=== PATIENT | female | born 1945 | race Caucasian/White ===

== ENCOUNTER → 2020-01-02 10:26 | Outpatient (CLI) | payer MEDICARE, OTHER, SELFPAY ==
--- NOTE | ~2020-01-02 | XR_ITS ---
EXAMINATION:XR cervical spine 4-5V DATE: 01/02/2020 11:22 INDICATION: Neck pain TECHNIQUE: AP, lateral,, bilateral oblique, lateral swimmers and odontoid views of the cervical spine are provided. COMPARISON: 01/18/2013 FINDINGS: There are 2 mm of anterolisthesis of L3 on L4 and L4 on L5. There our 2 mm of retrolisthesi s of L5 on L6. The odontoid is intact. No fracture is identified. The vertebral body heights are main tained. There is moderate to severe loss of intervertebral disc space height at C5-6. There is modera te to severe facet and uncovertebral joint osteoarthritis in the mid and lower cervical spine. Prever tebral soft tissues are normal. IMPRESSION: 1. Moderate to severe cervical spondylosis without acute findings. Reviewed, dictated and finalized at location A.
--- NOTE | ~2020-01-02 | MR_ITS ---
EXAMINATION: MR cervical spine wo con EXAM DATE: 01/02/2020 11:12 INDICATION: Neck pain, bilateral shoulder and arm pain and numbness and tingling and burning. TECHNIQUE: Multi-sequential, multiplanar MR images of the cervical spine were obtained without contra st. Axial T2, axial T2 MERGE sequence. Sagittal T1, T2, T2 fat saturation images also obtained. Com parison is made to prior examination from 01/23/2013. FINDINGS: There is moderate disc disease at C5-6, mild at C3-4, 4-5 and 6-7. There is 2 mm anterolis thesis C3 on C4 and C4 on C5. There is 2 mm retrolisthesis C5 on C6. The spinal cord signal intensity and intrinsic morphology is normal. Cervicomedullary junction is normal in appearance. There are no suspicious marrow signal abnormalities. Paraspinal soft tissue is unremarkable. Level by level evaluation: C2-C3: Disc does not extend beyond the endplate margin. Uncovertebral joint arthropathy: None. Facet joint arthropathy: Fused. Neural foraminal stenosis: No stenosis. Central canal stenosis: No stenosis. C3-C4: Disc does not extend beyond the endplate margin. Uncovertebral joint arthropathy: Mild left. Facet joint arthropathy: Moderate bilateral. Neural foraminal stenosis: Moderate left, mild right. Central canal stenosis: No stenosis. C4-C5: There is a minimal diffuse disc bulge. Uncovertebral joint arthropathy: Mild to moderate bilateral. Facet joint arthropathy: Moderate left, mild to moderate right. Neural foraminal stenosis: Mild to moderate left, mild right. Central canal stenosis: No stenosis. C5-C6: There is a mild to moderate diffuse disc bulge. Uncovertebral joint arthropathy: Moderate to severe left, moderate right. Facet joint arthropathy: Moderate bilateral. Neural foraminal stenosis: Severe left, moderate to severe right. Central canal stenosis: Mild. C6-C7: There is a mild diffuse disc bulge. Uncovertebral joint arthropathy: Mild to moderate bilateral. Facet joint arthropathy: Mild to moderate bilateral. Neural foraminal stenosis: No stenosis. Central canal stenosis: Mild. C7-T1: There is a minimal diffuse disc bulge. Uncovertebral joint arthropathy: Mild to moderate bilateral. Facet joint arthropathy: Mild bilateral. Neural foraminal stenosis: Mild left. Central canal stenosis: No stenosis. Progression in spondylosis compared to 2013. IMPRESSION: Spondylosis most advanced at C5-6 with significant neural foraminal stenosis. Reviewed, dictated and finalized at location B.
== END ==
PROVIDERS: PCP Family Medicine; Visit Provider Nurse Practitioner Adult Health
DX: M54.12 Radiculopathy, cervical region (principal); M47.22 Other spondylosis with radiculopathy, cervical region
CPT/HCPCS: 72050; 72141

== ENCOUNTER 2020-07-31 12:34 | Outpatient (CLI) | payer MEDICARE, OTHER, SELFPAY ==
--- NOTE | ~2020-07-31 | CT_ITS ---
EXAMINATION: CT abdomen pelvis wo/w con DATE: 07/31/2020 13:08 INDICATION: Renal mass TECHNIQUE: Computed tomography (CT) of the abdomen and pelvis was performed without and with 100 mL O mnipaque-350 intravenous contrast utilizing a standard renal mass protocol. Automated exposure contro l and iterative reconstruction technique were employed. The dose-length product was 853.42 mGy-cm. COMPARISON: 07/12/2019 FINDINGS: Mild bronchiectasis in the bilateral lower lungs which are otherwise clear. Heart size is normal. Ath erosclerotic coronary artery calcification is. No pericardial or pleural effusion. Gallbladder is not visualized and likely surgically absent. Liver, spleen, pancreas and bilateral adrenal glands are no rmal. No interval change in a 1.8 x 1.6 cm enhancing mass at the upper pole of the left kidney with identic al corresponding measurements on the prior study. Also unchanged is a 7 mm low-attenuation lesion at the upper pole of the left kidney and a couple smaller low-attenuation lesion at the lower pole of th e right kidney which likely represent renal cysts but remain too small to definitively characterize. Bladder and bilateral adnexa are unremarkable. A couple small enhancing uterine fibroids the larger m easuring 1.4 cm. Bowels are unremarkable with no wall thickening or obstruction. The appendix is not visualized. No pericecal inflammatory change to suggest acute appendicitis. Postoperative changes mariano ng the anterior abdominal wall including a ventral umbilical hernia mesh repair. Small fat-containing left inguinal hernia. No free intraperitoneal gas or fluid. No pathologically enlarged abdominal or pelvic lymphadenopathy. Chronic L1 compression fracture with 20% anterior vertebral body height loss. Severe lower lumbar spondylosis. IMPRESSION: 1. No interval change in a 1.8 x 1.6 cm enhancing left renal mass consistent with renal cell carcinom a. No evident metastatic disease. 2. Mild bronchiectasis. 3. A couple small uterine fibroids. Reviewed, dictated and finalized at location A. ER BLOWER IMPRESSION: 1. No interval change in a 1.8 x 1.6 cm enhancing left renal mass consistent wi th renal cell carcinoma. No evident metastatic disease. 2. Mild bronchiectasis. 3. A couple small uterine fibroids.
[2020-07-31 12:58] LABS: Estimated Glomerular Filt Rate > 60
== END 2020-07-31 12:35 | disposition home or self-care (01) ==
LOC: ANHIMG 12:37
PROVIDERS: PCP Family Medicine; Visit Provider Urology
DX: N28.89 Other specified disorders of kidney and ureter (principal); J47.9 Bronchiectasis, uncomplicated; D25.9 Leiomyoma of uterus, unspecified
CPT/HCPCS: 74178; Q9967

== ENCOUNTER 2022-01-19 08:07 | Outpatient (CLI) | payer MEDICARE, OTHER, SELFPAY ==
--- NOTE | ~2022-01-19 | CT_ITS ---
EXAMINATION: CT abdomen pelvis wo/w con DATE: 01/19/2022 08:27 INDICATION: Renal mass TECHNIQUE: Computed tomography (CT) of the abdomen and pelvis was performed without intravenous contr ast. Automated exposure control and iterative reconstruction technique were employed. Exam dose: 124 3.94 mGy-cm total exam DLP. COMPARISON: None. FINDINGS: Normal heart size. No pericardial or pleural effusion. The lung bases are clear. The gallbladder is absent. No bile duct or pancreatic duct dilatation. No hepatic, pancreatic, spleni c or adrenal space-occupying mass lesion. Medial upper pole contrast enhancing left renal mass lesion currently measures approximately 20.7 x 2 0.5 mm maximal dimension compared to 17.5 x 17.2 mm dimension on 07/31/2020, consistent with enlarging soft tissue mass, likely hypernephroma. Stable 6.7 mm upper pole left renal cyst. Stable lower pole approximately 6 mm right renal cyst. No urinary tract calculus or hydroureteronephrosis. No apparent left renal or IVC mass. There is atherosclerotic calcification but normal caliber of the abdominal aorta. No intraperitoneal or retroperitoneal or pelvic mass lesion or adenopathy or ascites is noted otherwise. The urinary bladder, uterus and adnexal areas are unremarkable other than some probable small uterine fibroids. No bowel obstruction or intraperitoneal free air. The appendix is likely surgically absent. Severe degenerative disc disease at L5-S1 with posterior disc bulging. There is degenerative change at the apophyseal joints with associated grade 1 anterolisthesis at L4-5 . Moderately prominent anterior wedge compression fracture deformity of L1, likely chronic. IMPRESSION: Interval enlargement of left renal mass consistent with 20.7 x 20.5 mm hypernephroma Reviewed, dictated and finalized at Location A. Reviewed, dictated and finalized at location A. IMPRESSION: Interval enlargement of left renal mass consistent with 20.7 x 20. 5 mm hypernephroma
== END 2022-01-19 08:08 | disposition home or self-care (01) ==
LOC: ANHIMG 08:07
PROVIDERS: PCP Family Medicine; Visit Provider Urology
DX: N28.89 Other specified disorders of kidney and ureter (principal); M47.817 Spondylosis without myelopathy or radiculopathy, lumbosacral region
CPT/HCPCS: 74178; Q9967

== ENCOUNTER 2022-02-23 09:08 | Outpatient (CLI) | payer MEDICARE, OTHER, SELFPAY ==
--- NOTE | ~2022-02-23 | MM_ITS ---
EXAMINATION: MM screening negrito BI w alexei HISTORY: Screening mammogram TECHNIQUE: Craniocaudal and mediolateral oblique 3-D tomosynthesis images were obtained and synthetic 2-D images were generated. CAD analysis was submitted and interpreted. COMPARISON: 06/2018, 03/06/2017 bilateral screening mammogram examinations BREAST PARENCHYMAL COMPOSITION: FINDINGS: There is no evidence of suspicious mass, calcification, or architectural distortion to sugg est malignancy in either breast. There has been no suspicious interval change. IMPRESSION: 1. No mammographic evidence of malignancy. 2. Recommend routine screening mammography in one year. BI-RADS Category 1: Negative Reviewed, dictated and finalized at location A.
== END 2022-02-23 09:09 | disposition home or self-care (01) ==
PROVIDERS: PCP Family Medicine; Visit Provider Family Medicine
DX: Z12.31 Encounter for screening mammogram for malignant neoplasm of breast (principal)
CPT/HCPCS: 77063; 77067

== ENCOUNTER 2022-06-27 10:40 | Outpatient (CLI) | payer MEDICARE, OTHER, SELFPAY ==
--- NOTE | 2022-06-27 11:15 | ECG_ITS ---
Measurements Intervals [place] Rate: 62 P: 40 RI: 157 QRS: -19 QRSD: 90 T: 5 QT: 358 QTc: 366 Interpretive Statements SINUS RHYTHM NONSPECIFIC T-WAVE ABNORMALITY ABNORMAL ECG NO PREVIOUS ECG AVAILABLE FOR COMPARISON Electronically Signed On 06-27-2022 12:30:18 PROJECT PROGRAM MANAGER by Russell Carroll M.D.
== END 2022-06-27 10:41 | disposition home or self-care (01) ==
PROVIDERS: PCP Family Medicine; Visit Provider Nurse Practitioner Family
DX: D50.9 Iron deficiency anemia, unspecified (principal); I10 Essential (primary) hypertension; R94.31 Abnormal electrocardiogram [ECG] [EKG]
CPT/HCPCS: 93005

== ENCOUNTER 2022-06-29 00:29 | Day surgery (SDC) | payer MEDICARE, OTHER, SELFPAY ==
[2022-06-20 14:12] VITALS: BMI 30.1
[2022-06-29 12:10] VITALS: BP 173/105; PULSE 86; TEMP 36.3; O2SAT 97; BMI 28.3
[2022-06-29] MEDS: LACTATED RINGERS 1,000 ML 150 ML IV CONT (12:14)
--- NOTE | 2022-06-29 12:47 | WPDANESEPPF ---
Anes - Initial Pre Proc Eval Procedure: Operation Date: 06/29/22 13:30 Proposed Procedures p Esophagogastroduodenoscopy & Colonoscopy - Artemio Saenz MD Date/Time: 06/29/22 12:47 Surgeon: Artemio Saenz MD Pre Op Diagnosis: gerd, iron deficiency anemia Patient Data Age: 77 Gender: F Height: 1.52 m Weight: 65.8 kg Last Vital Signs Temp 36.3 C L 06/29/22 12:10 Pulse 86 06/29/22 12:10 BP 173/105 H 06/29/22 12:10 Pulse Ox 97 06/29/22 12:10 O2 Del Method Room Air 06/29/22 12:10 Allergies Allergy/AdvReac Type Severity Reaction Status Date / Time codeine AdvReac Intermediate Nausea Verified 06/29/22 12:07 Home Medications Medication Instructions Recorded Confirmed Type alprazolam 0.5 mg tablet 0.5 mg PO DAILY PRN anxiety #30 06/20/21 06/27/22 Rx tabs gabapentin 300 mg capsule See Rx Instructions .Route 06/24/21 06/29/22 Rx .COMPLEX #270 caps roflumilast 500 mcg tablet 500 mcg PO DAILY #90 tabs 11/17/21 06/29/22 Rx (Daliresp) montelukast 10 mg tablet 10 mg PO DAILY #90 tabs 01/05/22 06/29/22 Rx celecoxib 200 mg capsule See Rx Instructions .Route 01/13/22 06/27/22 Rx .COMPLEX #180 caps budesonide 160 mcg-glycopyr 9 2 inh inhalation BID 01/17/22 06/27/22 History mcg-formot 4.8 mcg/actuation HFA inhaler (Breztri Aerosphere) ipratropium bromide 42 mcg (0.06 1 spray intranasal DAILY 01/17/22 06/27/22 History %) nasal spray esomeprazole magnesium 40 mg See Rx Instructions .Route 04/11/22 06/29/22 Rx capsule,delayed release .COMPLEX #90 caps fluticasone propionate 50 See Rx Instructions .Route 05/02/22 06/27/22 Rx mcg/actuation nasal .COMPLEX #48 grams spray,suspension cetirizine 10 mg capsule (All Day 10 mg PO DAILY PRN allergies 05/27/22 06/27/22 History Allergy (cetirizine)) cholecalciferol (vitamin D3) 125 125 mcg PO DAILY 05/27/22 06/29/22 History mcg (5,000 unit) tablet docusate sodium 50 mg capsule 50 mg PO DAILY 05/27/22 06/29/22 History epinephrine 0.3 mg/0.3 mL 0.3 mg IM ONCE 05/27/22 06/27/22 History injection, auto-injector tizanidine 2 mg capsule 2 mg PO TID PRN muscle spasms 05/27/22 06/29/22 History atorvastatin 40 mg tablet See Rx Instructions .Route 05/30/22 06/29/22 Rx .COMPLEX #90 tabs Cbd/Thc 25 mg PO HS 06/20/22 06/27/22 History Lactobacillus 1 cap PO DAILY 06/20/22 06/29/22 History acidophilus-Bifidobac.animalis 2.5 billion cell capsule (Daily Probiotic) albuterol sulfate 90 mcg/actuation 2 inh inhalation Q4H PRN SOB 06/20/22 06/27/22 History aerosol inhaler (Ventolin HFA) amlodipine 10 mg tablet See Rx Instructions .Route 06/20/22 06/29/22 Rx .COMPLEX #90 tabs amoxicillin 500 mg capsule See Rx Instructions .Route .COMPLEX 06/20/22 06/27/22 History formoterol fumarate 20 mcg/2 mL 20 mcg inhalation ONCE 06/20/22 06/27/22 History solution for nebulization (Perforomist) guaifenesin 600 mg tablet, 1,200 mg PO DAILY 06/20/22 06/27/22 History extended release 12 hr (Mucinex) immun glob G 10 See Rx Instructions .Route .COMPLEX 06/20/22 06/27/22 History gram/50mL(20%)-gly-IgA over 50 mcg/mL subcutaneous lata (Cuvitru) revefenacin 175 mcg/3 mL solution 175 mcg inhalation DAILY 06/20/22 06/27/22 History for nebulization (Yupelri) tramadol 50 mg tablet 50 mg PO Q6H PRN Pain 06/20/22 06/27/22 History citalopram 20 mg tablet See Rx Instructions .Route 06/23/22 06/27/22 Rx .COMPLEX #90 tabs clonidine HCl 0.1 mg tablet 0.1 mg PO DAILY #90 tabs 06/27/22 06/27/22 Rx Patient hx anesthesia problems: none Family hx anesthesia problems: none Results Review: All pre-operative results and documents have been reviewed as part of the pre-operative evaluation. [facility] Past Medical History Medical History BMI 27.0-27.9,adult BMI 29.0-29.9,adult BMI 30.0-30.9,adult Surgical History Surgical History (Reviewed 06/29/22
--- NOTE | 2022-06-29 12:52 | PM.HPGS ---
History of Present Illness History of Present Illness Consent: Risks, benefits, and alternatives have been discussed and questions answered. Patient agrees to proceed with procedure. Chief complaint: gerd, iron deficiency anemia Narrative: Nolvia Gilliam is a 77 year old female with carlie, she had scopes but almost 15 years ago, using nexium because gerd Review of Systems Constitutional: Constitutional: Reports fatigue and Reports headache(s) Eyes: Eyes: Denies blurry vision ENT: Reports Normal hearing present, Denies headache(s) and Denies neck pain Cardiovascular: Cardiovascular: Denies chest pain and Denies dyspnea Respiratory: Respiratory: Denies dyspnea Gastrointestinal: Gastrointestinal: Reports no additional gastrointestinal complaints Genitourinary: Genitourinary: Denies dysuria Musculoskeletal: Musculoskeletal: Reports neck pain Integumentary/Breasts: Skin/Breast: Denies dry skin Neurologic: Reports Normal hearing present and Reports headache(s) Psychiatric: Psychiatric: Denies anxiety Endocrine: Endocrine: Denies change in body appearance Hematologic/Lymphatic: Hematologic/Lymphatic: Denies easy bleeding Allergic/Immunologic: Allergic/Immunologic: Denies urticaria PMFSH Past Medical History Medical History BMI 27.0-27.9,adult BMI 29.0-29.9,adult BMI 30.0-30.9,adult Surgical History Surgical History H/O colonoscopy Status post cryoablation Family History Family History Father Hypertension Family history of diabetes mellitus in first degree relative Mother Family history of coronary artery disease Heart disease Sibling Diabetes mellitus Other Cerebrovascular accident Family history of arthritis Family history of cardiovascular disease Family history of lung cancer Family history of pancreatic cancer Family history of primary malignant neoplasm of liver Social History Social History Years smoked: 15 Smoking status: Former smoker Tobacco type: cigarettes Second hand tobacco smoke exposure: Yes Alcohol intake: current Substance use: current Substance use type: marijuana Other substance usage details: CBD at night Lack of Transportation: No Lack of Food: Never True Current Housing: I Have Housing Concerned About Future Housing: No Difficulty Paying Gas/Electric Bills: No Difficulty Paying for Meds: No Currently Unemployed: No Education: High School Diploma/GED Difficulty w/ Childcare or Family Care: No Living arrangements: with family 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 Gender identity (if verbalized by the patient): Female Spiritual care concerns: No Meds Home Medications and Allergies Home Medications Medication Instructions Recorded Confirmed Type alprazolam 0.5 mg tablet 0.5 mg PO DAILY PRN anxiety #30 06/20/21 06/27/22 Rx tabs gabapentin 300 mg capsule See Rx Instructions .Route 06/24/21 06/29/22 Rx .COMPLEX #270 caps roflumilast 500 mcg tablet 500 mcg PO DAILY #90 tabs 11/17/21 06/29/22 Rx (Daliresp) montelukast 10 mg tablet 10 mg PO DAILY #90 tabs 01/05/22 06/29/22 Rx celecoxib 200 mg capsule See Rx Instructions .Route 01/13/22 06/27/22 Rx .COMPLEX #180 caps budesonide 160 mcg-glycopyr 9 2 inh inhalation BID 01/17/22 06/27/22 History mcg-formot 4.8 mcg/actuation HFA inhaler (Breztri Aerosphere) ipratropium bromide 42 mcg (0.06 1 spray intranasal DAILY 01/17/22 06/27/22 History %) nasal spray esomeprazole magnesium 40 mg See Rx Instructions .Route 04/11/22 06/29/22 Rx capsule,delayed release .COMPLEX #90 caps fluticasone propionate 50 See Rx Instructions .Route 05/02/22 06/27/22 Rx mcg/actuation nasal .COMPLEX #4
--- NOTE | 2022-06-29 13:09 | SUR.OPER ---
EGD ended at 1302. Colonoscopy started at 1308.
[2022-06-29] MEDS: LACTATED RINGERS 1,000 ML 15 ML IV CONT (13:23)
[2022-06-29 13:25] VITALS: BP 153/93; PULSE 76; RESP 16; O2SAT 100
[2022-06-29 13:35] VITALS: BP 156/94; PULSE 76; RESP 20; O2SAT 100
[2022-06-29 13:45] VITALS: BP 158/89; PULSE 74; RESP 20; O2SAT 100
== END 2022-06-29 13:55 | disposition home or self-care (01) ==
PROVIDERS: PCP Family Medicine; Visit Provider Internal Medicine Gastroenterology
PROC: 0DJ08ZZ Inspection of Upper Intestinal Tract, Via Natural or Artificial Opening Endoscopic (ICD-10-PCS; CPT 43235; principal; 2022-06-29 13:30)
DX: Z12.11 Encounter for screening for malignant neoplasm of colon (principal); D50.9 Iron deficiency anemia, unspecified; D12.3 Benign neoplasm of transverse colon; K64.8 Other hemorrhoids; K21.9 Gastro-esophageal reflux disease without esophagitis; Z79.51 Long term (current) use of inhaled steroids; Z87.891 Personal history of nicotine dependence; F12.90 Cannabis use, unspecified, uncomplicated
CPT/HCPCS: 45385; 43239; 88305; J2704; J7120

== ENCOUNTER 2023-02-07 08:35 | Outpatient (CLI) | payer MEDICARE, OTHER, SELFPAY ==
--- NOTE | ~2023-02-07 | CT_ITS ---
EXAMINATION: CT abdomen pelvis wo/w con DATE: 02/07/2023 09:06 INDICATION: Renal mass TECHNIQUE: Computed tomography (CT) of the abdomen and pelvis was performed without and with 100 mL O mnipaque-350 intravenous contrast. Automated exposure control and iterative reconstruction technique were employed. The dose-length product was 1128.85 mGy-cm. COMPARISON: 01/19/2022 FINDINGS: Mild bronchiectasis at the bilateral lung bases. Heart size is normal. Atherosclerotic coronary arter y calcifications. No pericardial or pleural effusion. Status post cholecystectomy. Liver, spleen, de leon creas and bilateral adrenal glands are normal. There are a few bilateral subcentimeter low-attenuatio n likely renal cysts. Low-attenuation cortical scarring, small region of calcification, likely develo ping heterotopic ossification and mild stranding in the surrounding perinephric fat at the site of a prior enhancing mass at the upper pole of the left kidney most consistent with sequela of interval ab lation of a suspected renal cell carcinoma. Bowels are normal. A couple small enhancing likely uterin e fibroids, the larger measuring 1.5 cm. Bladder and bilateral adnexa are unremarkable. Postoperative change of prior umbilical hernia mesh repair. There is stranding in the subcutaneous fat of the ante rior abdominal wall with small focus of subcutaneous gas in the left likely related to subcutaneous i njections. No free intraperitoneal gas or fluid. No pathologically enlarged abdominal or pelvic lymph adenopathy. Moderate lumbar spondylosis with chronic L1 compression fracture. IMPRESSION: 1. Changes at the upper pole the left kidney consistent with interval placement of a prior enhancing mass suspicious for renal cell carcinoma. No evident metastatic disease. Reviewed, dictated and finalized at location L. IMPRESSION: 1. Changes at the upper pole the left kidney consistent with interval placement of a prior enhancing mass suspicious for renal cell carcinoma. No evident meta static disease.
[2023-02-07 08:59] LABS: Estimated Glomerular Filt Rate > 60
== END 2023-02-07 08:36 | disposition home or self-care (01) ==
PROVIDERS: PCP Family Medicine; Visit Provider Urology
DX: N28.89 Other specified disorders of kidney and ureter (principal)
CPT/HCPCS: 74178; Q9967

== ENCOUNTER → 2023-05-05 14:51 | Outpatient (CLI) | payer MEDICARE, OTHER, SELFPAY ==
--- NOTE | ~2023-05-05 | MM_ITS ---
EXAMINATION: MM screening negrito BI w alexei HISTORY: Screening mammogram TECHNIQUE: Craniocaudal and mediolateral oblique 3-D tomosynthesis images were obtained and synthetic 2-D images were generated. CAD analysis was submitted and interpreted. COMPARISON: 02/23/2022, 06/20/2019 bilateral screening mammogram examinations BREAST PARENCHYMAL COMPOSITION: The breasts are almost entirely fatty. FINDINGS: There is no evidence of suspicious mass, calcification, or architectural distortion to sugg est malignancy in either breast. There has been no suspicious interval change. IMPRESSION: 1. No mammographic evidence of malignancy. 2. Recommend routine screening mammography in one year. BI-RADS Category 1: Negative Reviewed, dictated and finalized at location A.
== END ==
PROVIDERS: PCP Family Medicine; Visit Provider Family Medicine
DX: Z12.31 Encounter for screening mammogram for malignant neoplasm of breast (principal)
CPT/HCPCS: 77063; 77067

== ENCOUNTER 2024-01-16 13:15 | Outpatient (CLI) | payer MEDICARE, OTHER, SELFPAY ==
--- NOTE | 2024-01-16 13:34 | ECG_ITS ---
Test Date: 2024-01-16 14:03:33 Measurements Intervals [place] Rate: 54 P: 47 ID: [id number] QRS: -24 QRSD: 90 T: 38 QT: 457 QTc: 434 Interpretive Statements SINUS BRADYCARDIA NONSPECIFIC ST & T-WAVE ABNORMALITY- DIFFUSE LEADS BORDERLINE ECG No previous ECG available for comparison Electronically Signed On 01-16-2024 14:31:08 CDT by Faizan Riojas D.O.
== END 2024-01-16 13:16 | disposition home or self-care (01) ==
PROVIDERS: PCP Family Medicine; Visit Provider Nurse Practitioner Adult Health
DX: R07.9 Chest pain, unspecified (principal)
CPT/HCPCS: 93005

== ENCOUNTER 2024-02-16 08:00 | Outpatient (CLI) | payer MEDICARE, OTHER, SELFPAY ==
--- NOTE | 2024-02-16 08:02 | EST_ITS ---
Patient Info Name: Nolvia Gilliam Age: 78 years : 1945 Gender: Female Ht: 60 in Wt: 147 lbs BSA: 1.70 m2 HR: 49 bpm BP: 120 / 63 mmHg Exam Date: 02/16/2024 8:10 AM Exam Location: [facility] Lab Patient Status: Outpatient Admit Date: 02/16/2024 Staff Ordering Physician: Margo Jerome APRN Attending Provider: Margo Jerome APRN Exercise Technologist: Ashlie Yanez [facility] Exercise Physician: Faizan Riojas DO Exam Type: CA stress test treadmill Study Info A treadmill exercise stress test was performed. Summary 1. 1. Negative Brenden exercise stress test for ischemic ST changes by ECG criteria. 2. 2. Good functional capacity, achieving 7 METs of workload. 3. 3. Appropriate HR response to exercise. 4. 4. Appropriate HR recovery at 1 minute post exercise. 5. 5. No imaging with stress testing. 6. 6. Patient informed of the above results. Protocol: Brenden Stress ECG Details Stage: REST Duration (min): 1 min : 23 sec Speed (mph): 0.0 Grade (%): 0 HR (bpm): 50 SBP (mmHg): 120 DBP (mmHg): 63 METS: --- Stage: REST Duration (min): 4 min : 39 sec Speed (mph): 0.0 Grade (%): 0 HR (bpm): 54 SBP (mmHg): 120 DBP (mmHg): 63 METS: --- Stage: STAGE 1 Duration (min): 1 min : 0 sec Speed (mph): 1.7 Grade (%): 10 HR (bpm): 72 SBP (mmHg): 120 DBP (mmHg): 63 METS: --- Stage: STAGE 1 Duration (min): 2 min : 0 sec Speed (mph): 1.7 Grade (%): 10 HR (bpm): 89 SBP (mmHg): 120 DBP (mmHg): 63 METS: --- Stage: STAGE 1 Duration (min): 3 min : 0 sec Speed (mph): 1.7 Grade (%): 10 HR (bpm): 97 SBP (mmHg): 133 DBP (mmHg): 70 METS: --- Stage: STAGE 2 Duration (min): 1 min : 0 sec Speed (mph): 2.5 Grade (%): 12 HR (bpm): 108 SBP (mmHg): 133 DBP (mmHg): 70 METS: --- Stage: STAGE 2 Duration (min): 1 min : 33 sec Speed (mph): 2.5 Grade (%): 12 HR (bpm): 124 SBP (mmHg): 133 DBP (mmHg): 70 METS: --- Stage: RECOVERY Duration (min): 0 min : 26 sec Speed (mph): 0.0 Grade (%): 0 HR (bpm): 124 SBP (mmHg): 168 DBP (mmHg): 78 METS: --- Stage: RECOVERY Duration (min): 1 min : 26 sec Speed (mph): 0.0 Grade (%): 0 HR (bpm): 84 SBP (mmHg): 168 DBP (mmHg): 78 METS: --- Stage: RECOVERY Duration (min): 2 min : 26 sec Speed (mph): 0.0 Grade (%): 0 HR (bpm): 68 SBP (mmHg): 168 DBP (mmHg): 78 METS: --- Stage: RECOVERY Duration (min): 3 min : 19 sec Speed (mph): 0.0 Grade (%): 0 HR (bpm): 64 SBP (mmHg): 146 DBP (mmHg): 69 METS: --- Rest HR: 54 bpm Peak HR: 125 bpm Rest Sys BP: 120 mmHg Peak Sys BP: 168 mmHg Max Pred HR: 144 bpm % Max Pred HR: 87 % Target HR: 122 bpm Max RPP: 21,000 bpm*mmHg Segal Score: 2 Termination Reason: Reached target heart rate or workload Cardiac Symptoms: Shortness of breath Max ST Seg Deviation: -0.60 mm Total Time: 4 min : 33 sec Rest [place] BP: 63 mmHg Peak [place] BP: 78 mmHg Angina Score:
== END 2024-02-16 08:01 | disposition home or self-care (01) ==
LOC: ANHCARD 08:00
PROVIDERS: PCP Family Medicine; Visit Provider Nurse Practitioner Adult Health
DX: R07.9 Chest pain, unspecified (principal)
CPT/HCPCS: 93017

== ENCOUNTER 2024-05-21 13:30 | Outpatient (CLI) | payer MEDICARE, OTHER, SELFPAY ==
--- NOTE | ~2024-05-21 | MR_ITS ---
EXAMINATION: MR lumbar spine wo con DATE: 05/21/2024 14:05 INDICATION: Lumbar radicular pain. TECHNIQUE: Magnetic resonance imaging (MRI) of the lumbar spine was performed without intravenous con trast. Sequences included sagittal T2-weighted FSE, sagittal T2-weighted FS FSE, sagittal T1-weighted FSE, and axial T2-weighted FSE. COMPARISON: Lumbar spine MRI 02/27/2019, CT abdomen and pelvis 02/07/23 FINDINGS: There is 8 degrees dextrocurvature of lumbar spine. There is a chronic compression fracture of L1 with 2/5 loss of height. There is 3 mm anterolisthesis of L4 on L5 and L5 on S1. There is mild ly decreased disc height at L4-L5 and severely decreased disc at L5-S1. The distal spinal cord signal intensity is normal. The conus medullaris is at T12-L1. There is a 3.2 cm mass of left kidney, consi stent with changes of ablation. The following disc levels are specifically discussed: L1-L2: The disc is bulging. There is mild bilateral facet joint osteoarthritis. There is mild bilater al neural foraminal stenosis. There is mild central canal stenosis. L2-L3: The disc is bulging. There is mild right and severe left facet joint osteoarthritis. There is mild bilateral neural foraminal stenosis. There is mild central canal stenosis. L3-L4: The disc is bulging. There is mild bilateral facet joint osteoarthritis. There is mild bilater al neural foraminal stenosis. There is mild central canal stenosis. L4-L5: The disc is bulging. There is severe bilateral facet joint osteoarthritis. There is mild bilat eral neural foraminal stenosis. There is mild central canal stenosis. L5-S1: The disc is bulging and has an annular fissure. There is severe bilateral facet joint osteoart hritis. There is mild bilateral neural foraminal stenosis. There is mild central canal stenosis. IMPRESSION: 1. Severe lumbar spondylosis, stable from 02/27/2019. Reviewed, dictated and finalized at location A. OSITE LAYUP WORKER
== END 2024-05-21 13:31 | disposition home or self-care (01) ==
LOC: GOSHIMG 13:33
PROVIDERS: PCP Nurse Practitioner Family; Visit Provider Nurse Practitioner Family
DX: M54.16 Radiculopathy, lumbar region (principal); M47.816 Spondylosis without myelopathy or radiculopathy, lumbar region
CPT/HCPCS: 72148

== ENCOUNTER 2024-06-23 10:48 | Emergency (ER) | payer MEDICARE, OTHER, SELFPAY ==
--- NOTE | ~2024-06-23 | XR_ITS ---
Left ankle Technique: AP, oblique, and lateral views were obtained. Clinical History: Pain Findings: No acute fracture or dislocation is seen. Osseous alignment is anatomic. Ankle mortise and other visualized joint spaces are preserved. Soft tissues are otherwise unremarkable. Impression: Unremarkable left ankle. Reviewed, dictated and finalized at location . E ENGINEER Impression: Unremarkable left ankle.
--- NOTE | ~2024-06-23 | XR_ITS ---
Left foot Technique: AP, oblique, and lateral views were obtained. Clinical History: Pain Findings: No acute fracture or dislocation is seen. Osseous alignment is anatomic. Joint spaces are p reserved without erosive or degenerative change. Soft tissues are unremarkable. Impression: Unremarkable left foot radiographs. Reviewed, dictated and finalized at location . L NET MAKER Impression: Unremarkable left foot radiographs.
[2024-06-23 11:55] VITALS: BP 139/65; PULSE 58; RESP 18; TEMP 36.5; O2SAT 99
--- NOTE | 2024-06-23 12:38 | ED_ITS ---
HPI - General Adult General Chief complaint: Extremity Injury, Lower Stated complaint: LT Ankle/foot injury Source: patient Mode of arrival: ambulatory Limitations: no limitations History of Present Illness HPI narrative: This is a 78-year-old female who presented for evaluation of left ankle/ foot pain since yesterday. She was walking in her kitchen when she twisted her left ankle. She now has throbbing pain in left ankle and left heel/arch of the foot. A rash she states that her pain is minimal but with walking her pain increases to 10/10 in severity. She tried taking ibuprofen for symptoms. She has been ambulating with a walker. She has an underlying history of Fibromyalgia, chronic pain, and osteoporosis which are all relevant to her history, among other clinical conditions. Related Data Home Medications ?Medication ?Instructions ?Recorded ?Confirmed ?Last Taken ?Type budesonide 160 mcg-glycopyr 9 2 inh inhalation BID 01/17/22 02/15/24 Unknown History mcg-formot 4.8 mcg/actuation HFA inhaler ([email or web address] Poliglotaphere) ipratropium bromide 42 mcg (0.06 1 spray intranasal DAILY 01/17/22 02/15/24 Unknown History %) nasal spray cetirizine 10 mg capsule (All Day 10 mg PO DAILY PRN allergies 05/27/22 02/15/24 Unknown History Allergy (cetirizine)) cholecalciferol (vitamin D3) 125 125 mcg PO DAILY 05/27/22 02/15/24 06/28/22 History mcg (5,000 unit) tablet epinephrine 0.3 mg/0.3 mL 0.3 mg IM ONCE 05/27/22 02/15/24 Unknown History injection, auto-injector Cbd/Thc 25 mg PO HS 06/20/22 02/15/24 Unknown History formoterol fumarate 20 mcg/2 mL 20 mcg inhalation ONCE 06/20/22 02/15/24 Unknown History solution for nebulization (Perforomist) immun glob G 10 See Rx Instructions .Route .COMPLEX 06/20/22 02/15/24 Unknown History gram/50mL(20%)-gly-IgA over 50 mcg/mL subcutaneous lata (Cuvitru) revefenacin 175 mcg/3 mL solution 175 mcg inhalation DAILY 06/20/22 02/15/24 Unknown History for nebulization (Yupeemiliei) Allergies Allergy/AdvReac Type Severity Reaction Status Date / Time codeine AdvReac Intermediate Nausea Verified 06/23/24 12:00 Review of Systems Review of Systems: CONSTITUTIONAL: Denies fever, chills, or sweats. EYES: Denies visual changes, redness, or discharge. ENT: Denies rhinorrhea, congestion, sore throat, or otalgia. CARDIOVASCULAR: Denies chest pain, palpitations, or edema. RESPIRATORY: Denies cough or dyspnea. GASTROINTESTINAL: Denies abdominal pain, nausea, vomiting, or diarrhea. GENITOURINARY: Denies dysuria or hematuria. SKIN: Denies rash or itching. MUSCULOSKELETAL: reports left foot and ankle pain. Reports chronic back pain and neck pain. NEUROLOGIC: Denies headache, numbness, dizziness, or weakness. PSYCHIATRIC: Denies anxiety or depression. [facility] Past Medical History Medical History Fibromyalgia Osteoarthritis Chest pain Nasal airway abnormality Mass of tongue Screening for thyroid disorder Surgical History Surgical History H/O colonoscopy Status post cryoablation Family History Family History Father Hypertension Family history of diabetes mellitus in first degree relative Mother Family history of coronary artery disease Heart disease Sibling Diabetes mellitus Other Cerebrovascular accident Family history of arthritis Family history of cardiovascular disease Family history of lung cancer Family history of pancreatic cancer Family history of primary malignant neoplasm of liver Social History Social History Years smoked: 15 Smoking status: Former smoker Tobacco type: cigarettes Second hand tobacco smoke exposure: Yes Alcohol intake: current Substance use: current Substance use type: marijuana Other substance usage details: CBD at night Lack of Transportation: No Lack of Food: Never True Current Housing: I Have Housing Concerned About Future Housing: No Difficulty Paying Gas/Electric Bills: No Difficulty Paying for Meds: No Currently Unemployed: No Education: High School Diploma/GED Difficulty w/ Childcare or Family Care: No Living arrangements: with family Occupation/Education: 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 HEAD: Normocephalic, atraumatic. EYES: PERRLA and EOMI. ENT: Nares clear, no rhinorrhea or epistaxis. Mucous membranes moist. Oropharynx without tonsillar hypertrophy exudate or other lesions. Bilateral TMs pearly blake nonbulging NECK: Supple. No adenopathy or masses. No carotid bruits or JVD CHEST: Clear to auscultation. No respiratory distress. No wheezes rales or rhonchi HEART: Regular rate and rhythm. No murmur heard. Normal peripheral pulses. ABDOMEN: Soft, nontender, nondistended, normal active bowel sounds. EXTREMITIES: able to dorsi and plantar flex the left foot. There is no tenderness in the left ankle. There is tenderness in the left calcaneus and arch of the left foot. No obvious swelling. No deformity. SKIN: Warm, dry, no rash. NEURO: No focal deficits. Alert and oriented x3. PSYCH: Normal mood and affect. Course Course Emergency Course: This is a 78-year-old female who presented for evaluation of left foot and ankle pain. X rays were negative for fracture. Exam is consistent with muscle strain. Recommended she by an [id number] Velcro ankle splint. In the meantime we provided her with an Srriam wrap. Will dc with tramadol. Follow up with primary provider. Use walker as needed. She states her can assist her at home. Go to the emergency department for worsening symptoms. Patient in agreement with plan of care. Level of Care: Express Care Visit Vital Signs Vital signs: Vital Signs Temperature 36.5 C 06/23/24 11:55 Pulse Rate 58 L 06/23/24 11:55 Respiratory Rate 18 06/23/24 11:55 Blood Pressure 139/65 06/23/24 11:55 Pulse Oximetry 99 06/23/24 11:55 Oxygen Delivery Room Air 06/23/24 11:55 Temperature 36.5 C 06/23/24 11:55 Pulse Rate 58 L 06/23/24 11:55 Respiratory Rate 18 06/23/24 11:55 Blood Pressure 139/65 06/23/24 11:55 Pulse Oximetry 99 06/23/24 11:55 Oxygen Delivery Room Air 06/23/24 11:55 Medical Decision Making Vital Signs Vital Signs: Vital Signs Temperature 36.5 C 06/23/24 11:55 Pulse Rate 58 L 06/23/24 11:55 Respiratory Rate 18 06/23/24 11:55 Blood Pressure 139/65 06/23/24 11:55 Pulse Oximetry 99 06/23/24 11:55 Oxygen Delivery Room Air 06/23/24 11:55 Temperature 36.5 C 06/23/24 11:55 Pulse Rate 58 L 06/23/24 11:55 Respiratory Rate 18 06/23/24 11:55 Blood Pressure 139/65 06/23/24 11:55 Pulse Oximetry 99 06/23/24 11:55 Oxygen Delivery Room Air 06/23/24 11:55 Imaging Data Radiologist's impression: Ordering Physician: Russell Gallagher APRN Date of Service: 06/23/24 Procedure(s): XR ankle LT min 3V Accession Number(s): [id number] cc: Russell Gallagher APRN; Scott Hernandez MD~ Left ankle Technique: AP, oblique, and lateral views were obtained. Clinical History: Pain Findings: No acute fracture or dislocation is seen. Osseous alignment is anatomic. Ankle mortise and other visualized joint spaces are preserved. Soft tissues are otherwise unremarkable. Impression: Unremarkable left ankle. Left foot Technique: AP, oblique, and lateral views were obtained. Clinical History: Pain Findings: No acute fracture or dislocation is seen. Osseous alignment is anatomic. Joint spaces are preserved without erosive or degenerative change. Soft tissues are unremarkable. Impression: Unremarkable left foot radiographs. Discharge Plan Discharge Clinical Impression: Left ankle sprain, Strain of foot, left Patient Disposition: Home, Self-Care Condition: Stable Instructions: Antibiotic Form, Muscle Strain (ED) Patient Language: Georgian Prescriptions: New tramadol 50 mg tablet 50 mg PO Q6H PRN (Reason: pain) Qty: 15 0RF No Action Breztri Aerosphere 160-9-4.8 mcg/actuation HFA aerosol inhaler 2 inh inhalation BID ipratropium bromide 42 mcg (0.06 %) spray,non-aerosol 1 spray intranasal DAILY methylprednisolone [Medrol] 4 mg tablet 4 mg PO BID Qty: 20 1RF Rx Instructions: take 1 tablet b.i.d. with food for 10 days and then stop the medication azelastine 137 mcg (0.1 %) spray,non-aerosol 137 mcg intranasal . q.h.s. Qty: 30 1RF Rx Instructions: administer into each nostril 1 or 2 sprays q.h.s. at bedtime All Day Allergy (cetirizine) 10 mg capsule 10 mg PO DAILY PRN (Reason: allergies) cholecalciferol (vitamin D3) 125 mcg (5,000 unit) tablet 125 mcg PO DAILY epinephrine 0.3 mg/0.3 mL auto-injector 0.3 mg IM ONCE Rx Instructions: as a single dose; may repeat once formoterol fumarate [Perforomist] 20 mcg/2 mL Solution For Nebulization 20 mcg INHALATION ONCE Yupelri 175 mcg/3 mL Solution For Nebulization 175 mcg INHALATION DAILY Cuvitru 10 gram/50 mL (20 %) Solution See Rx Instructions .ROUTE .COMPLEX Rx Instructions: 50 mL subcutaneously Cbd/Thc 25 mg PO HS fluticasone propionate 50 mcg/actuation spray,suspension See Rx Instructions .ROUTE .COMPLEX Qty: 48 1RF Dose Instruction: USE 2 SPRAYS IN EACH NOSTRIL DAILY Rx Instructions: USE 2 SPRAYS IN EACH NOSTRIL DAILY albuterol sulfate [Ventolin HFA] 90 mcg/actuation HFA aerosol inhaler 2 inh INHALATION Q4H PRN (Reason: SOB) Qty: 8.5 0RF alprazolam 0.5 mg tablet 0.5 mg PO DAILY PRN (Reason: anxiety) Qty: 30 1RF atorvastatin 40 mg tablet See Rx Instructions .ROUTE .COMPLEX Qty: 90 1RF Dose Instruction: TAKE 1 TABLET(40 MG) BY MOUTH DAILY Rx Instructions: TAKE 1 TABLET(40 MG) BY MOUTH DAILY esomeprazole magnesium 40 mg capsule,delayed release(DR/EC) See Rx Instructions .ROUTE .COMPLEX Qty: 90 1RF Dose Instruction: TAKE ONE CAPSULE BY MOUTH DAILY Rx Instructions: TAKE ONE CAPSULE BY MOUTH DAILY gabapentin 300 mg capsule See Rx Instructions .ROUTE .COMPLEX Qty: 270 1RF Dose Instruction: TAKE 1 CAPSULE BY MOUTH THREE TIMES DAILY Rx Instructions: TAKE 1 CAPSULE BY MOUTH THREE TIMES DAILY citalopram 20 mg tablet See Rx Instructions .ROUTE .COMPLEX Qty: 90 1RF Dose Instruction: TAKE 1 TABLET BY MOUTH EVERY DAY Rx Instructions: TAKE 1 TABLET BY MOUTH EVERY DAY celecoxib 200 mg capsule See Rx Instructions .ROUTE .COMPLEX Qty: 180 1RF Dose Instruction: TAKE ONE CAPSULE BY MOUTH TWICE DAILY Rx Instructions: TAKE ONE CAPSULE BY MOUTH TWICE DAILY roflumilast 500 mcg tablet See Rx Instructions .ROUTE .COMPLEX Qty: 90 0RF Dose Instruction: TAKE 1 TABLET BY MOUTH DAILY Rx Instructions: TAKE 1 TABLET BY MOUTH DAILY montelukast 10 mg tablet See Rx Instructions .ROUTE .COMPLEX Qty: 90 0RF Dose Instruction: TAKE 1 TABLET BY MOUTH DAILY Rx Instructions: TAKE 1 TABLET BY MOUTH DAILY amlodipine 10 mg tablet See Rx Instructions .ROUTE .COMPLEX Qty: 90 0RF Dose Instruction: TAKE 1 TABLET BY MOUTH DAILY Rx Instructions: TAKE 1 TABLET BY MOUTH DAILY clonidine HCl 0.1 mg tablet 0.1 mg PO DAILY Qty: 90 1RF olmesartan 20 mg tablet 20 mg PO DAILY Qty: 90 0RF Follow-up/Referrals: Scott Hernandez MD [Primary Care Provider] - Time of Disposition: 13:02
--- OUTSIDE RECORDS SUMMARY | 2024-06-27 23:54 | XMS_ITS | Encounter Summary ---
Author Organization [facility] Address [address] [place] [address]. [place] [address] [place] [address] Care Team Providers Care Retail Center Receptionist Name Role Phone Scott Hernandez MD Primary Care Provider [phone] Encounter Details Date Type Department Care Team (Late st Contact Info) Description 02/28/2022 9:00 AM T - 02/28/2022 11:59 PM [facility] Hospital Encounter [facility] [address] [place], [place] [address] Dustin Akins MD 3rd [facility] [address] [place] [id number] Discharge Disposition: Home or Self Care (Routine Discharge) Social History Tobacco Use Types Packs/Day Years Used Date Smoking Tobacco: Former Cigarettes 2 10 1987 Smokeless Tobacco: Never Alcohol Use Standard Drinks/Week Comments Yes 0 (1 standard drink = 0.6 oz pur e alcohol) AUDIT-C Answer Date Recorded Frequency of Alcohol Consumption Monthly or less 06/12/2018 Average Number of Drinks Not on file 018 Frequency of Binge Drinking Not on file 10/2017 PHQ-2 Answer Date Recorded PHQ-2 Score - If the patient scores above 3, please move on to questions 3-9 1 01/31/2022 Comments No Sex and Gender Information Value Date Recorded Sex Assigned at Not on file Legal Sex Female 9:34 PM CDT Gender Identity Not on file Sexual Orientation Not on file COVID-19 Exposure Response Date Recorded In the last 10 days, have rolly u been in contact with someone who was confirmed or suspected to have Coronavirus/COVID-19? No / Unsure 01/31/2022 10:04 AM CDT documented as of this encounter Medications at Time of Discharge ALBUTEROL (2.5 MG/3ML) 0.083% nebulizer solutionIndicatio ns:Chronic obstructive pulmonary disease, unspecified COPD type ([facility]) USE 1 VIAL IN NEBULIZER EVERY 6 HOURS - as needed for rescue( max 30 doses per month) 360 mL 11 09/28/2020 albuterol sulfate HFA 108 (90 Base) MCG/ACT inhaler 08/08/2016 ALPRAZolam 0.5 MG tablet Take 1 tablet (0.5 mg total) by mouth as needed for Anxiety. Amlodipine-Olmesa rtan 10-40 MG Tab 10/05/2016 atorvastatin 40 MG tablet TK 1 T PO QD 0 05/18/2018 azithromycin (ZITHROMAX) 500 mg tabletIndications :Chronic obstructive pulmonary disease, unspecified COPD type ([facility]) Take 1 tablet (500 mg total) by mouth 3 (three) times a week. 36 tablet 3 01/31/2022 celecoxib 200 MG capsule 09/06/2016 cetirizine 10 MG tablet Take 1 tablet (10 mg total) by mouth. citalopram 20 MG tablet 10/05/2016 cloNIDine 0.1 MG tablet 07/12/2016 CPAP MACHINEIndication s:BRUNO (obstructive sleep apnea) AutoCPAP [id number] For use when sleeping Lifetime use 1 Device 02/19/2019 CUVITRU 8 GM/40ML Solution every 7 days. 12 01/17/2018 cyclobenzaprine 10 MG tablet TK 1 T PO BID 0 05/29/2018 DALIRESP 500 MCG Tab Take by mouth daily. 03/29/2021 dexlansoprazole (DEXILANT) 30 MG capsule 02/02/2017 EPINEPHrine 0.3 MG/0.3ML injection Inject 0.3 mLs (0.3 mg total) into the muscle as needed for Anaphylaxis. 12 01/17/2018 esomeprazole 40 MG capsule Take 1 capsule (40 mg total) by mouth every morning before breakfast. 09/11/2017 gabapentin 300 MG capsule 10/05/2016 milnacipran (SAVELLA) 50 MG tablet 07/19/2016 montelukast 10 MG tablet Take 1 tablet (10 mg total) by mouth nightly at bedtime. 08/23/2016 NEBULIZER DME SUPPLYIndications :Productive cough,CVID (common variable immunodeficiency) ([facility]),Bronchie ctasis without complication ([facility]) Take 1 Device by nebulization every 4 (four) hours as needed. 1 Device 11/12/2018 vitamin D3, cholecalciferol, 5000 UNITS capsule YUPELRI 175 MCG/3ML SolutionIndicatio ns:Chronic obstructive pulmonary disease, unspecified COPD type ([facility]) USE 1 VIAL IN NEBULIZER DAILY 90 mL 11 09/20/2021 BUDESONIDE 0.5 MG/2ML nebulizer solutionIndicatio ns:Chronic obstructive pulmonary disease, unspecified COPD type ([facility]) USE 1 VIAL IN NEBULIZER EVERY MORNING. (RINSE MOUTH AFTER USE) 960 mL 11 09/20/2021 4 fluticasone propionate 50 MCG/ACT nasal spray TK 2 SPRAYS IN EACH NOSTRIL QD 06/27/2019 4 ipratropium 0.06 % nasal spray U 2 SPRAYS UP TO TID INTRANASALLY FOR 13 DAYS 0 01/11/2019 4 PERFOROMIST 20 MCG/2ML nebulizer solutionIndicatio ns:Chronic obstructive pulmonary disease, unspecified COPD type ([facility]) USE 1 VIAL IN NEBULIZER TWICE DAILY - morning and evening 2 mL 11 07/29/2021 2 documented as of this encounter Plan of Treatment Not on file documented as of this encounter Procedures Procedure Name Priority Date/Time Associated Diagnosis Comments CORONAVIRUS (COVID 19) Routine 02/28/2022 9:00 AM CDT documented in this encounter Results * (ABNORMAL) CORONAVIRUS (COVID 19) (02/28/2022 9:00 AM CDT) SPEC DESCRIPTION NASAL 02/29/20 11:00 AM CDT [facility] CORONAVIRUS SARS COV 2 PCR (RESP) POSITIVE(A A) NEGATIVE 02/28/2022 9:49 PM CDT [facility] Comment: THE SARS-CoV-2 TEST HAS BEEN AUTHORIZED BY THE FDA UNDER AN EUA FOR USE BY AUTHORIZED LABORATORIES. PERFORMED BY NUCLEIC ACID AMPLIFICATION PCR FIRST TEST UNKNOWN 02/28/2022 11:00 AM CDT [facility] EMPLOYED IN HEALTHCARE UNKNOWN 02/28/2022 11:00 AM CDT [facility] SYMPTOMATIC DEFINED BY CDC UNKNOWN 02/28/2022 11:00 AM CDT [facility] DATE OF SYMPTOM ONSET UNKNOWN 02/28/2022 11:00 AM CDT [facility] HOSPITALIZATION STATUS UNKNOWN 02/28/2022 11:00 AM CDT [facility] PATIENT IN ICU UNKNOWN 02/28/2022 11:00 AM CDT [facility] RESIDENT OF [facility] UNKNOWN 02/28/2022 11:00 AM CDT [facility] UNKNOWN 02/28/2022 11:00 AM CDT [facility] 02/28/2022 9:00 AM CDT Dustin Akins MD MICROBIOLOGY - GENERAL [place] Final Result [facility] [address] [place] [address], [place] [phone] [facility] [address] 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
--- OUTSIDE RECORDS SUMMARY | 2024-06-27 23:54 | XMS_ITS | Encounter Summary ---
Author Organization [facility] Address [address] [place] [address]. [place] [address] [place] [address] Care Team Providers Care Traffic Control Technician Name Role Phone Scott Hernandez MD Primary Care Provider [phone] Reason for Visit * Reason Onset Date Comments Follow Up Call 06/14/2022 Encounter Details Date Type Department Care Team (Late st Contact Info) Description 06/14/2022 Telephone [facility] [place] [facility] [address] [facility] [place] [address] Dustin Akins [facility] [address] [place], [place] [id number] Follow Up Call Social History Tobacco Use Types Packs/Day Years Used Date Smoking Tobacco: Former Cigarettes 2 1987 Smokeless Tobacco: Never Alcohol Use Standard [...] on file Sexual Orientation Not on file documented as of this encounter Progress Notes * Jose Ardon MA - 06/14/2022 2:39 PM CST Scheduled METRY TECHNICIAN * Jose Ardon MA - 06/14/2022 10:17 AM CST Per BR review of vcert paperwork Needs non emergent follow up to discuss repeat testing METRY TECHNICIAN documented in this encounter Plan of Treatment Not on file documented as of this encounter Visit Diagnoses Not on filedocumented in this encounter Additional Health Concerns Assessment Noted Time PHQ-9 Depression Total Score: 2 06/15/20 21 10:10 AM TELEMETRY TECHNICIAN documented as of this encounter Care Teams Traffic Control Technician Relationship Specialty Start Date End Date Scott Hernandez MD [address] [address] PCP - General 01/03/17 documented as of this encounter
--- OUTSIDE RECORDS SUMMARY | 2024-06-27 23:54 | XMS_ITS | Encounter Summary ---
Author Organization [facility] Address [address] [place] [address] Care Team Providers Care Senior Stereo Compiler Team Lead Name Role Phone Scott Hernandez MD Primary Care Provider [phone] Encounter Details Date Type Department Care Team (Late st Contact Info) Description 01/30/2018 Lab Requisition [facility] [address] [place] [address] Scott Hernandez MD [address] [place] [address] Social History Tobacco Use Types Packs/Day Years Used Date Smoking Tobacco: Never Assessed Sex and Gender Information Value Date Recorded Sex Assigned at Not on file Gender Identity Not on file Sexual Orientation Not on file documented as of this encounter Plan of Treatment Not on file documented as of this encounter Procedures Procedure Name Priority Date/Time Associated Diagnosis Comments DERMATOPATHOLOGY Routine 01/25/2018 12:0 0 AM CDT documented in this encounter Results * DERMATOPATHOLOGY (01/25/2018 12:00 AM CDT) Case Report Dermatopathology Report ? Case: [id number] ? Authorizing Provider: ??Scott Hernandez MD ? Collected: ? 01/25/2018 12:00 AM ? Pathologist: ? Tana Epps MD ?Received: ?01/30/2018 12:12 PM ? Specimen: ?Skin, left upper arm ? 1:06 PM [facility] DERMATOPATHOLOGY LABORATORY Final Diagnosis Specimen A. SKIN, left upper arm: BENIGN VERRUCOUS KERATOSIS, INFLAMED (L82.1) PRESENT AT MARGIN 1:06 PM [facility] DERMATOPATHOLOGY LABORATORY Clinical History Changing lesion. Check margins. 1:06 PM [facility] DERMATOPATHOLOGY [facility]ORATORY Gross Description Specimen A: Received is one formalin filled container labeled with the patient's name and designated left upper arm. The specimen consists of a shave biopsy (2 pieces) measuring [id number], inked green, & [id number]. Jar 0. 1:06 PM [facility] DERMATOPATHOLOGY LABORATORY Microscopic Description Specimen A. SKIN, left upper arm: Sections show hyperkeratosis, papillomatosis, hypergranulosis, and acanthosis. Inflammatory cells are present within the dermis. These histological findings can be seen in a verruca vulgaris or a seborrheic keratosis. This lesion is present at the margin of the specimen. 1:06 PM [facility] DERMATOPATHOLOGY LABORATORY Disclaimer An external and internal positive and negative controls are appropriate for the histochemical, immunohistochemical and immunofluorescence stain(s) in this case (if any), except where stated explicitly. The performance characteristics of the stain(s) cited in this report were developed and its performance characteristic determined by the Dermatopathology Laboratory at [facility]. These tests need not be, and therefore are not, approved by the [place] Food and Drug Administration. The tests are used for clinical purposes. Billing Codes Specimen Charges Stain Charges 98975 1 07/25/201 8 1:06 PM CDT DERMATOPATHOLOGY LABORATORY Embedded Images 8 1:06 PM CDT DERMATOPATHOLOGY LABORATORY Pathology/Cytolog y TISSUE SPECIMEN FROM SKIN / Unknown 01/25/2018 01/30/2018 12:12 PM CDT Scott Hernandez MD LAB - PATHOLOGY/CYTO LOGY ORDERABLES DERMATOPATHOLOGY LABORATORY [facility] - Department of Dermatology [address] [place] [address], 5th Floor Lab [address] [phone] documented in this encounter Visit Diagnoses Not on filedocumented in this encounter Care Teams Senior Stereo Compiler Team Lead Relationship Specialty Start Date End Date Scott Hernandez MD [address] [place] [address] PCP - General 01/30/18 documented as of this encounter
--- OUTSIDE RECORDS SUMMARY | 2024-06-27 23:54 | XMS_ITS | Encounter Summary ---
Author Organization [facility] Address [address] [place] [address]. [place] [address] [place] [address] Care Team Providers Care Product Introduction Manager Name Role Phone Scott Hernandez MD Primary Care Provider [phone] Encounter Details Date Type Department Care Team (Latest Contact Info) Description 08/09/2023 Scan HEALTH INFO SRVCS Scanned, Doc Med Group Social History Tobacco Use Types Packs/Day Years [...] on file 10/2017 PHQ-2 Answer Date Recorded Patient Health Questionnaire-2 Score 0 01/03/2023 Comments No Sex and Gender Information Value [...] Total Score: 2 06/15/20 21 10:10 AM AUTOMATION TEST ENGINEER documented as of this encounter Care Teams Product Introduction Manager Relationship Specialty Start Date End Date Sctot Hernandez MD [address] [place] [address] PCP - General 01/03/17 documented as of this encounter
--- OUTSIDE RECORDS SUMMARY | 2024-06-27 23:54 | XMS_ITS | Encounter Summary ---
Author Organization [facility] Address [address] [place] [address]. [place] [address] [place] [address] Care Team Providers Care Chinese Instructor Name Role Phone Scott Hernandez MD Primary Care Provider [phone] Encounter Details Date Type Department Care Team (Latest Contact Info) Description 02/16/2022 Scan HEALTH INFO SRVCS Scanned, Documents Social History Tobacco Use Types Packs/Day Years Used Date Smoking Tobacco: Former Cigarettes 2 10 968 1987 Smokeless Tobacco: Never Alcohol Use Standard [...] Recorded In the last 10 days, have yo u been in contact with someone who was confirmed or suspected to have Coronavirus/COVID-19? No / Unsure 01/31/2022 10:04 AM CDT documented as of this encounter Plan of Treatment Not on file documented as of this encounter Visit Diagnoses Not on filedocumented in this encounter Additional Health Concerns Assessment Noted Time PHQ-9 Depression Total Score: 2 12/07/20 21 10:10 AM MANAGER INCOME TAX documented as of this encounter Care Teams Chinese Instructor Relationship Specialty Start Date End Date Scott Hernandez MD [address] [place] [address] PCP - General 01/03/17 documented as of this encounter
--- OUTSIDE RECORDS SUMMARY | 2024-06-27 23:54 | XMS_ITS | Encounter Summary ---
Author Organization [facility] Address [address] [place] [address]. [place] [address] [place] [address] Care Team Providers Care Hair Machine Operator Name Role Phone Scott Hernandez MD Primary Care Provider [phone] Reason for Visit * Reason Comments Follow Up Last seen 06/2021 * Consultation/Treatment (Routine) - Closed Specialty Diagnoses / Procedures Referred By Contact Referred To Contact PULMONARY DISEASE / SLEEP & RESPIRATORY CARE Diagnoses FOLLOW UP Scott Hernandez MD [address] [place] [address] Phone: tel: fax: Dustin Akins MD [address] [place] [address] [address] [place] [address] Phone: tel: fax: Referral ID Status Reason Start Date Expiration Date Visits Re quested Visits Authorized [id number] Closed 01/31/2022 03/03/2023 100 100 Encounter Details Date Type Department Care Team (Late st Contact Info) Description 01/31/2022 10:20 AM CDT Office Visit [facility] - [address] [place] [address] Dustin Akins MD [address] [place] [address] [address] [place] [address] Follow Up (Last seen 06/2021) Social History Tobacco Use Types Packs/Day Years Used Date Smoking Tobacco: Former Cigarettes 2 1987 Smokeless Tobacco: Never Tobacco Cessation:Counseling Given: Yes Alcohol Use Standard Drinks/Week Comments Yes 0 [...] AM CDT documented as of this encounter Last Filed Vital Signs Vital Sign Reading Time Taken Comments Blood Pressure 124/70 01/31/2022 10:37 AM CDT Pulse 75 01/31/2022 10:37 AM CDT Temperature 36.9 ??C (98.4 ??F) 01/31/2022 10:37 AM C DT Respiratory Rate 16 01/31/2022 10:37 AM CDT Oxygen Saturation 99% 01/31/2022 10:37 AM CDT ra Inhaled Oxygen Concentration - - Weight 75.3 kg (166 lb) 01/31/2022 10:37 AM CDT Height 152.4 cm (5') 01/31/2022 10:37 AM CDT Body Mass Index 32.42 01/31/2022 10:37 AM CDT documented in this encounter Progress Notes * Dustin Akins MD - 01/31/2022 10:20 AM CDT [facility] PULMONARY MEDICINE History Chief Complaint Patient presents with ??? Follow Up Last seen 06/2021 76-year-old obese white female former smoker with past medical history of CVID, BRUNO, asthma/COPD, recurrent sinusitis/bronchitis, bronchiectasis, seasonal allergies, and GERD presents for follow-up. Initially referred for bronchiectasis. Followed with Dr. Huang in the past. 02/2017: diagnosed with CVID, started on Cuvitru (IVIG). 05/2017-06/2018: noted treatment of AEBronchiectasis x ~6; being treated with antibiotics by PCP; typically 5 day courses 07/04/2018: AEBronchiectasis; prednisone, LQ 750mg x 5 days 11/12/2018: office visit; notes concern over Ig levels; now low normal; seeing Dr. Huang later this week. States she is breathing well. Still with productive cough, notes baseline. Asking for new nebulizer, remains disinterested in CPAP at present. 02/19/2019: OV with ACNP; increased productive cough; underwent 6MWT; told to increase nebs, flutter 05/08/2019: treated for sinus infection with a zpak 05/24/2019: OV; increased tolerance of CPAP; using medical marijuana edibles; notes ongoing sinus congestion; worried about developing bronchitis; started on 3x weekly azithromycin 06/03/2019: OV, LM METABOLIC SPECIALIST; noted possible VCD on 05/25; suspected AEBronchiectasis; given LQ and prednisone 06/11/2019: [facility]; continued symptoms; flu swab negative; CTA without acute finding, no PE 07/12/2019: OV; LM METABOLIC SPECIALIST; doing well; taking meds, using flutter; planned travel to [place] thru 11/2019. 06/18/2020: Tested + for covid; grandson known contact 07/16/2020: OV; last seen 05/2019; hospitalized with covid > 1 month; getting IVIG from Dr. Ruano's office; breathing well; no exacerbations in approximately 1 year; compliant with nebs, meds, cpap 06/15/2021: OV; breathing well; no exacerbations since last visit; needing azithro refill; requesting change from nebs if economically feasible; sleeping well with CPAP 01/31/2022: OV; notes issue at present with IVIG pump; breathing at baseline; no exacerbations since last visit; sleeping well with CPAP; no new complaints At prior baseline 2018: Notes improvement since going back to weekly IVIG infusions; things had worsened after going to biweekly dosing. Notes baseline dyspnea on exertion after ambulating 30 yards or up one flight of stairs, takes 5 minutes of rest regain her breath. Notes a chronic cough that began circa 2014; notes cough. Has daily, intermittently productive of white to green sputum, Frequently notes coughing up hard chunks of sputum. Notes frequent, wheezing, especially, when dyspneic. notes occasional pleuritic chest discomfort related to cough. Denies palpitations, fever, chills, night sweats, hemoptysis. Notes extensive allergies, followed with accounts receivable clerk, on SCIT Notes diagnosis of BRUNO; elected not to wear CPAP in past. Former smoker; quit 1980s; approximate 40 pack year history. Denies alcohol/illicits. 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 Denies exposure to TB, asbestos, mold, birds. Notes GERD, fairly well controlled. Notes receiving influenza and pneumococcal vaccines. Imaging reviewed: CT chest 10/20/2016: -No significant change in bilateral cylindrical bronchiectasis and scattered punctate central lobular nodules. -4 mm left lower lobe nodule noted on 11/11/2015 CT no longer visualized CTA chest 06/11/2019: 1. No evidence of pulmonary thromboembolism. 2. No acute cardiopulmonary process. Testing/Data reviewed: Labs: A1AT MM 01/02/2016: fungal sputum; Aspergillus Niger. 11/2016: Respiratory culture; normal juanita; fungal sputum; sparse growth of sheila dubliniensis; likely contaminant; afb sputum negative 11/07/2016, outside hospital: [facility]. Positive, dust, mites, penicillium, Cladosporium, aspergillusfumigatus, Alternaria Alternaria, stemphylium herbarium; IgG low, 600 (700-1600); IgG subclass 1 low 350 (422-1292); subclass 2, 3, 4 within normal limits. Aspergillus antibody, negative (includes fum igatus, flavus, Niger) OSH spirometry 11/16/2016: FVC 77%, FEV1 76%, FEV1/FVC 74% OSH PFT 12/2016:; srinivasa wnl; decrease in mid to low lung volumes; mild reduction in uDLCO; numbers unavailable at present. 6MWT: ambulated 427 meters without desat <88% per report PFT 02/18/2019: FVC 89%, FEV1 1.60 L, 86%, FEV1/FVC 73%. Post bronchodilator FVC 89%, FEV1 1.65 L, 89%, FEV1/FVC 75%. Less then significant response to bronchodilator. TLC 107%, RV 114%, ERV 40%, unadjusted DLCO 82% predicted. OSH PSG 03/16/2016: AHI 9.5 CPAP card download 05/22/2019: 87% usage, wearing greater than 4 hours 83% of nights, wearing an average 6 hours 45 minutes daily; AHI 1.9 on 4-20 cm H2O CPAP; median pressure 8.8 cm H2O CPAP card download 07/15/2020: 100% usage greater than 4 hours with an average 8 hours 42 minutes daily; AHI 0.9 on 4-20 cmH2O CPAP; median pressure 7.5 cm H2O CPAP card download 06/14/2021: 100% usage greater than 4 hours on average 9 hours 9 minutes daily; AHI 1 on 4-20 cm H2O CPAP; median pressure 8.2 cm H2O CPAP card download 01/29/2022: 100% usage greater than 4 hours on an average 9 hours 14 minutes daily; AHI 1 on 4-20 cm H2O CPAP; median pressure 9.3 cm H2O Past Medical History: Diagnosis Date ??? Bronchiectasis (CMS/HCC) ??? Chronic obstructive asthma (CMS/HCC) ??? CVID (common variable immunodeficiency) (CMS/HCC) ??? Environmental and seasonal allergies ??? 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 Obesity ??? On prednisone therapy ??? BRUNO (obstructive sleep apnea) ??? Productive cough Past Surgical History: Procedure Laterality Date ??? APPENDECTOMY ??? GALLBLADDER SURGERY Social History Tobacco Use ??? Smoking status: Former Smoker Packs/day: 2.00 Years: 10.00 Pack years: 20.00 Types: Cigarettes Quit date: 1987 Years since quittin.5 ??? Smokeless tobacco: Never Used Vaping Use ??? Vaping Use: Never used Substance Use Topics ??? Alcohol use: Yes ??? Drug use: Yes Types: Marijuana Comment: has med card Family History Problem Relation Name Age of Onset ??? Heart Mother ??? Hypertension Mother ??? Diabetes Father ??? Diabetes Brother ??? Cancer Paternal Grandmother Current Outpatient Medications Medication Sig Dispense Refill ??? ALBUTEROL (2.5 MG/3ML) 0.083% nebulizer solution USE 1 VIAL IN NEBULIZER EVERY 6 HOURS - as needed for rescue( max 30 doses per month) 360 mL 11 ??? albuterol sulfate HFA 108 (90 Base) MCG/ACT inhaler ??? ALPRAZolam 0.5 MG tablet Take 0.5 mg by mouth as needed for Anxiety. ??? Amlodipine-Olmesartan 10-40 MG Tab ??? atorvastatin 40 MG tablet TK 1 T PO QD 0 ??? azithromycin 500 MG tablet Take 1 tablet (500 mg total) by mouth 3 (three) times a week. 36 tablet 3 ??? azithromycin 500 mg tablet Take one tablet every Monday and Monday 36 tablet 1 ??? azithromycin 500 mg tablet TAKE 1 TABLET BY MOUTH EVERY MONDAY, MONDAY AND MONDAY 12 tablet 3 ??? BUDESONIDE 0.5 MG/2ML nebulizer solution USE 1 VIAL IN NEBULIZER EVERY MORNING. (RINSE MOUTH AFTER USE) 960 mL 11 ??? celecoxib 200 MG capsule ??? cetirizine 10 MG tablet Take 10 mg by mouth. ??? citalopram 20 MG tablet ??? cloNIDine 0.1 MG tablet ??? CPAP MACHINE AutoCPAP [id number] For use when sleeping Lifetime use 1 Device 0 ??? CUVITRU 8 GM/40ML Solution every 7 days. 12 ??? cyclobenzaprine 10 MG tablet TK 1 T PO BID 0 ??? DALIRESP 500 MCG Tab Take by mouth daily. ??? dexlansoprazole (DEXILANT) 30 MG capsule ??? EPINEPHrine 0.3 MG/0.3ML injection Inject 0.3 mg into the muscle as needed for Anaphylaxis. 12 ??? esomeprazole 40 MG capsule Take 40 mg by mouth every morning before breakfast. ??? fluticasone propionate 50 MCG/ACT nasal spray TK 2 SPRAYS IN EACH NOSTRIL QD ??? gabapentin 300 MG capsule ??? ipratropium 0.06 % nasal spray U 2 SPRAYS UP TO TID INTRANASALLY FOR 13 DAYS 0 ??? milnacipran (SAVELLA) 50 MG tablet ??? montelukast 10 MG tablet Take 10 mg by mouth nightly at bedtime. ??? NEBULIZER DME SUPPLY Take 1 Device by nebulization every 4 (four) hours as needed. 1 Device 0 ??? PERFOROMIST 20 MCG/2ML nebulizer solution USE 1 VIAL IN NEBULIZER TWICE DAILY - morning and evening 2 mL 11 ??? vitamin D3, cholecalciferol, 5000 UNITS capsule ??? YUPELRI 175 MCG/3ML Solution USE 1 VIAL IN NEBULIZER DAILY 90 mL 11 No current facility-administered medications for this visit. Allergies Allergen Reactions ??? Codeine Nausea and Vomiting ??? Dander Unknown ??? Dust Mite Extract Unknown Immunization History Administered Date(s) Administered ??? Influenza 05/20/2015, 06/02/2017, 05/28/2018 ??? Influenza Adult (Generic) 03/22/2016 Review of Systems Constitutional: Negative for chills, fever, malaise/fatigue and weight loss. HENT: Negative for congestion, sinus pain and sore throat. Eyes: Negative for photophobia. Respiratory: Negative for cough, hemoptysis, sputum production, shortness of breath, wheezing and stridor. Cardiovascular: Negative for chest pain, palpitations, orthopnea, leg swelling and PND. Gastrointestinal: Negative for abdominal pain, nausea and vomiting. Musculoskeletal: Negative for back pain, joint pain and myalgias. Skin: Negative for rash. Neurological: Negative for dizziness, focal weakness and headaches. Endo/Heme/Allergies: Negative for environmental allergies. Psychiatric/Behavioral: Negative for depression and suicidal ideas. Physical Exam Filed Vitals: 01/31/22 1037 BP: 124/70 Pulse: 75 Resp: 16 Temp: 98.4 ??F (36.9 ??C) TempSrc: Temporal SpO2: 99% Weight: 75.3 kg (166 lb) Height: 5' (1.524 m) Physical Exam: General: obese wf, sitting comfortably in nad, pleasant Neuro: Alert, appropriate Head: nc, at EENT: no sinus ttp, mallampati 3 Neck: no appreciable LAD Resp: non-labored, bronchial bs, no audible wheezes/crackles CV: s1,s2; rrr; distant heart tones; no audible murmur Abd: non-distended, bs+ Ext: no edema, pulses present and equal bilaterally, no clubbing Skin: no visible rashes Assessment 1. Bronchiectasis -likely related to CVID 2. COPD, GOLD B by history -consider chronic obstructive asthma, chronic bronchitis 3. BRUNO on CPAP 4. 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 Former smoker 6. Hx of chronic prednisone therapy 7. Obesity 8. Seasonal/Environmental allergies; Allergic rhinitis -on SCIT -did not respond to Xolair 9. Hx of aspergillus niger positive sputum -serology negative Plan 1. Albuterol hfa rescue i-ii puffs q4 prn sob/wheezing 2. Nebs: -Budesonide neb bid -Yupelri daily -Performist bid 3. Discussed starting Breztri/Trelegy -instead of nebs; defers -rinse and spit after -previously on Symbicort, Spiriva 4. Singulair 10mg daily 5. 3x weekly azithromycin qMWF 6. Continue to follow with accounts receivable clerk -continue IVIG --to call and discuss any pump issues with infusion provider ([facility]) 7. PFT/6MWT 2021 8. Flutter -poor candidate for VEST given osteoporosis, hx of L1 fx 9. CPAP qhs and prn naps -autoCPAP -continues to need, use, and benefit from use 10. Encouraged continued smoking cessation 11. Duoneb q4 prn sob/wheezing; encouraged increased usage during episodes of bronchitis 12. Encouraged healthy weight loss via diet/exercise 13. To call with increased respiratory symptoms; may require Abx dosing --Respiratory culture, AFB smear/culture with any exacerbation rtc in 4-6 months Dustin Akins MD, [facility] documented in this encounter Plan of Treatment Not on file documented as of this encounter Visit Diagnoses Diagnosis Bronchiectasis without complication ([facility])- Primary Bronchiectasis without acute exacerbation Chronic obstructive pulmonary disease, unspecified COPD type ([facility]) Cigarette nicotine dependence in remission Tobacco use disorder CVID (common variable immunodeficiency) ([facility]) Common variable immunodeficiency documented in this encounter Additional Health Concerns Assessment Noted Time PHQ-9 Depression Total Score: 2 06/15/20 21 10:10 AM CHEESE GRADER documented as of this encounter Care Teams Hair Machine Operator Relationship Specialty Start Date End Date Scott Hernandez MD [address] [place] [address] PCP - General 01/03/17 documented as of this encounter
--- OUTSIDE RECORDS SUMMARY | 2024-06-27 23:54 | XMS_ITS | Encounter Summary ---
Author Organization [facility] Address [address] [place] [address]. [place] [address] [place] [address] Care Team Providers Care Manager Sterile Processing Name Role Phone Scott Hernandez MD Primary Care Provider [phone] Encounter Details Date Type Department Care Team (Latest Contact Info) Description 01/03/2023 Travel Social History Tobacco Use Types Packs/Day Years Used Date Smoking Tobacco: Former Cigarettes 2 04 09 027 1987 Smokeless Tobacco: Never Alcohol Use Standard [...] Total Score: 2 06/15/20 21 10:10 AM LACQUER PIN PRESS OPERATOR documented as of this encounter Care Teams Manager Sterile Processing Relationship Specialty Start Date End Date Scott Hernandez MD [address] [place], [place] [id number] PCP - General 01/03/17 documented as of this encounter
--- OUTSIDE RECORDS SUMMARY | 2024-06-27 23:54 | XMS_ITS | Encounter Summary ---
Author Organization [facility] Address [address] [place] [address]. [place] [address] [place] [address] Care Team Providers Care Nursing Executive Name Role Phone Scott Hernandez MD Primary Care Provider [phone] Encounter Details Date Type Department Care Team (Latest Contact Info) Description 02/24/2022 Scan HEALTH INFO SRVCS Scanned, Doc Med [...] filedocumented in this encounter Additional Health Concerns Infection Onset Date Last Indicated Resolved Time COVID-19 Rule Out 02/28/2022 02/28/2022 02/28/2022 9:49 PM CDT COVID-19 Confirmed 02/28/2022 02/28/2022 12:33 AM CDT Assessment Noted Time PHQ-9 Depression Total Score: 2 06/15/20 21 10:10 AM FARMWORKER GRAIN documented as of this encounter Care Teams Nursing Executive Relationship Specialty Start Date End Date Scott Hernandez MD [address] [place] [address] PCP - General 01/03/17 documented as of this encounter
--- OUTSIDE RECORDS SUMMARY | 2024-06-27 23:54 | XMS_ITS | Encounter Summary ---
Author Organization [facility] Address [address] [place] [address]. [place] [address] [place] [address] Care Team Providers Care Senior Software Quality Engineer Name Role Phone Scott Hernandez MD Primary Care Provider [phone] Encounter Details Date Type Department Care Team (Latest Contact Info) Description 01/19/2023 Scan HEALTH INFO SRVCS Scanned, Doc Med [...] Total Score: 2 06/15/20 21 10:10 AM PRODUCT MANAGER FINANCIAL SERVICES documented as of this encounter Care Teams Senior Software Quality Engineer Relationship Specialty Start Date End Date Scott Hernandez MD [address] [address] PCP - General 01/03/17 documented as of this encounter
--- OUTSIDE RECORDS SUMMARY | 2024-06-27 23:54 | XMS_ITS | Encounter Summary ---
Author Organization [facility] Address [address] [place] [address]. [place] [address] [place] [address] Care Team Providers Care Fisher Lampara Net Name Role Phone Scott Hernandez MD Primary Care Provider [phone] Encounter Details Date Type Department Care Team (Late st Contact Info) Description 01/27/2022 Orders Only [place] Respiratory Therapy [address] [facility] [place] [address] Shira Christianson, SOCIAL SERVICE COORDINATOR Social History Tobacco Use Types Packs/Day Years Used Date Smoking Tobacco: Former Cigarettes 2 04 09 978 1987 Smokeless Tobacco: Never Alcohol Use Standard [...] as of this encounter Visit Diagnoses Diagnosis Pre-op testing- Primary Preoperative examination, unspecified documented in this encounter Additional Health Concerns Assessment Noted Time PHQ-9 Depression Total Score: 2 06/15/20 21 10:10 AM ROCKBOARD LATHER documented as of this encounter Care Teams Fisher Lampara Net Relationship Specialty Start Date End Date Scott Hernandez MD [address] [place], [place] [id number] PCP - General 01/03/17 documented as of this encounter
--- OUTSIDE RECORDS SUMMARY | 2024-06-27 23:54 | XMS_ITS | Clinical Summary ---
Author Organization [facility] [employer] Address [address] [place] [address] Care Team Providers Care Solar Installer Name Role Phone Scott Hernandez MD Primary Care Provider [phone] Source Comments [facility] [employer],non-owned Affiliates and Associated Physician Practices is amultiple site organization consisting of ambulatory clinics and hospital sitesin [place], [place], [place] and [place]. This disclosure is being madepursuant to the Care Everywhere program and may not contain all information available regarding this patient. Last updated 18.[facility] [employer] Social History Tobacco Use Types Packs/Day Years Used Date Smoking Tobacco: Never Assessed Sex and Gender Information Value Date Recorded Sex Assigned at Not on file Gender Identity Not on file Sexual Orientation Not on file Plan of Treatment Health Maintenance Due Date Last Done Comments BONE DENSITY TESTING 1945 MEDICARE AWV ? 12 MONTHS 1945 HEPATITIS C SCREENING 06/23/1965 DTAP/TDAP/TD VACCINES (1 - Tdap) 1966 ZOSTER VACCINE (1 of 2) 1997 PNEUMOCOCCAL VACCINE 65+ (1 of 1 - PCV) 2012 Respiratory Syncytial Virus (RSV) Vaccine Pt: or over 60 yrs (1 - 1-dose 75+ series) 2022 DEPRESSION SCREENING 07/10/2023 COVID-19 VACCINE ( - 2023-2 5 season) 2024 INFLUENZA VACCINE (#1) 2024 HEPATITIS B VACCINE Aged Out No longe r eligible based on patient's age to complete this topic HIB VACCINE Aged Out No longer eligi ble based on patient's age to complete this topic HPV VACCINE Aged Out No longer eligi ble based on patient's age to complete this topic MENINGOCOCCAL VACCINE Aged Out No hien amanda eligible based on patient's age to complete this topic Care Teams Solar Installer Relationship Specialty Start Date End Date Scott Hernandez MD [address] [place] [address] PCP - General 01/30/18
--- OUTSIDE RECORDS SUMMARY | 2024-06-27 23:54 | XMS_ITS | Encounter Summary ---
Author Organization [facility] Address [address] [place] [address]. [place] [address] [place] [address] Care Team Providers Care Assembling Machine Operator Name Role Phone Scott Hernandez MD Primary Care Provider [phone] Encounter Details Date Type Department Care Team (Latest Contact Info) Description 01/20/2022 Scan HEALTH INFO SRVCS Scanned, Documents Social [...] 3, please move on to questions 3-9 2 06/15/2021 Comments No Sex and Gender Information Value [...] Total Score: 2 06/15/20 21 10:10 AM RADIOLOGY SERVICES MANAGER documented as of this encounter Care Teams Assembling Machine Operator Relationship Specialty Start Date End Date Scott Hernandez MD [address] [address] PCP - General 01/03/17 documented as of this encounter
--- OUTSIDE RECORDS SUMMARY | 2024-06-27 23:54 | XMS_ITS | Encounter Summary ---
Author Organization [facility] Address [address] [place] [address]. [place] [address] [place] [address] Care Team Providers Care Gold Nib Grinder Name Role Phone Scott Hernandez MD Primary Care Provider [phone] Encounter Details Date Type Department Care Team (Latest Contact Info) Description 03/20/2023 Scan HEALTH INFO SRVCS Scanned, Doc Med [...] Total Score: 2 06/15/20 21 10:10 AM AIRCRAFT SYSTEMS REPAIRER documented as of this encounter Care Teams Gold Nib Grinder Relationship Specialty Start Date End Date Scott Hernandez MD [address] [place] [address] PCP - General 01/03/17 documented as of this encounter
--- OUTSIDE RECORDS SUMMARY | 2024-06-27 23:54 | XMS_ITS | Encounter Summary ---
Author Organization [facility] Address [address] [place] [address]. [place] [address] [place] [address] Care Team Providers Care Radiation Therapy Technologist Name Role Phone Scott Hernandez MD Primary Care Provider [phone] Encounter Details Date Type Department Care Team (Latest Contact Info) Description 07/07/2022 Travel Social History Tobacco Use Types Packs/Day Years Used Date Smoking Tobacco: Former Cigarettes 2 04 09 227 1987 Smokeless Tobacco: Never Alcohol Use Standard [...] suspected to have Coronavirus/COVID-19? No / Unsure 07/07/2022 3:39 PM LINUX ENGINEER documented as of this encounter Plan of Treatment Not on file documented as of this encounter Visit Diagnoses Not on filedocumented in this encounter Additional Health Concerns Assessment Noted Time PHQ-9 Depression Total Score: 2 12/07/20 21 10:10 AM LINUX ENGINEER documented as of this encounter Care Teams Radiation Therapy Technologist Relationship Specialty Start Date End Date Scott Hernandez MD [address] [place] [address] PCP - General 01/03/17 documented as of this encounter
--- OUTSIDE RECORDS SUMMARY | 2024-06-27 23:54 | XMS_ITS | Encounter Summary ---
Author Organization [facility] Address [address] [place] [address]. [place], [place] [address] [place] [address] Care Team Providers Care Sanitary Aide Name Role Phone Scott Hernandez MD Primary Care Provider [phone] Encounter Details Date Type Department Care Team (Late st Contact Info) Description 01/04/2023 MyChart Message Enc [facility] [address] [place], [place] [id number] [employer] [place], [facility] Provider Air Quality Message Social History Tobacco Use Types Packs/Day Years [...] Total Score: 2 06/15/20 21 10:10 AM MEDICAL WRITER documented as of this encounter Care Teams Sanitary Aide Relationship Specialty Start Date End Date Scott Hernandez MD [address] [place] [address] PCP - General 01/03/17 documented as of this encounter
--- OUTSIDE RECORDS SUMMARY | 2024-06-27 23:54 | XMS_ITS | Encounter Summary ---
Author Organization [facility] Address [address] [place] [address]. [place] [address] [place] [address] Care Team Providers Care Cook Manager Name Role Phone Scott Hernandez MD Primary Care Provider Reason for Visit * Reason Comments Follow Up Last seen 01/31/22 * Consultation/Treatment (Routine) - Closed Specialty Diagnoses / Procedures Referred By Contact Referred To Contact PULMONARY DISEASE / SLEEP & RESPIRATORY CARE Diagnoses FOLLOW UP Scott Hernandez MD [address] [address] Phone: tel: fax: Dustin Akins MD [address] [place] [address] [address] [place] [address] Phone: tel: fax: Referral ID Status Reason Start Date Expiration Date Visits Re quested Visits Authorized [id number] Closed 01/31/2022 03/03/2023 100 100 Encounter Details Date Type Department Care Team (Late st Contact Info) Description 01/03/2023 10:00 AM CDT Office Visit [facility] - [address] [place] [address] Dustin Akins MD [address] [place] [address] [address] [place] [address] Follow Up (Last seen 01/31/22 ) Social History Tobacco Use Types Packs/Day Years Used Date Smoking Tobacco: Former Cigarettes 2 10 8 1987 Smokeless Tobacco: Never Tobacco Cessation:Counseling Given: [...] on file documented as of this encounter Last Filed Vital Signs Vital Sign Reading Time Taken Comments Blood Pressure 129/73 01/03/2023 9:59 AM CDT Pulse 62 01/03/2023 9:59 AM CDT Temperature 36.2 ??C (97.2 ??F) 01/03/2023 9:59 AM CD T Respiratory Rate 16 01/03/2023 9:59 AM CDT Oxygen Saturation 97% 01/03/2023 9:59 AM CDT ra Inhaled Oxygen Concentration - - Weight - - Height - - Body Mass Index - - documented in this encounter Progress Notes * Dustin Akins MD - 01/03/2023 10:00 AM CDT [facility] PULMONARY MEDICINE History Chief Complaint Patient presents with ??? 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 06/18/2020: Tested + for covid; molly known contact 07/16/2020: OV; last seen 05/2019; [...] sleeping well with CPAP; no new complaints 02/28/2022: covid+; received prednisone 05/06/2022: OSH; cryoablation of L renal mass 07/07/2022: Telephone encounter; AEBronchiectasis; prednisone, doxycycline 01/03/2023: OV; notes slight increase in nasal congestion at present, denies sinus pressure; notes breathing well, denies productive cough; sleeping well with CPAP At prior baseline 2018: Notes improvement since [...] sweats, hemoptysis. Notes extensive allergies, followed with animal tech, on SCIT Notes diagnosis of BRUNO; elected not to wear CPAP in past. Former smoker; quit ; approximate 40 pack year history. Denies alcohol/illicits. 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 Denies exposure to TB, asbestos, mold, birds. [...] afb sputum negative 11/07/2016, outside hospital: [facility] . Positive, dust, mites, penicillium, Cladosporium, aspergillusfumigatus, Alternaria [...] H2O CPAP; median pressure 9.3 cm H2O CPAP card download 01/01/2023: 100% usage greater than 4 hours on an average 9 hours 12 minutes on days used; AHI 1.4 on 4-20 cm H2O CPAP; median pressure 8.9 cm H2O Past Medical History: Diagnosis Date [...] History Tobacco Use ??? Smoking status: Former Packs/day: 2.00 Years: 10.00 Pack years: 20.00 Types: Cigarettes Quit date: 1987 Years since quittin.5 ??? Smokeless tobacco: Never Vaping Use ??? Vaping Use: Never used [...] inhaler ??? ALPRAZolam 0.5 MG tablet Take 1 tablet (0.5 mg total) by mouth as needed for Anxiety. ??? Amlodipine-Olmesartan 10-40 MG Tab ??? atorvastatin 40 MG tablet TK 1 T PO QD 0 ??? azithromycin (ZITHROMAX) 500 mg tablet Take 1 tablet (500 mg total) by mouth 3 (three) times a week. 36 tablet 3 ??? BUDESONIDE 0.5 MG/2ML nebulizer solution USE 1 VIAL IN NEBULIZER EVERY MORNING. (RINSE MOUTH AFTER USE) 960 mL 11 ??? celecoxib 200 MG capsule ??? cetirizine 10 MG tablet Take 1 tablet (10 mg total) by mouth. ??? citalopram 20 MG tablet ??? cloNIDine 0.1 MG tablet ??? CPAP MACHINE AutoCPAP [id number] For use when sleeping Lifetime use 1 Device 0 ??? CUVITRU 8 GM/40ML Solution every 7 days. 12 ??? cyclobenzaprine 10 MG tablet TK 1 T PO BID 0 ??? DALIRESP 500 MCG Tab Take by mouth daily. ??? dexlansoprazole (DEXILANT) 30 MG capsule ??? EPINEPHrine 0.3 MG/0.3ML injection Inject 0.3 mLs (0.3 mg total) into the muscle as needed for Anaphylaxis. 12 ??? esomeprazole 40 MG capsule Take 1 capsule (40 mg total) by mouth every morning before breakfast. ??? fluticasone propionate 50 MCG/ACT nasal spray TK 2 SPRAYS IN EACH NOSTRIL QD ??? gabapentin 300 MG capsule ??? ipratropium 0.06 % nasal spray U 2 SPRAYS UP TO TID INTRANASALLY FOR 13 DAYS 0 ??? milnacipran (SAVELLA) 50 MG tablet ??? montelukast 10 MG tablet Take 1 tablet (10 mg total) by mouth nightly at bedtime. ??? NEBULIZER DME SUPPLY Take 1 Device by nebulization every 4 (four) hours as needed. 1 Device 0 ??? PERFOROMIST 20 MCG/2ML nebulizer solution USE 1 VIAL IN NEBULIZER TWICE DAILY - (Morning And Evening) 2 mL 11 ??? vitamin D3, cholecalciferol, 5000 UNITS capsule ??? YUPELRI 175 MCG/3ML Solution USE 1 VIAL IN NEBULIZER DAILY 90 mL 11 No current facility-administered medications for this visit. Allergies Allergen Reactions ??? Codeine Nausea and Vomiting ??? Dander Unknown ??? Dust Mite Extract Unknown Immunization History Administered Date(s) Administered ? ? Fluzone High Dose - >Age 65 (Prefilled Syringe) 04/09/2021 ??? Influenza 05/20/2015, 03/22/2016, 06/02/2017, 05/28/2018, 04/09/2019, 03/26/2020 Review of Systems Constitutional: Negative for chills, [...] and suicidal ideas. Physical Exam Filed Vitals: 01/03/23 0959 BP: 129/73 Pulse: 62 Resp: 16 Temp: 97.2 ??F (36.2 ??C) TempSrc: Temporal SpO2: 97% Physical Exam: General: obese wf, sitting comfortably [...] azithromycin qMWF 6. Continue to follow with animal tech -continue IVIG --to call and discuss any pump issues with infusion provider ([facility]) 7. PFT/6MWT 8. Flutter -poor candidate for VEST given osteoporosis, hx of L1 fx 9. CPAP qhs and prn naps --overnight oximetry; if desat seen, plan CPAP titration -autoCPAP -continues to need, use, and benefit from use 10. Encouraged continued smoking cessation 11. Duoneb q4 prn sob/wheezing; encouraged increased usage during episodes of bronchitis 12. Encouraged healthy weight loss via diet/exercise 13. To call with increased respiratory symptoms; may require Abx dosing --Respiratory culture, AFB smear/culture with any exacerbation rtc in 6 months [facility]kins MD[facility] documented in this encounter Plan of Treatment Not on file documented as of this encounter Visit Diagnoses Diagnosis Bronchiectasis without complication ([facility])- Primary Bronchiectasis without acute exacerbation Chronic obstructive pulmonary disease, unspecified COPD type ([facility]) Cigarette nicotine dependence in remission Tobacco use disorder CVID (common variable immunodeficiency) ([facility]) Common variable immunodeficiency BRUNO (obstructive sleep apnea) Obstructive sleep apnea (adult) (pediatric) documented in this encounter Additional Health Concerns Assessment Noted Time PHQ-9 Depression Total Score: 2 06/15/20 21 10:10 AM RED LEAD BURNER documented as of this encounter Care Teams Cook Manager Relationship Specialty Start Date End Date Scott Hernandez MD [address] [place] [address] PCP - General 01/03/17 documented as of this encounter
--- OUTSIDE RECORDS SUMMARY | 2024-06-27 23:54 | XMS_ITS | Encounter Summary ---
Author Organization [facility] Address [address] [place] [address]. [place] [address] [place] [address] Care Team Providers Care Assistant Real Estate Manager Name Role Phone Scott Hernandez MD Primary Care Provider [phone] Reason for Visit * Reason Comments Procedure (SCAN) Encounter Details Date Type Department Care Team ([facility] Contact Info) Description 02/23/2022 Scan HEALTH INFO SRVCS Scanned, Doc Med Group Procedure (SCAN) Social History Tobacco Use Types Packs/Day Years [...] Procedure Name Priority Date/Time Associated Diagnosis Comments PULMONARY GENERIC 02/23/2022 PULMONARY GENERIC 02/23/2022 PULMONARY GENERIC 02/23/2022 documented in this encounter Results * PULMONARY GENERIC (02/23/2022) 02/23/2022 us Doc Med Group Scanned SCANNING Final Resu lt * PULMONARY GENERIC (02/23/2022) 02/23/2022 Narrative 02/23/2022 Ordered by an unspecified provider. us Documents Scanned SCANNING Final Result * PULMONARY GENERIC (02/23/2022) 02/23/2022 Narrative 02/23/2022 Ordered by an unspecified provider. us Documents Scanned SCANNING Final Result documented in this encounter Visit Diagnoses Not on filedocumented in this encounter Additional Health Concerns Infection Onset Date Last Indicated Resolved Time COVID-19 Rule Out 02/28/2022 02/28/2022 02/28/2022 9:49 PM CDT COVID-19 Confirmed 02/28/2022 02/28/2022 12:33 AM CDT Assessment Noted Time PHQ-9 Depression Total Score: 2 06/15/20 21 10:10 AM ROOM SERVICE FOOD SERVER documented as of this encounter Care Teams Assistant Real Estate Manager Relationship Specialty Start Date End Date Scott Hernandez MD [address] [place], [place] [id number] PCP - General 01/03/17 documented as of this encounter
--- OUTSIDE RECORDS SUMMARY | 2024-06-27 23:54 | XMS_ITS | Encounter Summary ---
Author Organization [facility] Address [address] [place] [address]. [place] [address] [place] [address] Care Team Providers Care Calender Machine Operator Helper Name Role Phone Scott Hernandez MD Primary Care Provider [phone] Encounter Details Date Type Department Care Team (Late st Contact Info) Description 07/07/2022 3:41 PM ENCEPHALOGRAPHER - 07/07/2022 11:59 PM [facility] Hospital Encounter [facility] [address] [place], [place] [address] Juanita Lux MD [facility] [address] [place] [phone] Discharge Disposition: Home or Self Care (Routine [...] Coronavirus/COVID-19? No / Unsure 07/07/2022 3:39 PM ENCEPHALOGRAPHER documented as of this encounter Medications at Time of Discharge ALBUTEROL (2.5 MG/3ML) 0.083% nebulizer solutionIndicatio ns:Chronic obstructive pulmonary disease, unspecified COPD type ([facility]) USE 1 VIAL IN NEBULIZER EVERY 6 [...] :Chronic obstructive pulmonary disease, unspecified COPD type ([facility]) Take 1 tablet (500 mg total) by mouth 3 (three) times a week. 36 tablet 3 01/31/2022 celecoxib 200 MG capsule 09/06/2016 cetirizine 10 MG tablet Take 1 tablet (10 mg total) by mouth. citalopram 20 MG tablet 10/05/2016 cloNIDine 0.1 MG tablet 07/12/2016 CPAP MACHINEIndication s:BRUNO (obstructive sleep apnea) AutoCPAP [id number] For use when sleeping Lifetime use 1 [...] DME SUPPLYIndications :Productive cough,CVID (common variable immunodeficiency) ([facility]),Bronchie ctasis without complication ([facility]) Take 1 Device by nebulization every 4 (four) hours as needed. 1 Device 11/12/2018 PERFOROMIST 20 MCG/2ML nebulizer solutionIndicatio ns:Chronic obstructive pulmonary disease, unspecified COPD type ([facility]) USE 1 VIAL IN NEBULIZER TWICE DAILY - (Morning And Evening) 2 mL 11 06/01/2022 vitamin D3, cholecalciferol, 5000 UNITS capsule YUPELRI 175 MCG/3ML SolutionIndicatio ns:Chronic obstructive pulmonary disease, unspecified COPD type ([facility]) USE 1 VIAL IN NEBULIZER DAILY 90 mL 11 09/20/2021 BUDESONIDE 0.5 MG/2ML nebulizer solutionIndicatio ns:Chronic obstructive pulmonary disease, unspecified COPD type ([facility]) USE 1 VIAL IN NEBULIZER EVERY MORNING. (RINSE MOUTH AFTER USE) 960 mL 11 09/20/2021 4 doxycycline monohydrate 100 MG capsuleIndication s:Bronchiectasis without complication ([facility]) Take 1 capsule (100 mg total) by mouth 2 (two) times daily for 7 days. 14 capsule 07/07/2022 3 fluticasone propionate 50 MCG/ACT nasal spray TK 2 SPRAYS IN EACH NOSTRIL QD 06/27/2019 4 ipratropium 0.06 % nasal spray U 2 SPRAYS UP TO TID INTRANASALLY FOR 13 DAYS 0 01/11/2019 4 predniSONE (DELTASONE) 20 MG tabletIndications :Bronchiectasis without complication ([facility]) Take 2 tablets (40 mg total) by mouth daily for 5 days. 10 tablet 07/07/2022 3 documented as of this encounter Plan of Treatment Not on file documented as of this encounter Procedures Procedure Name Priority Date/Time Associated Diagnosis Comments XR CHEST PA+LAT Routine 07/07/2022 3:49 PM ENCEPHALOGRAPHER Bronchiectasis without complication ([facility]) documented in this encounter Results * XR CHEST PA+LAT (07/07/2022 3:49 PM ENCEPHALOGRAPHER) Anatomical Region Laterality Modality Chest Radiographic Tanesha ging 07/07/2022 5:56 PM ENCEPHALOGRAPHER Impressions 07/07/2022 5:57 PM ENCEPHALOGRAPHER =====IMPRESSION:===== Mild thickening of the bronchi. No focal consolidation or significant congestion. Ordered By: JUANITA LUX Interpreted By: Emile Ramirez MD, 07/07/2022 5:56 PM Narrative 07/07/2022 5:57 PM ENCEPHALOGRAPHER Examination: Chest x-ray 2 view Exam date/time: 07/07/2022 3:49 PM Reason For Exam: ??productive cough ? Comparison: Previous radiographs June 2019 Technique: PA and lateral views of the chest were obtained. Findings: Heart size is within normal limits. Mediastinum is unremarkable. In the lung parenchyma no focal consolidation. There is mild thickening of the bronchi. There is no effusion. No pneumothorax. The osseous structures show chronic mild degenerative changes at the dorsal spine and compression of one of the vertebra at the upper lumbar level as before. Procedure Note Emile Ramirez MD - 07/07/2022 Examination: Chest x-ray 2 view Exam date/time: 07/07/2022 3:49 PM Reason For Exam: productive cough Comparison: Previous radiographs June 2019 Technique: PA and lateral views of the chest were obtained. Findings: Heart size is within normal limits. Mediastinum is unremarkable.In the lung parenchyma no focal consolidation. There is mild thickening ofthe bronchi. There is no effusion. No pneumothorax. The osseous structuresshow chronic mild degenerative changes at the dorsal spine and compressionof one of the vertebra at the upper lumbar level as before. =====IMPRESSION:===== Mild thickening of the bronchi. No focal consolidation or significant congestion. Ordered By: JUANITA LUX Interpreted By: Emile Ramirez MD, 07/07/2022 5:56 PM us Juanita Lux MD GENERAL IMAGING Final Resul t documented in this encounter Visit Diagnoses Diagnosis Bronchiectasis without complication ([facility]) Bronchiectasis without acute exacerbation documented in this encounter Additional Health Concerns Assessment Noted Time PHQ-9 Depression Total Score: 2 06/15/20 21 10:10 AM ENCEPHALOGRAPHER documented as of this encounter Care Teams Calender Machine Operator Helper Relationship Specialty Start Date End Date Scott Hernandez MD [address] [address] PCP - General 01/03/17 documented as of this encounter
--- OUTSIDE RECORDS SUMMARY | 2024-06-27 23:54 | XMS_ITS | Encounter Summary ---
Author Organization [facility] Address [address] [place] [address]. [place] [address] [place] [address] Care Team Providers Care Safety Deposit Supervisor Name Role Phone Scott Hernandez MD Primary Care Provider [phone] Reason for Visit * Reason Onset Date Comments Follow Up Call 03/23/2022 Encounter Details Date Type Department Care Team (Late st Contact Info) Description 03/23/[address] [facility] - [address] [address] Dustin Akins MD [address] [place] [phone] Follow Up Call Social History Tobacco Use Types Packs/Day Years Used Date Smoking Tobacco: Former Cigarettes 2 04 09 978 - 1987 Smokeless Tobacco: Never Alcohol Use Standard [...] Progress Notes * Jose Ardon MA - 03/25/2022 2:28 PM CDT Spoke with pt she didn't request * Jose Ardon MA - 03/23/2022 12:32 PM CDT Pt request NIV - placed on provider desk for review * Ann Peter - 03/23/2022 10:32 AM CDT Cha from [facility] called to speak with John Paul regarding the Pt. Please give Cha a call back to discuss [phone] documented in this encounter Plan of Treatment Not on file documented as of this encounter Visit Diagnoses Not on filedocumented in this encounter Additional Health Concerns Infection Onset Date Last Indicated Resolved Time COVID-19 Confirmed 02/28/2022 02/28/2022 12:33 AM CDT Assessment Noted Time PHQ-9 Depression Total Score: 2 06/15/20 21 10:10 AM KITCHEN MECHANIC documented as of this encounter Care Teams Safety Deposit Supervisor Relationship Specialty Start Date End Date Scott Hernandez MD [address] [address] PCP - General 01/03/17 documented as of this encounter
--- OUTSIDE RECORDS SUMMARY | 2024-06-27 23:54 | XMS_ITS | Referral Summary ---
Author Organization [facility] [employer] Address [address] [place] [address] Care Team Providers Care Tandem Mill Sticker Name Role Phone Scott Hernandez MD Primary Care Provider [phone] Source Comments [facility],non-owned Affiliates and Associated Physician Practices is amultiple site organization consisting of ambulatory clinics and hospital sitesin [place], [place] and [place]. This disclosure is being madepursuant to the Care Everywhere program and may not contain all information available regarding this patient. Last updated 18.[facility] [employer] Social History Tobacco Use Types Packs/Day Years Used Date Smoking Tobacco: Never Assessed Sex and Gender Information Value Date Recorded Sex Assigned at Not on file Gender Identity Not on file Sexual Orientation Not on file Plan of Treatment Not on file Care Teams Tandem Mill Sticker Relationship Specialty Start Date End Date Scott Hernandez MD [address] [place] [address] PCP - General 01/30/18
--- OUTSIDE RECORDS SUMMARY | 2024-06-27 23:54 | XMS_ITS | Encounter Summary ---
Author Organization [facility] Address [address] [place] [address]. [place] [address] [place] [address] Care Team Providers Care Automatic Serging Machine Operator Name Role Phone Scott Hernandez MD Primary Care Provider [phone] Encounter Details Date Type Department Care Team (Latest Contact Info) Description 01/02/2024 Travel Social History Tobacco Use Types Packs/Day Years Used Date Smoking Tobacco: Former Cigarettes 2 04 09 698 1987 Smokeless Tobacco: Never Alcohol Use Standard Drinks/Week Comments Yes 0 (1 standard drink = 0.6 oz pur e alcohol) AUDIT-C Answer Date Recorded Frequency of Alcohol Consumption Monthly or less 06/12/2018 Average Number of Drinks Not on file 018 Frequency of Binge Drinking Not on file 10/2017 PHQ-2 Answer Date Recorded Patient Health Questionnaire-2 Score 0 01/02/2024 Comments No Sex and Gender Information Value [...] Total Score: 2 06/15/20 21 10:10 AM OVEREDGER documented as of this encounter Care Teams Automatic Serging Machine Operator Relationship Specialty Start Date End Date Scott Hernandez MD [address] [place], [place] [id number] PCP - General 01/03/17 documented as of this encounter
--- OUTSIDE RECORDS SUMMARY | 2024-06-27 23:54 | XMS_ITS | Encounter Summary ---
Author Organization [facility] Address [address] [place] [address]. [place] [address] [place] [address] Care Team Providers Care Filtration Supervisor Name Role Phone Scott Hernandez MD Primary Care Provider [phone] Encounter Details Date Type Department Care Team (Latest Contact Info) Description 01/03/2024 Scan HEALTH INFO SRVCS Scanned, Doc Med [...] Total Score: 2 06/15/20 21 10:10 AM SOFTBALL COACH documented as of this encounter Care Teams Filtration Supervisor Relationship Specialty Start Date End Date Scott Hernandez MD [address] [address] PCP - General 01/03/17 documented as of this encounter
--- OUTSIDE RECORDS SUMMARY | 2024-06-27 23:54 | XMS_ITS | Patient Health Summary ---
Author Organization [facility] Address [address] [place] [address] Care Team Providers Care Experimental Mechanic Name Role Phone Scott Hernandez MD Primary Care Provider [phone] Note from [facility],non-owned Affiliates and Associated Physician Practices is amultiple site organization consisting of ambulatory clinics and hospital sitesin [place], [place], [place] and [place]. This disclosure is being madepursuant to the Care Everywhere program and may not contain all information available regarding this patient. Last updated 18.[facility] Social History Tobacco Use Types Packs/Day Years Used Date Smoking Tobacco: Never Assessed Sex and Gender Information Value Date Recorded Sex Assigned at Not on file Gender Identity Not on file Sexual Orientation Not on file Procedures * DERMATOPATHOLOGY(Performed 01/25/2018) * GROSS + MICRO EXAM(Performed 08/01/2003) Results * DERMATOPATHOLOGY (01/25/2018 12:00 AM CDT) Case Report Dermatopathology Report ? Case: [id number] ? Authorizing Provider: ??Scott Hernandez MD ? Collected: ? 01/25/2018 12:00 AM ? Pathologist: ? Tana Epps MD ?Received: ?01/30/2018 12:12 PM ? Specimen: ?Skin, left upper arm ? 1:06 PM T DERMATOPATHOLOGY LABORATORY Final Diagnosis Specimen A. SKIN, left upper arm: BENIGN VERRUCOUS KERATOSIS, INFLAMED (L82.1) PRESENT AT MARGIN 1:06 PM [facility] [place] DERMATOPATHOLOGY LABORATORY Clinical History Changing lesion. Check margins. 1:06 PM [facility] [place] DERMATOPATHOLOGY LABORATORY Gross Description Specimen A: Received is one formalin filled container labeled with the patient's name and designated left upper arm. The specimen consists of a shave biopsy (2 pieces) measuring [id number], inked green, & [id number]. Jar 0. 1:06 PM [facility] [place] DERMATOPATHOLOGY LABORATORY Microscopic Description Specimen A. SKIN, left upper arm: Sections show hyperkeratosis, papillomatosis, hypergranulosis, and acanthosis. Inflammatory cells are present within the dermis. These histological findings can be seen in a verruca vulgaris or a seborrheic keratosis. This lesion is present at the margin of the specimen. 1:06 PM [facility] [place] DERMATOPATHOLOGY LABORATORY Disclaimer An external and internal positive and negative controls are appropriate for the histochemical, immunohistochemical and immunofluorescence stain(s) in this case (if any), except where stated explicitly. The performance characteristics of the stain(s) cited in this report were developed and its performance characteristic determined by the Dermatopathology Laboratory at [facility]. These tests need not be, and therefore are not, approved by the [place] Food and Drug Administration. The tests are used for clinical purposes. Billing Codes Specimen Charges Stain Charges 98678 1 1:06 PM T DERMATOPATHOLOGY LABORATORY Embedded Images 1:06 PM [facility] [place] DERMATOPATHOLOGY LABORATORY Pathology/Cytolog y TISSUE SPECIMEN FROM SKIN / Unknown 01/25/2018 01/30/2018 12:12 PM CDT Scott Hernandez MD LAB - PATHOLOGY/CYTO LOGY ORDERABLES DERMATOPATHOLOGY LABORATORY [facility] - Department of Dermatology [address], [address] [place] [address], [facility] [phone] * GROSS + MICRO EXAM (08/01/2003 12:05 PM SURVEILLANCE MONITOR) Result CASE NUMBER [id number] Comment: ORDERING PHYSICIAN ??FAM SANDERS SPECIMEN TYPE ?Breast DATE OF PROCEDURE ?08/01/2003 SPECIMEN LABELED ? 1. Right breast tissue fresh, 2. Left breast tissue fresh PRE-OP DIAGNOSIS ? Breast ptosis, trunkal obesity GROSS DESCRIPTION ? GROSS DESCRIPTION Two containers. The specimen is received in a container labeled Nolvia Coffey, right breast tissue. ??The specimen consists of 336.2 grams of red- yellow fibrofatty tissue some of which are surfaced by skin and unremarkable strips of skin which in aggregate measure 16.0 x 11.0 x 5.0 cm. ??Serial sections disclose abundant lobulated yellow adipose tissue admixed with scant white fibrous tissue. ??There are no discreet masses. Daycare Provider sections are submitted in cassettes A1 - A3. The specimen is received in a container labeled left breast tissue. The specimen consists of 330 grams of red-yellow fibrofatty tissue some of which are surfaced of skin and other pieces of separate skin which in aggregate measure 15.0 x 11.0 x 4.0 cm. ??Serial sections disclose abundant lobulated yellow adipose tissue admixed with scant white fibrous tissue. ??There are no discreet masses. Daycare Provider sections are submitted in cassettes B1 - B3. Dictated by ?Christal Cross M.D. MICROSCOPIC DESCRIPTION Sections from both right and left reduction samples display mild ductal epithelial hyperplasia and fibrosis. ??The features are benign throughout. Dictated by ?Christal Cross M.D. DIAGNOSIS Right breast, reduction mammoplasty ? macromastia ? mild fibrocystic changes Left breast, reduction mammoplasty ? macromastia ? mild fibrocystic changes Dictated by ?Christal Cross M.D. Sports Medicine [place] ? [facility] MOCTEZUMA Electronically Signed By ? CHRISTAL CROSS MISCELLANEOUS SAMPLES / Unknown 08/01/2003 12:05 PM SURVEILLANCE MONITOR 08/01/2003 12:12 PM SURVEILLANCE MONITOR Historical Provider LAB - PATHOLOGY/C YTOLOGY ORDERABLES Care Teams Experimental Mechanic Relationship Specialty Start Date End Date Scott Hernandez MD [address] [place] [address] PCP - General 01/30/18
--- OUTSIDE RECORDS SUMMARY | 2024-06-27 23:54 | XMS_ITS | Encounter Summary ---
Author Organization [facility] Address [address] [place] [address]. [place] [address] [place] [address] Care Team Providers Care Head Turning Machine Operator Name Role Phone Scott Hernandez MD Primary Care Provider [phone] Encounter Details Date Type Department Care Team (Latest Contact Info) Description 12/28/2022 Scan HEALTH INFO SRVCS Scanned, Doc Med [...] Total Score: 2 06/15/20 21 10:10 AM STOVE POLISHER documented as of this encounter Care Teams Head Turning Machine Operator Relationship Specialty Start Date End Date Scott Hernandez MD [address] [address] PCP - General 01/03/17 documented as of this encounter
--- OUTSIDE RECORDS SUMMARY | 2024-06-27 23:54 | XMS_ITS | Encounter Summary ---
Author Organization [facility] Address [address] [place] [address]. [place] [address] [place] [address] Care Team Providers Care Nutritional Yeast Supervisor Name Role Phone Scott Hernandez MD Primary Care Provider [phone] Encounter Details Date Type Department Care Team (Latest Contact Info) Description 05/16/2023 Scan HEALTH INFO SRVCS Scanned, Doc Med [...] Total Score: 2 06/15/20 21 10:10 AM COMPRESSOR HOUSE OPERATOR documented as of this encounter Care Teams Nutritional Yeast Supervisor Relationship Specialty Start Date End Date Scott Hernandez MD [address] [address] PCP - General 01/03/17 documented as of this encounter
--- OUTSIDE RECORDS SUMMARY | 2024-06-27 23:54 | XMS_ITS | Encounter Summary ---
Author Organization [facility] Address [address] [place] [address]. [place] [address] [place] [address] Care Team Providers Care Shipper Receiver Name Role Phone Scott Hernandez MD Primary Care Provider [phone] Reason for Visit * Reason Comments Follow Up * Consultation/Treatment (Routine) - Authorized Specialty Diagnoses / Procedures Referred By Wendy pfeiffer Referred To Contact PULMONARY DISEASE / SLEEP & RESPIRATORY CARE Diagnoses Follow-up exam Procedures FOLLOW UP Dustin Akins MD [address] [place] [address] [address] [place] [address] Phone: tel: fax: Dustin Akins MD [address] [place] [address] [address] [place] [address] Phone: tel: fax: Referral ID Status Reason Start Date Expiration Date V isits Requested Visits Authorized [id number] Authorized 06/29/2023 06/29/2024 99 99 Encounter Details Date Type Department Care Team (Late st Contact Info) Description 01/02/2024 9:40 AM CDT Office Visit [facility] Multispecialty Care - [address] [place] [address] Dustin Akins MD [address] [address] Follow Up Social History Tobacco Use Types Packs/Day Years [...] Sign Reading Time Taken Comments Blood Pressure 126/75 01/02/2024 9:38 AM CDT Pulse 52 01/02/2024 9:38 AM CDT Temperature 36.8 ??C (98.2 ??F) 01/02/2024 9:38 AM CD T Respiratory Rate 16 01/02/2024 9:38 AM CDT Oxygen Saturation 99% 01/02/2024 9:38 AM CDT ra Inhaled Oxygen Concentration - - Weight 69.4 kg (153 lb) 01/02/2024 9:38 AM CDT Height 152.4 cm (5') 01/02/2024 9:38 AM CDT Body Mass Index 29.88 01/02/2024 9:38 AM CDT documented in this encounter Progress Notes * Dustin Akins MD - 01/02/2024 9:40 AM CDT [facility] PULMONARY MEDICINE History Chief Complaint Patient presents with Follow Up 78-year-old obese white female former smoker with past [...] on 3x weekly azithromycin 06/03/2019: OV, LM CLERICAL GRADER; noted possible VCD on 05/25; suspected AEBronchiectasis; given LQ and prednisone 06/11/2019: [facility]; continued symptoms; flu swab negative; CTA without acute finding, no PE 07/12/2019: OV; LM CLERICAL GRADER; doing well; taking meds, using flutter; planned travel to [place] thru 11/2019. 06/18/2020: Tested + for covid; [...] denies productive cough; sleeping well with CPAP 01/02/2024: OV; notes overall doing better this past year; no exacerbations; needing refills; had been in [place] (near [facility]) over winter/spring At prior baseline 2018: Notes improvement since [...] sweats, hemoptysis. Notes extensive allergies, followed with hose handler, on SCIT Notes diagnosis of BRUNO; elected not to wear CPAP in past. Former smoker; quit ; approximate 40 pack year history. Denies alcohol/illicits. 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 Denies exposure to TB, asbestos, mold, birds. [...] H2O CPAP; median pressure 8.9 cm H2O Overnight oximetry on CPAP while on room air 05/30/2023: SpO2 less than 89% for 2 minutes and 22 seconds. 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[facility]) Obesity On prednisone therapy BRUNO (obstructive sleep apnea) Productive cough Past Surgical History: Procedure Laterality Date APPENDECTOMY GALLBLADDER SURGERY Social History Tobacco Use Smoking status: Former Current packs/day: 0.00 Average packs/day: 2.0 packs/day for 10.0 years (20.0 ttl pk-yrs) Types: Cigarettes Start date: 1977 Quit date: 1987 Years since quittin.5 Smokeless tobacco: Never Vaping Use Vaping status: Never Used Substance Use Topics Alcohol use: Yes Drug use: Yes Types: Marijuana Comment: has med card Family History Problem Relation Name Age of Onset Heart Mother Hypertension Mother Diabetes Father Diabetes Brother Cancer Paternal Grandmother Current Outpatient Medications Medication Sig Dispense Refill ALBUTEROL (2.5 MG/3ML) 0.083% nebulizer solution USE 1 VIAL IN NEBULIZER EVERY 6 HOURS - as needed for rescue( max 30 doses per month) 360 mL 11 albuterol sulfate HFA 108 (90 Base) MCG/ACT inhaler ALPRAZolam 0.5 MG tablet Take 1 tablet (0.5 mg total) by mouth as needed for Anxiety. Amlodipine-Olmesartan 10-40 MG Tab atorvastatin 40 MG tablet TK 1 T PO QD 0 azithromycin (ZITHROMAX) 500 mg tablet Take 1 tablet (500 mg total) by mouth 3 (three) times a week. 36 tablet 3 azithromycin (ZITHROMAX) 500 mg tablet Take 1 tablet (500 mg total) by mouth 3 (three) times a week. Pt to take one every Monday,. And mon 36 tablet 2 BUDESONIDE 0.5 MG/2ML nebulizer solution USE 1 VIAL IN NEBULIZER EVERY MORNING. (RINSE MOUTH AFTER USE) 960 mL 11 celecoxib 200 MG capsule cetirizine 10 MG tablet Take 1 tablet (10 mg total) by mouth. citalopram 20 MG tablet cloNIDine 0.1 MG tablet CPAP MACHINE AutoCPAP [id number] For use when sleeping Lifetime use 1 Device 0 CUVITRU 8 GM/40ML Solution every 7 days. 12 cyclobenzaprine 10 MG tablet TK 1 T PO BID 0 DALIRESP 500 MCG Tab Take by mouth daily. dexlansoprazole (DEXILANT) 30 MG capsule EPINEPHrine 0.3 MG/0.3ML injection Inject 0.3 mLs (0.3 mg total) into the muscle as needed for Anaphylaxis. 12 esomeprazole 40 MG capsule Take 1 capsule (40 mg total) by mouth every morning before breakfast. fluticasone propionate 50 MCG/ACT nasal spray TK 2 SPRAYS IN EACH NOSTRIL QD gabapentin 300 MG capsule ipratropium 0.06 % nasal spray U 2 SPRAYS UP TO TID INTRANASALLY FOR 13 DAYS 0 milnacipran (SAVELLA) 50 MG tablet montelukast 10 MG tablet Take 1 tablet (10 mg total) by mouth nightly at bedtime. NEBULIZER DME SUPPLY Take 1 Device by nebulization every 4 (four) hours as needed. 1 Device 0 PERFOROMIST 20 MCG/2ML nebulizer solution USE 1 VIAL IN NEBULIZER TWICE DAILY - (Morning And Evening) 2 mL 11 vitamin D3, cholecalciferol, 5000 UNITS capsule YUPELRI 175 MCG/3ML Solution USE 1 VIAL IN NEBULIZER DAILY 90 mL 11 No current facility-administered medications for this visit. Review of patient's allergies indicates: Allergen Reactions Codeine Nausea and Vomiting Dander Unknown Dust Mite Extract Unknown Immunization History Administered Date(s) Administered Fluzone High Dose - >Age 65 (Prefilled Syringe) 04/09/2021 Influenza 05/20/2015, 03/22/2016, 06/02/2017, 05/28/2018, 04/09/2019, 03/26/2020 [...] and suicidal ideas. Physical Exam Filed Vitals: 01/02/24 0938 BP: 126/75 Pulse: (!) 52 Resp: 16 Temp: 98.2 ??F (36.8 ??C) TempSrc: Temporal SpO2: 99% Weight: 69.4 kg (153 lb) Height: 1.524 m (5') Physical Exam: General: obese wf, sitting comfortably [...] 7. Obesity 8. Seasonal/Environmental allergies; Allergic rhinitis -previously on SCIT -did not respond to Xolair 9. Hx of aspergillus niger positive sputum -serology negative Plan 1. Albuterol hfa rescue i-ii puffs q4 prn sob/wheezing 2. Nebs: -Budesonide neb bid -Yupelri daily -Performist bid 3. Discussed starting Breztri/T relegy -instead of nebs; defers -rinse and spit after -previously on Symbicort, Spiriva 4. Singulair 10mg daily 5. 3x weekly azithromycin qMWF 6. Continue to follow with hose handler -continue IVIG --to call and discuss any pump issues with infusion provider ([facility]) 7. PFT/6MWT 2024 8. Flutter -poor candidate for VEST given [...] rtc in 6 months Dustin Akins MD, FCCP documented in this encounter Plan of Treatment Not on file documented as of this encounter Visit Diagnoses Diagnosis Bronchiectasis without complication ([facility])- Primary Bronchiectasis without acute exacerbation Chronic obstructive pulmonary disease, unspecified COPD type ([facility]) CVID (common variable immunodeficiency) ([facility]) Common variable immunodeficiency Cigarette nicotine dependence in remission Tobacco use disorder BRUNO (obstructive sleep apnea) Obstructive sleep apnea (adult) (pediatric) Allergic rhinitis, unspecified seasonality, unspecified trigger documented in this encounter Additional Health Concerns Assessment Noted Time PHQ-9 Depression Total Score: 2 06/15/20 21 10:10 AM PEER SUPPORT SPECIALIST documented as of this encounter Care Teams Shipper Receiver Relationship Specialty Start Date End Date Scott eHrnandez MD [address] [place] [address] PCP - General 01/03/17 documented as of this encounter
--- OUTSIDE RECORDS SUMMARY | 2024-06-27 23:54 | XMS_ITS | Clinical Summary ---
Author Organization [facility] System Address [address] [place] [address]. [place] [address] [place] [address] Care Team Providers Care Raise Driller Name Role Phone Scott Hernandez MD Primary Care Provider [phone] Allergies Active Allergy Reactions Criticality Noted Date Comments Codeine Nausea and Vomiting 11/06/2009 Dander Unknown 11/21/2016 Dust Mite Extract Unknown 11/21/2016 Medications albuterol sulfate HFA 108 (90 Base) MCG/ACT inhaler 7 Active ALPRAZolam 0.5 MG tablet Take 1 tablet (0.5 mg total) by mouth as needed for Anxiety. Active Amlodipine-Olmes simon 10-40 MG Tab 7 Active atorvastatin 40 MG tablet TK 1 T PO QD 0 8 Active celecoxib 200 MG capsule 7 Active citalopram 20 MG tablet 7 Active cloNIDine 0.1 MG tablet 7 Active cyclobenzaprine 10 MG tablet TK 1 T PO BID 0 8 Active dexlansoprazole (DEXILANT) 30 MG capsule 7 Active EPINEPHrine 0.3 MG/0.3ML injection Inject 0.3 mLs (0.3 mg total) into the muscle as needed for Anaphylaxis. 12 8 Active esomeprazole 40 MG capsule Take 1 capsule (40 mg total) by mouth every morning before breakfast. 8 Active gabapentin 300 MG capsule 7 Active CUVITRU 8 GM/40ML Solution every 7 days. 12 8 Active milnacipran (SAVELLA) 50 MG tablet 7 Active montelukast 10 MG tablet Take 1 tablet (10 mg total) by mouth nightly at bedtime. 7 Active cetirizine 10 MG tablet Take 1 tablet (10 mg total) by mouth. Active vitamin D3, cholecalciferol, 5000 UNITS capsule Active NEBULIZER DME SUPPLYIndication s:Productive cough,CVID (common variable immunodeficiency ) ([facility]),Bronchi ectasis without complication ([facility]) Take 1 Device by nebulization every 4 (four) hours as needed. 1 Device 9 Active CPAP MACHINEIndicatio ns:BRUNO (obstructive sleep apnea) AutoCPAP [id number] For use when sleeping Lifetime use 1 Device 9 Active ALBUTEROL (2.5 MG/3ML) 0.083% nebulizer solutionIndicati ons:Chronic obstructive pulmonary disease, unspecified COPD type ([facility]) USE 1 VIAL IN NEBULIZER EVERY 6 HOURS - as needed for rescue( max 30 doses per month) 360 mL 11 1 Active DALIRESP 500 MCG Tab Take by mouth daily. 1 Active YUPELRI 175 MCG/3ML SolutionIndicati ons:Chronic obstructive pulmonary disease, unspecified COPD type ([facility]) USE 1 VIAL IN NEBULIZER DAILY 90 mL 11 2 Active azithromycin (ZITHROMAX) 500 mg tabletIndication s:Chronic obstructive pulmonary disease, unspecified COPD type ([facility]) Take 1 tablet (500 mg total) by mouth 3 (three) times a week. 36 tablet 3 2 Active PERFOROMIST 20 MCG/2ML nebulizer solutionIndicati ons:Chronic obstructive pulmonary disease, unspecified COPD type ([facility]) USE 1 VIAL IN NEBULIZER TWICE DAILY - (Morning And Evening) 2 mL 11 2 Active ipratropium (ATROVENT) 0.06 % nasal sprayIndications :Allergic rhinitis, unspecified seasonality, unspecified trigger 2 sprays by Nasal route 2 (two) times a day. 15 mL 4 Active fluticasone propionate (FLONASE) 50 MCG/ACT nasal sprayIndications :Allergic rhinitis, unspecified seasonality, unspecified trigger 2 sprays by Each Nostril route daily. 16 g 4 Active azithromycin (ZITHROMAX) 500 mg tabletIndication s:CVID (common variable immunodeficiency ) ([facility]) Take 1 tablet (500 mg total) by mouth 3 (three) times a week. Pt to take one every Monday,. And mon tablet 3 4 Active budesonide (PULMICORT) 0.5 MG/2ML nebulizer solutionIndicati ons:Chronic obstructive pulmonary disease, unspecified COPD type ([facility]) USE 1 VIAL IN NEBULIZER TWICE DAILY - - Rinse Mouth After Use 960 mL 4 Active Active Problems Problem Noted Date Diagnosed Date Cigarette nicotine dependence in remission 07/12 Allergic rhinitis, unspecifi ed seasonality, unspecified trigger 02/19/2019 Fibromyalgia 02/18/2019 CVID (common variable immunodeficiency) ([facility]) 02/08/2017 Bronchiectasis ([facility]) 11/21/2016 Chronic obstructive asthma ([facility]) COPD (chronic obstructive pu lmonary disease) ([facility]) 11/21/2016 Environmental and seasonal allergies 11/21/2016 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[facility]) 11/21/2016 Obesity 11/21/2016 On prednisone therapy 11/21/2016 BRUNO (obstructive sleep apnea) 11/21/2016 Productive cough 11/21/2016 Chronic fatigue syndrome 05/06/2016 Overview (02/18/2019): Overview: Chronic fatigue Dyslipidemia 05/06/2016 Overview (02/18/2019): Overview: Dyslipidemia Benign hypertension 12/26/2014 Overview (02/18/2019): Overview: Hypertension Overview: HTN (hypertension), benign Chest pain on exertion 12/26/2014 Overview (02/18/2019): Overview: Chest pain on exertion Overview: Chest pain Fatigue 12/26/2014 Overview (02/18/2019): Overview: Tiredness Hypercholesterolemia 12/26/2014 Overview (02/18/2019): Overview: Hypercholesterolemia Palpitations 12/26/2014 Overview (02/18/2019): Overview: Palpitations Snoring 12/26/2014 Overview (02/18/2019): Overview: Snoring 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 Resolved Problems Problem Noted Date Diagnosed Date Resolved Date Encounter for preventive health examination 11/18/2016 03/20/2020 Immunizations Name Administration Dates Next Due Fluzone High Dose - >Age 65 (Prefilled Syringe) 04/09/2021 Influenza (Generic) 03/26/2020, 9,05/28/2018, 017,03/22/2016,05/20/2015 Family History Medical History Relation Comments Diabetes Brother Diabetes Father Heart Mother Hypertension Mother Cancer Paternal Grandmother Relation Status Comments Brother Father Mother Paternal Grandmother Social History Tobacco Use Types Packs/Day Years Used Date Smoking Tobacco: Former Cigarettes 2 10 1 978 - 1987 Smokeless Tobacco: Never Tobacco Cessation:Counseling Given: [...] on file Sexual Orientation Not on file Last Filed Vital Signs Vital Sign Reading [...] Mass Index 29.88 01/02/2024 9:38 AM CDT Plan of Treatment Health Maintenance Due Date Last Done Comments COVID-19 Vaccine (#1) 1950 Pneumococcal Vaccine: 65+ Years (1 of 2 - PCV) 1953 Hepatitis C 1965 DTaP, Tdap and Td Vaccines (1 - Tdap) 1966 Zoster Vaccines (1 of 2) 1966 RSV Immunization or 60+ Years (1 - 1-dose 60+ series) 2007 Annual Medicare Wellness Visit 2012 Dexa Scan (General) 2012 Influenza Adult (#1) 2024 04/09/2021, 03/26/2020, 04/09/2019, Additional history exists Meningococcal Vaccine Aged Out No hien amanda eligible based on patient's age to complete this topic RSV Immunizations Under 20 Months Aged Out No longer eligible based on patient's age to complete this topic Insurance MEDICARE [facility] Care Teams Raise Driller Relationship Specialty Start Date End Date Scott Hernandez MD [address] [address] PCP - General 01/03/17
--- OUTSIDE RECORDS SUMMARY | 2024-06-27 23:54 | XMS_ITS | Encounter Summary ---
Author Organization [facility] Address [address] [place] [address]. [place] [address] [place] [address] Care Team Providers Care Welding Estimator Name Role Phone Scott Hernandez MD Primary Care Provider [phone] Reason for Visit * Reason Onset Date Comments Orders 01/31/2022 Encounter Details Date Type Department Care Team (Late st Contact Info) Description 01/31/2022 Telephone [facility] Medical Group Multispecialty Care - [facility] [address] [facility] [place] [phone] Dustin Akins MD [address] [place], [place] [address] [place] [address] Orders Social History Tobacco Use Types Packs/Day Years [...] AM CDT documented as of this encounter Progress Notes * Jose Ardon MA - 01/31/2022 2:31 PM CDT Eda @ [facility] Informed will have Beck reach out to pt * Jose Ardon MA - 01/31/2022 11:37 AM CDT Continue to follow with sales attendant building materials -continue IVIG --to call and discuss any pump issues with infusion provider ([facility] Call dr parr sales attendant building materials documented in this encounter Plan of Treatment Not on file documented as of this encounter Visit Diagnoses Not on filedocumented in this encounter Additional Health Concerns Assessment Noted Time PHQ-9 Depression Total Score: 2 06/15/20 21 10:10 AM CARPET LAYER HELPER documented as of this encounter Care Teams Welding Estimator Relationship Specialty Start Date End Date Scott Hernandez MD [address] [place] [address] PCP - General 01/03/17 documented as of this encounter
--- OUTSIDE RECORDS SUMMARY | 2024-06-27 23:54 | XMS_ITS | Encounter Summary ---
Author Organization [facility] Address [address] [place] [address]. [place] [address] [place] [address] Care Team Providers Care Receiving Clerk Name Role Phone Scott Hernandez MD Primary Care Provider [phone] Encounter Details Date Type Department Care Team (Latest Contact Info) Description 12/16/2022 Scan HEALTH INFO SRVCS Scanned, Doc Med [...] Total Score: 2 06/15/20 21 10:10 AM FIRE OPERATIONS FORESTER documented as of this encounter Care Teams Receiving Clerk Relationship Specialty Start Date End Date Scott Hernandez MD [address] [address] PCP - General 01/03/17 documented as of this encounter
--- OUTSIDE RECORDS SUMMARY | 2024-06-27 23:54 | XMS_ITS | Encounter Summary ---
Author Organization [facility] Address [address] [place] [address]. [place] [address] [place] [address] Care Team Providers Care Chief Business Officer Name Role Phone Scott Hernandez MD Primary Care Provider [phone] Reason for Visit * Reason Onset Date Comments Follow Up Call 12/28/2022 Encounter Details Date Type Department Care Team (Late st Contact Info) Description 12/28/2022 Telephone [facility] Medical Group Pulmonology Specialty [facility] - [address] [address] Dustin Akins MD [address] [place] [address] Follow Up Call Social History Tobacco [...] Progress Notes * Jose Ardon MA - 12/29/2022 8:48 AM CDT Appt rescheduled * Jessica Deluna - 12/28/2022 12:09 PM CDT Pt is needing to resched her January 09 appt Next available is 07-06, but they leave 07-04 to go to [place] for the winter She said they can't wait that long anyway (her comes same day as her) Asking to speak to someone to see if there is a possibility that she can be worked in this summer. Separate task being sent for documented in this encounter Plan of Treatment Not on file documented as of this encounter Visit Diagnoses Not on filedocumented in this encounter Additional Health Concerns Assessment Noted Time PHQ-9 Depression Total Score: 2 06/15/20 21 10:10 AM PRINTED CIRCUIT BOARD ASSEMBLER documented as of this encounter Care Teams Chief Business Officer Relationship Specialty Start Date End Date Scott Hernandez MD [address] [place] [address] PCP - General 01/03/17 documented as of this encounter
--- OUTSIDE RECORDS SUMMARY | 2024-06-27 23:54 | XMS_ITS | Encounter Summary ---
Author Organization [facility] Address [address] [place] [address]. [place] [address] [place] [address] Care Team Providers Care Chemical Plant Manager Name Role Phone Scott Hernandez MD Primary Care Provider [phone] Encounter Details Date Type Department Care Team (Latest Contact Info) Description 03/03/2023 Scan HEALTH INFO SRVCS Scanned, Doc Med [...] Total Score: 2 06/15/20 21 10:10 AM EMPLOYMENT ASSISTANT documented as of this encounter Care Teams Chemical Plant Manager Relationship Specialty Start Date End Date Scott Hernandez MD [address] [place] [address] PCP - General 01/03/17 documented as of this encounter
--- OUTSIDE RECORDS SUMMARY | 2024-06-27 23:54 | XMS_ITS | Encounter Summary ---
Author Organization [facility] Address [address] [place] [address]. [place] [address] [place] [address] Care Team Providers Care Sieve Maker Name Role Phone Scott Hernandez MD Primary Care Provider [phone] Encounter Details Date Type Department Care Team (Latest Contact Info) Description 03/23/2022 Scan HEALTH INFO SRVCS Scanned, Documents Social History Tobacco Use Types Packs/Day Years Used Date Smoking Tobacco: Former Cigarettes 2 10 [address]1987 Smokeless Tobacco: Never Alcohol Use Standard Drinks/Week [...] Total Score: 2 06/15/20 21 10:10 AM REGIONAL CONSTRUCTION MANAGER documented as of this encounter Care Teams Sieve Maker Relationship Specialty Start Date End Date Scott Hernanedz MD [address] [place] [address] PCP - General 01/03/17 documented as of this encounter
--- OUTSIDE RECORDS SUMMARY | 2024-06-27 23:54 | XMS_ITS | Encounter Summary ---
Author Organization [facility] Address [address] [place] [address]. [place] [address] [place] [address] Care Team Providers Care Brood Hatchery Manager Name Role Phone Scott Hernandez MD Primary Care Provider [phone] Encounter Details Date Type Department Care Team (Latest Contact Info) Description 12/05/2023 Scan HEALTH INFO SRVCS Scanned, Doc Med [...] Total Score: 2 06/15/20 21 10:10 AM SENIOR LINUX SYSTEMS ADMINISTRATOR documented as of this encounter Care Teams Brood Hatchery Manager Relationship Specialty Start Date End Date Scott Hernandez MD [address] [address] PCP - General 01/03/17 documented as of this encounter
--- OUTSIDE RECORDS SUMMARY | 2024-06-27 23:54 | XMS_ITS | Encounter Summary ---
Author Organization [facility] Address [address] [place] [address]. [place] [address] [place] [address] Care Team Providers Care Rabble Furnace Tender Name Role Phone Scott Hernandez MD Primary Care Provider [phone] Reason for Visit * Reason Onset Date Comments Orders 01/03/2023 Encounter Details Date Type Department Care Team (Late st Contact Info) Description 01/03/2023 Telephone [facility] Medical Group Multispecialty Care - [facility] [address] [facility] [place] [phone] Dustin Akins MD [address] [facility] [address] [place] [address] Orders Social History Tobacco Use Types Packs/Day Years Used Date Smoking Tobacco: Former Cigarettes 2 10 978 - 1987 Smokeless Tobacco: Never Alcohol [...] as of this encounter Progress Notes * Jatin Daley RN - 01/03/2023 1:33 PM CDT Overnight oximetry order on CPAP faxed to [facility] at this time. * Jose Ardon MA - 01/03/2023 11:14 AM CDT overnight oximetry; if desat seen, plan CPAP titration -autoCPAP Orders from 01/03/23 ov documented in this encounter Plan of Treatment Not on file documented as of this encounter Visit Diagnoses Not on filedocumented in this encounter Additional Health Concerns Assessment Noted Time PHQ-9 Depression Total Score: 2 06/15/20 21 10:10 AM WELDER PLASTIC documented as of this encounter Care Teams Rabble Furnace Tender Relationship Specialty Start Date End Date Scott Hernandez MD [address] [address] PCP - General 01/03/17 documented as of this encounter
--- OUTSIDE RECORDS SUMMARY | 2024-06-27 23:54 | XMS_ITS | Encounter Summary ---
Author Organization [facility] Address [address] [place] [address]. [place] [address] [place] [address] Care Team Providers Care Gleason Operator Name Role Phone Scott Hernandez MD Primary Care Provider [phone] Reason for Visit * Reason Onset Date Comments Medication Request 03/03/2023 Encounter Details Date Type Department Care Team (Late st Contact Info) Description 03/03/2023 Telephone [facility] Medical Group Pulmonology Specialty Clinic - [address] [address] Dustin Akins MD [address] [place] [address] Medication Request Social History Tobacco Use Types Packs/Day Years [...] Progress Notes * Jose Ardon MA - 03/03/2023 2:29 PM CDT Spouse informed of status * Jose Ardon MA - 03/03/2023 2:28 PM CDT Form rec'd , signed and faxed back * Jose Ardon MA - 03/03/2023 11:25 AM CDT Chantel with [facility] is faxing request * Roberta Franco - 03/03/2023 9:47 AM CDT Pt called today saying that she needs refills on her Budesmide . Please give her a call documented in this encounter Plan of Treatment Not on file documented as of this encounter Visit Diagnoses Not on filedocumented in this encounter Additional Health Concerns Assessment Noted Time PHQ-9 Depression Total Score: 2 06/15/20 21 10:10 AM LABELING MACHINE OPERATOR documented as of this encounter Care Teams Gleason Operator Relationship Specialty Start Date End Date Scott Hernandez MD [address] [place] [address] PCP - General 01/03/17 documented as of this encounter
--- OUTSIDE RECORDS SUMMARY | 2024-06-27 23:54 | XMS_ITS | Encounter Summary ---
Author Organization [facility] Address [address] [place] [address]. [place] [address] [place] [address] Care Team Providers Care Envelope Machine Adjuster Name Role Phone Scott Hernandez MD Primary Care Provider [phone] Encounter Details Date Type Department Care Team (Latest Contact Info) Description 01/03/2023 Scan HEALTH INFO SRVCS Scanned, Doc Med [...] Total Score: 2 06/15/20 21 10:10 AM TANK CHARGER documented as of this encounter Care Teams Envelope Machine Adjuster Relationship Specialty Start Date End Date Scott Hernandez MD [address] [address] PCP - General 01/03/17 documented as of this encounter
--- OUTSIDE RECORDS SUMMARY | 2024-06-27 23:54 | XMS_ITS | Encounter Summary ---
Author Organization [facility] Address [address] [place] [address]. [place] [address] [place] [address] Care Team Providers Care Lacing Presser Name Role Phone Scott Hernandez MD Primary Care Provider [phone] Reason for Visit * Reason Comments Sleep Study (SCAN) Encounter Details Date Type Department Care Team ([facility] Contact Info) Description 12/31/2023 Scan HEALTH INFO SRVCS Scanned, Doc Med Group Sleep Study (SCAN) Social History Tobacco Use Types Packs/Day [...] Procedure Name Priority Date/Time Associated Diagnosis Comments SLEEP STUDY GENERIC (SCAN ORDER) 12/31/2023 documented in this encounter Results * SLEEP STUDY GENERIC (SCAN ORDER) (12/31/2023) 12/31/2023 us Doc Med Group Scanned SCANNING Final Resu lt documented in this encounter Visit Diagnoses Not on filedocumented in this encounter Additional Health Concerns Assessment Noted Time PHQ-9 Depression Total Score: 2 06/15/20 21 10:10 AM PSYCHIATRIC TECHNICIAN ASSISTANT documented as of this encounter Care Teams Lacing Presser Relationship Specialty Start Date End Date Scott Hernandez MD [address] [place], [place] [id number] PCP - General 01/03/17 documented as of this encounter
--- OUTSIDE RECORDS SUMMARY | 2024-06-27 23:54 | XMS_ITS | Encounter Summary ---
Author Organization [facility] Address [address] [place] [address]. [place] [address] [place] [address] Care Team Providers Care Oil Recovery Operator Name Role Phone Scott Hernandez MD Primary Care Provider [phone] Reason for Visit * Reason Onset Date Comments Medication 01/12/2023 Encounter Details Date Type Department Care Team (Late st Contact Info) Description 01/12/2023 Telephone [facility] Medical Group Pulmonology Specialty Clinic - [address] [address] Dustin Akins MD [address] [place] [address] Medication Social History Tobacco Use Types Packs/Day Years [...] of this encounter Progress Notes * Jose Benito MA - 04/21/2023 1:53 PM CDT Script was corrected * Jose Benito MA - 04/21/2023 1:52 PM CDTAddended by: JOSE BENITO on: 04/21/2023 01:52 PM Modules accepted: Orders * Jose Benito MA - 04/21/2023 1:49 PM CDTAddended by: JOSE BENITO on: 04/21/2023 01:49 PM Modules accepted: Orders * Norma Weiss - 04/21/2023 1:42 PM CDT Patient returned your call. Please give her a call * Jose Benito MA - 04/21/2023 1:16 PM CDT Lmom * Norma Weiss - 04/21/2023 1:12 PM CDT Patient called today saying her insurance company will not fill her aithromycin. Please call her todiscuss * Jose Benito MA - 01/13/2023 8:04 AM CDTAddended by: JOSE BENITO on: 01/13/2023 08:04 AM Modules accepted: Orders * Jose Benito MA - 01/13/2023 8:01 AM CDT Per last visit note this med was to be continued - do not see where it was denied - informed pt - new script sent * Kartik Govea - 01/12/2023 1:27 PM CDT Pt called today and she stated that her script for Azithromycin was denied by Dr. Akins pls call and discuss [phone]. documented in this encounter Plan of Treatment Not on file documented as of this encounter Visit Diagnoses Diagnosis CVID (common variable immunodeficiency) ([facility])- Primary Common variable immunodeficiency documented in this encounter Additional Health Concerns Assessment Noted Time PHQ-9 Depression Total Score: 2 06/15/20 21 10:10 AM MILL LABOR SUPERVISOR documented as of this encounter Care Teams Oil Recovery Operator Relationship Specialty Start Date End Date Scott Hernandez MD [address] [place] [address] PCP - General 01/03/17 documented as of this encounter
--- OUTSIDE RECORDS SUMMARY | 2024-06-27 23:54 | XMS_ITS | Encounter Summary ---
Author Organization [facility] Address [address] [place] [address]. [place] [address] [place] [address] Care Team Providers Care Delivery And Mail Sorter Name Role Phone Scott Hernandez MD Primary Care Provider [phone] Reason for Visit * Reason Comments Sleep Study (SCAN) Encounter Details Date Type Department Care Team ([facility] Contact Info) Description 01/29/2022 Scan HEALTH INFO SRVCS Scanned, Documents Sleep Study (SCAN) Social History Tobacco Use [...] Diagnosis Comments SLEEP STUDY GENERIC (SCAN ORDER) 01/29/2022 documented in this encounter Results * SLEEP STUDY GENERIC (01/29/2022) 01/29/2022 Narrative 01/29/2022 Ordered by an unspecified provider. us Documents Scanned SCANNING Final Result documented in this encounter Visit Diagnoses Not on filedocumented in this encounter Additional Health Concerns Assessment Noted Time PHQ-9 Depression Total Score: 2 06/15/20 21 10:10 AM SUPERVISOR CELL MAINTENANCE documented as of this encounter Care Teams Delivery And Mail Sorter Relationship Specialty Start Date End Date Scott Hernandez MD [address] [place] [address] PCP - General 01/03/17 documented as of this encounter
--- OUTSIDE RECORDS SUMMARY | 2024-06-27 23:54 | XMS_ITS | Encounter Summary ---
Author Organization [facility] Address [address] [place] [address]. [place] [address] [place] [address] Care Team Providers Care Silverware Cleaner Name Role Phone Scott Hernandez MD Primary Care Provider [phone] Reason for Visit * Reason Comments Sleep Study (SCAN) Encounter Details Date Type Department Care Team ([facility] Contact Info) Description 01/01/2023 Scan HEALTH INFO SRVCS Scanned, Doc Med [...] Diagnosis Comments SLEEP STUDY GENERIC (SCAN ORDER) 01/01/2023 documented in this encounter Results * SLEEP STUDY GENERIC (01/01/2023) 01/01/2023 us Doc Med Group Scanned SCANNING Final Resu lt documented in this encounter Visit Diagnoses Not on filedocumented in this encounter Additional Health Concerns Assessment Noted Time PHQ-9 Depression Total Score: 2 06/15/20 21 10:10 AM TOOLS AND PARTS ATTENDANT documented as of this encounter Care Teams Silverware Cleaner Relationship Specialty Start Date End Date Scott Hernandez MD [address] [place], [place] [id number] PCP - General 01/03/17 documented as of this encounter
--- OUTSIDE RECORDS SUMMARY | 2024-06-27 23:54 | XMS_ITS | Encounter Summary ---
Author Organization [facility] Address [address] [place] [address]. [place] [address] [place] [address] Care Team Providers Care Steel Rule Die Maker Name Role Phone Scott Hernandez MD Primary Care Provider [phone] Encounter Details Date Type Department Care Team (Latest Contact Info) Description 01/21/2022 Scan HEALTH INFO SRVCS Scanned, Documents Social [...] Total Score: 2 06/15/20 21 10:10 AM OPTICAL INSTRUMENT ASSEMBLY SUPERVISOR documented as of this encounter Care Teams Steel Rule Die Maker Relationship Specialty Start Date End Date Scott Hernandez MD [address] [address] PCP - General 01/03/17 documented as of this encounter
--- OUTSIDE RECORDS SUMMARY | 2024-06-27 23:54 | XMS_ITS | Encounter Summary ---
Author Organization [facility] Address [address] [place] [address]. [place] [address] [place] [address] Care Team Providers Care Wildlife Removal Specialist Name Role Phone Scott Hernandez MD Primary Care Provider [phone] Reason for Visit * Reason Onset Date Comments Question 07/07/2022 Encounter Details Date Type Department Care Team (Late st Contact Info) Description 07/07/2022 Telephone [facility] Pulmonology [facility]ty [facility] - [address] [address] Dustin Lux MD [address] [place] [address] Question Social History Tobacco Use Types Packs/Day Years [...] Coronavirus/COVID-19? No / Unsure 07/07/2022 3:39 PM HEALTH INFORMATION MANAGER documented as of this encounter Progress Notes * Jose Benito MA - 07/08/2022 11:07 AM CST Pt informed and voiced understanding TH INFORMATION MANAGER * Ludivina Last MA - 07/08/2022 10:35 AM CST advise TH INFORMATION MANAGER * Gilbert Babcock MD - 07/08/2022 10:14 AM CST Her chest x-ray does not show any pneumonia. She should take the doxycyline and Prednisone as prescribed. Gilbert Babcock MD TH INFORMATION MANAGER * Jose Benito MA - 07/07/2022 2:50 PM CSTAddended by: JOSE BENITO on: 07/07/2022 02:50 PM Modules accepted: Orders TH INFORMATION MANAGER * Jose Benito MA - 07/07/2022 2:49 PM CST Pt informed - scripts sent TH INFORMATION MANAGER * Ludivina Last MA - 07/07/2022 2:46 PM CST advise TH INFORMATION MANAGER * Gilbert Babcock MD - 07/07/2022 1:57 PM CST Please see if she can come in and get a chest x-ray. Send a prescription for prednisone 40 mg dailyfor 5 days and Doxycycline 100 mg BID for 7 days. She should pause the Azithromycin while on the doxycycline and restart it once finished with doxycycline. Gilbert Babcock MD TH INFORMATION MANAGER * Jose Benito MA - 07/07/2022 1:16 PM CST Please advise cough with yellow sputum production x 5 days increased wheezing and SOB sinus congestion, headache and increased wheezing also negative flu and covid testing please advise ( pt has taken her azithromycin for las TH INFORMATION MANAGER * Jose Benito MA - 07/07/2022 12:10 PM CST Printed for provider TH INFORMATION MANAGER * Kartik Govea - 07/07/2022 9:18 AM CST Pt called today, really sick, coughing up yellow sputum, wheezing, coughing for five days now, she did the drive up Covid test, negative she's been taking antibiotics through PCP nothing is working pls call and discuss [phone]. TH INFORMATION MANAGER documented in this encounter Plan of Treatment Not on file documented as of this encounter Results * XR CHEST PA+LAT (07/07/2022 3:49 PM HEALTH INFORMATION MANAGER) Anatomical Region Laterality Modality Chest Radiographic Tanesha ging 07/07/2022 5:56 PM HEALTH INFORMATION MANAGER Impressions 07/07/2022 5:57 PM HEALTH INFORMATION MANAGER =====IMPRESSION:===== Mild thickening of the bronchi. No focal consolidation or significant congestion. Ordered By: DUSTIN LUX Interpreted By: Emile Ramirez MD, 07/07/2022 5:56 PM Narrative 07/07/2022 5:57 PM HEALTH INFORMATION MANAGER Examination: Chest x-ray 2 view Exam date/time: [...] focal consolidation or significant congestion. Ordered By: DUSTIN LUX Interpreted By: Emile Ramirez MD, 07/07/2022 5:56 PM us Dustin Lux MD GENERAL IMAGING Final Resul t documented in this encounter Visit Diagnoses Diagnosis Bronchiectasis without complication (CMS/HCC HHS/HCC)- Primary Bronchiectasis without acute exacerbation Bronchiectasis without complication (CMS/[facility] HHS/HCC) Bronchiectasis without acute exacerbation documented in this encounter Additional Health Concerns Assessment Noted Time PHQ-9 Depression Total Score: 2 12/07/20 21 10:10 AM HEALTH INFORMATION MANAGER documented as of this encounter Care Teams Wildlife Removal Specialist Relationship Specialty Start Date End Date Scott Hernandez MD [address] [place] [address] PCP - General 01/03/17 documented as of this encounter
--- OUTSIDE RECORDS SUMMARY | 2024-06-27 23:54 | XMS_ITS | Encounter Summary ---
Author Organization [facility] Address [address] [place] [address]. [place] [address] [place] [address] Care Team Providers Care Block And Case Maker Name Role Phone Scott Hernandez MD Primary Care Provider [phone] Reason for Visit * Reason Comments Procedure (SCAN) Encounter Details Date Type Department Care Team ([facility] Contact Info) Description 05/30/2023 Scan HEALTH INFO SRVCS Scanned, Doc Med [...] Priority Date/Time Associated Diagnosis Comments PULMONARY GENERIC 05/30/2023 documented in this encounter Results * PULMONARY GENERIC (05/30/2023) 05/30/2023 us Doc Med Group Scanned SCANNING Final Resu lt documented in this encounter Visit Diagnoses Not on filedocumented in this encounter Additional Health Concerns Assessment Noted Time PHQ-9 Depression Total Score: 2 06/15/20 21 10:10 AM SPRINKLER REPAIR TECHNICIAN documented as of this encounter Care Teams Block And Case Maker Relationship Specialty Start Date End Date Scott Hernandez MD [address] [address] PCP - General 01/03/17 documented as of this encounter
--- OUTSIDE RECORDS SUMMARY | 2024-06-27 23:54 | XMS_ITS | Encounter Summary ---
Author Organization [facility] Address [address] [place] [address]. [place] [address] [place] [address] Care Team Providers Care Tank Tender Name Role Phone Scott Hernandez MD Primary Care Provider [phone] Reason for Visit * Reason Onset Date Comments COVID-19 03/01/2022 Encounter Details Date Type Department Care Team (Late st Contact Info) Description 03/01/2022 Telephone [facility] Medical Group Multispecialty Care - [facility] [address] [facility] [address] [place] [phone] Dustin Akins MD [address] [facility] [address] [place], [place] [address] COVID-19 Social History Tobacco Use Types Packs/Day Years [...] Progress Notes * Jose Benito MA - 03/01/2022 2:49 PM CDT lmom to cx pft 03/03 with pft lab * Jose Benito MA - 03/01/2022 2:48 PM CDTAddended by: JOSE BENITO on: 03/01/2022 02:48 PM Modules accepted: Orders * Jose Benito MA - 03/01/2022 2:47 PM CDT Pt informed and script sent -- she will cx her pft at this time * Jose Benito MA - 03/01/2022 2:40 PM CDT Ok to send pred 40x5 if she's not already received steroids from pcp, nelida weller. Low threshold for ED * Jose Benito MA - 03/01/2022 9:11 AM CDT Spoke with pt - she states she tested positive 3 wks ago Doc halo sent to provider Message left with pft lab - need to see if she can reschedule * Jose Benito MA - 03/01/2022 8:44 AM CDT ----- Message from Dustin Akins MD sent at 03/01/2022 8:25 AM CDT ----- Please notify her that she screened +for covid; she would be a candidate for paxlovid; ok to order if she agrees; encourage ED with any significant symptoms documented in this encounter Plan of Treatment Not on file documented as of this encounter Visit Diagnoses Diagnosis Chronic obstructive pulmonary disease, unspecified COPD type ([facility]/HCC [facility])- Primary documented in this encounter Additional Health Concerns Infection Onset Date Last Indicated Resolved Time COVID-19 Confirmed 02/28/2022 02/28/2022 2 12:33 AM CDT Assessment Noted Time PHQ-9 Depression Total Score: 2 06/15/20 21 10:10 AM DISASTER RESPONSE DIRECTOR documented as of this encounter Care Teams Tank Tender Relationship Specialty Start Date End Date Scott Hernandez MD [address] [place], [place] [id number] PCP - General 01/03/17 documented as of this encounter
--- OUTSIDE RECORDS SUMMARY | 2024-06-27 23:54 | XMS_ITS | Encounter Summary ---
Author Organization [facility] Address [address] [place] [address] Care Team Providers Care Pillowcase Maker Name Role Phone Unavailable Primary Care Provider Unavailabl e Encounter Details Date Type Department Care Team (Late st Contact Info) Description 08/01/2003 Orders Only [facility] [address] [place] [address] ProviderBhargav MD Social History Tobacco Use Types Packs/Day Years Used Date Smoking Tobacco: Never Assessed Sex and Gender Information Value Date Recorded Sex Assigned at Not on file Gender Identity Not on file Sexual Orientation Not on file documented as of this encounter Plan of Treatment Not on file documented as of this encounter Procedures Procedure Name Priority Date/Time Associated Diagnosis Comments GROSS + MICRO EXAM RUIZ 08/01/2003 12 :05 PM BALLISTICS PROFESSOR documented in this encounter Results * GROSS + MICRO EXAM (08/01/2003 12:05 PM BALLISTICS PROFESSOR) Result CASE NUMBER [id number] Comment: ORDERING [...] fibrous tissue. ??There are no discreet masses. Studio Assistant sections are submitted in cassettes A1 - [...] fibrous tissue. ??There are no discreet masses. Studio Assistant sections are submitted in cassettes B1 - [...] fibrocystic changes Dictated by ?Christal Cross M.D. Qm Nurse ? [facility] MOCTEZUMA Electronically Signed By ? CHRISTAL CROSS MISCELLANEOUS SAMPLES / Unknown 08/01/2003 12:05 PM BALLISTICS PROFESSOR 08/01/2003 12:12 PM BALLISTICS PROFESSOR Historical Provider LAB - PATHOLOGY/C YTOLOGY ORDERABLES documented in this encounter Visit Diagnoses Not on filedocumented in this encounter
--- OUTSIDE RECORDS SUMMARY | 2024-06-27 23:54 | XMS_ITS | Encounter Summary ---
Author Organization [facility] Address [address] [place] [address]. [place] [address] [place] [address] Care Team Providers Care Oracle Consultant Name Role Phone Scott Hernandez MD Primary Care Provider [phone] Encounter Details Date Type Department Care Team (Latest Contact Info) Description 01/31/2022 Travel Social History Tobacco Use Types Packs/Day Years Used Date Smoking Tobacco: Former Cigarettes 2 10 023 1987 Smokeless Tobacco: Never Alcohol Use Standard [...] Total Score: 2 06/15/20 21 10:10 AM STONE ENGRAVER documented as of this encounter Care Teams Oracle Consultant Relationship Specialty Start Date End Date Scott Hernandez MD [address] [place], [place] [id number] PCP - General 01/03/17 documented as of this encounter
--- OUTSIDE RECORDS SUMMARY | 2024-06-27 23:55 | XMS_ITS | Encounter Summary ---
Author Organization [facility] Address [address] [place] [address]. [place], [place] [address] [place] [address] Care Team Providers Care Activity Therapist Name Role Phone Scott Hernandez MD Primary Care Provider [phone] Encounter Details Date Type Department Care Team (Latest Contact Info) Description 01/31/2020 Scan HEALTH INFO SRVCS Scanned, Documents Social History Tobacco Use Types Packs/Day Years Used Date Smoking Tobacco: Former Cigarettes 2 10 1 978 - 1987 Smokeless Tobacco: Never Alcohol Use Standard Drinks/Week Comments Yes 0 (1 standard drink = 0.6 oz pur e alcohol) AUDIT-C Answer Date Recorded Frequency of Alcohol Consumption Monthly or less 06/12/2018 Average Number of Drinks Not on file 018 Frequency of Binge Drinking Not on file 10/2017 Comments No Sex and Gender Information Value Date Recorded Sex Assigned at Not on file Legal Sex Female 9:34 PM CDT Gender Identity Not on file Sexual Orientation Not on file documented as of this encounter Plan of Treatment Not on file documented as of this encounter Visit Diagnoses Not on filedocumented in this encounter Care Teams Activity Therapist Relationship Specialty Start Date End Date Scott Hernandez MD [address] [place] [address] PCP - General 01/03/17 documented as of this encounter
--- OUTSIDE RECORDS SUMMARY | 2024-06-27 23:55 | XMS_ITS | Encounter Summary ---
Author Organization [facility] Address [address] [place] [address]. [place] [address] [place] [address] Care Team Providers Care Machine Container Washer Name Role Phone Scott Hernandez MD Primary Care Provider [phone] Reason for Visit * Reason Onset Date Comments Follow Up Call 11/26/2019 Encounter Details Date Type Department Care Team (Late st Contact Info) Description 11/26/2019 Telephone [facility] Pulmonology Specialty Clinic [address] [address] Dustin Akins MD [address] [place] [address] Follow Up Call Social History Tobacco [...] as of this encounter Progress Notes * Willy Bond CRT - 11/27/2019 2:48 PM CDT Called patient with instructions per Dr. Akins and medication changes. Patient understood. Scripts and information sent to [facility] * Willy Bond CRT - 11/27/2019 2:22 PM CDTAddended by: WILLY BOND on: 11/27/2019 02:22 PM Modules accepted: Orders * Willy Bond CRT - 11/27/2019 10:15 AM CDT Called Maria Del Rosario from [facility] and I mentioned that Dr. Akins stated that we can change her to the nebulizer treatments instead of the inhalers. Maria Del Rosario mentioned that she will call and let the patient know about the changes. Mentioned to maria del rosario that I still have not received the order for this. Maria Del Rosario stated that she faxed it to [phone] and then [phone] and she got confirmations that it went through. Maria Del Rosario statedthat she will hand deliver it to us and leave it at the front with the PSRs. Mentioned that she will need to wear a mask and also get her temperature taken at the front door before she is able to come up. * iWlly Bond CRT - 11/27/2019 8:[address] Akins: - okay to change - patient needs to know that compliance is stoll * Willy Bond CRT - 11/26/2019 3:13 PM CDT Task printed and placed in Dr. Akins folder to review * Willy Bond CRT - 11/26/2019 3:05 PM CDT Maria Del Rosario from [facility] stated that the patient is struggling with the cost of her inhalers and wants toknow if the patient can switch to just nebulizer treatments since they would be more cost efficient. Maria Del Rosario stated that instead of the Symbicort and Spiriva, we could do the following if Dr. Akins is okay with the change. Yupeemiliei Daily Perforomist BID Budesonide BID Mentioned that Dr. Akins will return to the office tomorrow 11/26 and then I can ask him them. Maria Del Rosario voiced understanding. * Manasa Dempsey - 11/26/2019 12:57 PM CDT Maria Del Rosario from [facility] returned call. Please call back. * Willy Bond CRT - 11/26/2019 12:40 PM CDT Called Maria Del Rosario from [facility] and [facility] stating that we have not received the order yet on this patient.Mentioned that she can refax it to [phone]. * María Bartlett - 11/26/2019 10:29 AM CDT Maria Del Rosario, from [facility] , is faxing over an order. She would like for someone to call her so she can explain the reason for this request. Please return her call. documented in this encounter Plan of Treatment Not on file documented as of this encounter Visit Diagnoses Diagnosis Chronic obstructive pulmonary disease, unspecified COPD type (CMS/HCC [facility]) documented in this encounter Care Teams Machine Container Washer Relationship Specialty Start Date End Date Scott Hernandez MD [address] [address] PCP - General 01/03/17 documented as of this encounter
--- OUTSIDE RECORDS SUMMARY | 2024-06-27 23:55 | XMS_ITS | Encounter Summary ---
Author Organization [facility] Address [address] [place] [address]. [place] [address] [place] [address] Care Team Providers Care Waste Collector Name Role Phone Scott Hernandez MD Primary Care Provider [phone] Reason for Visit * Reason Comments Follow Up cpap compliance * Consultation/Treatment (Routine) - Closed Specialty Diagnoses / Procedures Referred By Contact Referred To Contact NURSE PRACTITIONER / SLEEP & RESPIRATORY CARE Diagnoses face to face for oxygen - ok per LM Procedures FOLLOW UP Scott Hernandez MD [address] [address] Phone: tel: fax: María Bautista, UTILITY TENDER CARDING Referral ID Status Reason Start Date Expiration Date Visits Re quested Visits Authorized [id number] Closed 02/19/2019 02/20/2020 100 100 Encounter Details Date Type Department Care Team (Latest Contact Info) Description 07/12/2019 10:00 AM CREDIT CONTROL ADMINISTRATOR Office Visit [facility] Medical [facility] Multispecialty Care - [address] [place] [address] María Bautista, UTILITY TENDER CARDING Follow Up (cpap compliance ) Social History Tobacco Use Types Packs/Day [...] Sign Reading Time Taken Comments Blood Pressure 122/82 07/12/2019 9:57 AM CREDIT CONTROL ADMINISTRATOR Pulse 94 07/12/2019 9:57 AM CREDIT CONTROL ADMINISTRATOR Temperature 36.8 ??C (98.3 ??F) 07/12/2019 9:57 AM CS T Respiratory Rate 16 07/12/2019 9:57 AM CREDIT CONTROL ADMINISTRATOR Oxygen Saturation 99% 07/12/2019 9:57 AM CREDIT CONTROL ADMINISTRATOR RA Inhaled Oxygen Concentration - - Weight 73.4 kg (161 lb 14.4 oz) 07/12/2019 9:57 AM CREDIT CONTROL ADMINISTRATOR Height - - Body Mass Index 30.59 11/12/2018 9:55 AM CDT documented in this encounter Progress Notes * María Bautista, BEVERLY - 07/12/2019 10:00 AM CST [facility] PULMONARY MEDICINE History Chief Complaint Patient presents with ??? Follow Up cpap compliance 74-year-old obese white female former smoker with past medical history of CVID, BRUNO, asthma/COPD, recurrent sinusitis/bronchitis, bronchiectasis, seasonal allergies, and GERD presents for follow-up. Initially referred for bronchiectasis. Previously followed with field examiner Dr. Huang; now follows with allergy providers Earl Rothman PA-C and Dr. Ruano. 02/2017: diagnosed with CVID, started on Cuvitru [...] notes ongoing sinus congestion; worried about developing bronchitis 06/03/2019: OV with LMahaffey ACNP; notes feeling of airway closure on 05/25/19, possible VCD event, improved without intervention; recent fever, dizziness, weakness, fatigue, butler, cough, wheezing, nasal congestion/drainage, orthopnea, low fever. Prescribed Levaquin and Prednisone 60mg. Symptoms improving slowly. 06/11/2019: ER visit for continued dyspnea, cough, extreme fatigue, weakness, lightheadedness, tremors, low grade fever, chills; CTA negative for PE, acute process; Influenza A & B negative. Discharged home. 07/12/2019: OV with LMahaffey ACNP; notes improvement in dyspnea, cough, wheezing. Reports compliancewith medications, flutter device, CPAP. To travel to [place] soon for an extended vacation, returning 11/08/2019. At prior baseline 2018: Notes improvement since going back to weekly IVIG infusions; things had worsened after going to biweekly dosing. Notes baseline dyspnea on exertion after ambulating 30 yards or up one flight of stairs, takes 5 minutes of rest regain her breath. Notes a chronic cough that began circa 2014; notes cough daily, intermittently productive of white to green sputum, Frequently notes coughing up hard chunks of sputum. Notes frequent, wheezing, especially when dyspneic. Notes occasional pleuritic chest discomfort related to cough. Denies palpitations, fever, chills, night sweats, hemoptysis. Notes extensive allergies, followed with streetcar conductor, on SCIT Notes diagnosis of BRUNO; elected not to wear CPAP in past, currently compliant. Former smoker; quit 1980s; approximate 40 pack year history. Denies alcohol/illicits. 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 Denies exposure to TB, asbestos, mold, birds. Notes GERD, fairly well controlled. Notes receiving influenza and pneumococcal vaccines. fungal sputum. 01/02/2016: Aspergillus Niger. Labs 11/07/2016, outside hospital: -Region 8. Positive, dust, mites, penicillium, Cladosporium, aspergillus fumigatus, Alternaria Alternaria, stemphylium herbarium -IgG low, 600 (700-1600); IgG subclass 1 low 350 (422-1292); subclass 2, 3, 4 within normal limits. -Aspergillus antibody, negative (includes fumigatus, flavus, Niger) Outside hospital spirometry 11/16/2016: FVC 77%, FEV1 76%, FEV1/FVC 74% CT chest 10/20/2016: -No significant change in bilateral cylindrical bronchiectasis and scattered punctate central lobular nodules. -4 mm left lower lobe nodule noted on 11/11/2015 CT no longer visualized 11/2016: Respiratory culture; normal juanita fungal sputum; sparse growth of sheila dubliniensis; likely contaminant afb sputum negative A1AT MM 12/2016: OSH PFT; srinivasa wnl; decrease in mid to low lung volumes; mild reduction in uDLCO; numbers unavailable at present OSH 6MWT: ambulated 427 meters without desat <88% per report OSH PSG 03/16/2016: AHI 9.5 PFT 02/18/2019: FVC 89%, FEV1 1.60 L, 86%, FEV1/FVC 73%. Post bronchodilator FVC 89%, FEV1 1.65 L, 89%, FEV1/FVC 75%. Less then significant response to bronchodilator. TLC 107%, RV 114%, ERV 40%, unadjusted DLCO 82% predicted CTA chest 06/11/19: -No PE -No acute cardiopulmonary process CPAP card download 05/22/2019: 87% usage, wearing greater than 4 hours 83% of nights, wearing an average 6 hours 45 minutes daily; AHI 1.9 on 4-20 cm H2O CPAP; median pressure 8.8 cm H2O CPAP card download 07/12/2019: 88% usage, wearing >4 hours 82% of nights; average use 6 hours 50 minutes; AHI 1.9 on AutoCPAP [id number]; median pressure 8.8cmH2O, max pressure 13.8cmH2O. Past Medical History: Diagnosis Date ??? Bronchiectasis [...] Years: 10.00 Pack years: 20.00 Types: Cigarettes Last attempt to quit: 1987 Years since quittin.0 ??? Smokeless tobacco: Never Used Substance Use Topics ??? Alcohol use: Yes Frequency: Monthly or less ??? Drug use: Yes Types: Marijuana Comment: has med card Family History Problem Relation Name Age of Onset ??? Heart Mother ??? Hypertension Mother ??? Diabetes Father ??? Diabetes Brother ??? Cancer Paternal Grandmother Current Outpatient Medications Medication Sig Dispense Refill ??? albuterol (2.5 MG/3ML) 0.083% nebulizer solution Take 3 mLs (2.5 mg total) by nebulization every 6 (six) hours as needed for Wheezing. 360 mL 7 ??? albuterol sulfate HFA (VENTOLIN HFA) 108 (90 Base) MCG/ACT inhaler ??? ALPRAZolam 0.5 MG tablet Take 0.5 mg by mouth as needed for Anxiety. ??? Amlodipine-Olmesartan 10-40 MG Tab ??? atorvastatin 40 MG tablet TK 1 T PO QD 0 ??? azithromycin 500 MG tablet Take 1 tablet (500 mg total) by mouth 3 (three) times a week. Monday, Monday, Monday 36 tablet 3 ??? budesonide-formoterol (SYMBICORT) 160-4.5 MCG/ACT inhaler Inhale 2 puffs into the lungs 2 (two)times daily. 1 Inhaler 3 ??? celecoxib 200 MG capsule ??? cetirizine 10 MG tablet Take 10 mg by mouth. ??? citalopram 20 MG tablet ??? cloNIDine 0.1 MG tablet ??? CPAP MACHINE AutoCPAP [id number] For use when sleeping Lifetime use 1 Device 0 ??? CUVITRU 8 GM/40ML Solution every 7 days. 12 ??? cyclobenzaprine 10 MG tablet TK 1 T PO BID 0 ??? dexlansoprazole (DEXILANT) 30 MG capsule ??? docusate sodium 50 MG capsule 50 mg 2 (two) times daily as needed. ??? EPINEPHrine 0.3 MG/0.3ML injection Inject 0.3 [...] hours as needed. 1 Device 0 ??? RaNITidine HCl 300 MG Cap TK 1 C PO HS 3 ??? tiotropium (SPIRIVA HANDIHALER) [address] 1 capsule into inhaler and inhale daily. ??? vitamin D3, cholecalciferol, 5000 UNITS capsule No current facility-administered medications for this visit. Allergies Allergen Reactions ??? Codeine Nausea and Vomiting ??? Dander Unknown ??? Dust Mite Extract Unknown There is no immunization history on file for this patient. Review of Systems Constitutional: Negative for chills, fever, malaise/fatigue and weight loss. HENT: Negative for congestion, sinus pain and sore throat. Eyes: Negative for photophobia. Respiratory: Positive for cough, sputum production, shortness of breath and wheezing. Negative for hemoptysis and stridor. Cardiovascular: Negative for chest pain, palpitations, orthopnea, leg swelling and PND. Gastrointestinal: Negative for abdominal pain, nausea and vomiting. Musculoskeletal: Negative for back pain, joint pain and myalgias. Skin: Negative for rash. Neurological: Negative for dizziness, focal weakness and headaches. Endo/Heme/Allergies: Negative for environmental allergies. Psychiatric/Behavioral: Negative for depression and suicidal ideas. Physical Exam Filed Vitals: 07/12/19 0957 BP: 122/82 Pulse: 94 Resp: 16 Temp: 98.3 ??F (36.8 ??C) SpO2: 99% Weight: 73.4 kg (161 lb 14.4 oz) Physical Exam: General: WF, sitting comfortably in nad, very pleasant Neuro: Alert, appropriate Head: nc, at EENT: no sinus ttp, mallampati 3 Neck: no appreciable LAD Resp: non-labored, bronchial bs, no audible wheezes/crackles; occasional cough; mild conversationaldyspnea CV: s1,s2; rrr; distant heart tones; no audible murmur Abd: soft, non-tender, non-distended, bs+, obese Ext: no edema, pulses present and equal bilaterally, no clubbing Skin: no visible rashes Assessment 1. Bronchiectasis -likely related to CVID -with acute and prolonged exacerbation 05/2019 2. COPD, GOLD B by history -consider chronic obstructive asthma, chronic bronchitis 3. BRUNO on CPAP 4. 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 Former smoker 6. Hx of chronic prednisone therapy 7. Vocal cord dysfunction, suspected -reportedly diagnosed at [facility] several years ago, unclear if diagnosis came from an ENT 8. Seasonal/Environmental allergies; Allergic rhinitis -on SCIT -did not respond to Xolair -follows with allergy providers Earl Rothman PA-C and Dr. Ruano 9. Obesity 10. Hx of aspergillus niger positive sputum -serology negative Plan 1. Albuterol hfa rescue i-ii puffs q4 prn sob/wheezing 2. Symbicort 160/4.5 ii puffs bid 3. Spiriva 18mcg daily 4. Singulair 10mg daily, Zyrtec daily 5. Roflumilast 500mcg daily 6. Duoneb q4 prn sob/wheezing 7. Azithromycin 3x weekly , renew prescription -consider possibly inhaled tobramycin in future pending sputum cultures 8. Flutter -poor candidate for VEST given osteoporosis, hx of L1 fx 9. Continue to follow with streetcar conductor -continue IVIG 10. CPAP qhs and prn naps -continues to need, use, and benefit from CPAP 11. Encouraged continued smoking cessation 12. Encouraged healthy weight loss via diet/exercise 13. Respiratory culture, AFB smear/culture with any exacerbation 14. Continue VCD exercises at home and with FLIGHT ATTENDANT RAMP 15. Ipratropium nasal spray BID Return to clinic to see Dr. Akins in November 2019 after returning from extended [place] vacation. ALCIRA Judge IT CONTROL ADMINISTRATOR IT CONTROL ADMINISTRATOR documented in this encounter Plan of Treatment Not on file documented as of this encounter Visit Diagnoses Diagnosis Chronic obstructive pulmonary disease, unspecified COPD type ([facility])- Primary Bronchiectasis without complication ([facility]) Bronchiectasis without acute exacerbation Environmental and seasonal allergies CVID (common variable immunodeficiency) ([facility]) Common variable immunodeficiency BRUNO on CPAP Obstructive sleep apnea (adult) (pediatric) Cigarette nicotine dependence in remission Tobacco use disorder documented in this encounter Care Teams Waste Collector Relationship Specialty Start Date End Date Scott Hernandez MD [address] [address] PCP - General 01/03/17 documented as of this encounter
--- OUTSIDE RECORDS SUMMARY | 2024-06-27 23:55 | XMS_ITS | Encounter Summary ---
Author Organization [facility] Address [address] [place] [address]. [place], [place] [address] [place] [address] Care Team Providers Care Head Scorer Name Role Phone Scott Hernandez MD Primary Care Provider [phone] Encounter Details Date Type Department Care Team (Latest Contact Info) Description 05/25/2017 Abstract [facility] Social History Tobacco Use Types Packs/Day Years Used Date Smoking Tobacco: Never Assessed Comments Unknown Sex and Gender Information Value Date Recorded Sex Assigned at Not on file Legal Sex Female 9:34 PM CDT Gender Identity Not on file Sexual Orientation Not on file documented as of this encounter Plan of Treatment Not on file documented as of this encounter Visit Diagnoses Not on filedocumented in this encounter Care Teams Head Scorer Relationship Specialty Start Date End Date Scott Hernandez MD [address] [address] PCP - General 01/03/17 documented as of this encounter
--- OUTSIDE RECORDS SUMMARY | 2024-06-27 23:55 | XMS_ITS | Encounter Summary ---
Author Organization [facility] Address [address] [place] [address]. [place] [address] [place] [address] Care Team Providers Care Reinforcing Iron And Rebar Workers Name Role Phone Scott Hernandez MD Primary Care Provider [phone] Reason for Visit * Reason Onset Date Comments Breathing Problem 05/27/2019 [place] like her throat was closing up and thought she was going to pass away Encounter Details Date Type Department Care Team (Late st Contact Info) Description 05/27/2019 Telephone [facility] [place] [address] [place] [phone] Dustin Akins MD [address] [place] [id number] Breathing Problem ([place] like her throat was closing up and thought she was going to pass away) Social History Tobacco Use Types Packs/Day Years Used Date Smoking Tobacco: Former Cigarettes 2 10 1 978 - 1988 Smokeless Tobacco: Never Alcohol Use Standard Drinks/Week Comments Yes 0 (1 standard drink = 0.6 oz pur e alcohol) AUDIT-C Answer Date Recorded Frequency of Alcohol Consumption Monthly or less 06/12/2018 Average Number of Drinks Not on file 018 Frequency of Binge Drinking Not on file 10/2017 Comments Unknown Sex and Gender Information Value Date Recorded Sex Assigned at Not on file Legal Sex Female 9:34 PM CDT Gender Identity Not on file Sexual Orientation Not on file documented as of this encounter Progress Notes * Alba Maria, KATHY - 06/03/2019 8:08 AM CST Called and scheduled patient for today at 1120 per María Bautista. UREMENT TECHNICIAN * Jessica Deluna - 06/03/2019 7:57 AM CST Went to her PCP and got prednisone and antibiotics. Then went to her registered dental assistant rda the next day and they thought she had vocal cord dysfunction. She is still having wheezing, coughing, fever 99.6, feels miserable. She states something is just not right with her and with thanksgiving coming up she is asking if she could see María or doctor today or tomorrow, please call pt. UREMENT TECHNICIAN * Jose Ardon MA - 05/27/2019 11:19 AM CST Per María pt should go to ER Spoke with pt and she states she is doing better with breathing today-she is however red and splotchy in the face and running a low grade fever - pt does not think she needs to go to ER She will go to PCP and have them check her over Advised if sx return she should call 911 and be transported to nearest ER - pt voiced understanding UREMENT TECHNICIAN * Sonam Burnett - 05/27/2019 9:12 AM CST Pt called saying that on Monday at some point she felt like her throat was closing up and thoughtshe was going to pass away. She fought to breath and she finally did but then again Monday she saidthat she was feeling the same again along with her not being able to talk. She asked to please give her a call back as soon as possible. UREMENT TECHNICIAN documented in this encounter Plan of Treatment Not on file documented as of this encounter Visit Diagnoses Not on filedocumented in this encounter Care Teams Reinforcing Iron And Rebar Workers Relationship Specialty Start Date End Date Scott Hernandez MD [address] [place] [address] PCP - General 01/03/17 documented as of this encounter
--- OUTSIDE RECORDS SUMMARY | 2024-06-27 23:55 | XMS_ITS | Encounter Summary ---
Author Organization [facility] Address [address] [place] [address]. [place] [address] [place] [address] Care Team Providers Care Dam Worker Name Role Phone Scott Hernandez MD Primary Care Provider [phone] Encounter Details Date Type Department Care Team (Latest Contact Info) Description 01/19/2022 Scan HEALTH INFO SRVCS Scanned, Documents Social [...] Total Score: 2 06/15/20 21 10:10 AM BUDGET AND POLICY ANALYST documented as of this encounter Care Teams Dam Worker Relationship Specialty Start Date End Date Scott Hernandez MD [address] [address] PCP - General 01/03/17 documented as of this encounter
--- OUTSIDE RECORDS SUMMARY | 2024-06-27 23:55 | XMS_ITS | Encounter Summary ---
Author Organization [facility] Address [address] [place] [address]. [place] [address] [place] [address] Care Team Providers Care Client Service Supervisor Name Role Phone Scott Hernandez MD Primary Care Provider [phone] Encounter Details Date Type Department Care Team (Latest Contact Info) Description 07/16/2020 Travel Social History Tobacco Use Types Packs/Day Years Used Date Smoking Tobacco: Former Cigarettes 2 04 09 957 1987 Smokeless Tobacco: Never Alcohol Use Standard [...] 3, please move on to questions 3-9 0 07/16/2020 Comments No Sex and Gender Information Value Date Recorded Sex Assigned at Not on file Legal Sex Female 9:34 PM CDT Gender Identity Not on file Sexual Orientation Not on file COVID-19 Exposure Response Date Recorded In the last month, have you been in contact with someone who was confirmed or suspected to have Coronavirus / COVID-19? 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
--- OUTSIDE RECORDS SUMMARY | 2024-06-27 23:55 | XMS_ITS | Encounter Summary ---
Author Organization [facility] Address [address] [place] [address]. [place] [address] [place] [address] Care Team Providers Care Manager Printing Name Role Phone Scott Hernandez MD Primary Care Provider Encounter Details Date Type Department Care Team (Latest Contact Info) Description 06/11/2019 3:40 PM ALUMINA PLANT SUPERVISOR - 06/11/2019 5:45 PM [facility] Encounter [facility] [place] [address] María Bautista, TIRE CHANGER Discharge Disposition: Home or Self Care (Routine [...] on file documented as of this encounter Medications at Time of Discharge albuterol sulfate HFA 108 (90 Base) MCG/ACT inhaler 08/08/2016 ALPRAZolam 0.5 MG tablet Take 1 tablet (0.5 mg total) by mouth as needed for Anxiety. Amlodipine-Olmesa rtan 10-40 MG Tab 10/05/2016 atorvastatin 40 MG tablet TK 1 T PO QD 0 05/18/2018 celecoxib 200 MG capsule 09/06/2016 cetirizine 10 MG tablet Take 1 tablet (10 mg total) by mouth. citalopram 20 MG tablet 10/05/2016 cloNIDine 0.1 MG tablet 07/12/2016 CPAP MACHINEIndication s:BRUNO (obstructive sleep apnea) AutoCPAP [id number] For use when sleeping Lifetime use 1 Device 02/19/2019 CUVITRU 8 GM/40ML Solution every 7 days. 12 01/17/2018 cyclobenzaprine 10 MG tablet TK 1 T PO BID 0 05/29/2018 dexlansoprazole (DEXILANT) 30 MG capsule 02/02/2017 EPINEPHrine [...] DME SUPPLYIndications :Productive cough,CVID (common variable immunodeficiency) ([facility]),Bronchie ctasis without complication ([facility]) Take 1 Device by nebulization every 4 (four) hours as needed. 1 Device 11/12/2018 vitamin D3, cholecalciferol, 5000 UNITS capsule albuterol (2.5 MG/3ML) 0.083% nebulizer solutionIndicatio ns:Chronic obstructive pulmonary disease, unspecified COPD type ([facility] H[facility]/HCC) Take 3 mLs (2.5 mg total) by nebulization every 6 (six) hours as needed for Wheezing. 360 mL 7 05/13/2019 0 azithromycin 500 MG tabletIndications :Bronchiectasis without complication ([facility]),Chronic obstructive pulmonary disease, unspecified COPD type ([facility]) Take 1 tablet (500 mg total) by mouth 3 (three) times a week for 30 doses. Every Monday, Monday, and Monday 30 tablet 1 05/24/2019 0 budesonide-formot gilmar (SYMBICORT) 160-4.5 MCG/ACT inhalerIndication s:Chronic obstructive pulmonary disease, unspecified COPD type ([facility]) Inhale 2 puffs into the lungs 2 (two) times daily. 1 Inhaler 3 09/17/2018 1 docusate sodium 50 MG capsule 50 mg 2 (two) times daily as needed. 12/26/2014 2 ipratropium 0.06 % nasal spray U 2 SPRAYS UP TO TID INTRANASALLY FOR 13 DAYS 0 01/11/2019 4 levofloxacin 500 MG tablet Take 500 mg by mouth daily. 0 05/29/2019 0 predniSONE 10 mg tablet TK 1 T PO TID FOR 5 DAYS 0 05/29/2019 0 predniSONE 20 MG tablet TK 3 TS PO QD FOR 5 DAYS 0 05/30/2019 0 RaNITidine HCl 300 MG Cap TK 1 C PO HS 3 05/07/2018 1 tiotropium (SPIRIVA HANDIHALER) [address] 1 capsule into inhaler and inhale daily. 07/12/2016 1 documented as of this encounter Plan of Treatment Not on file documented as of this encounter Procedures Procedure Name Priority Date/Time Associated Diagnosis Comments INFLUENZA A & B Today 06/11/2019 3:51 PM ALUMINA PLANT SUPERVISOR Cough Shortness of breath Fever and chills documented in this encounter Results * INFLUENZA A & B (06/11/2019 3:51 PM ALUMINA PLANT SUPERVISOR) SPECIMEN TYPE NASOPHARYNGEAL SWAB 06/11/2019 4:06 PM ALUMINA PLANT SUPERVISOR [facility] INFLUENZA A NEGATIVE NEGATIVE 06/11/2019 4:29 PM ALUMINA PLANT SUPERVISOR [facility] INFLUENZA B NEGATIVE NEGATIVE 06/11/2019 4:29 PM [facility] Comment: Interpretation: Negative for Influenza A and B. A negative result does not exclude influenza virus infection. If influenza is circulating in your community, a diagnosis of influenza should be considered based on a patient's clinical presentation and empiric antiviral treatment should be considered, if indicated. If more conclusive testing is needed for hospitalized inpatients, follow-up confirmatory testing with RT-PCR requires a separate order. NASOPHARYNGEAL SWAB / Unknown 06/11/2019 3:51 PM ALUMINA PLANT SUPERVISOR us María Bautista TIRE CHANGER MICROBIOLOGY - GENERAL ORD ERABLES Final Result [facility] [address] [place] [address], documented in this encounter Visit Diagnoses Diagnosis Cough Shortness of breath Fever and chills Fever, unspecified documented in this encounter Care Teams Manager Printing Relationship Specialty Start Date End Date Scott Hernandez MD [address] [place], [place] [id number] PCP - General 01/03/17 documented as of this encounter
--- OUTSIDE RECORDS SUMMARY | 2024-06-27 23:55 | XMS_ITS | Encounter Summary ---
Author Organization [facility] Address [address] [place] [address]. [place] [address] [place] [address] Care Team Providers Care Leasing Representative Name Role Phone Scott Hernandez MD Primary Care Provider Reason for Visit * Reason Onset Date Comments Cough 11/22/2018 Encounter Details Date Type Department Care Team (Late st Contact Info) Description 11/22/2018 Telephone [facility] Pul[facility]ology Specialty Clinic - [address] [address] Dustin Akins MD [address] [place] [address] Cough Social History Tobacco Use Types Packs/Day Years [...] as of this encounter Progress Notes * Sae Donovan CRT - 11/22/2018 1:26 PM CDTAddended by: SAE DONOVAN on: 11/22/2018 01:26 PM Modules accepted: Orders * Sae Donovan CRT - 11/22/2018 1:26 PM CDT Patient feels as if she would benefit from ABX and steroids. Sent medications to pharmacy and informed patient we would send testing to [facility] * Sae Donovan CRT - 11/22/2018 12:55 PM CDT Per BR; if patient feels it needs treated with ABX: -Needs sputum culture -Respiratory gram stain -AFB smear and culture x3 (3 engine house helper specimens or consecutive days upon awakening, no food ordrink prior to sending sample. -ABX- Prednisone 40x5 LQ 750x5 start only after obtaining first sputum cultures. * Sae Donovan CRT - 11/22/2018 10:35 AM CDT Spoke with patient, -Yellow productive cough -3days of sx -mucinex and nebs -wheezing and deep cough -no swelling in extremities * Sae Donovan CRT - 11/22/2018 9:28 AM CDT Patient is returning Sae phone call. Patient is at the . And will be available in 1 hour. * Sae Donovan CRT - 11/22/2018 9:13 AM CDT Any production with cough? Color of production? Fever? Medications currently taking? Swelling in extremities? * Sae Donovan CRT - 11/22/2018 9:13 AM CDT Left message for patient to call back to get more information. * María Bartlett - 11/22/2018 8:46 AM CDT Patient has been coughing and has wheezing for the past 3 days, and has difficulty breathing. Please call patient. documented in this encounter Plan of Treatment Not on file documented as of this encounter Visit Diagnoses Diagnosis Productive cough- Primary Cough documented in this encounter Care Teams Leasing Representative Relationship Specialty Start Date End Date Scott Hernandez MD [address] [place] [address] PCP - General 01/03/17 documented as of this encounter
--- OUTSIDE RECORDS SUMMARY | 2024-06-27 23:55 | XMS_ITS | Encounter Summary ---
Author Organization [facility] Address [address] [place] [address]. [place], [place] [address] [place] [address] Care Team Providers Care Environmental Health Safety Manager Name Role Phone Scott Hernandez MD Primary Care Provider [phone] Encounter Details Date Type Department Care Team (Latest Contact Info) Description 02/21/2019 Scan HEALTH INFO SRVCS Scanned, Documents Social [...] on filedocumented in this encounter Care Teams Environmental Health Safety Manager Relationship Specialty Start Date End Date Scott Hernandez MD [address] [place] [address] PCP - General 01/03/17 documented as of this encounter
--- OUTSIDE RECORDS SUMMARY | 2024-06-27 23:55 | XMS_ITS | Encounter Summary ---
Author Organization [facility] Address [address] [place] [address]. [place] [address] [place] [address] Care Team Providers Care Dope Worker Name Role Phone Scott Hernandez MD Primary Care Provider [phone] Reason for Referral * (Routine) - Closed Specialty Diagnoses / Procedures Referred By Contac t Referred To Contact Diagnoses COPD (chronic obstructive pulmonary disease) ([facility]) Procedures Home O2 eval Dustin Akins MD [address] [place] [address] Phone: tel: fax: Referral ID Status Reason Start Date Expiration Date Visits Re quested Visits Authorized [id number] Closed 02/18/2019 03/21/2020 1 1 * Imaging (Routine) - Closed Specialty Diagnoses / Procedures Referred By Contac t Referred To Contact Diagnoses Bronchiectasis without complication ([facility]) Procedures Complete PFT (pre/post [place], Lung Vol, Diff Capacity) (73634, 74045, 73940, 78781) Dustin Akins MD [address] [place] [address] [place] [address] Phone: tel: fax: [place] [address] Phone: tel: Referral ID Status Reason Start Date Expiration Date Visits Re quested Visits Authorized [id number] Closed 11/12/2018 12/13/2019 1 1 Reason for Visit * Imaging (Routine) - Closed Specialty Diagnoses / Procedures Referred By Contac t Referred To Contact Diagnoses Bronchiectasis without complication ([facility]) Procedures Complete PFT (pre/post [place], Lung Vol, Diff Capacity) ([address], 13977, 836[address], [address]) Dustin Akins MD [address] [place] [address] Phone: tel: fax: [place] [address] Phone: tel: Referral ID Status Reason Start Date Expiration Date Visits Re quested Visits Authorized [id number] Closed 11/12/2018 12/13/2019 1 1 Encounter Details Date Type Department Care Team (Late st Contact Info) Description 02/18/2019 10:00 AM CDT - 02/18/2019 11:59 PM CDT Hospital Encounter [facility] [place]piratory [place] [address] Dustin Akins MD [address] [place] [address] Discharge Disposition: Home or Self Care (Routine [...] on file documented as of this encounter Discharge Summaries * Shira Christianson CRT - 02/18/2019 11:19 AM CDT Home Oxygen evaluation evaluation date and time Date of Evaluation: 02/18/19 Evaluation Time: 1045 Home Oxygen evaluation resting oxygen saturation Resting Saturation off Oxygen: 92 % Home oxygen evaluation exercise saturation Exercise Oxygen Saturation on Oxygen: 91 % Exercise Oxygen Settin Liters/Minute Exercise Saturation off Oxygen: 84 % Distance Walked: 250 FT Oxygen Evaluation Comment: PT NEEDS HOME O2 @ 4 LPM WITH ACTIVITY documented in this encounter Medications at Time of Discharge [...] tablet 10/05/2016 cloNIDine 0.1 MG tablet 07/12/2016 CUVITRU 8 GM/40ML Solution every 7 days. 12 01/17/2018 cyclobenzaprine 10 MG tablet TK 1 T PO BID 0 05/29/2018 dexlansoprazole (DEXILANT) 30 MG capsule 02/02/2017 EPINEPHrine 0.3 MG/0.3ML injection Inject 0.3 mLs (0.3 mg total) into the muscle as needed for Anaphylaxis. 01/17/2018 esomeprazole 40 MG capsule Take 1 capsule (40 mg total) by mouth every morning before breakfast. 09/11/2017 gabapentin 300 MG capsule 10/05/2016 milnacipran (SAVELLA) 50 MG tablet 07/19/2016 montelukast 10 MG tablet Take 1 tablet (10 mg total) by mouth nightly at bedtime. 08/23/2016 NEBULIZER DME SUPPLYIndications :Productive cough,CVID (common variable immunodeficiency) ([facility]),Bronchie ctasis without complication ([facility]) Take 1 Device by nebulization every 4 (four) hours as needed. 1 Device 11/12/2018 vitamin D3, cholecalciferol, 5000 UNITS capsule albuterol (2.5 MG/3ML) 0.083% nebulizer solution 11/21/2016 9 albuterol (2.5 MG/3ML) 0.083% nebulizer solutionIndicatio ns:Productive cough,CVID (common variable immunodeficiency) ([facility]) Take 3 mLs (2.5 mg total) by nebulization every 4 (four) hours as needed for Wheezing. 360 mL 6 11/12/2018 9 albuterol sulfate HFA 108 (90 Base) MCG/ACT inhaler 9 atorvastatin 10 MG tablet 9 Azelastine HCl 0.15 % Solution 9 azithromycin 250 MG tablet ZPK 0 10/07/2017 9 azithromycin 500 MG tablet 08/17/2017 9 budesonide-formot gilmar (SYMBICORT) 160-4.5 MCG/ACT inhaler Inhale 2 puffs into the lungs 2 (two) times daily. 9 budesonide-formot gilmar (SYMBICORT) 160-4.5 MCG/ACT inhalerIndication s:Chronic obstructive pulmonary disease, unspecified COPD type ([facility]) Inhale 2 puffs into the lungs 2 (two) times daily. 1 Inhaler 3 09/17/2018 1 cefdinir 300 MG Cap capsule TK ONE C PO BID X 10 DAYS 0 03/25/2018 9 Cholecalciferol (VITAMIN D3) 1000 units Cap 9 docusate sodium 50 MG capsule 50 mg 2 (two) times daily as needed. 12/26/2014 2 FLUAD 0.5 ML Suspension Prefilled Syringe ADM 0.5ML IM UTD 0 05/28/2018 0 9 fluticasone propionate 50 MCG/ACT nasal spray 9 ipratropium 0.06 % nasal spray U 2 SPRAYS UP TO TID INTRANASALLY FOR 13 DAYS 0 01/11/2019 4 ipratropium-albut gilmar 0.5-2.5 (3) MG/3ML Solution Inhale 1 Units into the lungs every 4 (four) hours as needed. 11/21/2016 9 levofloxacin 500 MG tablet TK 1 T PO QD 0 05/28/2018 9 levofloxacin 750 MG tablet Take 1 tablet by mouth daily. 07/12/2017 9 methylPREDNISolon e, NOVA, 4 MG tablet 07/21/2017 9 mometasone-formot gilmar (DULERA) 100-5 MCG/ACT inhaler inhale 2 puff by inhalation route 2 times every day in the morning and evening 03/06/2015 9 Multiple Vitamin (MULTIVITAMIN) capsule 9 MULTIPLE VITAMINS-MINERALS ER OR 9 predniSONE 10 mg tablet 06/08/2016 9 predniSONE 20 MG tablet Take 2 tablets by mouth daily. 07/12/2017 9 predniSONE 20 MG tabletIndications :Productive cough Take 2 tablets first 5 days then 1 tablet for 5 days 15 tablet 07/04/2018 9 predniSONE 20 MG tabletIndications :Productive cough Take 2 tablets by mouth daily for 5 days. 10 tablet 11/22/2018 9 RaNITidine HCl 300 MG Cap TK 1 C PO HS 3 05/07/2018 1 Respiratory Therapy Supplies (NEBULIZER) Device 11/21/2016 9 roflumilast (DALIRESP) 500 MCG Tab 9 Saccharomyces boulardii (PROBIOTIC) 250 MG Cap 9 tiotropium (SPIRIVA HANDIHALER) [address] 1 capsule into inhaler and inhale daily. 07/12/2016 1 traMADol 50 MG tablet Take 50 mg by mouth every 6 (six) hours as needed. 05/06/2016 9 VENTOLIN HFA 108 (90 Base) MCG/ACT inhaler INL 2 PFS PO Q 4 TO 6 H PRN 4 06/05/2018 9 vitamin C 1000 MG tablet 9 vitamin C 500 MG tablet 9 documented as of this encounter Procedure Notes * Dustin Akins MD - 02/18/2019 12:00 AM CDT DIAGNOSIS: Bronchiectasis. SPIROMETRY: Pre-bronchodilator FVC 89% predicted, FEV1 1.60 liters, 86% predicted, FEV1/FVC ratio 73%. Post-bronchodilator FVC 89% predicted, FEV1 1.65 liters, 89% predicted, FEV1/FVC ratio 75%. Lessthan significant response to bronchodilator. Slight improvement in mid to low lung volumes following bronchodilator administration. LUNG VOLUMES: TLC 107% predicted, RV 114% predicted, ERV 40% predicted. DIFFUSING CAPACITY: Unadjusted DLCO 82% predicted. SIX MINUTE WALK TEST: On February 19, 2019 ambulated 3240 feet on room air with lowest SpO2 of 94%. OVERALL IMPRESSION: 1. Normal spirometry. 2. Less than significant response to bronchodilator. This does not preclude use. Clinical correlation advised. 3. Lung volumes within normal limits with the exception of ERV. Depression in ERV may be related toincreased body habitus. 4. Unadjusted DLCO within normal limits. #[id number] /NTS documented in this encounter Plan of Treatment Not on file documented as of this encounter Procedures Procedure Name Priority Date/Time Associated Diagnosis Comments HOME O2 EVAL Routine 02/18/2019 10:19 AM CDT COPD (chronic obstructive pulmonary disease) ([facility]) PULMONARY FUNCTION TEST Routine 02/18/2019 10:18 AM CDT Bronchiectasis without complication ([facility]) documented in this encounter Visit Diagnoses Diagnosis COPD (chronic obstructive pulmonary disease) ([facility])- Primary Chronic airway obstruction, not elsewhere classified Bronchiectasis without complication ([facility]) Bronchiectasis without acute exacerbation documented in this encounter Administered Medications Inactive Administered Medications - up to 3 most recent administrations Medication Order MAR Action Action Date Dose Rate Site albuterol sulfate HFA 108 (90 Base) MCG/ACT inhaler 2 puff 2 puff, Inhalation, Once, 1 dose, On 02/18/19 at 1045 Given 02/18/2019 10:38 AM CDT 2 puffs documented in this encounter Care Teams Dope Worker Relationship Specialty Start Date End Date Scott Hernandez MD [address] [place] [address] PCP - General 01/03/17 documented as of this encounter
--- OUTSIDE RECORDS SUMMARY | 2024-06-27 23:55 | XMS_ITS | Encounter Summary ---
Author Organization [facility] Address [address] [place] [address]. [place] [address] [place] [address] Care Team Providers Care Call Center Operator Name Role Phone Scott Hernandez MD Primary Care Provider [phone] Encounter Details Date Type Department Care Team (Latest Contact Info) Description 06/30/2021 Scan HEALTH INFO SRVCS Scanned, Documents Social History Tobacco Use Types Packs/Day Years Used Date Smoking Tobacco: Former Cigarettes 2 10 [id number] Smokeless Tobacco: Never Alcohol Use Standard Drinks/Week [...] have Coronavirus / COVID-19? No / Unsure 06/15/2021 9:36 AM FACTORY WORKER documented as of this encounter Plan of Treatment Not on file documented as of this encounter Visit Diagnoses Not on filedocumented in this encounter Additional Health Concerns Assessment Noted Time PHQ-9 Depression Total Score: 2 06/15/20 21 10:10 AM FACTORY WORKER documented as of this encounter Care Teams Call Center Operator Relationship Specialty Start Date End Date Scott Hernandez MD [address] [place] [address] PCP - General 01/03/17 documented as of this encounter
--- OUTSIDE RECORDS SUMMARY | 2024-06-27 23:55 | XMS_ITS | Encounter Summary ---
Author Organization [facility] Address [address] [place] [address]. [place] [address] [place] [address] Care Team Providers Care Gluer And Slicer Hand Name Role Phone Scott Hernandez MD Primary Care Provider [phone] Reason for Visit * Reason Onset Date Comments Fax 01/19/2022 Encounter Details Date Type Department Care Team (Late st Contact Info) Description 01/19/2022 Telephone [facility] Pulmonology Specialty Clinic - [address] [address] Dustin Akins MD [address] [place] [address] Fax Social History Tobacco Use Types Packs/Day Years [...] Progress Notes * Jose Ardon MA - 01/19/2022 2:13 PM CDT Pt is needing neb scripts order faxed * Lucille Bellamy - 01/19/2022 8:51 AM CDT Nolvia called and stated that Yarelis needs recent office notes and performance notes to refill her prescription. Please follow up with Nolvia once sent. documented in this encounter Plan of Treatment Not on file documented as of this encounter Visit Diagnoses Not on filedocumented in this encounter Additional Health Concerns Assessment Noted Time PHQ-9 Depression Total Score: 2 06/15/20 21 10:10 AM KNITTING MACHINE FIXER documented as of this encounter Care Teams Gluer And Slicer Hand Relationship Specialty Start Date End Date Scott Hernandez MD [address] [place] [address] PCP - General 01/03/17 documented as of this encounter
--- OUTSIDE RECORDS SUMMARY | 2024-06-27 23:55 | XMS_ITS | Encounter Summary ---
Author Organization [facility] Address [address] [place] [address]. [place], [place] [address] [place] [address] Care Team Providers Care Customs Port Director Name Role Phone Scott Hernandez MD Primary Care Provider [phone] Encounter Details Date Type Department Care Team (Latest Contact Info) Description 05/18/2017 Abstract [facility] Social History Tobacco Use [...] on filedocumented in this encounter Care Teams Customs Port Director Relationship Specialty Start Date End Date Scott Hernandez MD [address] [address] PCP - General 01/03/17 documented as of this encounter
--- OUTSIDE RECORDS SUMMARY | 2024-06-27 23:55 | XMS_ITS | Encounter Summary ---
Author Organization [facility] Address [address] [place] [address]. [place], [place] [address] [place] [address] Care Team Providers Care Language Tutor Name Role Phone Scott Hernandez MD Primary Care Provider [phone] Encounter Details Date Type Department Care Team (Latest Contact Info) Description 11/28/2019 Scan HEALTH INFO SRVCS Scanned, Documents Social [...] on filedocumented in this encounter Care Teams Language Tutor Relationship Specialty Start Date End Date Scott Hernandez MD [address] [place] [address] PCP - General 01/03/17 documented as of this encounter
--- OUTSIDE RECORDS SUMMARY | 2024-06-27 23:55 | XMS_ITS | Encounter Summary ---
Author Organization [facility] Address [address] [place] [address]. [place], [place] [id number] [place] [address] Care Team Providers Care Crack Off Person Name Role Phone Scott Hernandez MD Primary Care Provider [phone] Encounter Details Date Type Department Care Team (Latest Contact Info) Description 02/09/2018 Abstract [facility] Social History Tobacco Use Types [...] on filedocumented in this encounter Care Teams Crack Off Person Relationship Specialty Start Date End Date Scott Hernandez MD [address] [address] PCP - General 01/03/17 documented as of this encounter
--- OUTSIDE RECORDS SUMMARY | 2024-06-27 23:55 | XMS_ITS | Encounter Summary ---
Author Organization [facility] Address [address] [place] [address]. 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
--- OUTSIDE RECORDS SUMMARY | 2024-06-27 23:55 | XMS_ITS | Encounter Summary ---
Author Organization [facility] Address [address] [place] [address]. [place] [address] [place] [address] Care Team Providers Care Assistant Plant Manager Name Role Phone Scott Hernandez MD Primary Care Provider [phone] Reason for Visit * Reason Comments Follow Up f/u from being sick * Consultation/Treatment (Routine) - Closed Specialty Diagnoses / Procedures Referred By Contact Referred To Contact NURSE PRACTITIONER / SLEEP & RESPIRATORY CARE Diagnoses face to face for oxygen - ok per LM Procedures FOLLOW UP Scott Hernandez MD [address] [place] [address] Phone: tel: fax: María Bautista, FEATHER CURLING MACHINE OPERATOR Referral ID Status Reason Start Date Expiration Date Visits Re quested Visits Authorized [id number] Closed 02/19/2019 02/20/2020 100 100 Encounter Details Date Type Department Care Team (Latest Contact Info) Description 06/03/2019 11:20 AM SHEET CATCHER Office Visit [facility] Multispecialty Care - [facility] [address] [facility], [address] [place] [address] María Bautista, FEATHER CURLING MACHINE OPERATOR Follow Up (f/u from being sick ) Social History Tobacco Use Types Packs/Day [...] Reading Time Taken Comments Blood Pressure 122/82 06/03/2019 11:24 AM SHEET CATCHER Pulse 82 06/03/2019 11:24 AM SHEET CATCHER Temperature 36.4 ??C (97.5 ??F) 06/03/2019 11:[address] Respiratory Rate 18 06/03/2019 11:24 AM SHEET CATCHER Oxygen Saturation 96% 06/03/2019 11:24 AM SHEET CATCHER RA Inhaled Oxygen Concentration - - Weight 70.9 kg (156 lb 6.4 oz) 06/03/2019 11:24 AM SHEET CATCHER Height - - Body Mass Index 29.55 11/12/2018 9:55 AM CDT documented in this encounter Progress Notes * María Bautista, FEATHER CURLING MACHINE OPERATOR - 06/03/2019 11:20 AM CST [facility] PULMONARY MEDICINE History Chief Complaint Patient presents with ??? Follow Up f/u from being sick 73-year-old obese white female former smoker with past medical history of CVID, BRUNO, asthma/COPD, recurrent sinusitis/bronchitis, bronchiectasis, seasonal allergies, and GERD presents for follow-up. Initially referred for bronchiectasis. Previously followed with gynecology teacher Dr. Huang; now follows with allergy providers [...] Levaquin and Prednisone 60mg. Symptoms improving slowly. At prior baseline 2018: Notes improvement since [...] sweats, hemoptysis. Notes extensive allergies, followed with dye jig operator, on SCIT Notes diagnosis of BRUNO; elected not to wear CPAP in past, currently wearing. Former smoker; quit 1980s; approximate 40 pack year history. Denies alcohol/illicits. 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 Denies exposure to TB, asbestos, mold, birds. [...] 114%, ERV 40%, unadjusted DLCO 82% predicted. CPAP card download 05/22/2019: 87% usage, wearing greater than 4 hours 83% of nights, wearing an average 6 hours 45 minutes daily; AHI 1.9 on 4-20 cm H2O CPAP; median pressure 8.8 cm H2O Past Medical History: Diagnosis Date [...] 20.00 Types: Cigarettes Last attempt to quit: 1988 Years since quittin.9 ??? Smokeless tobacco: Never Used Substance Use [...] Monday, Monday, and Monday 30 tablet 1 ??? budesonide-formoterol (SYMBICORT) 160-4.5 MCG/ACT inhaler Inhale 2 puffs into the lungs 2 (two)times daily. 1 Inhaler 3 ??? celecoxib 200 MG capsule ??? cetirizine 10 MG tablet Take 10 mg by mouth. ??? citalopram 20 MG tablet ??? cloNIDine 0.1 MG tablet ??? CPAP MACHINE AutoCPAP [id number] For use when sleeping Lifetime use 1 [...] by mouth every morning before breakfast. ??? gabapentin 300 MG capsule ??? ipratropium 0.06 % nasal spray U 2 SPRAYS UP TO TID INTRANASALLY FOR 13 DAYS 0 ??? levofloxacin 500 MG tablet Take 500 mg by mouth daily. 0 ??? milnacipran (SAVELLA) 50 MG tablet ??? montelukast 10 MG tablet Take 10 mg by mouth nightly at bedtime. ??? NEBULIZER DME SUPPLY Take 1 Device by nebulization every 4 (four) hours as needed. 1 Device 0 ??? predniSONE 10 mg tablet TK 1 T PO TID FOR 5 DAYS 0 ??? predniSONE 20 MG tablet TK 3 TS PO QD FOR 5 DAYS 0 ??? RaNITidine HCl 300 MG Cap [...] for this patient. Review of Systems Constitutional: Positive for malaise/fatigue. Negative for chills, fever and weight loss. HENT: Positive for congestion. Negative for sinus pain and sore throat. Eyes: Negative [...] and suicidal ideas. Physical Exam Filed Vitals: 06/03/19 1124 BP: 122/82 Pulse: 82 Resp: 18 Temp: 97.5 ??F (36.4 ??C) SpO2: 96% Weight: 70.9 kg (156 lb 6.4 oz) Physical Exam: General: obese wf, sitting comfortably in nad, pleasant Neuro: Alert, appropriate Head: nc, at EENT: no sinus ttp, mallampati 3 Neck: no appreciable LAD Resp: non-labored, bronchial bs, no audible wheezes/crackles; harsh cough CV: s1,s2; rrr; distant heart tones; no audible murmur Abd: soft, non-tender, non-distended, bs+ Ext: no edema, pulses present and equal bilaterally, no clubbing Skin: no visible rashes Assessment 1. Bronchiectasis -likely related to CVID -with acute exacerbation 05/2019 2. COPD, GOLD B by history -consider chronic obstructive asthma, chronic bronchitis 3. BRUNO on CPAP 4. 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 Former smoker 6. Hx of chronic prednisone therapy 7. Vocal cord dysfunction, suspected -reportedly diagnosed at [facility] several years ago -unclear if diagnosis came from an ENT 8. Seasonal/Environmental allergies; Allergic rhinitis -on SCIT -did not respond to Xolair -now follows with allergy providers Earl Rothman PA-C and Dr. Ruano 9. Obesity 10. Hx of aspergillus niger positive sputum -serology negative Plan 1. Albuterol hfa rescue i-ii puffs q4 prn sob/wheezing 2. Symbicort 160/4.5 ii puffs bid 3. Spiriva 18mcg daily 4. Singulair 10mg daily 5. Roflumilast 500mcg daily 6. Continue to follow with dye jig operator -continue IVIG 7. Continue 3x weekly azithromycin -consider possibly inhaled tobramycin in future pending future sputum cultures 8. Flutter -poor candidate for VEST given osteoporosis, hx of L1 fx 9. CPAP qhs and prn naps -continues to need, use, and benefit from use 10. Obtain sputum culture, AFB smear/culture for current bronchiectasis exacerbation -completed Levaquin, Prednisone regimen 05/2019 11. Duoneb q4 prn sob/wheezing; encouraged increased usage during episodes of bronchitis 12. Encouraged continued smoking cessation 13. Encouraged healthy weight loss via diet/exercise 14. To call with increased respiratory symptoms; may require Abx dosing; consider sputum culture atthat time. 15. Respiratory culture, AFB smear/culture with any exacerbation 16. Refer to speech therapy for Vocal Cord Dysfunction therapy vs refer to ENT for official diagnosis -Patient to call us regarding speech therapist recommendations -continue VCD exercises at home Return to clinic to see Dr. Akins or Jean-Claude ELI in July 2019 prior to leaving for [place] vacation. ALCIRA Jugde T CATCHER documented in this encounter Plan of Treatment Not on file documented as of this encounter Visit Diagnoses Diagnosis Bronchiectasis with acute exacerbation ([facility])- Primary Bronchiectasis with acute exacerbation Chronic obstructive pulmonary disease, unspecified COPD type ([facility]) BRUNO (obstructive sleep apnea) Obstructive sleep apnea (adult) (pediatric) CVID (common variable immunodeficiency) ([facility]) Common variable immunodeficiency Allergic rhinitis, unspecified seasonality, unspecified trigger Environmental and seasonal allergies documented in this encounter Care Teams Assistant Plant Manager Relationship Specialty Start Date End Date Scott Hernandez MD [address] [place] [address] PCP - General 01/03/17 documented as of this encounter
--- OUTSIDE RECORDS SUMMARY | 2024-06-27 23:55 | XMS_ITS | Encounter Summary ---
Author Organization [facility] Address [address] [place] [address]. [place] [address] [place] [address] Care Team Providers Care Checkering Machine Adjuster Name Role Phone Scott Hernandez MD Primary Care Provider [phone] Reason for Referral * Imaging (Routine) - Closed Specialty Diagnoses / Procedures Referred By Contac t Referred To Contact Diagnoses Bronchiectasis without complication ([facility]) Procedures Complete PFT (pre/post Brando, Lung Vol, Diff Capacity) ([id number], [id number], [id number], [id number]) Dustin Akins MD [address] [place] [address] Phone: tel: fax: [place] [address] Phone: tel: Referral ID Status Reason Start Date Expiration Date Visits Re quested Visits Authorized [id number] Closed 11/12/2018 12/13/2019 1 1 Reason for Visit * Reason Comments Follow Up Bronchiectasis follo w up * Consultation/Treatment (Routine) - Closed Specialty Diagnoses / Procedures Referred By Contac t Referred To Contact PULMONARY DISEASE / SLEEP & RESPIRATORY CARE Diagnoses f/up in november Procedures FOLLOW UP Dustin Akins MD [address] [place] [address] [address] [place] [address] Phone: tel: fax: Dustin Akins MD [address] [place] [address] [address] [place] [address] Phone: tel: fax: Referral ID Status Reason Start Date Expiration Date Visits Re quested Visits Authorized [id number] Closed 11/12/2018 11/13/2019 100 100 Encounter Details Date Type Department Care Team (Late st Contact Info) Description 11/12/2018 10:00 AM CDT Office Visit [facility] Multispecialty Care - [address], [address] [place] [address] Dustin Akins MD [address] [place] [id number] Follow Up (Bronchiectasis follow up) Social History Tobacco Use Types Packs/Day Years [...] Sign Reading Time Taken Comments Blood Pressure 131/86 11/12/2018 9:55 AM CDT Pulse 86 11/12/2018 9:55 AM CDT Temperature 36.1 ??C (97 ??F) 11/12/2018 9:55 AM CDT Respiratory Rate 20 11/12/2018 9:55 AM CDT Oxygen Saturation 93% 11/12/2018 9:55 AM CDT ra Inhaled Oxygen Concentration - - Weight 72.3 kg (159 lb 4.8 oz) 11/12/2018 9:55 A M CDT Height 154.9 cm (5' 1 ) 11/12/2018 9:55 AM CDT Body Mass Index 30.1 11/12/2018 9:55 AM CDT documented in this encounter Progress Notes * Dustin Akins MD - 11/12/2018 10:00 AM CDT [facility] PULMONARY MEDICINE History Chief Complaint Patient presents with ??? Follow Up Bronchiectasis follow up 73-year-old obese white female former smoker with past medical history of CVID, BRUNO, asthma/COPD, recurrent sinusitis/bronchitis, bronchiectasis, seasonal allergies, and GERD presents for follow-up. Initially referred for bronchiectasis. 05/2017-06/2018: noted treatment of AEBronchiectasis x ~6; being treated with antibiotics by PCP; typically 5 day courses 07/04/2018: AEBronchiectasis; prednisone, LQ 750mg x [address] 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 Notes improvement since going back to weekly IVIG infusions; things had worsened after going to biweekly dosing. 11/12/2018: office visit; notes concern over Ig levels; now low normal; seeing Dr. Huang later this week. States she is breathing well. Still with productive cough, notes baseline. Asking for new nebulizer, remains disinterested in CPAP at present. At prior baseline: Notes baseline dyspnea on exertion after ambulating [...] sweats, hemoptysis. Notes extensive allergies, followed with computer numerical control programmer, on SCIT Notes diagnosis of BRUNO; elected not to wear CPAP in past. Former smoker; quit ; approximate 40 pack year history. Denies alcohol/illicits. 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 Denies exposure to TB, asbestos, mold, birds. [...] sputum negative A1AT MM 12/2016: OSH PFT; brando wnl; decrease in mid to low lung volumes; mild reduction in uDLCO; numbers unavailable at present OSH 6MWT: ambulated 427 meters without desat <88% per report OSH PSG 03/16/2016: AHI 9.5 Past Medical History: Diagnosis Date ??? Bronchiectasis [...] Last attempt to quit: 1987 Years since quittin.3 ??? Smokeless tobacco: Never Used Substance Use Topics ??? Alcohol use: Yes Frequency: Monthly or less ??? Drug use: No Family History Problem Relation Name Age of Onset ??? Heart Mother ??? Hypertension Mother ??? Diabetes Father ??? Diabetes Brother ??? Cancer Paternal Grandmother Current Outpatient Medications Medication Sig Dispense Refill ??? albuterol (2.5 MG/3ML) 0.083% nebulizer solution ??? albuterol (2.5 MG/3ML) 0.083% nebulizer solution Inhale 2.5 mg into the lungs. ??? albuterol sulfate HFA (VENTOLIN HFA) 108 (90 Base) MCG/ACT inhaler ??? albuterol sulfate HFA 108 (90 Base) MCG/ACT inhaler ??? ALPRAZolam 0.5 MG tablet ??? Amlodipine-Olmesartan 10-40 MG Tab ??? atorvastatin 10 MG tablet ??? atorvastatin 40 MG tablet TK 1 T PO QD 0 ??? Azelastine HCl 0.15 % Solution ??? azithromycin 250 MG tablet ZPK 0 ??? azithromycin 500 MG tablet ??? budesonide-formoterol (SYMBICORT) 160-4.5 MCG/ACT inhaler Inhale 2 puffs into the lungs 2 (two)times daily. ??? budesonide-formoterol (SYMBICORT) 160-4.5 MCG/ACT inhaler Inhale 2 puffs into the lungs 2 (two)times daily. 1 Inhaler 3 ??? cefdinir 300 MG Cap capsule TK ONE C PO BID X 10 DAYS 0 ??? celecoxib 200 MG capsule ??? cetirizine 10 MG tablet Take 10 mg by mouth. ??? Cholecalciferol (VITAMIN D3) 1000 units Cap ??? citalopram 20 MG tablet ??? cloNIDine 0.1 MG tablet ??? CUVITRU 8 GM/40ML Solution 12 ??? cyclobenzaprine 10 MG tablet TK 1 T PO BID 0 ??? dexlansoprazole (DEXILANT) 30 MG capsule ??? EPINEPHrine 0.3 MG/0.3ML injection 12 ??? esomeprazole 40 MG capsule ??? FLUAD 0.5 ML Suspension Prefilled Syringe ADM 0.5ML IM UTD 0 ??? fluticasone propionate 50 MCG/ACT nasal spray ??? gabapentin 300 MG capsule ??? ipratropium-albuterol 0.5-2.5 (3) MG/3ML Solution Inhale 1 Units into the lungs every 4 (four) hours as needed. ??? levofloxacin 500 MG tablet TK 1 T PO QD 0 ??? levofloxacin 750 MG tablet Take 1 tablet by mouth daily. ??? methylPREDNISolone, NOVA, 4 MG tablet ??? milnacipran (SAVELLA) 50 MG tablet ??? montelukast 10 MG tablet ??? Multiple Vitamin (MULTIVITAMIN) capsule ??? MULTIPLE VITAMINS-MINERALS ER OR ??? predniSONE 10 mg tablet ??? predniSONE 20 MG tablet Take 2 tablets by mouth daily. ??? predniSONE 20 MG tablet Take 2 tablets first 5 days then 1 tablet for 5 days 15 tablet 0 ??? RaNITidine HCl 300 MG Cap TK 1 C PO HS 3 ??? Respiratory Therapy Supplies (NEBULIZER) Device ??? roflumilast (DALIRESP) 500 MCG Tab ??? Saccharomyces boulardii (PROBIOTIC) 250 MG Cap ??? tiotropium (SPIRIVA HANDIHALER) [address] 1 capsule into inhaler and inhale daily. ??? VENTOLIN HFA 108 (90 Base) MCG/ACT inhaler INL 2 PFS PO Q 4 TO 6 H PRN 4 ??? vitamin C 1000 MG tablet ??? vitamin C 500 MG tablet ??? vitamin D3, cholecalciferol, 5000 UNITS capsule No current facility-administered medications for this visit. Allergies Allergen Reactions ??? Dander Unknown ??? Dust Mite Extract Unknown There is no immunization history on file for this patient. Review of Systems Constitutional: Positive for malaise/fatigue. Negative for chills, fever and weight loss. HENT: Negative for congestion, [...] and suicidal ideas. Physical Exam Filed Vitals: 11/12/18 0955 BP: 131/86 Pulse: 86 Resp: 20 Temp: 97 ??F (36.1 ??C) SpO2: 93% Weight: 72.3 kg (159 lb 4.8 oz) Height: 5' 1 (1.549 m) Physical Exam: General: obese wf, sitting comfortably in nad, pleasant; coughing intermittently Neuro: Alert, appropriate Head: nc, at EENT: [...] chronic obstructive asthma, chronic bronchitis 3. BRUNO -not currently on CPAP 4. CVID -on IVIG as [...] 500mcg daily 6. Continue to follow with computer numerical control programmer -continue IVIG 7. Previously discussed potential addition of 3x weekly azithromycin or possibly inhaled tobramycinpending continued response to immunoglobulin therapy and sputum culture results 8. Flutter -poor candidate for VEST given osteoporosis, hx of L1 fx 9. PFT 12/2018 10. 6MWT 12/2018 11. Duoneb q4 prn sob/wheezing; encouraged increased usage during episodes of bronchitis -needs new nebulizer device 12. Discussed CPAP; will refer again for therapy at follow up; want to delay given upcoming vacation 13. Encouraged continued smoking cessation 14. Encouraged healthy weight loss via diet/exercise 15. To call with increased respiratory symptoms; may require Abx dosing; consider sputum culture atthat time. 16. Respiratory culture, AFB smear/culture with any exacerbation Dustin Akins MD, FCCP To whom it may concern: Ms. Coffey prior spirometry was within normal limits despite bronchiectasis. We will repeat PFT. Her lung disease is not prohibitive of sampling/biopsy. She has known risk of increased likelihood of developing bronchitis-like symptoms based upon her underlying CVID and bronchiectasis. Anesthesia services to be aware of underlying BRUNO. documented in this encounter Plan of Treatment Not on file documented as of this encounter Visit Diagnoses Diagnosis Bronchiectasis without complication ([facility])- Primary Bronchiectasis without acute exacerbation BRUNO (obstructive sleep apnea) Obstructive sleep apnea (adult) (pediatric) Productive cough Cough CVID (common variable immunodeficiency) ([facility]) Common variable immunodeficiency Environmental and seasonal allergies documented in this encounter Care Teams Checkering Machine Adjuster Relationship Specialty Start Date End Date Scott Hernandez MD [address] [address] PCP - General 01/03/17 documented as of this encounter
--- OUTSIDE RECORDS SUMMARY | 2024-06-27 23:55 | XMS_ITS | Encounter Summary ---
Author Organization [facility] Address [address] [place] [address]. [place] [address] [place] [address] Care Team Providers Care Lambskin Trimmer Name Role Phone Scott Hernandez MD Primary Care Provider [phone] Reason for Visit * Reason Comments COPD Encounter Details Date Type Department Care Team (Late st Contact Info) Description 06/12/2018 8:40 AM BLASTING COAL MINER Office Visit [facility] [address] [address] Dustin Akins MD [address] [place] [address] [phone] COPD Social History Tobacco Use Types Packs/Day Years [...] Sign Reading Time Taken Comments Blood Pressure 144/71 06/12/2018 8:35 AM BLASTING COAL MINER Pulse 84 06/12/2018 8:35 AM BLASTING COAL MINER Temperature - - Respiratory Rate 18 06/12/2018 8:35 AM BLASTING COAL MINER Oxygen Saturation 94% 06/12/2018 8:35 AM BLASTING COAL MINER ra Inhaled Oxygen Concentration - - Weight 71.2 kg (157 lb) 06/12/2018 8:35 AM BLASTING COAL MINER Height - - Body Mass Index 30.66 05/16/2017 10:23 AM BLASTING COAL MINER documented in this encounter Progress Notes * Dustin Akins MD - 06/12/2018 8:40 AM CST [facility] PULMONARY MEDICINE History Chief Complaint Patient presents with ??? COPD 72-year-old obese white female former smoker with past medical history of CVID, BRUNO, asthma/COPD, recurrent sinusitis/bronchitis, bronchiectasis, seasonal allergies, and GERD presents for follow-up. Initially referred for bronchiectasis. Since last visit 05/2017: notes treatment of AEBronchiectasis x ~6; being treated with antibiotics by PCP; typically 5 day courses Follow[address] with Dr. 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 Notes improvement since going back to weekly IVIG infusions; things had worsened after going to biweekly dosing. At baseline: Notes baseline dyspnea on exertion after [...] sweats, hemoptysis. Notes extensive allergies, followed with senior enlisted advisor, on SCIT Notes diagnosis of BRUNO; elected not to wear CPAP in past. Former smoker; quit 1980s; approximate 40 pack year history. Denies alcohol/illicits. 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 Denies exposure to TB, asbestos, mold, birds. [...] per report OSH PSG 03/16/2016: AHI 9.5 No past medical history on file. Past Surgical History: Procedure Laterality Date ??? APPENDECTOMY Social History Tobacco Use ??? Smoking status: Former Smoker Packs/day: 2.00 Years: 10.00 Pack years: 20.00 Types: Cigarettes Last attempt to quit: 1988 Years since quittin.9 ??? Smokeless tobacco: Never Used Substance Use Topics ??? Alcohol use: Yes Frequency: Monthly or less ??? Drug use: No Family History Problem Relation Age of Onset ??? Heart Mother ??? Hypertension Mother ??? Diabetes Father ??? Diabetes Brother ??? Cancer Paternal Grandmother Current Outpatient Medications Medication Sig Dispense Refill ??? albuterol (2.5 MG/3ML) 0.083% nebulizer solution Inhale 2.5 mg into the lungs. ??? albuterol sulfate HFA 108 (90 Base) MCG/ACT inhaler ??? ALPRAZolam 0.5 MG tablet ??? Amlodipine-Olmesartan 10-40 MG Tab ??? atorvastatin 40 MG tablet TK 1 T PO QD 0 ??? budesonide-formoterol (SYMBICORT) 160-4.5 MCG/ACT inhaler Inhale 2 puffs into the lungs 2 (two)times daily. ??? celecoxib 200 MG capsule ??? Cholecalciferol (VITAMIN D3) 1000 units Cap ??? citalopram 20 MG tablet ??? cloNIDine 0.1 MG tablet ??? CUVITRU 8 GM/40ML Solution 12 ??? cyclobenzaprine 10 MG tablet TK 1 T PO BID 0 ??? dexlansoprazole (DEXILANT) 30 MG capsule ??? EPINEPHrine 0.3 MG/0.3ML injection 12 ??? esomeprazole 40 MG capsule ??? fluticasone propionate 50 MCG/ACT nasal spray ??? gabapentin 300 MG capsule ??? milnacipran (SAVELLA) 50 MG tablet ??? montelukast 10 MG tablet ??? MULTIPLE VITAMINS-MINERALS ER OR ??? predniSONE 10 mg tablet ??? Respiratory Therapy Supplies (NEBULIZER) Device ??? roflumilast (DALIRESP) 500 MCG Tab ??? tiotropium (SPIRIVA HANDIHALER) [address] 1 capsule into inhaler and inhale daily. ??? VENTOLIN HFA 108 (90 Base) MCG/ACT inhaler INL 2 PFS PO Q 4 TO 6 H PRN 4 ??? vitamin C 1000 MG tablet ??? vitamin D3, cholecalciferol, 5000 UNITS capsule ??? albuterol (2.5 MG/3ML) 0.083% nebulizer solution ??? albuterol sulfate HFA (VENTOLIN HFA) 108 (90 Base) MCG/ACT inhaler ??? atorvastatin 10 MG tablet ??? Azelastine HCl 0.15 % Solution ??? azithromycin 250 MG tablet ZPK 0 ??? azithromycin 500 MG tablet ??? cefdinir 300 MG Cap capsule TK ONE C PO BID X 10 DAYS 0 ??? cetirizine 10 MG tablet Take 10 mg by mouth. ??? FLUAD 0.5 ML Suspension Prefilled Syringe ADM 0.5ML IM UTD 0 ??? ipratropium-albuterol 0.5-2.5 (3) MG/3ML Solution Inhale 1 Units into the lungs every 4 (four) hours as needed. ??? levofloxacin 500 MG tablet TK 1 T PO QD 0 ??? levofloxacin 750 MG tablet Take 1 tablet by mouth daily. ??? methylPREDNISolone, NOVA, 4 MG tablet ??? Multiple Vitamin (MULTIVITAMIN) capsule ??? predniSONE 20 MG tablet Take 2 tablets by mouth daily. ??? RaNITidine HCl 300 MG Cap TK 1 C PO HS 3 ??? Saccharomyces boulardii (PROBIOTIC) 250 MG Cap ??? vitamin C 500 MG tablet No current facility-administered medications for this visit. [...] and suicidal ideas. Physical Exam Filed Vitals: 06/12/18 0835 BP: 144/71 Pulse: 84 Resp: 18 SpO2: 94% Weight: 71.2 kg (157 lb) Physical Exam: General: obese wf, sitting comfortably [...] 500mcg daily 6. Continue to follow with senior enlisted advisor -continue IVIG 7. Discussed potential addition of 3x weekly azithromycin or possibly inhaled tobramycin pending continued response to immunoglobulin therapy and sputum culture results 8. Flutter -poor candidate for VEST given osteoporosis, hx of L1 fx 9. PFT 12/2018 10. 6MWT 12/2018 11. Duoneb q4 prn sob/wheezing; encouraged increased usage during episodes of bronchitis 12. Discussed CPAP; will refer again for therapy at follow up; want to delay given upcoming vacation 13. Encouraged continued smoking cessation 14. Encouraged healthy weight loss via diet/exercise 15. To call with increased respiratory symptoms; may require Abx dosing; consider sputum culture atthat time. 16. Respiratory culture, AFB smear/culture Dustin Akins MD, [facility] TING COAL MINER documented in this encounter Plan of Treatment Not on file documented as of this encounter Visit Diagnoses Diagnosis Bronchiectasis without complication ([facility])- Primary Bronchiectasis without acute exacerbation Class 1 obesity without serious comorbidity with body mass index (BMI) of 33.0 to 33.9 in adult, unspecified obesity type Chronic obstructive pulmonary disease, unspecified COPD type ([facility]) BRUNO (obstructive sleep apnea) Obstructive sleep apnea (adult) (pediatric) Productive cough Cough CVID (common variable immunodeficiency) ([facility]) Common variable immunodeficiency On prednisone therapy documented in this encounter Care Teams Lambskin Trimmer Relationship Specialty Start Date End Date Scott Hernandez MD [address] [place] [id number] PCP - General 01/03/17 documented as of this encounter
--- OUTSIDE RECORDS SUMMARY | 2024-06-27 23:55 | XMS_ITS | Encounter Summary ---
Author Organization [facility] Address [address] [place] [address]. [place] [address] [place] [address] Care Team Providers Care Forest Resources Professor Name Role Phone Scott Hernandez MD Primary Care Provider [phone] Encounter Details Date Type Department Care Team (Latest Contact Info) Description 06/15/2021 Travel Social History Tobacco Use Types Packs/Day Years Used Date Smoking Tobacco: Former Cigarettes 2 04 09 080 1987 Smokeless Tobacco: Never Alcohol Use Standard [...] COVID-19? No / Unsure 06/15/2021 9:36 AM MARKETING INFORMATION MANAGER documented as of this encounter Plan of Treatment Not on file documented as of this encounter Visit Diagnoses Not on filedocumented in this encounter Additional Health Concerns Assessment Noted Time PHQ-9 Depression Total Score: 2 06/15/20 21 10:10 AM MARKETING INFORMATION MANAGER documented as of this encounter Care Teams Forest Resources Professor Relationship Specialty Start Date End Date Scott Hernandez MD [address] [place] [address] PCP - General 01/03/17 documented as of this encounter
--- OUTSIDE RECORDS SUMMARY | 2024-06-27 23:55 | XMS_ITS | Encounter Summary ---
Author Organization [facility] Address [address] [place] [address]. [place], [place] [address] [place] [address] Care Team Providers Care Sliver Lapper Name Role Phone Scott Hernandez MD Primary Care Provider [phone] Encounter Details Date Type Department Care Team (Latest Contact Info) Description 02/19/2019 Scan HEALTH INFO SRVCS Scanned, Documents Social [...] on filedocumented in this encounter Care Teams Sliver Lapper Relationship Specialty Start Date End Date Scott Hernandez MD [address] [facility] [address] PCP - General 01/03/17 documented as of this encounter
--- OUTSIDE RECORDS SUMMARY | 2024-06-27 23:55 | XMS_ITS | Encounter Summary ---
Author Organization [facility] Address [address] [place] [address]. [place] [address] [place] [address] Care Team Providers Care Machine Ii Cutter Name Role Phone Scott Hernandez MD Primary Care Provider [phone] Reason for Visit * Reason Comments Letter (SCAN) Consult Notes on All ergy Asthma and Immunology Ctt on 06-14-2018 Encounter Details Date Type Department Care Team (Late st Contact Info) Description 06/13/2018 Scan HEALTH INFO SRVCS Scanned, Documents Letter (SCAN) (Consult Notes on Allergy Asthma and Immunology Ctt on 06-14-2018) Social History Tobacco Use Types Packs/Day Years Used Date Smoking Tobacco: Former Cigarettes 1987 Smokeless Tobacco: Never Alcohol Use Standard [...] on filedocumented in this encounter Care Teams Machine Ii Cutter Relationship Specialty Start Date End Date Scott Hernandez MD [address] [place] [address] PCP - General 01/03/17 documented as of this encounter
--- OUTSIDE RECORDS SUMMARY | 2024-06-27 23:55 | XMS_ITS | Encounter Summary ---
Author Organization [facility] Address [address] [place] [address]. [place] [address] [place] [address] Care Team Providers Care Dispatcher Maintenance Name Role Phone Scott Hernandez MD Primary Care Provider [phone] Reason for Visit * Reason Comments Sleep Study (SCAN) Encounter Details Date Type Department Care Team ([facility] Contact Info) Description 05/22/2019 Scan HEALTH INFO SRVCS Scanned, Documents Sleep [...] Diagnosis Comments SLEEP STUDY GENERIC (SCAN ORDER) Routine 05/22/2019 documented in this encounter Results * SLEEP STUDY (05/22/2019) us Documents Scanned SCANNING Edited Result - Final documented in this encounter Visit Diagnoses Not on filedocumented in this encounter Care Teams Dispatcher Maintenance Relationship Specialty Start Date End Date Scott Hernandez MD [address] [place] [address] PCP - General 01/03/17 documented as of this encounter
--- OUTSIDE RECORDS SUMMARY | 2024-06-27 23:55 | XMS_ITS | Encounter Summary ---
Author Organization [facility] Address [address] [place] [address]. [place], [place] [address] [place] [address] Care Team Providers Care Director Of Early Childhood Name Role Phone Scott Hernandez MD Primary Care Provider [phone] Encounter Details Date Type Department Care Team (Latest Contact Info) Description 11/25/2019 Scan HEALTH INFO SRVCS Scanned, Documents Social [...] on filedocumented in this encounter Care Teams Director Of Early Childhood Relationship Specialty Start Date End Date Scott Hernandez MD [address] [facility] [place] [address] PCP - General 01/03/17 documented as of this encounter
--- OUTSIDE RECORDS SUMMARY | 2024-06-27 23:55 | XMS_ITS | Encounter Summary ---
Author Organization [facility] Address [address] [place] [address]. [place] [address] [place] [address] Care Team Providers Care Information Technology Instructor Name Role Phone Scott Hernandez MD Primary Care Provider [phone] Encounter Details Date Type Department Care Team (Late st Contact Info) Description 06/12/2018 Orders Only [facility] - [address] [address] [place], PLASMA PROCESSING TECHNICIAN Social History Tobacco Use Types Packs/Day Years [...] on filedocumented in this encounter Care Teams Information Technology Instructor Relationship Specialty Start Date End Date Scott Hernandez MD [address] [place] [address] PCP - General 01/03/17 documented as of this encounter
--- OUTSIDE RECORDS SUMMARY | 2024-06-27 23:55 | XMS_ITS | Encounter Summary ---
Author Organization [facility] Address [address] [place] [address]. [place], [place] [address] [place] [address] Care Team Providers Care Glove Machine Operator Name Role Phone Scott Hernandez MD Primary Care Provider [phone] Encounter Details Date Type Department Care Team (Latest Contact Info) Description 11/27/2019 Scan HEALTH INFO SRVCS Scanned, Documents Social [...] on filedocumented in this encounter Care Teams Glove Machine Operator Relationship Specialty Start Date End Date Scott Hernandez MD [address] [place] [address] PCP - General 01/03/17 documented as of this encounter
--- OUTSIDE RECORDS SUMMARY | 2024-06-27 23:55 | XMS_ITS | Encounter Summary ---
Author Organization [facility] Address [address] [place] [address]. [place] [address] [place] [address] Care Team Providers Care Nut Process Helper Name Role Phone Scott Hernandez MD Primary Care Provider [phone] Encounter Details Date Type Department Care Team (Late st Contact Info) Description 05/16/2017 Abstract [facility] Multispecialty Care - [address] [place] [address] Dustin Akins MD [address] [place] [address] [address] [place] [address] Social History Tobacco Use Types Packs/Day Years Used Date Smoking Tobacco: Never Assessed Comments Unknown Sex and Gender Information Value Date Recorded Sex Assigned at Not on file Legal Sex Female 9:34 PM CDT Gender Identity Not on file Sexual Orientation Not on file documented as of this encounter Progress Notes * Dustin Akins MD - 05/16/2017 10:00 AM CST Assessment 1. Bronchiectasis (494.0) (J47.9) 2. COPD (chronic obstructive pulmonary disease) (496) (J44.9) 3. CVID (common variable immunodeficiency) (279.06) (D83.9) 4. Environmental and seasonal allergies (477.8) (J30.89) 5. Obesity (278.00) (E66.9) 6. Productive cough (786.2) (R05) 1. Bronchiectasis -likely related to CVID 2. [...] aspergillus niger positive sputum -serology negative Plan Bronchiectasis, COPD (chronic obstructive pulmonary disease) 1. Symbicort 160-4.5 MCG/ACT Inhalation Aerosol; INHALE 2 PUFFS TWICE DAILY. RINSE MOUTH AFTER USE Rx By: Dustin Akins; Dispense: 90 Days ; #:3 X 10.2 GM Inhaler; Refill: 2; For: Bronchiectasis,COPD (chronic obstructive pulmonary disease); LINDSAY = N; Sent To: [facility] Chronic obstructive asthma 2. Ipratropium-Albuterol 0.5-2.5 (3) MG/3ML Inhalation Solution; USE 1 UNIT DOSE IN NEBULIZER EVERY 4 HOURS NEEDED Rx By: Dustin Akins; Dispense: 0 Days ; #:1 X 60 x 3 ML Plas Cont; Refill: 6; For: Chronic obstructive asthma; LINDSAY = N; Sent To: [facility] # [id number] COPD (chronic obstructive pulmonary disease) 3. From Spiriva HandiHaler 18 MCG Inhalation Capsule To Spiriva HandiHaler 18 MCG Inhalation Capsule INHALE CONTENTS OF 1 CAPSULE ONCE DAILY Rx By: Dustin Akins; Dispense: 0 Days ; #:1 Capsule; Refill: 5; For: COPD (chronic obstructive pulmonary disease); LINDSAY = N; Record 1. Albuterol hfa rescue i-ii puffs q4 prn sob/wheezing 2. Symbicort 160/4.5 ii puffs bid 3. Spiriva 18mcg daily 4. Singulair 10mg daily 5. Roflumilast 500mcg daily 6. Continue to follow with lecturer in computer science -continue scit; IVIG 7. Discusse potential addition of 3x weekly azithromycin pending continued response to immunoglobulin therapy 8. Flutter -poor candidate for VEST given osteoporosis, hx of L1 fx 9. PFT 12/2017 10. 6MWT 12/2017 11. Duoneb q4 prn sob/wheezing; encouraged increased usage during episodes of bronchitis 12. Discussed CPAP; will refer again for therapy at follow up; want to delay given upcoming vacation 13. Encouraged continued smoking cessation 14. Encouraged healthy weight loss via diet/exercise 15. To call with increased respiratory symptoms; may require Abx dosing; consider sputum culture atthat time. rtc in 5 months Chief Complaint Pt here for follow up. Complains for the past 3 days her cough has gotten worse. No med changes. History of Present Illness 71-year-old obese white female former smoker with past medical history of CVID, BRUNO, asthma/COPD, recurrent sinusitis/bronchitis, bronchiectasis, seasonal allergies, and GERD presents for follow-up. Initially referred for bronchiectasis. Since last visit had flare of bronchiectasis; treated with LQ + prednisone; [facility] [place] Follows with Dr. 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 Notes current 3 day worsening in symptoms, congested cough, sputum difficult to expectorate; noted recent sick contact and exposure to allergens/burning leaves. At baseline: Notes baseline dyspnea on exertion [...] sweats, hemoptysis. Notes extensive allergies, followed with lecturer in computer science, on SCIT Notes diagnosis of BRUNO; elected not to wear CPAP in past. Former smoker; quit ; approximate 40 pack year history. Denies alcohol/illicits. 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 Denies exposure to TB, asbestos, mold, birds. [...] per report OSH PSG 03/16/2016: AHI 9.5 Review of Systems See HPI for pertinent positives. Constitutional: as noted in HPI. Head and Face: negative. Eyes: negative. ENT: as noted in HPI. Cardiovascular: as noted in HPI. Respiratory: as noted in HPI, shortness of breath, cough and wheezing. Gastrointestinal: negative. Genitourinary: negative. Musculoskeletal: negative. Psychiatric: negative. Hematologic and Lymphatic: negative. Neurological Negative. Endocrine Negative. Active Problems 1. Bronchiectasis (494.0) (J47.9) 2. Chronic obstructive asthma (493.20) (J44.9) 3. COPD (chronic obstructive pulmonary disease) (496) (J44.9) 4. CVID (common variable immunodeficiency) (279.06) (D83.9) 5. Environmental and seasonal allergies (477.8) (J30.89) 6. 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 Obesity (278.00) (E66.9) 8. On prednisone therapy (V58.65) (Z79.52) 9. BRUNO (obstructive sleep apnea) (327.23) (G47.33) 10. Productive cough (786.2) (R05) Past Medical History 1. History of hypertension (V12.59) (Z86.79) Surgical History 1. History of Gallbladder Surgery Family History 1. Family history of Alzheimer's disease (V17.2) (Z82.0) 2. Family history of cardiovascular disease (V17.49) (Z82.49) 3. Family history of cerebrovascular accident (CVA) (V17.1) (Z82.3) 4. Family history of hypertension (V17.49) (Z82.49) 5. Family history of diabetes mellitus (V18.0) (Z83.3) 6. Family history of hypertension (V17.49) (Z82.49) Social History ?? Former smoker (V15.82) (Z87.891) Current Meds 1. Albuterol Sulfate (2.5 MG/3ML) 0.083% Inhalation Nebulization Solution; I x in office; Therapy: 21Nov2016 to (Last Rx:21Nov2016) Ordered 2. ALPRAZolam 0.5 MG Oral Tablet; Therapy: (Recorded:21Nov2016) to Recorded 3. Amlodipine-Olmesartan 10-40 MG Oral Tablet; Therapy: 05Oct2016 to Recorded 4. Atorvastatin Calcium 10 MG Oral Tablet; Therapy: (Recorded:21Nov2016) to Recorded 5. Celecoxib 200 MG Oral Capsule; Therapy: 06Sep2016 to Recorded 6. Citalopram Hydrobromide 20 MG Oral Tablet; Therapy: 05Oct2016 to Recorded 7. CloNIDine HCl - 0.1 MG Oral Tablet; Therapy: 12Jul2016 to Recorded 8. Daliresp 500 MCG Oral Tablet; Therapy: (Recorded:21Nov2016) to Recorded 9. Dexilant 30 MG Oral Capsule Delayed Release; Therapy: 02Feb2017 to Recorded 10. Fluticasone Propionate 50 MCG/ACT Nasal Suspension; Therapy: (Recorded:21Nov2016) to Recorded 11. Gabapentin 300 MG Oral Capsule; Therapy: 05Oct2016 to Recorded 12. Ipratropium-Albuterol 0.5-2.5 (3) MG/3ML Inhalation Solution; USE 1 UNIT DOSE IN NEBULIZER EVERY 4 HOURS NEEDED; Therapy: 21Nov2016 to (Evaluate:[id number]) Requested for: 21Nov2016; Last Rx:21Nov2016 Ordered 13. Montelukast Sodium 10 MG Oral Tablet; Therapy: 23Aug2016 to Recorded 14. Multivitamins CAPS; Therapy: (Recorded:21Nov2016) to Recorded 15. Nebulizer Device; USE DIRECTED; Therapy: 21Nov2016 to (Last Rx:21Nov2016) Requested for: 21Nov2016 Ordered 16. PredniSONE 10 MG Oral Tablet; Therapy: 08Jun2016 to Recorded 17. Probiotic CAPS; Therapy: (Recorded:21Nov2016) to Recorded 18. Savella 50 MG Oral Tablet; Therapy: 19Jul2016 to Recorded 19. Spiriva HandiHaler 18 MCG Inhalation Capsule; Therapy: 12Jul2016 to Recorded 20. Symbicort 160-4.5 MCG/ACT Inhalation Aerosol; INHALE 2 PUFFS TWICE DAILY. RINSE MOUTH AFTER USE Requested for: 01Dec2016; Last Rx:01Dec2016 Ordered 21. Ventolin HFA 108 (90 Base) MCG/ACT Inhalation Aerosol Solution; Therapy: 08Aug2016 to Recorded 22. Vitamin C TABS; Therapy: (Recorded:21Nov2016) to Recorded 23. Vitamin D3 1000 UNIT Oral Capsule; Therapy: (Recorded:21Nov2016) to Recorded Allergies 1. No Known Drug Allergies 2. Animal dander - Cats 3. Animal dander - Dogs 4. Dust Vitals Recorded: 16May2017 10:23AM Heart Rate 96 Systolic 158 Diastolic 92 O2 Saturation 97 Height 5 ft Weight 161 lb BMI Calculated 31.44 BSA Calculated 1.7 Physical Exam General: obese wf, sitting comfortably in nad, pleasant; coughing intermittently Neuro: A&Ox3 Head: nc, at EENT: no sinus ttp, mallampati 3 Neck: no appreciable LAD Resp: non-labored, bronchial bs, no audible wheezes/crackles CV: s1,s2; rrr; distant heart tones; no audible murmur Abd: soft, non-tender, non-distended, bs+ Ext: no edema, pulses present and equal bilaterally, no clubbing Skin: no visible rashes Signatures Electronically signed by : Dustin Akins M.D.; May 16 2017 11:27AM SEXUAL ASSAULT COUNSELOR (Author) documented in this encounter Plan of Treatment Not on file documented as of this encounter Visit Diagnoses Not on filedocumented in this encounter Care Teams Nut Process Helper Relationship Specialty Start Date End Date Scott Hernandez MD [address] [place] [address] PCP - General 01/03/17 documented as of this encounter
--- OUTSIDE RECORDS SUMMARY | 2024-06-27 23:55 | XMS_ITS | Encounter Summary ---
Author Organization [facility] Address [address] [place] [address]. [place] [address] [place] [address] Care Team Providers Care Hacksaw Inspector Name Role Phone Scott Hernandez MD Primary Care Provider [phone] Reason for Visit * Reason Comments Sleep Study (SCAN) Encounter Details Date Type Department Care Team ([facility] Contact Info) Description 07/15/2020 Scan HEALTH INFO SRVCS Scanned, Documents Sleep [...] COVID-19? No / Unsure 07/16/2020 12:49 PM BOILER HOUSE OPERATOR documented as of this encounter Plan of Treatment Not on file documented as of this encounter Procedures Procedure Name Priority Date/Time Associated Diagnosis Comments SLEEP STUDY GENERIC (SCAN ORDER) 07/15/2020 documented in this encounter Results * SLEEP STUDY GENERIC (07/15/2020) 07/15/2020 Narrative 07/15/2020 Ordered by an unspecified provider. us Documents Scanned SCANNING Edited Result - Final documented in this encounter Visit Diagnoses Not on filedocumented in this encounter Care Teams Hacksaw Inspector Relationship Specialty Start Date End Date Scott Hernandez MD [address] [place], [place] [id number] PCP - General 01/03/17 documented as of this encounter
--- OUTSIDE RECORDS SUMMARY | 2024-06-27 23:55 | XMS_ITS | Encounter Summary ---
Author Organization [facility] Address [address] [place] [address]. [place], [place] [address] [place] [address] Care Team Providers Care Jewelry Appraiser Name Role Phone Scott Hernandez MD Primary Care Provider [phone] Encounter Details Date Type Department Care Team (Latest Contact Info) Description 02/02/2018 Abstract [facility] Social History Tobacco Use Types [...] on filedocumented in this encounter Care Teams Jewelry Appraiser Relationship Specialty Start Date End Date Scott Hernandez MD [address] [place] [address] PCP - General 01/03/17 documented as of this encounter
--- OUTSIDE RECORDS SUMMARY | 2024-06-27 23:55 | XMS_ITS | Encounter Summary ---
Author Organization [facility] Address [address] [place] [address]. [place], [place] [address] [place] [address] Care Team Providers Care Carpet Finishing Supervisor Name Role Phone Scott Hernandez MD Primary Care Provider [phone] Reason for Visit * Reason Comments Letter (SCAN) Insurance Card Encounter Details Date Type Department Care Team ([facility] Contact Info) Description 06/14/2018 Scan HEALTH INFO SRVCS Scanned, Documents Letter (SCAN) (Insurance Card ) Social History Tobacco Use Types Packs/Day Years Used Date Smoking Tobacco: Former Cigarettes 2 04 09 [id number] Smokeless Tobacco: Never Alcohol Use Standard Drinks/Week [...] on filedocumented in this encounter Care Teams Carpet Finishing Supervisor Relationship Specialty Start Date End Date Scott Hernandez MD [address] [facility], [place] [id number] PCP - General 01/03/17 documented as of this encounter
--- OUTSIDE RECORDS SUMMARY | 2024-06-27 23:55 | XMS_ITS | Encounter Summary ---
Author Organization [facility] Address [address] [place] [address]. [place] [address] [place] [address] Care Team Providers Care Beveler Name Role Phone Scott Hernandez MD Primary Care Provider [phone] Encounter Details Date Type Department Care Team (Latest Contact Info) Description 06/12/2021 Travel Social History Tobacco Use Types Packs/Day Years Used Date Smoking Tobacco: Former Cigarettes 2 04 09 [id number] Smokeless Tobacco: Never Alcohol Use Standard [...] have Coronavirus / COVID-19? No / Unsure 06/12/2021 2:52 PM CITIZEN PARTICIPATION SPECIALIST documented as of this encounter Plan of Treatment Not on file documented as of this encounter Visit Diagnoses Not on filedocumented in this encounter Care Teams Beveler Relationship Specialty Start Date End Date Scott Hernandez MD [address] [place] [address] PCP - General 01/03/17 documented as of this encounter
--- OUTSIDE RECORDS SUMMARY | 2024-06-27 23:55 | XMS_ITS | Encounter Summary ---
Author Organization [facility] Address [address] [place] [address]. [place] [address] [place] [address] Care Team Providers Care Credit Collections Analyst Name Role Phone Scott Hernandez MD Primary Care Provider [phone] Encounter Details Date Type Department Care Team (Late st Contact Info) Description 05/16/[address] [facility] Pul[facility] Specialty Clinic [address] [address] Dustin Akins MD [address] [place] [address] Social History Tobacco Use Types Packs/Day Years Used Date Smoking Tobacco: Never Assessed Comments Unknown Sex and Gender Information Value Date Recorded Sex Assigned at Not on file Legal Sex Female 9:34 PM CDT Gender Identity Not on file Sexual Orientation Not on file documented as of this encounter Last Filed Vital Signs Vital Sign Reading Time Taken Comments Blood Pressure 158/92 05/16/2017 10:23 AM BOILING HOUSE HAND Pulse 96 05/16/2017 10:23 AM BOILING HOUSE HAND Temperature - - Respiratory Rate - - Oxygen Saturation - - Inhaled Oxygen Concentration - - Weight 73 kg (161 lb) 05/16/2017 10:23 AM BOILING HOUSE HAND Height 152.4 cm (5') 05/16/2017 10:23 AM BOILING HOUSE HAND Body Mass Index 31.44 05/16/2017 10:23 AM BOILING HOUSE HAND documented in this encounter Plan of Treatment Not on file documented as of this encounter Visit Diagnoses Not on filedocumented in this encounter Care Teams Credit Collections Analyst Relationship Specialty Start Date End Date Scott Hernandez MD [address] [place] [address] PCP - General 01/03/17 documented as of this encounter
--- OUTSIDE RECORDS SUMMARY | 2024-06-27 23:55 | XMS_ITS | Encounter Summary ---
Author Organization [facility] Address [address] [place] [address]. [place] [address] [place] [address] Care Team Providers Care Facilities Clerk Name Role Phone Scott Hernandez MD Primary Care Provider Reason for Visit * Reason Onset Date Comments Medication 01/13/2020 Encounter Details Date Type Department Care Team (Late st Contact Info) Description 01/13/2020 Telephone [facility] Pulmonology Specialty Clinic - [address] [address] Dustin Akins MD [address] [place] [address] Medication Social History Tobacco Use Types [...] as of this encounter Progress Notes * Ludivina Webster MA - 01/13/2020 3:05 PM CDT Called and went over medications with patient * Jessica Deluna - 01/13/2020 2:16 PM CDT Pt recently spoke to Yarelis re: her nebulizer meds being replaced. She is confused and has severalquestions as to which meds they are talking about. Asking to speak to someone documented in this encounter Plan of Treatment Not on file documented as of this encounter Visit Diagnoses Not on filedocumented in this encounter Care Teams Facilities Clerk Relationship Specialty Start Date End Date Scott Hernandez MD [address] [place] [place] [address] PCP - General 01/03/17 documented as of this encounter
--- OUTSIDE RECORDS SUMMARY | 2024-06-27 23:55 | XMS_ITS | Encounter Summary ---
Author Organization [facility] Address [address] [place] [address]. [place], [place] [address] [place] [address] Care Team Providers Care Automobile Repair Service Estimator Name Role Phone Scott Hernandez MD Primary Care Provider [phone] Encounter Details Date Type Department Care Team [...] on filedocumented in this encounter Care Teams Automobile Repair Service Estimator Relationship Specialty Start Date End Date Scott Hernandez MD [address] [facility] [place] [address] PCP - General 01/03/17 documented as of this encounter
--- OUTSIDE RECORDS SUMMARY | 2024-06-27 23:55 | XMS_ITS | Encounter Summary ---
Author Organization [facility] Address [address] [place] [address]. [place] [address] [place] [address] Care Team Providers Care Rn First Assist Name Role Phone Scott Hernandez MD Primary Care Provider [phone] Reason for Visit * Reason Onset Date Comments COVID-19 06/22/2020 Encounter Details Date Type Department Care Team (Late st Contact Info) Description 06/22/2020 Telephone [facility] Medical [facility] Pulmonology Specialty Clinic - [address] [address] Dustin Akins MD [address] [place] [address] COVID-19 Social History Tobacco Use Types Packs/Day [...] Progress Notes * Jose Ardon MA - 06/22/2020 3:16 PM CST Pt advised to go ahead with testing and use good hygiene - otherwise unfortunately no medication for covid NA GRADER * Jessica Deluna - 06/22/2020 11:51 AM CST Pt dx with COVID, pt has started coughing a lot more than usually this past weekend. Her PCP is going to set her up to be tested. She is asking if she needs to do anything, is taking her meds as usual. NA GRADER documented in this encounter Plan of Treatment Not on file documented as of this encounter Visit Diagnoses Not on filedocumented in this encounter Care Teams Rn First Assist Relationship Specialty Start Date End Date Scott Hernandez MD [address] [address] PCP - General 01/03/17 documented as of this encounter
--- OUTSIDE RECORDS SUMMARY | 2024-06-27 23:55 | XMS_ITS | Encounter Summary ---
Author Organization [facility] Address [address] [place] [address]. [place] [address] [place] [address] Care Team Providers Care Radiology Services Manager Name Role Phone Scott Hernandez MD Primary Care Provider [phone] Reason for Visit * Reason Comments Shortness Of Breath Cough Productive at times * Consultation/Treatment (Routine) - Closed Specialty Diagnoses / Procedures Referred By Contact Referred To Contact NURSE PRACTITIONER / SLEEP & RESPIRATORY CARE Diagnoses face to face for oxygen - ok per LM Procedures FOLLOW UP Scott Hernandez MD [address] [address] Phone: tel: fax: María Bautista APRN Referral ID Status Reason Start Date Expiration Date Visits Re quested Visits Authorized [id number] Closed 02/19/2019 02/20/2020 100 100 Encounter Details Date Type Department Care Team (Latest Contact Info) Description 02/19/2019 10:40 AM CDT Office Visit [facility] Medical Group Multispecialty Care - [facility] [address] [place] [address] María Bautista APRN Shortness Of Breath ; Cough (Productive at times ) Social History Tobacco Use Types Packs/Day [...] Sign Reading Time Taken Comments Blood Pressure 129/83 02/19/2019 10:54 AM CDT Pulse 88 02/19/2019 10:54 AM CDT Temperature - - Respiratory Rate 16 02/19/2019 10:5 4 AM CDT Oxygen Saturation 94% 02/19/2019 10: 54 AM CDT Taking on patients ear. on Room Air Inhaled Oxygen Concentration - - Weight 72 kg (158 lb 11.2 oz) 02/19/2019 10:54 AM CDT Height - - Body Mass Index 29.99 11/12/2018 9:55 AM CDT documented in this encounter Progress Notes * María Bautista, BEVERLY - 02/19/2019 10:40 AM CDT [facility] PULMONARY MEDICINE History Chief Complaint Patient presents with ??? Shortness Of Breath ??? Cough Productive at times Nolvia Coffey is a 73-year-old female with a past medical history of former tobacco use, CVID, BRUNO not on CPAP, asthma/COPD, recurrent sinusitis/bronchitis, bronchiectasis, seasonal allergies, andGERD who presents for follow-up. Initially referred for bronchiectasis. Also follows with Dr. Akins. 02/19/2019: 6-minute walk on 02/18/2019 revealed hypoxia with exertion, lowest exercise saturation of oxygen 84%. Test was completed using finger pulse oximeter. Patient has gel nail north korean and reported cold hands during the test. Repeated 6-minute walk during clinic visit on 02/19/2019 using pulse oximeter with ear attachment. Patient's oxygen saturation did not drop below 90% during exertion on room air. Reports post nasal drainage. Using ipratropium nasal spray but only once daily; also using Flonase.Cough has worsened with increased postnasal drainage. Notes fatigue. Notes dyspnea with exertion. Not using Albuterol inhaler or nebulizer on a routine basis. After extensive discussion regarding CPAP and importance of treating BRUNO, patient willing to obtaina CPAP. States during her sleep study she felt as if she was suffocating when CPAP mask was in place. 11/22/2018: Treatment for AE Bronchiectasis with prednisone 40 mg daily for 5 days, Levaquin 750 mg x 5 days. Sputum cultures not obtained, patient [facility] did not have the lab ordersfor sputum samples. Prior visits with Dr. Akins: 05/2017-06/2018: noted treatment of AEBronchiectasis x ~6; being treated with antibiotics by PCP; typically 5 day courses 07/04/2018: AEBronchiectasis; prednisone, LQ 750mg x 5 days ?? Follows with Dr. 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 Notes improvement since going back to weekly IVIG infusions; things had worsened after going to biweekly dosing. ?? 11/12/2018: office visit; notes concern over Ig [...] sputum. Notes frequent, wheezing, especially, when dyspneic. Notes occasional pleuritic chest discomfort related to cough. Denies palpitations, fever, chills, night sweats, hemoptysis. Notes extensive allergies, followed with casting coordinator, on SCIT Notes diagnosis of BRUNO; elected to not wear CPAP in past. Review of Systems Constitutional: Positive for malaise/fatigue (fatigue). Negative for chills, diaphoresis and fever. HENT: Positive for congestion (and drainage). Respiratory: Positive for cough, sputum production, shortness of breath and wheezing. Negative for hemoptysis. Cardiovascular: Positive for PND (occasional). Negative for chest pain, palpitations and leg swelling. Gastrointestinal: Negative for heartburn (on GERD treatment). Musculoskeletal: Positive for back pain (chronic). Neurological: Negative. Negative for weakness. Endo/Heme/Allergies: Positive for environmental allergies. Psychiatric/Behavioral: Negative. Negative for depression. History Former smoker; quit ; approximate 40 pack year history. Denies alcohol/illicits. 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 Denies exposure to TB, asbestos, mold, birds. Notes GERD, fairly well controlled. Notes receiving influenza and pneumococcal vaccines. Past Medical History: Diagnosis Date ??? Bronchiectasis [...] Last attempt to quit: 1987 Years since quittin.6 ??? Smokeless tobacco: Never Used Substance Use Topics ??? Alcohol use: Yes Frequency: Monthly or less ??? Drug use: No Family History Problem Relation Name Age of Onset ??? Heart Mother ??? Hypertension Mother ??? Diabetes Father ??? Diabetes Brother ??? Cancer Paternal Grandmother No outpatient medications have been marked as taking for the 02/19/19 encounter (Appointment) with María Bautista APRN. Allergies Allergen Reactions ??? Codeine Nausea and Vomiting ??? Dander Unknown ??? Dust Mite Extract Unknown There is no immunization history on file for this patient. 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 Labs 11/07/2016, outside hospital: -Region 8. Positive, dust, mites, penicillium, Cladosporium, aspergillus fumigatus, Alternaria Alternaria, stemphylium herbarium -IgG low, 600 (700-1600); IgG subclass 1 low 350 (422-1292); subclass 2, 3, 4 within normal limits. -Aspergillus antibody, negative (includes fumigatus, flavus, Niger) ?? Outside hospital spirometry 11/16/2016: FVC 77%, FEV1 76%, FEV1/FVC 74% ?? CT chest 10/20/2016: -No significant change in bilateral cylindrical bronchiectasis and scattered punctate central lobular nodules. -4 mm left lower lobe nodule noted on 11/11/2015 CT no longer visualized ?? 11/2016: Respiratory culture; normal juanita fungal sputum; sparse growth of sheila dubliniensis; likely contaminant afb sputum negative A1AT MM ?? 12/2016: OSH PFT; srinivasa wnl; decrease in mid to low lung volumes; mild reduction in uDLCO; numbers unavailable at present OSH 6MWT: ambulated 427 meters without desat <88% per report ?? OSH PSG 03/16/2016: AHI 9.5 PFT 02/18/2019: FVC 89%; FEV1 1.6 L, 86%; FEV1/FVC ratio 73%. Postbronchodilator FVC 89%; FEV1 1.65 L, 89%; FEV1/FVC ratio 75%. TLC 107%, RV 140%, ERV 40%. Unadjusted DLCO 82% predicted. 6MWT 02/18/2019 (in respiratory lab): Resting Saturation off Oxygen: 92 % Exercise Oxygen Saturation on Oxygen: 91 % Exercise Oxygen Settin Liters/Minute Exercise Saturation off Oxygen: 84 % Distance Walked: 250 FT Finger pulse oximeter used 02/19/2019: 6MWT (in clinic): Resting Saturation off Oxygen: 94% Exercise Oxygen Saturation on Oxygen: N/A Exercise Oxygen Setting: N/A Exercise Saturation off Oxygen: 90% Walked for the entire 6 minutes Pulse oximeter with ear attachment used Physical Exam Filed Vitals: 02/19/19 1054 BP: 129/83 Pulse: 88 Resp: 16 SpO2: 94% Weight: 72 kg (158 lb 11.2 oz) Physical Exam: General: WF, sitting comfortably in no acute distress, pleasant Neuro: alert, appropriate Head: NCAT EENT: no sinus tenderness to palpation; Mallampati 3 Neck: supple, no jvd, no appreciable LAD Resp: non-labored, breath sounds distant, no wheezes/rales/rhonchi; intermittent cough CV: S1,S2; RRR; no audible murmur Abd: soft, NT, ND, BS+ Ext: pulses present and equal bilaterally; no clubbing, no edema Skin: no visible rashes Assessment / Plan 1. Bronchiectasis -Likely related to CVID -Continue flutter, current device is quite old per patient report; obtain new flutter device, use twice daily for aid in secretion clearance -Poor candidate for VEST given osteoporosis, history of L1 fracture, back pain -6-minute walk completed 02/18/2019, questionable results as patient has gel nails with cold hands; reported room air oxygen saturation with exertion at 84%, oxygen requirements of 4L/min with activity -6-minute walk completed in clinic 02/19/2019, used pulse oximeter with ear attachment, did not qualify for supplemental oxygen; lowest room air oxygen saturation with exertion was 90% -For future exacerbations, obtain respiratory culture, AFB smear/culture --3 sputum specimen cups given to patient -consider addition of 3x weekly azithromycin or possibly inhaled tobramycin pending continued response to immunoglobulin therapy and sputum culture results 2. COPD, GOLD B by history -Consider chronic obstructive asthma, chronic bronchitis -Albuterol HFA 1-2 puffs every 4 hours as needed shortness of breath/wheezing --encouraged more frequent use if needed -Albuterol neb or DuoNeb every 4 hours as needed for shortness of breath/wheezing, increase use during bronchitis -Symbicort 160/4.5, 2 puffs twice daily -Spiriva 18 mcg once daily -PFT completed 02/18/2019 3. BRUNO -Currently not on CPAP -Extensive discussion with patient and her regarding CPAP therapy and importance of BRUNO treatment; questions and concerns addressed -Patient reported feelings that she was suffocating during sleep study with CPAP in place; explained this may have been due to suboptimal CPAP settings during titration -with symptoms of fatigue, snoring -Patient willing to start CPAP -Patient needs and will benefit from CPAP use -Start auto CPAP 4-20 cm H2O 4. CVID -On IVIG since 02/2017, currently on weekly dosing -Continue to follow with verification clerk 5. Seasonal/environmental allergies, allergic rhinitis -On SCIT -Did not respond to Xolair in the past -Continue Flonase -Continue ipratropium nasal spray twice daily, encouraged twice daily dosing -Singulair 10 mg nightly -Zyrtec daily -Continue to follow with casting coordinator 6. Former smoker -Encouraged continued cessation 7. History of Aspergillus niger positive sputum 8. Obesity Return to clinic to see Dr. Akins or ALCIRA Judge in 2 months for CPAP follow-up. ALCIRA Judge documented in this encounter Plan of Treatment Scheduled Orders Name Type Priority Associated Diagnoses Orde r Schedule PULMONARY STRESS TESTING Procedures Routine Bronchiectasis without complication ([facility]) Chronic obstructive asthma Ordered: 02/19/2019 documented as of this encounter Visit Diagnoses Diagnosis Bronchiectasis without complication ([facility])- Primary Bronchiectasis without acute exacerbation BRUNO (obstructive sleep apnea) Obstructive sleep apnea (adult) (pediatric) Chronic obstructive asthma ([facility]) Chronic obstructive asthma, unspecified CVID (common variable immunodeficiency) ([facility]) Common variable immunodeficiency Environmental and seasonal allergies Allergic rhinitis, unspecified seasonality, unspecified trigger documented in this encounter Care Teams Radiology Services Manager Relationship Specialty Start Date End Date Scott Hernandez MD [address] [address] PCP - General 01/03/17 documented as of this encounter
--- OUTSIDE RECORDS SUMMARY | 2024-06-27 23:55 | XMS_ITS | Encounter Summary ---
Author Organization [facility] Address [address] [place] [address]. [place] [address] [place] [address] Care Team Providers Care Neurology Physician Assistant Name Role Phone Scott Hernandez MD Primary Care Provider [phone] Reason for Visit * Reason Onset Date Comments Follow Up Call 11/22/2018 Encounter Details Date Type Department Care Team (Late st Contact Info) Description 11/22/2018 Telephone [facility] Medical Group Pulmonology Specialty Clinic - [address] [address] Dustin Akins MD [address] [place] [address] Follow Up Call Social History Tobacco [...] as of this encounter Progress Notes * Mari [place] - 11/22/2018 9:22 AM CDT Patient is returning Alba phone call. Patient is at the Dr. And will be available in 1 hour. documented in this encounter Plan of Treatment Not on file documented as of this encounter Visit Diagnoses Not on filedocumented in this encounter Care Teams Neurology Physician Assistant Relationship Specialty Start Date End Date Scott Hernandez MD [address] [place] [address] PCP - General 01/03/17 documented as of this encounter
--- OUTSIDE RECORDS SUMMARY | 2024-06-27 23:55 | XMS_ITS | Encounter Summary ---
Author Organization [facility] Address [address] [place] [address]. [place], [place] [address] [place] [address] Care Team Providers Care Senior Publications Specialist Name Role Phone Scott Hernandez MD Primary Care Provider [phone] Encounter Details Date Type Department Care Team (Latest Contact Info) Description 07/31/2017 Abstract [facility] Medical Group Social History Tobacco [...] filedocumented in this encounter Care Teams Senior Publications Specialist Relationship Specialty Start Date End Date Scott Hernandez MD [address] [place] [address] PCP - General 01/03/17 documented as of this encounter
--- OUTSIDE RECORDS SUMMARY | 2024-06-27 23:55 | XMS_ITS | Encounter Summary ---
Author Organization [facility] Address [address] [place] [address]. [place] [address] [place] [address] Care Team Providers Care Film Tests Checker Name Role Phone Scott Hernandez MD Primary Care Provider [phone] Reason for Visit * Reason Comments Obstructive Sleep Apnea cpap use Encounter Details Date Type Department Care Team (Late st Contact Info) Description 07/16/2020 1:20 PM LAYDOWN MACHINE OPERATOR Office Visit [facility] Medical Group Multispecialty Care - [facility] [address] [facility] [place] [id number] Dustin Akins MD 3rd [facility] [address] [place] [address] Obstructive Sleep Apnea (cpap use ) Social History Tobacco Use Types Packs/Day [...] COVID-19? No / Unsure 07/16/2020 12:49 PM LAYDOWN MACHINE OPERATOR documented as of this encounter Last Filed Vital Signs Vital Sign Reading Time Taken Comments Blood Pressure 135/74 07/16/2020 1:26 PM LAYDOWN MACHINE OPERATOR Pulse 86 07/16/2020 1:26 PM LAYDOWN MACHINE OPERATOR Temperature 36.2 ??C (97.2 ??F) 07/16/2020 1:26 PM CS T Respiratory Rate 18 07/16/2020 1:26 PM LAYDOWN MACHINE OPERATOR Oxygen Saturation 98% 07/16/2020 1:26 PM LAYDOWN MACHINE OPERATOR ra Inhaled Oxygen Concentration - - Weight 65.3 kg (144 lb) 07/16/2020 1:26 PM LAYDOWN MACHINE OPERATOR Height 152.4 cm (5') 07/16/2020 1:26 PM LAYDOWN MACHINE OPERATOR Body Mass Index 28.12 07/16/2020 1:26 PM LAYDOWN MACHINE OPERATOR documented in this encounter Progress Notes * Dustin Akins MD - 07/16/2020 1:20 PM CST [facility] PULMONARY MEDICINE History Chief Complaint Patient presents with ??? Obstructive Sleep Apnea cpap use 75-year-old obese white female former smoker with past [...] on 3x weekly azithromycin 06/03/2019: OV, LM PRESIDING JUDGE; noted possible VCD on 05/25; suspected AEBronchiectasis; given LQ and prednisone 06/11/2019: [facility]; continued symptoms; flu swab negative; CTA without acute finding, no PE 07/12/2019: OV; LM PRESIDING JUDGE; doing well; taking meds, using flutter; planned travel to [place] thru 11/2019. 06/18/2020: Tested + for covid; grandson known contact 07/16/2020: OV; last seen 05/2019; hospitalized with covid > 1 month; getting IVIG from Dr. Ruano's office; breathing well; no exacerbations in approximately 1 year; compliant with nebs, meds, cpap At prior baseline 2018: Notes improvement since [...] sweats, hemoptysis. Notes extensive allergies, followed with missile pad mechanic, on SCIT Notes diagnosis of BRUNO; elected not to wear CPAP in past. Former smoker; quit ; approximate 40 pack year history. Denies alcohol/illicits. 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 Denies exposure to TB, asbestos, mold, birds. [...] cmH2O CPAP; median pressure 7.5 cm H2O Past Medical History: Diagnosis Date [...] Types: Cigarettes Quit date: 1987 Years since quittin.0 ??? Smokeless tobacco: [...] TK 1 T PO QD 0 ??? AZITHROMYCIN 500 MG tablet TAKE 1 TABLET BY MOUTH 3 TIMES A WEEK. MONDAY, MONDAY, MONDAY 36 tablet 3 ??? budesonide 0.5 MG/2ML nebulizer solution Take 2 mLs (0.5 mg total) by nebulization every morning. 60 mL 2 ??? budesonide-formoterol (SYMBICORT) 160-4.5 MCG/ACT inhaler Inhale 2 puffs into the lungs 2 (two)times daily. 1 Inhaler 3 ??? celecoxib 200 MG capsule ??? cetirizine 10 MG tablet Take 10 mg by mouth. ??? citalopram 20 MG tablet ??? cloNIDine 0.1 MG tablet ??? CPAP MACHINE AutoCPAP [id number] For use when sleeping Lifetime use 1 [...] 2 SPRAYS IN EACH NOSTRIL QD ??? formoterol (PERFOROMIST) 20 MCG/2ML nebulizer solution Take 2 mLs (20 mcg total) by nebulization 2 (two) times a day. 60 mL 1 ??? gabapentin 300 MG capsule ??? ipratropium [...] TK 1 C PO HS 3 ??? Revefenacin (YUPELRI) 175 MCG/3ML Solution Inhale 3 mLs into the lungs daily. 90 mL 1 ??? tiotropium (SPIRIVA HANDIHALER) 18 MCG inhalation [...] Psychiatric/Behavioral: Negative for depression and suicidal ideas. The patient is nervous/anxious. Physical Exam Filed Vitals: 07/16/20 1326 BP: 135/74 Pulse: 86 Resp: 18 Temp: 97.2 ??F (36.2 ??C) TempSrc: Temporal SpO2: 98% Weight: 65.3 kg (144 lb) Height: 5' (1.524 m) Physical Exam: [...] neb bid -Yupelri daily -Performist bid 3. Off Symbicort, Spiriva 4. Singulair 10mg daily 5. Roflumilast 500mcg daily 6. Continue to follow with missile pad mechanic -continue IVIG 7. 3x weekly azithromycin qMWF 8. Flutter -poor candidate for VEST given osteoporosis, hx of L1 fx 9. PFT 2020 10. 6MWT 2020 11. Duoneb q4 prn sob/wheezing; encouraged increased usage during episodes of bronchitis 12. CPAP qhs and prn naps -continues to need, use, and benefit from use 13. Encouraged continued smoking cessation 14. Encouraged healthy weight loss via diet/exercise 15. To call with increased respiratory symptoms; may require Abx dosing; consider sputum culture: --Respiratory culture, AFB smear/culture with any exacerbation rtc in 4-6 months I spent 30 minutes today reviewing the patient's medical record, obtaining history, performing an exam, ordering medications, tests, and/or procedures, documenting in the medical record and reviewingand communicating test results. 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 Tobacco use disorder Chronic obstructive pulmonary disease, unspecified COPD type ([facility]) Bronchiectasis without complication ([facility]) Bronchiectasis without acute exacerbation Chronic obstructive asthma ([facility]) Chronic obstructive asthma, unspecified BRUNO (obstructive sleep apnea) Obstructive sleep apnea (adult) (pediatric) CVID (common variable immunodeficiency) ([facility]) Common variable immunodeficiency documented in this encounter Care Teams Film Tests Checker Relationship Specialty Start Date End Date Scott Hernandez MD [address] [place] [address] PCP - General 01/03/17 documented as of this encounter
--- OUTSIDE RECORDS SUMMARY | 2024-06-27 23:55 | XMS_ITS | Encounter Summary ---
Author Organization [facility] Address [address] [place] [address]. [place], [place] [address] [place] [address] Care Team Providers Care Paper Carrier Name Role Phone Scott Hernandez MD Primary Care Provider [phone] Encounter Details Date Type Department Care Team (Latest Contact Info) Description 07/12/2019 Scan HEALTH INFO SRVCS Scanned, Documents Social [...] on filedocumented in this encounter Care Teams Paper Carrier Relationship Specialty Start Date End Date Scott Hernandez MD [address] [place] [address] PCP - General 01/03/17 documented as of this encounter
--- OUTSIDE RECORDS SUMMARY | 2024-06-27 23:55 | XMS_ITS | Encounter Summary ---
Author Organization [facility] Address [address] [place] [address]. [place] [address] [place] [address] Care Team Providers Care Agriculture Instructor Name Role Phone Scott Hernandez MD Primary Care Provider [phone] Reason for Visit * Reason Comments Obstructive Sleep Apnea provider plus Encounter Details Date Type Department Care Team (Late st Contact Info) Description 06/15/2021 10:00 AM SENIOR BUSINESS ANALYST Office Visit [facility] Medical Group Multispecialty Care - [facility] [address] [facility] [place] [phone] Dustin Akins MD 3rd [facility] [address] [place] [address] Obstructive Sleep Apnea (provider plus ) Social History Tobacco Use Types Packs/Day Years Used Date Smoking Tobacco: Former Cigarettes 2 10 978 - 1987 Smokeless Tobacco: Never Tobacco [...] COVID-19? No / Unsure 06/15/2021 9:36 AM SENIOR BUSINESS ANALYST documented as of this encounter Last Filed Vital Signs Vital Sign Reading Time Taken Comments Blood Pressure 132/70 06/15/2021 9:46 AM SENIOR BUSINESS ANALYST Pulse 72 06/15/2021 9:46 AM SENIOR BUSINESS ANALYST Temperature 36.7 ??C (98.1 ??F) 06/15/2021 9:46 AM CS T Respiratory Rate 18 06/15/2021 9:46 AM SENIOR BUSINESS ANALYST Oxygen Saturation 97% 06/15/2021 9:46 AM SENIOR BUSINESS ANALYST ra Inhaled Oxygen Concentration - - Weight 73.9 kg (163 lb) 06/15/2021 9:46 AM SENIOR BUSINESS ANALYST Height 152.4 cm (5') 06/15/2021 9:46 AM SENIOR BUSINESS ANALYST Body Mass Index 31.83 06/15/2021 9:46 AM SENIOR BUSINESS ANALYST documented in this encounter Progress Notes * Dustin Akins MD - 06/15/2021 10:00 AM CST [facility] PULMONARY MEDICINE History Chief Complaint Patient presents with ??? Obstructive Sleep Apnea provider plus 75-year-old obese white female former smoker with [...] on 3x weekly azithromycin 06/03/2019: OV, LM MEDICAL SALES; noted possible VCD on 05/25; suspected AEBronchiectasis; given LQ and prednisone 06/11/2019: [facility]; continued symptoms; flu swab negative; CTA without acute finding, no PE 07/12/2019: OV; LM MEDICAL SALES; doing well; taking meds, using flutter; planned travel to [place] thru 11/2019. 06/18/2020: Tested + for covid; grandson known contact 07/16/2020: OV; last seen 05/2019; hospitalized with covid > 1 month; getting IVIG from Dr. Ruano's office; breathing well; no exacerbations in approximately 1 year; compliant with nebs, meds, cpap 06/15/2021: OV; breathing well; no exacerbations since last visit; needing azithro refill; requesting change from nebs if economically feasible; sleeping well with CPAP At prior baseline [...] sweats, hemoptysis. Notes extensive allergies, followed with laboratory operations coordinator, on SCIT Notes diagnosis of BRUNO; elected not to wear CPAP in past. Former smoker; quit 1980s; approximate 40 pack year history. Denies alcohol/illicits. 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 Denies exposure to TB, asbestos, mold, [...] H2O CPAP; median pressure 8.2 cm H2O Past Medical History: Diagnosis Date [...] Types: Cigarettes Quit date: 1987 Years since quittin.9 ??? Smokeless tobacco: Never Used Vaping Use [...] 360 mL 11 ??? albuterol sulfate HFA (VENTOLIN HFA) 108 [...] 0.1 MG tablet ??? CPAP MACHINE AutoCPAP [id number] For use when sleeping Lifetime use 1 [...] NEBULIZER TWICE DAILY - morning and evening 60 mL 11 ??? vitamin D3, cholecalciferol, 5000 [...] and suicidal ideas. Physical Exam Filed Vitals: 06/15/21 0946 BP: 132/70 Pulse: 72 Resp: 18 Temp: 98.1 ??F (36.7 ??C) TempSrc: Temporal SpO2: 97% Weight: 73.9 kg (163 lb) Height: 5' (1.524 m) Physical Exam: [...] neb bid -Yupelri daily -Performist bid 3. Start Breztri -instead of nebs -rinse and spit after -previously on Symbicort, Spiriva 4. Singulair 10mg daily 5. 3x weekly azithromycin qMWF 6. Continue to follow with laboratory operations coordinator -continue IVIG 7. PFT/6MWT 2021 8. Flutter -poor candidate [...] rtc in 6 months Dustin Akins MD, [facility] OR BUSINESS ANALYST documented in this encounter Plan of Treatment Not on file documented as of this encounter Visit Diagnoses Diagnosis Chronic obstructive pulmonary disease, unspecified COPD type ([facility])- Primary Cigarette nicotine dependence in remission Tobacco use disorder Bronchiectasis without complication ([facility]) Bronchiectasis without acute exacerbation BRUNO (obstructive sleep apnea) Obstructive sleep apnea (adult) (pediatric) CVID (common variable immunodeficiency) ([facility]) Common variable immunodeficiency documented in this encounter Additional Health Concerns Assessment Noted Time PHQ-9 Depression Total Score: 2 06/15/20 21 10:10 AM SENIOR BUSINESS ANALYST documented as of this encounter Care Teams Agriculture Instructor Relationship Specialty Start Date End Date Scott Hernandez MD [address] [address] PCP - General 01/03/17 documented as of this encounter
--- OUTSIDE RECORDS SUMMARY | 2024-06-27 23:55 | XMS_ITS | Encounter Summary ---
Author Organization [facility] Address [address] [place] [address]. [place] [address] [place] [address] Care Team Providers Care First Grade Teacher Name Role Phone Scott Hernandez MD Primary Care Provider [phone] Reason for Visit * Reason Onset Date Comments Medication 06/15/2021 Encounter Details Date Type Department Care Team (Late st Contact Info) Description 06/15/2021 Telephone [facility] Medical Group Pulmonology [facility] - [address] [address] Dustin Akins MD [address] [place] [address] Medication Social History Tobacco Use Types [...] COVID-19? No / Unsure 06/15/2021 9:36 AM MAILROOM ASSOCIATE documented as of this encounter Progress Notes * Jose Benito MA - 06/22/2021 2:19 PM CSTAddended by: JOSE BENITO on: 06/22/2021 02:19 PM Modules accepted: Orders ROOM ASSOCIATE * Jose Benito MA - 06/21/2021 2:18 PM CST Per EVI ward'd breztri but possible cost necessitates trelegy - please call and ask Ok to fill trelegy if preferred ROOM ASSOCIATE * Jose Benito MA - 06/18/2021 8:32 AM CST Awaiting provider review ROOM ASSOCIATE * Jose Beniot MA - 06/17/2021 10:59 AM CST Awaiting provider review ROOM ASSOCIATE * Jose Benito MA - 06/15/2021 2:28 PM CST Printed for provider ROOM ASSOCIATE * Norma Weiss - 06/15/2021 2:23 PM CST Nolvia called today saying she needs Trilogy and her Azithromycin called in [facility] in [place]. Please call when completed. ROOM ASSOCIATE documented in this encounter Plan of Treatment Not on file documented as of this encounter Visit Diagnoses Diagnosis Chronic obstructive pulmonary disease, unspecified COPD type ([facility] Primary documented in this encounter Additional Health Concerns Assessment Noted Time PHQ-9 Depression Total Score: 2 06/15/20 21 10:10 AM MAILROOM ASSOCIATE documented as of this encounter Care Teams First Grade Teacher Relationship Specialty Start Date End Date Scott Hernandez MD [address] [place] [address] PCP - General 01/03/17 documented as of this encounter
--- OUTSIDE RECORDS SUMMARY | 2024-06-27 23:55 | XMS_ITS | Encounter Summary ---
Author Organization [facility] Address [address] [place] [address]. [place], [place] [address] [place] [address] Care Team Providers Care Logistics Supervisor Name Role Phone Scott Hernandez MD Primary Care Provider [phone] Encounter Details Date Type Department Care Team (Latest Contact Info) Description 11/26/2019 Scan HEALTH INFO SRVCS Scanned, Documents Social [...] on filedocumented in this encounter Care Teams Logistics Supervisor Relationship Specialty Start Date End Date Scott Hernandez MD [address] [facility] [address] PCP - General 01/03/17 documented as of this encounter
--- OUTSIDE RECORDS SUMMARY | 2024-06-27 23:55 | XMS_ITS | Encounter Summary ---
Author Organization [facility] Address [address] [place] [address]. [place] [address] [place] [address] Care Team Providers Care Computer Specialist Name Role Phone Scott Hernandez MD Primary Care Provider [phone] Reason for Visit * Reason Onset Date Comments Information 02/19/2019 Orders 03/21/2019 Cpap mask Encounter Details Date Type Department Care Team (Late st Contact Info) Description 02/19/2019 Telephone [facility] Medical Group Multispecialty Care - [facility] [address] [facility], [address] [place] [address] María Bautista, RAILWAY YARD ASSISTANT Information; Orders (Cpap mask ) Social History Tobacco Use Types Packs/Day [...] as of this encounter Progress Notes * Katia Bond, TRANSPORTATION DISPATCH MANAGER - 03/21/2019 11:48 AM CDT Called patient and stated that her supplies and equipment came from [facility]. Gave her [facility] address as well. [address] [place] [address]. Patient voiced understanding. * Jessica Deluna - 03/21/2019 11:32 AM CDT Pt needs a different mask for her CPAP. She doesn't know where her CPAP came from [facility], it was not [facility] per pt. She is asking if we know where she should get the mask from? * Katia Bond CRT - 02/19/2019 2:46 PM CDT Called [facility] and talked to Karlee. Stated that the patient does not qualify for oxygen at this time due to 6MWT test done today 02/19/2019. Also, Karlee stated that she will give the information on the patient to Kecia Monteiro at [facility]. documented in this encounter Plan of Treatment Not on file documented as of this encounter Visit Diagnoses Not on filedocumented in this encounter Care Teams Computer Specialist Relationship Specialty Start Date End Date Scott Hernandez MD [address] [place], [place] [id number] PCP - General 01/03/17 documented as of this encounter
--- OUTSIDE RECORDS SUMMARY | 2024-06-27 23:55 | XMS_ITS | Encounter Summary ---
Author Organization [facility] Address [address] [place] [address]. [place] [address] [place] [address] Care Team Providers Care Lamps Tester And Inspector Name Role Phone Scott Hernandez MD Primary Care Provider [phone] Reason for Visit * Reason Comments Sleep Study (SCAN) Encounter Details Date Type Department Care Team ([facility] Contact Info) Description 06/14/2021 Scan HEALTH INFO SRVCS Scanned, Documents Sleep [...] COVID-19? No / Unsure 06/15/2021 9:36 AM GANG DRILL PRESS OPERATOR documented as of this encounter Plan of Treatment Not on file documented as of this encounter Procedures Procedure Name Priority Date/Time Associated Diagnosis Comments SLEEP STUDY GENERIC (SCAN ORDER) 06/14/2021 documented in this encounter Results * SLEEP STUDY GENERIC (06/14/2021) 06/14/2021 Narrative 06/14/2021 Ordered by an unspecified provider. us Documents Scanned SCANNING Final Result documented in this encounter Visit Diagnoses Not on filedocumented in this encounter Care Teams Lamps Tester And Inspector Relationship Specialty Start Date End Date Scott Hernandez MD [address] [place] [address] PCP - General 01/03/17 documented as of this encounter
--- OUTSIDE RECORDS SUMMARY | 2024-06-27 23:55 | XMS_ITS | Encounter Summary ---
Author Organization [facility] Address [address] [place] [address]. [place] [address] [place] [address] Care Team Providers Care Lna Name Role Phone Scott Hernandez MD Primary Care Provider [phone] Encounter Details Date Type Department Care Team (Latest Contact Info) Description 11/20/2020 Scan HEALTH INFO SRVCS Scanned, Documents Social History Tobacco Use Types Packs/Day Years Used Date Smoking Tobacco: Former Cigarettes 2 10 978 1987 Smokeless Tobacco: Never Alcohol Use [...] on filedocumented in this encounter Care Teams Lna Relationship Specialty Start Date End Date Scott Hernandez MD [address] [place] [address] PCP - General 01/03/17 documented as of this encounter
--- OUTSIDE RECORDS SUMMARY | 2024-06-27 23:55 | XMS_ITS | Encounter Summary ---
Author Organization [facility] Address [address] [place] [address]. [place], [place] [id number] [place] [address] Care Team Providers Care Development Educator Name Role Phone Scott Hernandez MD Primary Care Provider [phone] Encounter Details Date Type Department Care Team (Latest Contact Info) Description 05/15/2018 Scan [facility] Medical [facility] , Rhianna Lopez MD Social History Tobacco Use Types Packs/Day [...] on filedocumented in this encounter Care Teams Development Educator Relationship Specialty Start Date End Date Scott Hernandez MD [address] [place] [id number] PCP - General 01/03/17 documented as of this encounter
--- OUTSIDE RECORDS SUMMARY | 2024-06-27 23:55 | XMS_ITS | Encounter Summary ---
Author Organization [facility] Address [address] [place] [address]. [place] [address] [place] [address] Care Team Providers Care Wafer Machine Operator Name Role Phone Scott Hernandez MD Primary Care Provider [phone] Reason for Visit * Reason Onset Date Comments Information 06/11/2019 Encounter Details Date Type Department Care Team (Late st Contact Info) Description 06/11/2019 Telephone [facility] - [facility] [address], [address] [place] [address] Uche Bautista, ASSISTANT FRONT OFFICE MANAGER Information Social History Tobacco Use Types Packs/Day Years Used Date Smoking Tobacco: Former Cigarettes 2 [id number] Smokeless Tobacco: Never Alcohol Use Standard [...] as of this encounter Progress Notes * Uche Bautista APRN - 06/11/2019 4:41 PM CST Influenza A and B both negative. Given her failure of outpatient therapy with Levaquin and Prednisone along with her numerous co-morbidities and immunocompromised state, recommend further evaluation in the ER. I discussed our recommendations over the phone with Mrs. Coffey. ALCIRA Judge ERT OR LECTURE HALL MANAGER * Uche Bautista APRN - 06/11/2019 3:15 PM CSTAddended by: UCHE BAUTISTA on: 06/11/2019 03:15 PM Modules accepted: Orders ERT OR LECTURE HALL MANAGER * Uche Bautista APRN - 06/11/2019 3:02 PM CST Patient with cough, increased shortness of breath, extreme fatigue, weakness, lightheadedness, tremors, low grade fever, chills. Had near-syncope at [facility]. Completed Levaquin, Prednisone priorto office visit with me on 06/03/19; had been feeling better on 06/03/19 but then developed worsening and new symptoms following appointment. Cough is nonproductive; unable to provide sputum for culture. States also has similar complaints; currently undergoing radiation therapy for cancer. SpO2 on pulse oximeter has been in mid-80s during the course of this recent illness. Notes labile heart rate. Using nebs and inhalers as prescribed. Harsh cough and conversational dyspnea noted during phone conversation. Impression/Plan: Consider Influenza Consider bronchiectasis exacerbation Test for Influenza A and B today Treat influenza if indicated Low threshold for ER visit ALCIRA Judge ERT OR LECTURE HALL MANAGER * Katia Bond CRT - 06/11/2019 2:21 PM CST Routed to Uche Bautista APRN to review and advise. ERT OR LECTURE HALL MANAGER * Manasa Dempsey - 06/11/2019 2:03 PM CST Pt said Uche wanted her to call us to let her know how she was feeling and if she was any better/ she said she is not an better. She is still lightheaded, dizzy, weak, short of breath, extreme fatigue, sweaty, shaky, etc. She has finished with all her meds. She is doing her nebulizer multiple times a day. Her heart rate is at 60 and O2 at 93. Her has it now too. She felt like she was about to pass out at [facility]. Doing anything wears her out and she has to sleep after it. Please call her back today is possible to let her know what Uche would like to do next from here. ERT OR LECTURE HALL MANAGER documented in this encounter Plan of Treatment Not on file documented as of this encounter Results * INFLUENZA A & B (06/11/2019 3:51 PM CONCERT OR LECTURE HALL MANAGER) SPECIMEN TYPE NASOPHARYNGEAL SWAB 06/11/2019 4:06 PM CONCERT OR LECTURE HALL MANAGER [facility] INFLUENZA A NEGATIVE NEGATIVE 06/11/2019 4:29 PM CONCERT OR LECTURE HALL MANAGER [facility] INFLUENZA B NEGATIVE NEGATIVE 06/11/2019 4:29 PM CONCERT OR LECTURE HALL MANAGER [facility] Comment: Interpretation: Negative for Influenza A [...] NASOPHARYNGEAL SWAB / Unknown 06/11/2019 3:51 PM CONCERT OR LECTURE HALL MANAGER us Uche Bautista ASSISTANT FRONT OFFICE MANAGER MICROBIOLOGY - GENERAL ORD ERABLES Final Result [facility] [address] [place] [address], [place] [phone] documented in this encounter Visit Diagnoses Diagnosis Cough- Primary Shortness of breath Fever and chills Fever, unspecified documented in this encounter Care Teams Wafer Machine Operator Relationship Specialty Start Date End Date Scott Hernandez MD [address] [place], [place] [id number] PCP - General 01/03/17 documented as of this encounter
--- OUTSIDE RECORDS SUMMARY | 2024-06-27 23:55 | XMS_ITS | Encounter Summary ---
Author Organization [facility] Address [address] [place] [address]. [place] [address] [place] [address] Care Team Providers Care Spray Ii Painter Name Role Phone Ghazal Hernandez MD Primary Care Provider [phone] Reason for Referral * Imaging (Emergency) - Closed Specialty Diagnoses / Procedures Referred By Wendy pfeiffer Referred To Contact RADIOLOGY Procedures CTA CHEST Phil Monge MD Phone: tel: fax: Referral ID Status Reason Start Date Expiration Date Visits Re quested Visits Authorized [id number] Closed 06/11/2019 07/12/2020 1 1 N RESOURCES ASSOCIATE Reason for Visit * Reason Comments Breathing Problem Encounter Details Date Type Department Care Team (Late st Contact Info) Description 06/11/2019 5:46 PM HUMAN RESOURCES ASSOCIATE - 06/11/2019 10:12 PM HUMAN RESOURCES ASSOCIATE Emergency [facility] Emergency Room [address] [place], [place] [id number] Phil Monge MD [address] [place] [id number] Breathing Problem Discharge Disposition: Home or Self Care (Routine [...] Sign Reading Time Taken Comments Blood Pressure 152/91 06/11/2019 9:31 PM HUMAN RESOURCES ASSOCIATE Simultaneous filing. User may not have seen previous data. Pulse 91 06/11/2019 9:31 PM HUMAN RESOURCES ASSOCIATE Temperature 36.5 ??C (97.7 ??F) 06/11/2019 9 :31 PM HUMAN RESOURCES ASSOCIATE Respiratory Rate 18 06/11/2019 9:31 PM HUMAN RESOURCES ASSOCIATE Oxygen Saturation 97% 06/11/2019 9:3 1 PM HUMAN RESOURCES ASSOCIATE Simultaneous filing. User may not have seen previous data. Inhaled Oxygen Concentration - - Weight 70.3 kg (155 lb) 06/11/2019 5:34 PM HUMAN RESOURCES ASSOCIATE Height - - Body Mass Index 29.29 11/12/2018 9:55 AM CDT documented in this encounter Discharge Instructions * Discharge Instructions* Phil Monge MD - 06/11/2019 9:34 PM HUMAN RESOURCES ASSOCIATE Rest. Drink plenty of fluids. Follow up with your PCP. Our practice is committed to providing you the very best in healthcare. We want to hear from you! Please fill out the survey you get from us. Your feedback is anonymous & helps us improve the patient experience for you and others in the community we serve. N RESOURCES ASSOCIATE * Attachments The following attachments cannot be sent through Care Everywhere. * Viral Upper Respiratory Infection Discharge Instructions, Adult (Bangladeshi) documented in this encounter Medications at Time [...] CPAP MACHINEIndication s:BRUNO (obstructive sleep apnea) AutoCPAP [id number] For use when sleeping Lifetime use 1 [...] DME SUPPLYIndications :Productive cough,CVID (common variable immunodeficiency) ([facility] HHS/HCC),Bronchie ctasis without complication ([facility] HHS/HCC) Take 1 Device by nebulization every 4 (four) hours as needed. 1 Device 11/12/2018 vitamin D3, cholecalciferol, 5000 UNITS capsule albuterol (2.5 MG/3ML) 0.083% nebulizer solutionIndicatio ns:Chronic obstructive pulmonary disease, unspecified COPD type ([facility] HHS/HCC) Take 3 mLs (2.5 mg total) by nebulization every 6 (six) hours as needed for Wheezing. 360 mL 7 05/13/2019 0 azithromycin 500 MG tabletIndications :Bronchiectasis without complication ([facility] HHS/HCC),Chronic obstructive pulmonary disease, unspecified COPD type ([facility] HHS/HCC) Take 1 tablet (500 mg total) by mouth 3 (three) times a week for 30 doses. Every Monday, Monday, and Monday 30 tablet 1 05/24/2019 0 budesonide-formot gilmar (SYMBICORT) 160-4.5 MCG/ACT inhalerIndication s:Chronic obstructive pulmonary disease, unspecified COPD type ([facility]/HCC) Inhale 2 puffs into the lungs 2 [...] 07/12/2016 1 documented as of this encounter ED Notes * Katia Sanz RN - 06/11/2019 8:30 PM CST Bed: 21 Expected date: Expected time: Means of arrival: Comments: N RESOURCES ASSOCIATE * Phil Monge MD - 06/11/2019 7:42 PM CST [place], [place] EMERGENCY DEPARTMENT ENCOUNTER Chief Complaint Chief Complaint Patient presents with ??? Breathing Problem History of Present Illness Provider at Bedside Date/Time Event User Comments 06/11/19 5108 Provider at Bedside Assessing Patient WOMACKGARY History provided by: Patient and spouse central station operator used: Gracie Nolvia Graham is a 73-year-old female with PMH of CVID, BRUNO, HTN, kidney mass who presents to EDfor evaluation of SOB and cough. Patient states she has been coughing for 2-3 weeks, it is no longer productive with yellow phlegm but it will not go away. She says she has taken steroids and Levofloxacin which she finished but cannot get over her sickness. Patient notes she feels dizzy, lightheaded, weak, tired, faint, has decreased food intake, and had a fever. She mentions she has been taking mucinex, severe cold medicine, and using a nebulizer 3-4 times a day. Patient had outpatient swab for Flu today, was negative. Patient complains of SOB, cough, dizziness, lightheadedness, weakness, fatigue, feeling faint, decreased food intake, and fever. Patient denies urinary problems or bowel issues. Medical History ALLERGIES: Allergies Allergen Reactions ??? Codeine Nausea and Vomiting ??? Dander Unknown ??? Dust Mite Extract Unknown MEDICATIONS: Prior to Admission medications Medication Sig Start Date End Date Taking? Authorizing Provider albuterol (2.5 MG/3ML) 0.083% nebulizer solution Take 3 mLs (2.5 mg total) by nebulization every 6 (six) hours as needed for Wheezing. 05/13/19 Dustin Akins MD albuterol sulfate HFA (VENTOLIN HFA) 108 (90 Base) MCG/ACT inhaler 08/08/16 Doc Abstract ALPRAZolam 0.5 MG tablet Take 0.5 mg by mouth as needed for Anxiety. Doc Abstract Amlodipine-Olmesartan 10-40 MG Tab 10/05/16 Doc Abstract atorvastatin 40 MG tablet TK 1 T PO QD 05/18/18 Doc Abstract azithromycin 500 MG tablet Take 1 tablet (500 mg total) by mouth 3 (three) times a week for 30 doses. Every Monday, Monday, and Monday05/24/19 08/01/19 Dustin Akins MD budesonide-formoterol (SYMBICORT) 160-4.5 MCG/ACT inhaler Inhale 2 puffs into the lungs 2 (two) times daily. 09/17/18 Dustin Akins MD celecoxib 200 MG capsule 09/06/16 Doc Abstract cetirizine 10 MG tablet Take 10 mg by mouth. Doc Abstract citalopram 20 MG tablet 10/05/16 Doc Abstract cloNIDine 0.1 MG tablet 07/12/16 Doc Abstract CPAP MACHINE AutoCPAP [id number] For use when sleeping Lifetime use 02/19/19 BEVERLY Graf 8 GM/40ML Solution every 7 days. 01/17/18 Doc Abstract cyclobenzaprine 10 MG tablet TK 1 T PO BID 05/29/18 Doc Abstract dexlansoprazole (DEXILANT) 30 MG capsule 02/02/17 Doc Abstract docusate sodium 50 MG capsule 50 mg 2 (two) times daily as needed. 12/26/14 Doc Abstract EPINEPHrine 0.3 MG/0.3ML injection Inject 0.3 mg into the muscle as needed for Anaphylaxis. 01/17/18Doc Abstract esomeprazole 40 MG capsule Take 40 mg by mouth every morning before breakfast. 09/11/17 Doc Abstract gabapentin 300 MG capsule 10/05/16 Doc Abstract ipratropium 0.06 % nasal spray U 2 SPRAYS UP TO TID INTRANASALLY FOR 13 DAYS 01/11/19 Doc Abstract levofloxacin 500 MG tablet Take 500 mg by mouth daily. 05/29/19 Doc Abstract milnacipran (SAVELLA) 50 MG tablet 07/19/16 Doc Abstract montelukast 10 MG tablet Take 10 mg by mouth nightly at bedtime. 08/23/16 Doc Abstract NEBULIZER DME SUPPLY Take 1 Device by nebulization every 4 (four) hours as needed. 11/12/18 Dustin Akins MD predniSONE 10 mg tablet TK 1 T PO TID FOR 5 DAYS 05/29/19 Doc Abstract predniSONE 20 MG tablet TK 3 TS PO QD FOR 5 DAYS 05/30/19 Doc Abstract RaNITidine HCl 300 MG Cap TK 1 C PO HS 05/07/18 Doc Abstract tiotropium (SPIRIVA HANDIHALER) [address] 1 capsule into inhaler and inhale daily. 07/12/16 Doc Abstract vitamin D3, cholecalciferol, 5000 UNITS capsule Doc Abstract PAST MEDICAL HISTORY: Past Medical History: Diagnosis Date ??? Bronchiectasis (CMS/HCC) ??? Chronic obstructive asthma (CMS/HCC) ??? CVID (common variable immunodeficiency) (CMS/HCC) ??? Environmental and seasonal allergies ??? 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 Obesity ??? On prednisone therapy ??? BRUNO (obstructive sleep apnea) ??? Productive cough PAST SURGICAL HISTORY: Past Surgical History: Procedure Laterality Date ??? APPENDECTOMY ??? GALLBLADDER SURGERY FAMILY HISTORY: Family History Problem Relation Name Age of Onset ??? Heart Mother ??? Hypertension Mother ??? Diabetes Father ??? Diabetes Brother ??? Cancer Paternal Grandmother SOCIAL HISTORY: Social History Tobacco Use ??? Smoking status: Former Smoker Packs/day: 2.00 Years: 10.00 Pack years: 20.00 Types: Cigarettes Last attempt to quit: 1987 Years since quittin.9 ??? Smokeless tobacco: Never Used Substance Use Topics ??? Alcohol use: Yes Frequency: Monthly or less ??? Drug use: Yes Types: Marijuana Comment: has med card Review of Systems Review of Systems Constitutional: Positive for fatigue and fever. Negative for chills. HENT: Negative for nosebleeds. Eyes: Negative for photophobia. Respiratory: Positive for cough and shortness of breath. Cardiovascular: Negative for chest pain. Gastrointestinal: Negative for abdominal pain, diarrhea, nausea and vomiting. Genitourinary: Negative for difficulty urinating. Musculoskeletal: Negative for back pain. Neurological: Positive for dizziness, weakness and light-headedness. Psychiatric/Behavioral: Negative for agitation. All other systems reviewed and are negative. See HPI for further details. All systems negative except as marked. Physical Exam Filed Vitals: 06/11/19 1734 06/11/19 1833 06/11/19 2131 BP: 132/86 121/82 (!) 152/91 Pulse: 99 99 91 Resp: Temp: 98.3 ??F (36.8 ??C) 97.7 ??F (36.5 ??C) TempSrc: Oral Oral SpO2: 99% 96% 97% Weight: 70.3 kg (155 lb) Physical Exam Constitutional: She is oriented to person, place, and time. She appears well- developed and well-nourished. HENT: Head: Normocephalic and atraumatic. Eyes: Conjunctivae and EOM are normal. Neck: Normal range of motion. Cardiovascular: Regular rhythm and normal heart sounds. Tachycardiac. Pulmonary/Chest: Effort normal and breath sounds normal. No respiratory distress. Abdominal: Soft. She exhibits no distension. There is no tenderness. Musculoskeletal: Normal range of motion. Neurological: She is alert and oriented to person, place, and time. Coordination normal. Skin: Skin is warm and dry. Psychiatric: She has a normal mood and affect. Diagnostic Studies / Procedures ELECTROCARDIOGRAMS: Results for orders placed or performed during the hospital encounter of 06/11/19 ECG [address] [facility] 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 LABORATORY STUDIES: Results for orders placed or performed during the hospital encounter of 06/11/19 CBC W/DIFF AUTOMATED Result Value Ref Range WBC 12.5 (H) 4.5 - 11.0 x10'3/uL RBC 5.16 4.20 - 5.40 x10'6/uL HGB 13.7 12.0 - 16.0 G/DL HCT 42.8 38.0 - 48.0 % MCV 82.9 81.0 - 99.0 FL MCH 26.6 (L) 27.0 - 31.0 PG MCHC 32.0 32.0 - 36.0 G/DL RDW 14.3 11.5 - 14.5 % PLT 400 130 - 400 x10'3/uL MPV 10.3 9.3 - 12.2 FL DIFFERENTIAL TYPE AUTOMATED DIFFERENTIAL NEUTROPHILS 67.1 % LYMPHOCYTES 20.3 % MONOCYTES 5.9 % EOSINOPHILS 4.9 % BASOPHILS 0.6 % IMMATURE GRANS 1.2 % ABS. NEUTROPHILS TOTAL 8.36 (H) 1.80 - 7.70 x10'3/uL ABS. LYMPHOCYTES 2.53 1.00 - 4.80 x10'3/uL ABS. MONOCYTES 0.74 0.24 - 0.86 x10'3/uL ABS. EOSINOPHILS 0.61 (H) 0.04 - 0.36 x10'3/uL ABS. BASOPHILS 0.08 0.01 - 0.08 x10'3/uL ABS. IMMATURE GRANULOCYTES 0.15 0.00 - 0.49 x10'3/uL PROTIME/INR, VENOUS Result Value Ref Range Protime 11.2 9.6 - 12.2 SEC INR 1.0 PARTIAL THROMBOPLASTIN TIME,PTT Result Value Ref Range PTT 36.0 25.5 - 37.6 SEC COMPREHENSIVE METABOLIC PANEL Result Value Ref Range GLUCOSE 113 (H) 70 - 99 MG/DL BUN 6 (L) 7 - 18 MG/DL CREATININE 0.77 0.55 - 1.02 MG/DL SODIUM 139 136 - 145 MMOL/L POTASSIUM 3.3 (L) 3.5 - 5.1 MMOL/L CHLORIDE 106 100 - 108 MMOL/L CO2 26.9 21 - 32 MMOL/L CALCIUM 9.3 8.5 - 10.1 MG/DL TOTAL BILIRUBIN 0.5 0.2 - 1.2 MG/DL TOTAL PROTEIN 7.4 6.4 - 8.2 G/DL ALBUMIN 3.9 3.4 - 5.0 G/DL AST 22 15 - 37 U/L ALT 35 14 - 55 U/L ALK PHOS 96 50 - 136 U/L ANION GAP 6.1 5 - 15 MMOL/L BUN CREATININE RATIO 7.8 6 - 26 A/G RATIO 1.1 1.0 - 2.0 RATIO eGFR Non-Afr. Amer. 78 (L) >90 ML/MIN/1.73 M2 eGFR Afr. Amer. >90 >90 ML/MIN/1.73 M2 TROPONIN, QUANT Result Value Ref Range TROPONIN I <0.015 <0.045 ng/mL. BNP Result Value Ref Range B TYPE NATRIURETIC PEPTIDE 10 <100 PG/ML LACTIC ACID - SINGLE Result Value Ref Range LACTIC ACID 0.7 0.4 - 2.0 MMOL/L IMAGING STUDIES CTA CHEST Final Result by User, [id number] (06/11 2107) EXAMINATION: CTA CHEST WITH CONTRAST (PE PROTOCOL) HISTORY: Fever, chills, dyspnea, fatigue and productive cough, evaluate for possible pulmonary embolus. COMPARISON: None Available. TECHNIQUE: 3 mm axial images were obtained through the chest following the bolus administration of 80 MLS of Isovue-370 contrast through an existing IV line with additional coronal reconstructions. Maximum intensity projection (MIP) images are generated and reviewed. FINDINGS: Nodule within the lower pole of the left lobe of the thyroid gland. Heart: Normal size. No pericardial effusion or thickening. No mediastinal or axillary adenopathy. Aorta: Patent. Normal in caliber. Pulmonary Arteries: There is diagnostic opacification of the pulmonary arteries. Patent. Normal in caliber. No intraluminal filling defects to suggest pulmonary emboli. Trachea & Bronchi: No luminal lesions or extrinsic compression. Esophagus: Normal in appearance. Lungs: Well expanded. No airspace consolidation, pleural effusions or pneumothorax. Upper abdomen: Unremarkable. IMPRESSION: 1. No evidence of pulmonary thromboembolism. 2. No acute cardiopulmonary process. A radiation dose lowering technique was used for this procedure, which may include, but is not limited to, dose reduction technique, automated exposure control, the use of iterative reconstruction, ALARA (As Low As Reasonably Achievable) techniques, and Image Gently techniques. Interpreted By: Lina Cartagena MD, 06/11/2019 9:02 PM XR CHEST PA+LAT Final Result by User, [id number] (06/11 113) Exam: Chest x-ray No comparison INDICATION: Shortness of breath and cough for 2 to 3 weeks. TECHNIQUE: 2 views FINDINGS: Heart size is upper limits of normal. Normal pulmonary vessel size. The lungs are clear. No perihilar interstitial edema, hyperinflation, or pleural fluid. Mild superior endplate compression fracture at about L2 shows mild anterior wedging and no malalignment. IMPRESSION: 1. No acute chest findings. 2. Age indeterminant lumbar compression fracture. Interpreted By: Fabian Larose MD, 06/11/2019 6:32 PM ED Course / Medical Decision Making MDM Number of Diagnoses or Management Options Cough: Diagnosis management comments: This patient presents with shortness of breath ongoing for several weeks. She has previously taken a course of levofloxacin and prednisone. She is feels like she is notimproving. EKG is normal sinus rhythm. Chest x-ray unremarkable. Labs unremarkable. Given her continued discomfort I ordered a CT scan which showed no evidence of subtle pneumonia or PE. She feels well and is reassured. I will have her continue symptomatic treatment with nebs and cough medicine. She feels well agrees with the plan for discharge with close outpatient follow-up. I do not think the patient has an emergent medical condition requiring admission at this time. On reevaluation, the patient is tolerating PO, ambulatory in the ED, and in no distress. The patient will be discharged home. Return precautions are discussed. Diagnosis management comments: 73-year-old female presents w/ SOB and cough Pulse Ox Interpretation: Saturation:??96 Oxygen Delivery: RA Interpretation: ??No acute hypoxia at this time. ?? Rhythm strip interpretation: Rhythm sinus rate 99. No arrhythmia noted. ?? Plan: - EKG - Labs - Imaging - Meds Data reviewed: All current, pertinent and timely studies (laboratory, imaging, and procedures) wereordered and results reviewed by Phil Monge MD unless otherwise noted. Triage notes and available nursing notes reviewed. Previous medical record reviewed when available. Repeat vital signs reviewed. PCP: GHAZAL HERNANDEZ MD Progress notes: Medications sodium chloride 0.9% bolus infusion SOLN 1,000 mL (0 mLs Intravenous Infusion Stop Time 06/11/192200) iopamidol (ISOVUE-370) 76 % injection 80 mL (80 mLs Intravenous Given 06/11/192054) Clinical Impression Cough (Primary) Discharge Medication List as of 06/11/2019 10:09 PM Disposition: Discharge Follow-Up: Ghazal Hernandez MD [address] [place] [address] Schedule an appointment as soon as possible for a visit in 2 days As needed IGilbert, acting as a scribe, am personally taking down the notes in the presence of Phil Monge MD. Take no action on this note until reviewed and authenticated by the physician. Phil Monge MD 06/11/19 6621 N RESOURCES ASSOCIATE * Gary Womack PA-C - 06/11/2019 6:01 PM CST [place], [place] EMERGENCY DEPARTMENT ENCOUNTER Medical Screening Examination 06/11/19 6:01 PM Chief Complaint : Breathing Problem HPI : Nolvia Graham is a 73-year-old female who presents c/o fever, chills, sob, fatigue, productive cough. Hx COPD. Recently tx per pcp for potential PNA with abx and steroids which she did finish. Had outpatient swab for Flu today, was negative. No hx CHF or CAD. Vital Signs: Filed Vitals: 06/11/19 1734 BP: 132/86 Pulse: 99 Resp: 20 Temp: 98.3 ??F (36.8 ??C) TempSrc: Oral SpO2: 99% Weight: 70.3 kg (155 lb) Physical exam: A brief physical exam was completed to facilitate/expedite patient care. Rodriguez findings include: pt stable. No hypoxia or fever. No respiratory distress. Productive cough noted. Plan: labs, CXR, EKG GARY WOMACK PA-C 06/11/2019 Gary Womack PA-C 06/11/19 1802 Cosigned by Phil Monge MD at 06/12/2019 10:19 PM HUMAN RESOURCES ASSOCIATE N RESOURCES ASSOCIATE N RESOURCES ASSOCIATE * Meaghan Owens RN - 06/11/2019 5:34 PM CST Sob and cough x 2-3 weeks. reports May 29 started on steroid and abx. Finished medication as directed. Reports tested for flu and neg. States still with symptoms. Reports more sob with exertion. N RESOURCES ASSOCIATE documented in this encounter Plan of Treatment Not on file documented as of this encounter Procedures Procedure Name Priority Date/Time Associated Diagnosis Comments CTA CHEST STAT 06/11/2019 8:54 PM HUMAN RESOURCES ASSOCIATE LACTIC ACID TIMED 06/11/2019 8:05 PM HUMAN RESOURCES ASSOCIATE CULTURE, BACTERIA, BLOOD STAT 06/11/2019 8:05 PM HUMAN RESOURCES ASSOCIATE CULTURE, BACTERIA, BLOOD STAT 06/11/2019 8:05 PM HUMAN RESOURCES ASSOCIATE ECG 12-LEAD Routine 06/11/2019 6:31 PM HUMAN RESOURCES ASSOCIATE XR CHEST PA+LAT STAT 06/11/2019 6:29 PM HUMAN RESOURCES ASSOCIATE BNP STAT 06/11/2019 6:08 PM HUMAN RESOURCES ASSOCIATE PARTIAL THROMBOPLASTIN TIME,PTT STAT 06/11/2019 6:08 PM HUMAN RESOURCES ASSOCIATE PROTHROMBIN TIME, VENOUS STAT 06/11/2019 6:08 PM HUMAN RESOURCES ASSOCIATE COMPREHENSIVE METABOLIC PANEL STAT 06/11/2019 6:08 PM HUMAN RESOURCES ASSOCIATE CBC W/DIFF AUTOMATED STAT 06/11/2019 6:08 PM HUMAN RESOURCES ASSOCIATE TROPONIN, QUANT STAT 06/11/2019 6:08 PM HUMAN RESOURCES ASSOCIATE documented in this encounter Results * CTA CHEST (06/11/2019 8:54 PM HUMAN RESOURCES ASSOCIATE) Anatomical Region Laterality Modality Chest Computed Tomogra phy 06/11/2019 9:02 PM HUMAN RESOURCES ASSOCIATE Impressions 06/11/2019 9:06 PM HUMAN RESOURCES ASSOCIATE IMPRESSION: 1. No evidence of pulmonary thromboembolism. 2. No acute cardiopulmonary process. A radiation dose lowering technique was used for this procedure, which may include, but is not limited to, dose reduction technique, automated exposure control, the use of iterative reconstruction, ALARA (As Low As Reasonably Achievable) techniques, and Image Gently techniques. Interpreted By: Lina Cartagena MD, 06/11/2019 9:02 PM Narrative 06/11/2019 9:06 PM HUMAN RESOURCES ASSOCIATE EXAMINATION: CTA CHEST WITH CONTRAST (PE PROTOCOL) HISTORY: Fever, chills, dyspnea, fatigue and productive cough, evaluate for possible pulmonary embolus. COMPARISON: None Available. TECHNIQUE: 3 mm axial images were obtained through the chest following the bolus administration of 80 MLS of Isovue-370 contrast through an existing IV line with additional coronal reconstructions. Maximum intensity projection (MIP) images are generated and reviewed. FINDINGS: Nodule within the lower pole of the left lobe of the thyroid gland. Heart: Normal size. No pericardial effusion or thickening. No mediastinal or axillary adenopathy. Aorta: Patent. Normal in caliber. Pulmonary Arteries: There is diagnostic opacification of the pulmonary arteries. Patent. Normal in caliber. ??No intraluminal filling defects to suggest pulmonary emboli. ?? Trachea & Bronchi: No luminal lesions or extrinsic compression. Esophagus: Normal in appearance. Lungs: Well expanded. No airspace consolidation, pleural effusions or pneumothorax. Upper abdomen: Unremarkable. Procedure Note Solange Cartagena MD - 06/11/2019 EXAMINATION: CTA CHEST WITH CONTRAST (PE PROTOCOL) HISTORY: Fever, chills, dyspnea, fatigue and productive cough, evaluate forpossible pulmonary embolus. COMPARISON: None Available. TECHNIQUE: 3 mm axial images were obtained through the chest following the bolusadministration of 80 MLS of Isovue-370 contrast through an existing IVline with additional coronal reconstructions. Maximum intensity projection(MIP) images are generated and reviewed. FINDINGS: Nodule within the lower pole of the left lobe of the thyroid gland. Heart: Normal size. No pericardial effusion or thickening. No mediastinal or axillary adenopathy. Aorta: Patent. Normal in caliber. Pulmonary Arteries: There is diagnostic opacification of the pulmonaryarteries. Patent. Normal in caliber. No intraluminal filling defects to suggestpulmonary emboli. Trachea & Bronchi: No luminal lesions or extrinsic compression. Esophagus: Normal in appearance. Lungs: Well expanded. No airspace consolidation, pleural effusions orpneumothorax. Upper abdomen: Unremarkable. IMPRESSION: 1. No evidence of pulmonary thromboembolism. 2. No acute cardiopulmonary process. A radiation dose lowering technique was used for this procedure, which mayinclude, but is not limited to, dose reduction technique, automatedexposure control, the use of iterative reconstruction, ALARA (As Low AsReasonably Achievable) techniques, and Image Gently techniques. Interpreted By: Lina Cartagena MD, 06/11/2019 9:02 PM us Phil Monge MD CT Final Resul t * LACTIC ACID - SINGLE (06/11/2019 8:05 PM HUMAN RESOURCES ASSOCIATE) LACTIC ACID VENOUS 0.7 0.4 - 2.0 MMOL/L 06/11/2019 8:52 PM HUMAN RESOURCES ASSOCIATE [facility] 06/11/2019 8:05 PM HUMAN RESOURCES ASSOCIATE us Phil Monge MD LABORATORY Final Resul t Performing Organization Address [facility]/ZIP Co de Phone Number [facility] [address] [place] [address], [place] [phone] * CULTURE, BACTERIA, BLOOD (06/11/2019 8:05 PM HUMAN RESOURCES ASSOCIATE) SPEC DESCRIPTION BLOOD 06/11/2019 7:36 PM HUMAN RESOURCES ASSOCIATE [facility] SPECIAL REQUESTS NO SPECIAL REQUEST 06/11/2019 7:36 PM HUMAN RESOURCES ASSOCIATE [facility] CULTURE RESULT NO GROWTH 5 DAYS 06/16/2019 10:35 AM HUMAN RESOURCES ASSOCIATE [facility] BLOOD SPECIMEN OBTAINED FOR BLOOD CULTURE / Unknown 06/11/2019 8:05 PM HUMAN RESOURCES ASSOCIATE 06/11/2019 8:14 PM HUMAN RESOURCES ASSOCIATE us Phil Monge MD MICROBIOLOGY - [facility] Final Result [facility] [address] [place] [address], [place] [phone] * CULTURE, BACTERIA, BLOOD (06/11/2019 8:05 PM HUMAN RESOURCES ASSOCIATE) SPEC DESCRIPTION BLOOD 06/11/2019 7:36 PM HUMAN RESOURCES ASSOCIATE [facility] SPECIAL REQUESTS NO SPECIAL REQUEST 06/11/2019 7:36 PM HUMAN RESOURCES ASSOCIATE [facility] CULTURE RESULT NO GROWTH 5 DAYS 06/16/2019 10:35 AM HUMAN RESOURCES ASSOCIATE [facility] BLOOD SPECIMEN OBTAINED FOR BLOOD CULTURE / Unknown 06/11/2019 8:05 PM HUMAN RESOURCES ASSOCIATE 06/11/2019 8:14 PM HUMAN RESOURCES ASSOCIATE Phil Monge MD MICROBIOLOGY - [facility] [place] Final Result [facility] [address] [place] [address], * ECG 12 lead (06/11/2019 6:31 PM HUMAN RESOURCES ASSOCIATE) 06/11/2019 6:31 PM HUMAN RESOURCES ASSOCIATE Narrative [facility] ([facility]) RAD - 06/11/2019 6:44 PM HUMAN RESOURCES ASSOCIATE ?[place] ? [address] [facility] [place] ? Test Date: ?2019-06-11 Pat Name: ? NOLVIA GRAHAM ? Department: ? Room: ? INPR Gender: ? Female ? Mixing Machine Attendant: ?? ah : ?1945 ? Requested By: GARY WOMACK Order Number: [id number] ? Reading MD: ?? Thomas Marks ? Measurements Intervals ?Limon ? Rate: ? 94 ? P: ?37 HI: ? 152 ?QRS: ?-77 QRSD: ? 87 ? T: ?58 QT: ? 363 ? QTc: ?454 ? Interpretive Statements SINUS RHYTHM LEFT ANTERIOR FASCICULAR BLOCK POSSIBLE ANTERIOR MYOCARDIAL INFARCTION, PROBABLY OLD No previous ECG available for comparison No ischemic changes Ning Lemus NP CRITICAL ALERT ISSUED ON 06-11-2019 18:36:50 N RESOURCES ASSOCIATE Procedure Note Thomas Marks MD - 06/11/2019 [facility] [address] Test Date: 2019-06-11 Pat Name: NOLVIA GRAHAM Department: Room: INHI Gender: Female Mixing Machine Attendant: : 1945 Requested By: GARY WOMACK Order Number: [id number] Reading MD: Thomas Marks Measurements Intervals [place] Rate: 94 P: 37 HI: 152 QRS: -77 QRSD: 87 T: 58 QT: 363 QTc: 454 Interpretive Statements SINUS RHYTHM LEFT ANTERIOR FASCICULAR BLOCK POSSIBLE ANTERIOR MYOCARDIAL INFARCTION, PROBABLY OLD No previous ECG available for comparison No ischemic changes Ning Lemus NP CRITICAL ALERT ISSUED ON 06-11-2019 18:36:50 N RESOURCES ASSOCIATE us Gary Womack PA-C ECG ORDERABLES Final Resul t [facility] ([facility]) [facility] * XR CHEST PA+LAT (06/11/2019 6:29 PM HUMAN RESOURCES ASSOCIATE) Anatomical Region Laterality Modality Chest Radiographic Tanesha ging 06/11/2019 6:32 PM HUMAN RESOURCES ASSOCIATE Impressions 06/11/2019 6:35 PM HUMAN RESOURCES ASSOCIATE IMPRESSION: 1. ??No acute chest findings. 2. ??Age indeterminant lumbar compression fracture. Interpreted By: Fabian Larose MD, 06/11/2019 6:32 PM Narrative 06/11/2019 6:35 PM HUMAN RESOURCES ASSOCIATE Exam: Chest x-ray No comparison INDICATION: Shortness of breath and cough for 2 to 3 weeks. TECHNIQUE: 2 views FINDINGS: Heart size is upper limits of normal. ??Normal pulmonary vessel size. ??The lungs are clear. ??No perihilar interstitial edema, hyperinflation, or pleural fluid. ??Mild superior endplate compression fracture at about L2 shows mild anterior wedging and no malalignment. Procedure Note Fabian Larose MD - 06/11/2019 Exam: Chest x-ray No comparison INDICATION: Shortness of breath and cough for 2 to 3 weeks. TECHNIQUE: 2 views FINDINGS: Heart size is upper limits of normal. Normal pulmonary vesselsize. The lungs are clear. No perihilar interstitial edema,hyperinflation, or pleural fluid. Mild superior endplate compressionfracture at about L2 shows mild anterior wedging and no malalignment. IMPRESSION: 1. No acute chest findings. 2. Age indeterminant lumbar compression fracture. Interpreted By: Fabian Larose MD, 06/11/2019 6:32 PM Gary Womack PA-C GENERAL IMAGING Final Resul t * BNP (06/11/2019 6:08 PM HUMAN RESOURCES ASSOCIATE) B TYPE NATRIURETIC PEPTIDE 10 <100 PG/ML 06/11/2019 6:59 PM HUMAN RESOURCES ASSOCIATE [facility] 06/11/2019 6:08 PM HUMAN RESOURCES ASSOCIATE Gary Womack PA-C LABORATORY Final Resul t Performing Organization Address [facility]/ZIP Co de Phone Number [facility] [address] [place] [address], [place] [phone] * TROPONIN, QUANT (06/11/2019 6:08 PM HUMAN RESOURCES ASSOCIATE) TROPONIN I <0.015 <0.045 ng/mL. 06/11/2019 6:53 PM HUMAN RESOURCES ASSOCIATE [facility] Comment: HIGH DOSES OF BIOTIN MAY INTERFERE WITH THIS TEST RESULT. CORRELATION TO CLINICAL HISTORY AND PRESENTATION RECOMMENDED. 06/11/2019 6:08 PM HUMAN RESOURCES ASSOCIATE Gary Womack PA-C LABORATORY Final Resul t Performing Organization Address City/[facility]/ZIP Co de Phone Number [facility] [address] [place] [address], [place] [phone] * (ABNORMAL) COMPREHENSIVE METABOLIC PANEL (06/11/2019 6:08 PM HUMAN RESOURCES ASSOCIATE) [facility] Signature GLUCOSE 113(H) 70 - 99 MG/DL 06/11/2019 6:53 PM [facility] BUN 6(L) 7 - 18 MG/DL 06/11/2019 6:53 PM [facility] CREATININE S/P/B 0.77 0.55 - 1.02 MG/DL 06/11/2019 6:53 PM [facility] SODIUM S/P/B 139 136 - 145 MMOL/L 06/11/2019 6:53 PM [facility] POTASSIUM S/P/B 3.3(L) 3.5 - 5.1 MMOL/L 06/11/2019 6:53 PM [facility] CHLORIDE S/P/B 106 100 - 108 MMOL/L 06/11/2019 6:53 PM [facility] CO2 26.9 21 - 32 MMOL/L 06/11/2019 6:53 PM [facility] CALCIUM S/P/B 9.3 8.5 - 10.1 MG/DL 06/11/2019 6:53 PM [facility] BILIRUBIN TOTAL S/P/B 0.5 0.2 - 1.2 MG/DL 06/11/2019 6:53 PM [facility] TOTAL PROTEIN S/P/B 7.4 6.4 - 8.2 G/DL 06/11/2019 6:53 PM [facility] ALBUMIN S/P/B 3.9 3.4 - 5.0 G/DL 06/11/2019 6:53 PM [facility] AST 22 15 - 37 U/L 06/11/2019 6:53 PM [facility] ALT 35 14 - 55 U/L 06/11/2019 6:53 PM [facility] ALKALINE PHOSPHATASE S/P/B 96 50 - 136 U/L 06/11/2019 6:53 PM [facility] ANION GAP 6.1 5 - 15 MMOL/L 06/11/2019 6:53 PM [facility] BUN CREATININE RATIO 7.8 6 - 26 06/11/2019 6:53 PM [facility] A/G RATIO 1.1 1.0 - 2.0 RATIO 06/11/2019 6:53 PM [facility] EGFR NON-AFR. AMER. 78(L) >90 ML/MIN/1.7 3 M2 06/11/2019 6:53 PM [facility] EGFR AFR. AMER. >90 >90 ML/MIN/1.7 3 M2 06/11/2019 6:53 PM [facility] Comment: NOTE: eGFR is not calculated for patients <18 years of age. This is an estimated GFR (CKD EPI) and should not be used for calculating drug doses. 06/11/2019 6:08 PM HUMAN RESOURCES ASSOCIATE us Gary Womack PA-C LABORATORY Final Resul t [facility] [address] [place] [address], [place] [phone] * PARTIAL THROMBOPLASTIN TIME,PTT (06/11/2019 6:08 PM HUMAN RESOURCES ASSOCIATE) PTT 36.0 25.5 - 37.6 SEC 06/11/2019 6:53 PM [facility] 06/11/2019 6:08 PM HUMAN RESOURCES ASSOCIATE us Gary Womack PA-C LABORATORY Final Resul t [facility] [address] [place] [address], [place] [phone] * PROTIME/INR, VENOUS (06/11/2019 6:08 PM HUMAN RESOURCES ASSOCIATE) PROTIME 11.2 9.6 - 12.2 SEC 06/11/2019 6:53 PM HUMAN RESOURCES ASSOCIATE [facility] INR 1.0 06/11/2019 6:53 PM HUMAN RESOURCES ASSOCIATE [facility] Comment: Recommended INR Therapeutic Goals: ??2.0-3.0 Routine Therapy ??2.5-3.5 Mechanical Prosthetic Valves (High Risk) ??3.0-4.0 Acute MS (to prevent Systemic Embolism) The INR is used only for patients on stable oral anticoagulant therapy. It makes no significant contribution to the diagnosis or treatment of patients whose Protime is prolonged for other reasons. 06/11/2019 6:08 PM HUMAN RESOURCES ASSOCIATE Gary Womack PA-C LABORATORY Final Resul t [facility] [address] [place] [address], [place] [phone] * (ABNORMAL) CBC W/DIFF AUTOMATED (06/11/2019 6:08 PM HUMAN RESOURCES ASSOCIATE) WBC 12.5(H) 4.5 - 11.0 x10'3/uL 06/11/2019 6:27 PM HUMAN RESOURCES ASSOCIATE [facility] RBC 5.16 4.20 - 5.40 x10'6/uL 06/11/2019 6:27 PM HUMAN RESOURCES ASSOCIATE [facility] HGB 13.7 12.0 - 16.0 G/DL 06/11/2019 6:27 PM HUMAN RESOURCES ASSOCIATE [facility] HCT 42.8 38.0 - 48.0 % 06/11/2019 6:27 PM [facility] MCV 82.9 81.0 - 99.0 FL 06/11/2019 6:27 PM [facility] MCH 26.6(L) 27.0 - 31.0 PG 06/11/2019 6:27 PM [facility] MCHC 32.0 32.0 - 36.0 G/DL 06/11/2019 6:27 PM [facility] RDW 14.3 11.5 - 14.5 % 06/11/2019 6:27 PM [facility] PLT 400 130 - 400 x10'3/uL 06/11/2019 6:27 PM [facility] MPV 10.3 9.3 - 12.2 FL 06/11/2019 6:27 PM [facility] DIFFERENTIAL TYPE AUTOMATED DIFFERENTIAL 06/11/2019 6:27 PM [facility] NEUTROPHILS % 67.1 % 06/11/2019 6:27 PM [facility] LYMPHOCYTES % 20.3 % 06/11/2019 6:27 PM [facility] MONOCYTES % 5.9 % 06/11/2019 6:27 PM [facility] EOSINOPHILS 4.9 % 06/11/2019 6:27 PM [facility] BASOPHILS 0.6 % 06/11/2019 6:27 PM [facility] IMMATURE GRANS % 1.2 % 06/11/20 19 6:27 PM [facility] ABS. NEUTROPHILS TOTAL 8.36(H) 1.80 - 7.70 x10'3/uL 06/11/2019 6:27 PM [facility] ABS. LYMPHOCYTES 2.53 1.00 - 4.80 x10'3/uL 06/11/2019 6:27 PM HUMAN RESOURCES ASSOCIATE [facility] ABS. MONOCYTES 0.74 0.24 - 0.86 x10'3/uL 06/11/2019 6:27 PM HUMAN RESOURCES ASSOCIATE [facility] ABS. EOSINOPHILS 0.61(H) 0.04 - 0.36 x10'3/uL 06/11/2019 6:27 PM HUMAN RESOURCES ASSOCIATE [facility] ABS. BASOPHILS 0.08 0.01 - 0.08 x10'3/uL 06/11/2019 6:27 PM HUMAN RESOURCES ASSOCIATE [facility] ABS. IMMATURE GRANULOCYTES 0.15 0.00 - 0.49 x10'3/uL 06/11/2019 6:27 PM HUMAN RESOURCES ASSOCIATE [facility] 06/11/2019 6:08 PM HUMAN RESOURCES ASSOCIATE Gary Womack PA-C LABORATORY Final Resul t [facility] [address] [place] [address], [place] [phone] documented in this encounter Visit Diagnoses Diagnosis Cough- Primary documented in this encounter Administered Medications Inactive Administered Medications - up to 3 most recent administrations Medication Order MAR Action Action Date Dose Rate Site iopamidol (ISOVUE-370) 76 % injection 80 mL 80 mL, Intravenous, IMG once as needed, Contrast, 1 dose, Starting on Mon06/11/19 at 2054, Until Mon06/11/19 at 2054 Given 06/11/2019 8:55 PM HUMAN RESOURCES ASSOCIATE 80 mLs Ri ght Arm sodium chloride 0.9% bolus infusion SOLN 1,000 mL 1,000 mL, Intravenous, Administer over 15 Minutes, Once, 1 dose, On Mon06/11/19 at 1945 New Bag 06/11/2019 8:15 PM HUMAN RESOURCES ASSOCIATE 1,000 mLs documented in this encounter Active and Recently Administered Medications Times are shown in HUMAN RESOURCES ASSOCIATE. Scheduled Medication Order 06/09/2019 06/10/2019 06/11/2019 sodium chloride 0.9% bolus infusion SOLN 1,000 mL (COMPLETED) 1,000 mL, Intravenous, Administer over 15 Minutes, Once, 1 dose, On Mon06/11/19 at 1945 2014 (New Bag - Prov ider: Shayy Anders, AMANDA)2200 (Infusion Stop Time - Provider: Shayy Anders, AMANDA) PRN Medication Order 06/09/2019 06/10/2019 06/11/2019 iopamidol (ISOVUE-370) 76 % injection 80 mL (COMPLETED) 80 mL, Intravenous, IMG once as needed, Contrast, 1 dose, Starting on Mon06/11/19 at 2054, Until Mon06/11/19 at 2054 2054 (Given - Provid er: Sailaja Genao, RTR) documented in this encounter Care Teams Spray Ii Painter Relationship Specialty Start Date End Date Ghazal Hernandez MD [address] [address] PCP - General 01/03/17 documented as of this encounter
--- OUTSIDE RECORDS SUMMARY | 2024-06-27 23:55 | XMS_ITS | Encounter Summary ---
Author Organization [facility] Address [address] [place] [address]. [place] [address] [place] [address] Care Team Providers Care Fine Jewelry Sales Associate Name Role Phone Scott Hernandez MD Primary Care Provider [phone] Reason for Visit * Reason Onset Date Comments Medication 09/20/2021 Encounter Details Date Type Department Care Team (Late st Contact Info) Description 09/20/2021 Telephone [facility] - [address] [address] Dustin Akins MD [address] [place] [address] Medication Social History Tobacco Use Types [...] Progress Notes * Jose Benito MA - 10/22/2021 10:16 AM CDT Spoke with pt - she scheduled an appt - lmom for pharmacy to fill 36tabs instead of 12 * Norma Weiss - 10/20/2021 10:29 AM CDT Nolvia called today asking why she was only given 12 pills of Azithromycin? Please call her to discuss. * Jose Benito MA - 09/21/2021 1:54 PM CDTAddended by: JOSE BENITO on: 09/21/2021 01:54 PM Modules accepted: Orders * Jessica Deluna - 09/20/2021 9:54 AM CDT Pt called back Pharm is [phone] Also, she is asking about a refill on a nasal spray ipratropium she uses 1-2 times daily, she was getting that from an pharmaceutical detailer but she no longer goes there, asking if Dr Akins would refill thisfor her * Jessica Deluna - 09/20/2021 9:50 AM CDT Pt asking for a refill on her meds (Azithromycin) that she takes Mon. She is in [place] right now and was getting me the # for [facility] there and the phone was disconnected IF she calls back we can update the pharm number. Pt # [phone] documented in this encounter Plan of Treatment Not on file documented as of this encounter Visit Diagnoses Diagnosis Chronic obstructive pulmonary disease, unspecified COPD type ([facility])- Primary documented in this encounter Additional Health Concerns Assessment Noted Time PHQ-9 Depression Total Score: 2 06/15/20 21 10:10 AM FLAKER TENDER documented as of this encounter Care Teams Fine Jewelry Sales Associate Relationship Specialty Start Date End Date Scott Hernandez MD [address] [place], [place] [id number] PCP - General 01/03/17 documented as of this encounter
--- OUTSIDE RECORDS SUMMARY | 2024-06-27 23:55 | XMS_ITS | Encounter Summary ---
Author Organization [facility] Address [address] [place] [address]. [place] [address] [place] [address] Care Team Providers Care Furniture Inspector Name Role Phone Scott Hernandez MD Primary Care Provider [phone] Encounter Details Date Type Department Care Team (Late st Contact Info) Description 06/03/2019 Orders Only [facility] Multispecialty Care - [facility] [address] [facility], [address] [place] [address] Katia Bond, AGRICULTURAL EQUIPMENT DESIGN ENGINEER Social History Tobacco Use Types Packs/Day Years [...] on filedocumented in this encounter Care Teams Furniture Inspector Relationship Specialty Start Date End Date Scott Hernandez MD [address] [address] PCP - General 01/03/17 documented as of this encounter
--- OUTSIDE RECORDS SUMMARY | 2024-06-27 23:55 | XMS_ITS | Encounter Summary ---
Author Organization [facility] Address [address] [place] [address]. [place] [address] [place] [address] Care Team Providers Care Cloud Software Engineer Name Role Phone Scott Hernandez MD Primary Care Provider [phone] Reason for Visit * Reason Onset Date Comments Refill Request 11/17/2021 Encounter Details Date Type Department Care Team (Late st Contact Info) Description 11/17/2021 Telephone [facility] - [address] [address] Dustin Akins MD [address] [place] [address] Refill Request Social History Tobacco Use Types Packs/Day [...] Progress Notes * Jose Benito MA - 11/17/2021 12:03 PM CDT Pt informed script sent * Jose Benito MA - 11/17/2021 11:52 AM CDTAddended by: JOSE BENITO on: 11/17/2021 11:52 AM Modules accepted: Orders * Ann Peter - 11/17/2021 10:50 AM CDT Pt called and stated that she needs a refill of Azithromycin sent to [facility] in [place]. Pt would like 36 tablets for this prescription. Please give Pt a call back once prescription is sent [phone] documented in this encounter Plan of Treatment Not on file documented as of this encounter Visit Diagnoses Diagnosis Bronchiectasis without complication ([facility])- Primary Bronchiectasis without acute exacerbation documented in this encounter Additional Health Concerns Assessment Noted Time PHQ-9 Depression Total Score: 2 06/15/20 21 10:10 AM ASSISTANT BUSINESS MANAGER documented as of this encounter Care Teams Cloud Software Engineer Relationship Specialty Start Date End Date Scott Hernandez MD [address] [address] PCP - General 01/03/17 documented as of this encounter
--- OUTSIDE RECORDS SUMMARY | 2024-06-27 23:55 | XMS_ITS | Encounter Summary ---
Author Organization [facility] Address [address] [place] [address]. [place] [address] [place] [address] Care Team Providers Care Theatre Professor Name Role Phone Scott Hernandez MD Primary Care Provider [phone] Reason for Visit * Reason Onset Date Comments Medication Request 05/08/2019 Encounter Details Date Type Department Care Team (Late st Contact Info) Description 05/08/2019 Telephone [facility] Multispecialty Care - [facility] [address] [facility], [address] [place] [address] María Bautista, ORTHOTIST OR PROSTHETIST Medication Request Social History Tobacco Use Types [...] Progress Notes * Jose Ardon MA - 05/08/2019 1:28 PM CDT Per LM since this is sinus issue pt would need to contact her PCP Pt informed and voiced understanding * Katia Bond CRT - 05/08/2019 1:21 PM CDT Called patient and she states she has a nonproductive cough, 99.6 temperature, no chest pain, no swelling, no shortness of breath. Patient is taking her medication like prescribed as well. Mentioned that I will get this information to LM to see what she would like to do. Patient voiced understanding. * Sebastian Araujo - 05/08/2019 1:13 PM CDT Patient calling requesting a script for an antibiotic, stating that she has a sinus infection, has a temp, having pressure under her eyes. Please follow up with patient documented in this encounter Plan of Treatment Not on file documented as of this encounter Visit Diagnoses Not on filedocumented in this encounter Care Teams Theatre Professor Relationship Specialty Start Date End Date Scott Hernandez MD [address] [place] [address] PCP - General 01/03/17 documented as of this encounter
--- OUTSIDE RECORDS SUMMARY | 2024-06-27 23:55 | XMS_ITS | Encounter Summary ---
Author Organization [facility] Address [address] [place] [address]. [place] [address] [place] [address] Care Team Providers Care Client Support Analyst Name Role Phone Scott Hernandez MD Primary Care Provider [phone] Encounter Details Date Type Department Care Team (Late st Contact Info) Description 02/18/2019 Orders Only [facility] Multispecialty Care - [facility] [address] [facility], [address] [place] [address] Katia Bond, PATIENT RELATIONS REPRESENTATIVE Social History Tobacco Use Types Packs/Day Years [...] filedocumented in this encounter Care Teams Client Support Analyst Relationship Specialty Start Date End Date Scott Hernandez MD [address] [address] PCP - General 01/03/17 documented as of this encounter
--- OUTSIDE RECORDS SUMMARY | 2024-06-27 23:55 | XMS_ITS | Encounter Summary ---
Author Organization [facility] Address [address] [place] [address]. [place], [place] [address] [place] [address] Care Team Providers Care Generation Mechanic Helper Name Role Phone Scott Hernandez MD Primary Care Provider [phone] Encounter Details Date Type Department Care Team (Latest Contact Info) Description 07/11/2019 Scan HEALTH INFO [facility] Scanned, Documents Social [...] on filedocumented in this encounter Care Teams Generation Mechanic Helper Relationship Specialty Start Date End Date Scott Hernandez MD [address] [facility] [address] PCP - General 01/03/17 documented as of this encounter
--- OUTSIDE RECORDS SUMMARY | 2024-06-27 23:55 | XMS_ITS | Encounter Summary ---
Author Organization [facility] Address [address] [place] [address]. [place] [address] [place] [address] Care Team Providers Care Nursing Consultant Name Role Phone Scott Hernandez MD Primary Care Provider [phone] Reason for Visit * Reason Comments Obstructive Sleep Apnea provider plus * Consultation/Treatment (Routine) - Closed Specialty Diagnoses / Procedures Referred By Wendy t Referred To Contact PULMONARY DISEASE / SLEEP & RESPIRATORY CARE Diagnoses f/up in november Procedures FOLLOW UP Dustin Akins MD [address] [place] [address] [address] [place] [address] Phone: tel: fax: Dustin Akins MD [address] [place] [address] [address] [place] [address] Phone: tel: fax: Referral ID Status Reason Start Date Expiration Date Visits Re quested Visits Authorized [id number] Closed 11/12/2018 11/13/2019 100 100 Encounter Details Date Type Department Care Team (Late st Contact Info) Description 05/24/2019 9:00 AM MIDDLE SCHOOL HISTORY TEACHER Office Visit [facility] Medical Group Multispecialty Care - [address] [place] [address] Dustin Akins MD [address] [address] Obstructive Sleep Apnea (provider plus ) Social [...] Sign Reading Time Taken Comments Blood Pressure 127/79 05/24/2019 8:59 AM MIDDLE SCHOOL HISTORY TEACHER Pulse 72 05/24/2019 8:59 AM MIDDLE SCHOOL HISTORY TEACHER Temperature 36.5 ??C (97.7 ??F) 05/24/2019 8:59 AM CS T Respiratory Rate 16 05/24/2019 8:59 AM MIDDLE SCHOOL HISTORY TEACHER Oxygen Saturation 93% 05/24/2019 8:59 AM MIDDLE SCHOOL HISTORY TEACHER ra Inhaled Oxygen Concentration - - Weight 72.6 kg (160 lb) 05/24/2019 8:59 AM MIDDLE SCHOOL HISTORY TEACHER Height - - Body Mass Index 30.23 11/12/2018 9:55 AM CDT documented in this encounter Progress Notes * Dustin Akins MD - 05/24/2019 9:00 AM CST [facility] PULMONARY MEDICINE History Chief Complaint Patient presents with ??? Obstructive Sleep Apnea provider plus 73-year-old obese white female former smoker with past medical history of CVID, BRUNO, asthma/COPD, recurrent sinusitis/bronchitis, bronchiectasis, seasonal allergies, and GERD presents for follow-up. Initially referred for bronchiectasis. Follows with Dr. Huang. 02/2017: diagnosed with CVID, started on Cuvitru [...] ongoing sinus congestion; worried about developing bronchitis At prior baseline 2018: Notes improvement since [...] sweats, hemoptysis. Notes extensive allergies, followed with podiatry assistant, on SCIT Notes diagnosis of BRUNO; elected not to wear CPAP in past. Former smoker; quit ; approximate 40 pack year history. Denies alcohol/illicits. 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 Denies exposure to TB, asbestos, mold, birds. [...] Last attempt to quit: 1987 Years since quittin.8 ??? Smokeless tobacco: Never Used Substance Use [...] 0.1 MG tablet ??? CPAP MACHINE AutoCPAP [id number] For use when sleeping Lifetime use 1 [...] and suicidal ideas. Physical Exam Filed Vitals: 05/24/19 0859 BP: 127/79 Pulse: 72 Resp: 16 Temp: 97.7 ??F (36.5 ??C) SpO2: 93% Weight: 72.6 kg (160 lb) Physical Exam: General: obese wf, sitting [...] 500mcg daily 6. Continue to follow with podiatry assistant -continue IVIG 7. Start 3x weekly azithromycin -consider possibly inhaled tobramycin [...] Respiratory culture, AFB smear/culture with any exacerbation rtc in 4 months Dustin Akins MD, [facility] [employer] SCHOOL HISTORY TEACHER documented in this encounter Plan of Treatment Not on file documented as of this encounter Visit Diagnoses Diagnosis Bronchiectasis without complication ([facility])- Primary Bronchiectasis without acute exacerbation Chronic obstructive pulmonary disease, unspecified COPD type ([facility]) BRUNO (obstructive sleep apnea) Obstructive sleep apnea (adult) (pediatric) Chronic fatigue syndrome Chronic obstructive asthma ([facility]) Chronic obstructive asthma, unspecified Snoring Other dyspnea and respiratory abnormality Class 1 obesity without serious comorbidity with body mass index (BMI) of 30.0 to 30.9 in adult, unspecified obesity type On prednisone therapy Environmental and seasonal allergies documented in this encounter Care Teams Nursing Consultant Relationship Specialty Start Date End Date Scott Hernandez MD [address] [place] [address] PCP - General 01/03/17 documented as of this encounter
--- OUTSIDE RECORDS SUMMARY | 2024-06-27 23:55 | XMS_ITS | Encounter Summary ---
Author Organization [facility] Address [address] [place] [address]. [place] [address] [place] [address] Care Team Providers Care Dispatch Coordinator Name Role Phone Scott Hernandez MD Primary Care Provider [phone] Encounter Details Date Type Department Care Team (Latest Contact Info) Description 11/19/2020 Scan HEALTH INFO SRVCS Scanned, Documents Social [...] on filedocumented in this encounter Care Teams Dispatch Coordinator Relationship Specialty Start Date End Date Scott Hernandez MD [address] [place] [address] PCP - General 01/03/17 documented as of this encounter
--- OUTSIDE RECORDS SUMMARY | 2024-06-27 23:55 | XMS_ITS | Encounter Summary ---
Author Organization [facility] Address [address] [place] [address]. [place] [address] [place] [address] Care Team Providers Care Sales And Marketing Director Name Role Phone Scott Hernandez MD Primary Care Provider [phone] Reason for Visit * Reason Onset Date Comments Medication Problem 05/09/2019 Encounter Details Date Type Department Care Team (Late st Contact Info) Description 05/09/2019 Telephone [facility] Medical Group Multispecialty Care - [facility] [address] [facility], [address] [place] [address] María Bautista, FLOOR CARE SPECIALIST Medication Problem Social History Tobacco Use Types Packs/Day Years [...] this encounter Progress Notes * Katia Bond, SOCIAL WORK MANAGER - 05/09/2019 3:08 PM CDT Called patient and informed her that I got the medication code approved for her and that I talked to Jameson from her pharmacy about this. Patient voiced understanding. * Katia Bond CRT - 05/09/2019 2:55 PM CDT [facility] and [facility] the J47.9 code. Jameson stated that that code was accepted and it came out way cheaper. Jameson stated that he will call the patient. * Manasa Dempsey - 05/09/2019 2:19 PM CDT Pt said we sent in a script for ventolin for her and we gave the pharmacy certain codes for it to be covered and it was not and she had to pay out of pocket and is upset and has been talking to a bunch of people trying to figure things out. She said we need to call [facility] in [place] and ask to speak to Jameson about this. She said the codes we had were wrong so we need to call him to give him the correct ones. She is confused as to why it wouldn't be covered as it always has been and nothing would have changed as nothing in her diagnosis or treatment has changed. Please call pt once you have spoke to jameson and figured things out and let her know what is going on. documented in this encounter Plan of Treatment Not on file documented as of this encounter Visit Diagnoses Diagnosis Bronchiectasis without complication ([facility])- Primary Bronchiectasis without acute exacerbation Chronic obstructive asthma ([facility]) Chronic obstructive asthma, unspecified Chronic obstructive pulmonary disease, unspecified COPD type ([facility]) documented in this encounter Care Teams Sales And Marketing Director Relationship Specialty Start Date End Date Scott Hernandez MD [address] [address] PCP - General 01/03/17 documented as of this encounter
--- OUTSIDE RECORDS SUMMARY | 2024-06-27 23:55 | XMS_ITS | Encounter Summary ---
Author Organization [facility] Address [address] [place] [address]. [place] [address] [place] [address] Care Team Providers Care Director Of Patient Care Name Role Phone Scott Hernandez MD Primary Care Provider [phone] Reason for Visit * Reason Onset Date Comments Medication Request 07/04/2018 Encounter Details Date Type Department Care Team (Late st Contact Info) Description 07/04/2018 Telephone [facility] Medical [facility] Pulmonology Specialty Clinic - [address] [address] Dustin Akins MD [address] [place] [address] Medication Request Social History Tobacco Use [...] Progress Notes * Alba Maria, KATHY - 07/04/2018 10:[address] Akins request, order sent for Prednisone 40mg 5 days then 20mg for the next 5 days and Levaquin 750 for 5 days. Called patient and explained, patient voiced understanding. R SAW MECHANIC * Nicol Ralph - 07/04/2018 10:32 AM CST Patient is having a hard time breathing she has a bad cough and was wondering if we could prescribea steroid to help it clear up she is leaving for [place] She has been using nebulizer 4 times a day They are driving Leaving today for [place] R SAW MECHANIC documented in this encounter Plan of Treatment Not on file documented as of this encounter Visit Diagnoses Diagnosis Productive cough- Primary Cough documented in this encounter Care Teams Director Of Patient Care Relationship Specialty Start Date End Date Scott Hernandez MD [address] [place] [address] PCP - General 01/03/17 documented as of this encounter
--- OUTSIDE RECORDS SUMMARY | 2024-06-27 23:56 | XMS_ITS | Encounter Summary ---
Author Organization [facility] Address [address] [place] [address]. [place] [address] [place] [address] Care Team Providers Care Deputy Head Name Role Phone Scott Hernandez MD Primary Care Provider [phone] Scott Hernandez MD Primary Care Provider [phone] Scott Hernandez MD Primary Care Provider [phone] Encounter Details Date Type Department Care Team (Latest Contact Info) Description 06/29/2015 Abstract [facility] Medical Group Social History Tobacco Use Types [...] on filedocumented in this encounter Care Teams Deputy Head Relationship Specialty Start Date End Date Scott Hernandez MD [address] [place] [address] PCP - General 01/03/17 Scott Hernandze MD [address] [address] PCP - General 11/22/16 01/02/17 Scott Hernandez MD [address] [address] PCP - General 11/21/16 11/21/16 documented as of this encounter
--- OUTSIDE RECORDS SUMMARY | 2024-06-27 23:56 | XMS_ITS | Encounter Summary ---
Author Organization [facility] Address [address] [place] [address]. [place] [address] [place] [address] Care Team Providers Care Interventional Cardiologist Name Role Phone Scott Hernandez MD Primary Care Provider [phone] Scott Hernandez MD Primary Care Provider [phone] Scott Hernandez MD Primary Care Provider [phone] Encounter Details Date Type Department Care Team (Latest Contact Info) Description 03/31/2016 Abstract [facility] Medical Group Social History Tobacco Use [...] on filedocumented in this encounter Care Teams Interventional Cardiologist Relationship Specialty Start Date End Date Scott Hernandez MD [address] [place] [address] PCP - General 01/03/17 Scott Hernandez MD [address] [place] [address] PCP - General 11/22/16 01/02/17 Scott Hernandez MD [address] [address] PCP - General 11/21/16 11/21/16 documented as of this encounter
--- OUTSIDE RECORDS SUMMARY | 2024-06-27 23:56 | XMS_ITS | Encounter Summary ---
Author Organization [facility] Address [address] [place] [address]. [place] [address] [place] [address] Care Team Providers Care Aviation Electrician Name Role Phone Scott Hernandez MD Primary Care Provider Scott Hernandez MD Primary Care Provider [phone] Scott Hernandez MD Primary Care Provider [phone] Encounter Details Date Type Department Care Team (Latest Contact Info) Description 11/14/2012 Abstract [facility] Medical Group Social History Tobacco Use Types [...] on filedocumented in this encounter Care Teams Aviation Electrician Relationship Specialty Start Date End Date Scott Hernandez MD [address] [place] [address] PCP - General 01/03/17 Scott Hernandez MD [address] [address] PCP - General 11/22/16 01/02/17 Scott Hernandez MD [address] [address] PCP - General 11/21/16 11/21/16 documented as of this encounter
--- OUTSIDE RECORDS SUMMARY | 2024-06-27 23:56 | XMS_ITS | Encounter Summary ---
Author Organization [facility] Address [address] [place] [address]. [place], [place] [address] [place] [address] Care Team Providers Care Vp Business Development Name Role Phone Scott Hernandez MD Primary Care Provider [phone] Scott Hernandez MD Primary Care Provider [phone] Encounter Details Date Type Department Care Team (Latest Contact Info) Description 11/28/2016 Abstract [facility] Medical Group Social History Tobacco [...] on filedocumented in this encounter Care Teams Vp Business Development Relationship Specialty Start Date End Date Scott Hernandez MD [address] [place] [address] PCP - General 01/03/17 Scott Hernandez MD [address] [address] PCP - General 11/22/16 01/02/17 documented as of this encounter
--- OUTSIDE RECORDS SUMMARY | 2024-06-27 23:56 | XMS_ITS | Encounter Summary ---
Author Organization [facility] Address [address] [place] [address]. [place], [place] [address] [place] [address] Care Team Providers Care Mechanical Systems Control Engineer Name Role Phone Scott Hernandez MD Primary Care Provider [phone] Scott Hernandez MD Primary Care Provider [phone] Encounter Details Date Type Department Care Team (Latest Contact Info) Description 12/27/2016 Abstract [facility] Medical Group Social History Tobacco Use [...] on filedocumented in this encounter Care Teams Mechanical Systems Control Engineer Relationship Specialty Start Date End Date Scott Hernandez MD [address] [address] PCP - General 01/03/17 Scott Hernandez MD [address] [address] PCP - General 11/22/16 01/02/17 documented as of this encounter
--- OUTSIDE RECORDS SUMMARY | 2024-06-27 23:56 | XMS_ITS | Encounter Summary ---
Author Organization [facility] Address [address] [place] [address]. [place] [address] [place] [address] Care Team Providers Care Sales Representative Name Role Phone Scott Hernandez MD Primary Care Provider [phone] Scott Hernandez MD Primary Care Provider [phone] Scott Hernandez MD Primary Care Provider [phone] Encounter Details Date Type Department Care Team (Latest Contact Info) Description 10/21/2013 Abstract [facility] Medical Group Social History Tobacco Use Types [...] on filedocumented in this encounter Care Teams Sales Representative Relationship Specialty Start Date End Date Scott Hernandez MD [address] [place] [address] PCP - General 01/03/17 Scott Hernandez MD [address] [address] PCP - General 11/22/16 01/02/17 Scott Hernandez MD [address] [address] PCP - General 11/21/16 11/21/16 documented as of this encounter
--- OUTSIDE RECORDS SUMMARY | 2024-06-27 23:56 | XMS_ITS | Encounter Summary ---
Author Organization [facility] Address [address] [place] [address]. [place], [place] [address] [place] [address] Care Team Providers Care Sandwich And Drink Cart Operator Name Role Phone Scott Hernandez MD Primary Care Provider [phone] Encounter Details Date Type Department Care Team (Latest Contact Info) Description 02/10/2017 Abstract [facility] Medical Group Social History Tobacco [...] on filedocumented in this encounter Care Teams Sandwich And Drink Cart Operator Relationship Specialty Start Date End Date Scott Hernandez MD [address] [place] [address] PCP - General 01/03/17 documented as of this encounter
--- OUTSIDE RECORDS SUMMARY | 2024-06-27 23:56 | XMS_ITS | Encounter Summary ---
Author Organization [facility] Address [address] [place] [address]. [place] [address] [place] [address] Care Team Providers Care Transplanter Orchid Name Role Phone Scott Hernandez MD Primary Care Provider [phone] Scott Hernandez MD Primary Care Provider [phone] Scott Hernandez MD Primary Care Provider [phone] Encounter Details Date Type Department Care Team (Latest Contact Info) Description 03/16/2016 Abstract [facility] Medical Group Social History Tobacco Use Types [...] on filedocumented in this encounter Care Teams Transplanter Orchid Relationship Specialty Start Date End Date Scott Hernandez MD [address] [place] [address] PCP - General 01/03/17 Scott Hernandez MD [address] [address] PCP - General 11/22/16 01/02/17 Scott Hernandez MD [address] [address] PCP - General 11/21/16 11/21/16 documented as of this encounter
--- OUTSIDE RECORDS SUMMARY | 2024-06-27 23:56 | XMS_ITS | Encounter Summary ---
Author Organization [facility] Address [address] [place] [address]. [place] [address] [place] [address] Care Team Providers Care Hogshead Head Matcher Name Role Phone Scott Hernandez MD Primary Care Provider [phone] Scott Hernandez MD Primary Care Provider [phone] Scott Hernandez MD Primary Care Provider [phone] Encounter Details Date Type Department Care Team (Latest Contact Info) Description 07/16/2012 Abstract [facility] Medical Group Social History Tobacco [...] on filedocumented in this encounter Care Teams Hogshead Head Matcher Relationship Specialty Start Date End Date Scott Hernandez MD [address] [place] [address] PCP - General 01/03/17 Scott Hernandez MD [address] [address] PCP - General 11/22/16 01/02/17 Scott Hernandez MD [address] [address] PCP - General 11/21/16 11/21/16 documented as of this encounter
--- OUTSIDE RECORDS SUMMARY | 2024-06-27 23:56 | XMS_ITS | Encounter Summary ---
Author Organization [facility] Address [address] [place] [address]. [place], [place] [address] [place] [address] Care Team Providers Care Chocolate Maker Name Role Phone Scott Hernanedz MD Primary Care Provider [phone] Encounter Details Date Type Department Care Team (Latest Contact Info) Description 02/03/2017 Abstract [facility] Medical Group Social History Tobacco Use Types [...] on filedocumented in this encounter Care Teams Chocolate Maker Relationship Specialty Start Date End Date Scott Hernandez MD [address] [place] [address] PCP - General 01/03/17 documented as of this encounter
--- OUTSIDE RECORDS SUMMARY | 2024-06-27 23:56 | XMS_ITS | Encounter Summary ---
Author Organization [facility] Address [address] [place] [address]. [place], [place] [address] [place] [address] Care Team Providers Care Retread Mold Operator Name Role Phone Scott Hernandez MD Primary Care Provider [phone] Encounter Details Date Type Department Care Team (Latest Contact Info) Description 03/03/2017 Abstract [facility] Medical Group Social History Tobacco Use [...] on filedocumented in this encounter Care Teams Retread Mold Operator Relationship Specialty Start Date End Date Scott Hernandez MD [address] [place] [address] PCP - General 01/03/17 documented as of this encounter
--- OUTSIDE RECORDS SUMMARY | 2024-06-27 23:56 | XMS_ITS | Encounter Summary ---
Author Organization [facility] Address [address] [place] [address]. [place], [place] [address] [place] [address] Care Team Providers Care Irb Compliance Coordinator Name Role Phone Scott Hernandez MD Primary Care Provider [phone] Encounter Details Date Type Department Care Team (Latest Contact Info) Description 01/04/2017 Abstract [facility] Medical Group Social History Tobacco Use [...] on filedocumented in this encounter Care Teams Irb Compliance Coordinator Relationship Specialty Start Date End Date Scott Hernandez MD [address] [address] PCP - General 01/03/17 documented as of this encounter
--- OUTSIDE RECORDS SUMMARY | 2024-06-27 23:56 | XMS_ITS | Encounter Summary ---
Author Organization [facility] Address [address] [place] [address]. [place] [address] [place] [address] Care Team Providers Care Golf Manager Name Role Phone Scott Hernandez MD Primary Care Provider [phone] Scott Hernandez MD Primary Care Provider [phone] Encounter Details Date Type Department Care Team (Latest Contact Info) Description 12/09/2016 Abstract [facility] Medical Group Social History Tobacco Use Types Packs/Day Years Used Date Smoking Tobacco: Never Assessed Comments Unknown Sex and Gender Information Value Date Recorded Sex Assigned at Not on file Legal Sex Female 9:34 PM CDT Gender Identity Not on file Sexual Orientation Not on file documented as of this encounter Progress Notes * Generic Conversion MD Leonora - 12/09/2016 2:10 PM CDT Message Message: Nolvia called complaining of productive cough and low grade fever, Dr. Husain sent in [facility]. Plan 1. LevoFLOXacin 750 MG Oral Tablet; TAKE 1 TABLET DAILY Rx By: Dustin Akins; Dispense: 7 Days ; #:7 Tablet; Refill: 0; For: Bronchiectasis; LINDSAY = N; Sent To: [facility] # [id number]; Last Updated By: Jessica Hernandez; 12/09/2016 2:14:25 PM 2. PredniSONE 20 MG Oral Tablet; TAKE 2 TABLETS DAILY Rx By: Dustin Akins; Dispense: 5 Days ; #:10 Tablet; Refill: 0; For: Bronchiectasis; LINDSAY = N; Sent To: [facility] # [id number]; Last Updated By: Jessica Hernandez; 12/09/2016 2:14:25 PM Signatures Electronically signed by : RT Sanya; Dec 09 2016 2:15PM SOFTWARE CONFIGURATION SPECIALIST (Author) documented in this encounter Plan of Treatment Not on file documented as of this encounter Visit Diagnoses Not on filedocumented in this encounter Care Teams Golf Manager Relationship Specialty Start Date End Date Scott Hernandez MD [address] [address] PCP - General 01/03/17 Scott [place] [address] [id number] PCP - General 11/22/16 01/02/17 documented as of this encounter
--- OUTSIDE RECORDS SUMMARY | 2024-06-27 23:56 | XMS_ITS | Encounter Summary ---
Author Organization [facility] Address [address] [place] [address]. [place] [address] [place] [address] Care Team Providers Care Racecourse Barrier Attendant Name Role Phone Scott Hernandez MD Primary Care Provider [phone] Scott Hernandez MD Primary Care Provider [phone] cSott Hernandez MD Primary Care Provider [phone] Encounter Details Date Type Department Care Team (Latest Contact Info) Description 10/20/2016 Abstract [facility] Medical Group Social History Tobacco [...] on filedocumented in this encounter Care Teams Racecourse Barrier Attendant Relationship Specialty Start Date End Date Scott Hernandez MD [address] [place] [address] PCP - General 01/03/17 Scott Hernandez MD [address] [place] [address] PCP - General 11/22/16 01/02/17 Scott Hernandez MD [address] [address] PCP - General 11/21/16 11/21/16 documented as of this encounter
--- OUTSIDE RECORDS SUMMARY | 2024-06-27 23:56 | XMS_ITS | Encounter Summary ---
Author Organization [facility] Address [address] [place] [address]. [place] [address] [place] [address] Care Team Providers Care Kitchen Operator Name Role Phone Scott Hernandez MD Primary Care Provider [phone] Scott Hernandez MD Primary Care Provider [phone] Scott Hernandez MD Primary Care Provider [phone] Encounter Details Date Type Department Care Team (Late st Contact Info) Description 11/21/2016 Abstract [facility] [address] Dustin Akins MD [address] [id number] Social History Tobacco Use Types Packs/Day Years [...] Procedure Name Priority Date/Time Associated Diagnosis Comments CULTURE RESPIRATORY W/ GRAM STAIN Routine 11/21/2016 9:20 AM CDT documented in this encounter Results * CULTURE RESPIRATORY W/ GRAM STAIN (11/21/2016 9:20 AM CDT) SPEC DESCRIPTION SPUTUM 11/21/2016 8:33 PM CDT [facility] SPECIAL REQUESTS NO SPECIAL REQUEST 11/21/2016 8:33 PM CDT [facility] GRAM STAIN RESULT FEW WHITE BLOOD CELLS SEEN 11/22/2016 2:18 PM CDT [facility] GRAM STAIN RESULT FEW EPITHELIAL CELLS SEEN 11/22/2016 2:18 PM CDT [facility] GRAM STAIN RESULT FEW MIXED BACTERIAL VILMA 11/22/2016 2:18 PM CDT [facility] CULTURE RESULT HEAVY GROWTH OF NORMAL VILMA PRESENT 11/24/2016 10:04 AM CDT [facility] SPUTUM SPECIMEN / Unknown 11/21/2016 9:20 AM CDT 11/21/2016 8:44 PM CDT us Generic Conversion Md [facility]LL MICROBIOLOGY - GENERAL ORDERABLES Final Result [facility] [address] [place] [address], documented in this encounter Visit Diagnoses Diagnosis Cough documented in this encounter Care Teams Kitchen Operator Relationship Specialty Start Date End Date Scott Hernandez MD [address] [place] [address] PCP - General 01/03/17 Scott Hernandez MD [address] [facility] [facility] [place] [address] PCP - General 11/22/16 01/02/17 Scott Hernandez MD [address] [address] PCP - General 11/21/16 11/21/16 documented as of this encounter
--- OUTSIDE RECORDS SUMMARY | 2024-06-27 23:56 | XMS_ITS | Encounter Summary ---
Author Organization [facility] Address [address] [place] [address]. [place] [address] [place] [address] Care Team Providers Care Accuracy Expert Name Role Phone Scott Hernandez MD Primary Care Provider [phone] Scott Hernandez MD Primary Care Provider [phone] Encounter Details Date Type Department Care Team (Late st Contact Info) Description 11/22/2016 Abstract [facility] [place] [address] Dustin Akins MD 3rd [facility] [address] [place] [id number] Social History Tobacco Use Types Packs/Day Years [...] Comments CULTURE RESPIRATORY W/ GRAM STAIN Routine 11/22/2016 11:28 AM CDT CULTURE, FUNGUS W/ STAIN Routine 11/22/2016 11:28 AM CDT CULTURE TB/AFB OTHER Routine 11/22/2016 11:28 AM CDT documented in this encounter Results * CULTURE RESPIRATORY W/ GRAM STAIN (11/22/2016 11:28 AM CDT) SPEC DESCRIPTION SPUTUM 11/22/2016 8:23 PM CDT [facility] SPECIAL REQUESTS NO SPECIAL REQUEST 11/22/2016 8:23 PM CDT [facility] GRAM STAIN RESULT FEW WHITE BLOOD CELLS SEEN 11/23/2016 2:10 PM CDT [facility] GRAM STAIN RESULT FEW EPITHELIAL CELLS SEEN 11/23/2016 2:10 PM CDT [facility] GRAM STAIN RESULT MODERATE GRAM POSITIVE COCCI 11/23/2016 2:10 PM CDT [facility] GRAM STAIN RESULT FEW GRAM POSITIVE RODS 11/23/2016 2:10 PM CDT [facility] CULTURE RESULT LIGHT GROWTH OF NORMAL VILMA PRESENT 11/24/2016 11:19 AM CDT [facility] SPUTUM SPECIMEN / Unknown 11/22/2016 11:28 AM CDT 11/22/2016 8:34 PM CDT us Generic Conversion Md [facility]CHELL MICROBIOLOGY - GENERAL ORDERABLES Final Result Performing Organization Address City/State/[facility] Co de Phone Number [facility] [address] [place], [place] [id number], * CULTURE, FUNGUS W/ STAIN (11/22/2016 11:28 AM CDT) SPEC DESCRIPTION SPUTUM 11/22/2016 8:23 PM CDT [facility] SPECIAL REQUESTS NO SPECIAL REQUEST 11/22/2016 8:23 PM CDT [facility] STAIN RESULT: NO YEAST OR FUNGAL ELEMENTS SEEN 11/23/2016 2:10 PM CDT [facility] CULTURE RESULT SPARSE GROWTH OF TOM DUBLINIENSIS SUSCEPTIBILTY NOT ROUTINELY PERFORMED. SAVING ISOLATE FOR 5 DAYS. CONTACT MICROBIOLOGY DEPARTMENT IF FURTHER WORKUP IS INDICATED. 11/29/2016 1:10 PM CDT [facility] SPUTUM SPECIMEN / Unknown 11/22/2016 11:28 AM CDT 11/22/2016 8:33 PM CDT us Generic Conversion Md MITCHELL MICROBIOLOGY - GENERAL ORDERABLES Final Result [facility] [address] [place] [address], * CULTURE TB/AFB OTHER (11/22/2016 11:28 AM CDT) SPECIMEN SOURCE SPUTUM 7 8:33 PM CDT [facility] RESULT: REPORT 01/20/2017 8:11 AM CDT [employer] AIDEE GUERRA Comment: Acid Fast Culture, Progressive Acid Fast Culture SOURCE : SPUTUM Result/Comment: No acid-fast bacilli isolated at 8 weeks. ? Mycobacterial identification was not indicated Test Performed by [email or web address], [address] [place], [place] Jayjay Kunz M.D., Ph.D., Director of Laboratories , CLIA [id number] SPECIMEN SOURCE SPUTUM 7 8:33 PM CDT [facility] RESULT: REPORT 11/24/2016 7:27 PM CDT [employer] AIDEE GUERRA Comment: Acid Fast Bacilli Stain SOURCE : SPUTUM Result/Comment: No acid-fast bacilli seen. The smear result should be used as an adjunct in evaluating a patient's tuberculosis status, and cultural examination is highly recommended for laboratory diagnosis. Test Performed by [email or web address] [email or web address], [address] [place], [place] Jayjay Kunz M.D., Ph.D., Director of Laboratories , [facility] [id number] 11/22/2016 11:2 8 AM CDT 11/22/2016 8:33 PM CDT Comment:Miscellaneous sample s~sputum specimen us Generic Conversion Md [facility]CHELL MICROBIOLOGY - GENERAL ORDERABLES Final Result Performing Organization Address [facility]/State/ZIP Co de Phone Number [employer] [facility] [address] [place], [place] , [place] [phone] [facility] [address] [place] [id number], [place] [phone] documented in this encounter Visit Diagnoses Diagnosis Bronchiectasis without complication ([facility]) Bronchiectasis without acute exacerbation documented in this encounter Care Teams Accuracy Expert Relationship Specialty Start Date End Date Scott Hernandez MD [address] [address] PCP - General 01/03/17 Scott Hernandez [place] [address] [address] PCP - General 11/22/16 01/02/17 documented as of this encounter
--- OUTSIDE RECORDS SUMMARY | 2024-06-27 23:56 | XMS_ITS | Encounter Summary ---
Author Organization [facility] Address [address] [place] [address]. [place], [place] [address] [place] [address] Care Team Providers Care Sr. Pricing Analyst Name Role Phone Scott Hernandez MD Primary Care Provider [phone] Encounter Details Date Type Department Care Team (Latest Contact Info) Description 02/15/2017 Abstract [facility] Medical Group Social History Tobacco Use Types [...] on filedocumented in this encounter Care Teams Sr. Pricing Analyst Relationship Specialty Start Date End Date Scott Hernandez MD [address] [address] PCP - General 01/03/17 documented as of this encounter
--- OUTSIDE RECORDS SUMMARY | 2024-06-27 23:56 | XMS_ITS | Encounter Summary ---
Author Organization [facility] Address [address] [place] [address]. [place] [address] [place] [address] Care Team Providers Care Ultrasonic Welding Machine Operator Name Role Phone Scott Hernandez MD Primary Care Provider Scott Hernandez MD Primary Care Provider [phone] Scott Hernandez MD Primary Care Provider [phone] Encounter Details Date Type Department Care Team (Latest Contact Info) Description 06/14/2016 Abstract [facility] Medical Group Social History Tobacco Use [...] on filedocumented in this encounter Care Teams Ultrasonic Welding Machine Operator Relationship Specialty Start Date End Date Scott Hernandez MD [address] [place] [address] PCP - General 01/03/17 Scott Hernandez MD [address] [address] PCP - General 11/22/16 01/02/17 Scott Hernandez MD [address] [address] PCP - General 11/21/16 11/21/16 documented as of this encounter
--- OUTSIDE RECORDS SUMMARY | 2024-06-27 23:56 | XMS_ITS | Encounter Summary ---
Author Organization [facility] Address [address] [place] [address]. [place] [address] [place] [address] Care Team Providers Care Host Name Role Phone Scott Hernandez MD Primary Care Provider Scott Hernandez MD Primary Care Provider [phone] Scott Hernandez MD Primary Care Provider [phone] Encounter Details Date Type Department Care Team (Latest Contact Info) Description 07/19/2012 Abstract [facility] Medical Group Social History Tobacco [...] on filedocumented in this encounter Care Teams Host Relationship Specialty Start Date End Date Scott Hernandez MD [address] [place] [address] PCP - General 01/03/17 Scott Hernandez MD [address] [address] PCP - General 11/22/16 01/02/17 Scott Hernandez MD [address] [address] PCP - General 11/21/16 11/21/16 documented as of this encounter
--- OUTSIDE RECORDS SUMMARY | 2024-06-27 23:56 | XMS_ITS | Encounter Summary ---
Author Organization [facility] Address [address] [place] [address]. [place] [address] [place] [address] Care Team Providers Care Otorhinolaryngologist Name Role Phone Scott Hernandez MD Primary Care Provider [phone] Encounter Details Date Type Department Care Team (Late st Contact Info) Description 02/08/2017 Abstract [facility] Medical Group Multispecialty Care - [address] [place] [address] Dustin Akins MD [address] [place] [address] [address] [place] [address] Social History Tobacco Use Types Packs/Day Years Used Date Smoking Tobacco: Never Assessed Comments Unknown Sex and Gender Information Value Date Recorded Sex Assigned at Not on file Legal Sex Female 9:34 PM CDT Gender Identity Not on file Sexual Orientation Not on file documented as of this encounter Last Filed Vital Signs Vital Sign Reading Time Taken Comments Blood Pressure 128/74 02/08/2017 9:21 AM CDT Pulse 94 02/08/2017 9:21 AM CDT Temperature - - Respiratory Rate - - Oxygen Saturation - - Inhaled Oxygen Concentration - - Weight 71.2 kg (157 lb) 02/08/2017 9:21 AM CDT Height - - Body Mass Index - - documented in this encounter Progress Notes * Dustin Akins MD - 02/08/2017 9:00 AM CDT Assessment 1. Bronchiectasis (494.0) (J47.9) 2. 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 COPD (chronic obstructive pulmonary disease) (496) (J44.9) 4. Chronic obstructive asthma (493.20) (J44.9) 5. Environmental and seasonal allergies (477.8) (J30.89) 6. On prednisone therapy (V58.65) (Z79.52) 7. BRUNO (obstructive sleep apnea) (327.23) (G47.33) 8. Obesity (278.00) (E66.9) 9. Productive cough (786.2) (R05) 1. Bronchiectasis -likely related to CVID 2. COPD, GOLD B by history -consider chronic obstructive asthma, chronic bronchitis 3. BRUNO -not currently on CPAP 4. Former smoker 5. 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 Hx of chronic prednisone therapy 7. Obesity 8. Seasonal/Environmental allergies; Allergic rhinitis -on SCIT -did not respond to Xolair Plan Bronchiectasis 1. LevoFLOXacin 750 MG Oral Tablet (LevoFLOXacin); TAKE 1 TABLET DAILY Rx By: Dustin Akins; Dispense: 14 Days ; #:14 Tablet; Refill: 0; For: Bronchiectasis; LINDSAY = N; Sent To: [facility] # [id number]; Msg to Pharmacy: for her to take with her on trip to [facility] end 02/2017 2. PredniSONE 20 MG Oral Tablet; TAKE 2 TABLETS DAILY FOR 7 DAYS, THEN 1 TABLET DAILY FOR 7 DAYS Rx By: Dustin Akins; Dispense: 0 Days ; #:21 Tablet; Refill: 0; For: Bronchiectasis; LINDSAY = N; Sent To: [facility] # [id number]; Msg to Pharmacy: for her to take with her on trip to [facility] end 02/2017 1. Albuterol hfa rescue i-ii puffs q4 prn sob/wheezing 2. Symbicort 160/4.5 ii puffs bid 3. Spiriva 18mcg daily 4. Singulair 10mg daily 5. Roflumilast 500mcg daily 6. Continue to follow with loan representative -continue scit; plan to start IVIG 7. Discusse potential addition of 3x weekly azithromycin pending response to immunoglobulin therapy 8. Flutter -poor [...] Encouraged healthy weight loss via diet/exercise 15. Emergency LQ and prednisone for use on trip to [facility] in March if needed Chief Complaint Pt her for follow up. Complains of bronchitis with cough, finished ABX 2 days ago. Stopped Esomeprazole and started Dexilant. No other med changes. History of Present Illness 71-year-old obese white female former smoker with past medical history of CVID, BRUNO, asthma/COPD, recurrent sinusitis/bronchitis, bronchiectasis, seasonal allergies, and GERD presents for follow-up. Initially referred for bronchiectasis. Since last visit had flare of bronchiectasis; treated with ABx x 2 by PCP LQ with prednisone, then Zpak. Last visit with Dr. Huang discussed CVID as likely cause of recurrent problems; plans to start Cuvitru (IVIG). notes baseline dyspnea on exertion after ambulating 30 [...] sweats, hemoptysis. Notes extensive allergies, followed with loan representative, on SCIT Notes diagnosis of BRUNO; elected not to wear CPAP in past. Former smoker; quit ; approximate 40 pack year history. Denies alcohol/illicits. 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 Denies exposure to TB, asbestos, mold, birds. [...] (chronic obstructive pulmonary disease) (496) (J44.9) 4. Environmental and seasonal allergies (477.8) (J30.89) 5. 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 Obesity (278.00) (E66.9) 7. On prednisone therapy (V58.65) (Z79.52) 8. BRUNO (obstructive sleep apnea) (327.23) (G47.33) 9. Productive cough (786.2) (R05) Past Medical History [...] Oral Tablet; Therapy: (Recorded:21Nov2016) to Recorded 9. Fluticasone Propionate 50 MCG/ACT Nasal Suspension; Therapy: (Recorded:21Nov2016) to Recorded 10. Gabapentin 300 MG Oral Capsule; Therapy: 05Oct2016 to Recorded 11. Ipratropium-Albuterol 0.5-2.5 (3) MG/3ML Inhalation Solution; USE 1 UNIT DOSE IN NEBULIZER EVERY 4 HOURS NEEDED; Therapy: 21Nov2016 to (Evaluate:[id number]) Requested for: 21Nov2016; Last Rx:21Nov2016 Ordered 12. Montelukast Sodium 10 MG Oral Tablet; Therapy: 23Aug2016 to Recorded 13. Multivitamins CAPS; Therapy: (Recorded:21Nov2016) to Recorded 14. Nebulizer Device; USE DIRECTED; Therapy: 21Nov2016 to (Last Rx:21Nov2016) Requested for: 21Nov2016 Ordered 15. PredniSONE 10 MG Oral Tablet; Therapy: 08Jun2016 to Recorded 16. Probiotic CAPS; Therapy: (Recorded:21Nov2016) to Recorded 17. Savella 50 MG Oral Tablet; Therapy: 19Jul2016 to Recorded 18. Spiriva HandiHaler 18 MCG Inhalation Capsule; Therapy: 12Jul2016 to Recorded 19. Symbicort 160-4.5 MCG/ACT Inhalation Aerosol; INHALE 2 PUFFS TWICE DAILY. RINSE MOUTH AFTER USE Requested for: 01Dec2016; Last Rx:01Dec2016 Ordered 20. Ventolin HFA 108 (90 Base) MCG/ACT Inhalation Aerosol Solution; Therapy: 08Aug2016 to Recorded 21. Vitamin C TABS; Therapy: (Recorded:21Nov2016) to Recorded 22. Vitamin D3 1000 UNIT Oral Capsule; Therapy: (Recorded:21Nov2016) to Recorded Allergies 1. No Known Drug Allergies 2. Animal dander - Cats 3. Animal dander - Dogs 4. Dust Vitals Recorded: 08Feb2017 09:21AM Heart Rate 94 Systolic 128 Diastolic 74 O2 Saturation 97 Weight 157 lb Physical Exam General: obese wf, sitting comfortably [...] Electronically signed by : Dustin Akins M.D.; Feb 08 2017 11:02AM FIELD CANE SCALER (Author) documented in this encounter Plan of Treatment Not on file documented as of this encounter Visit Diagnoses Not on filedocumented in this encounter Care Teams Otorhinolaryngologist Relationship Specialty Start Date End Date Scott Hernandez MD [address] [place] [address] PCP - General 01/03/17 documented as of this encounter
--- OUTSIDE RECORDS SUMMARY | 2024-06-27 23:56 | XMS_ITS | Encounter Summary ---
Author Organization [facility] Address [address] [place] [address]. [place], [place] [address] [place] [address] Care Team Providers Care Mannequin Maker Name Role Phone Scott Hernandez MD Primary Care Provider [phone] Encounter Details Date Type Department Care Team (Latest Contact Info) Description 01/26/2017 Abstract [facility] Medical Group Social History Tobacco [...] on filedocumented in this encounter Care Teams Mannequin Maker Relationship Specialty Start Date End Date Scott Hernandez MD [address] [address] PCP - General 01/03/17 documented as of this encounter
--- OUTSIDE RECORDS SUMMARY | 2024-06-27 23:56 | XMS_ITS | Encounter Summary ---
Author Organization [facility] Address [address] [place] [address]. [place] [address] [place] [address] Care Team Providers Care Driver Education Road Instructor Name Role Phone Scott Hernandez MD Primary Care Provider [phone] Scott Hernandez MD Primary Care Provider [phone] Encounter Details Date Type Department Care Team (Latest Contact Info) Description 11/22/2016 Abstract [facility] Medical Group Dustin Akins MD [address] [place] [address] Social History Tobacco Use Types Packs/Day [...] GRAM STAIN Routine 11/22/2016 11:28 AM CDT documented in this encounter Results * CULTURE RESPIRATORY W/ GRAM STAIN (11/22/2016 11:28 AM CDT) CULTURE RESULT SPECIMEN DESCRIPTION ? - SPUTUM SPECIAL REQUESTS ? - NO SPECIAL REQUEST GRAM SMEAR ? - FEW WHITE BLOOD CELLS SEEN GRAM SMEAR ? - FEW EPITHELIAL CELLS SEEN GRAM SMEAR ? - MODERATE GRAM POSITIVE COCCI GRAM SMEAR ? - FEW GRAM POSITIVE RODS CULTURE ?- LIGHT GROWTH OF NORMAL VILMA PRESENT REPORT STATUS ?- FINAL 11/25/2016 [facility] TO EPIC CONVERSION 11/22/2016 11:2 8 AM CDT 11/22/2016 11:28 AM CDT Narrative [facility] TO EPIC CONVERSION - 11/25/2016 10:31 AM CDT Result Communication: No patient communication needed at this time us Dustin Akins MD MICROBIOLOGY - GENERAL [facility] Final Result Performing Organization Address City/State/[facility] Co de Phone Number [facility] TO EPIC CONVERSION documented in this encounter Visit Diagnoses Not on filedocumented in this encounter Care Teams Driver Education Road Instructor Relationship Specialty Start Date End Date Scott Hernandez MD [address] [place] [address] PCP - General 01/03/17 Scott Hernandez MD [address] [place] [address] PCP - General 11/22/16 01/02/17 documented as of this encounter
--- OUTSIDE RECORDS SUMMARY | 2024-06-27 23:56 | XMS_ITS | Encounter Summary ---
Author Organization [facility] Address [address] [place] [address]. [place], [place] [address] [place] [address] Care Team Providers Care Beverage Specialist Name Role Phone Scott Hernandez MD Primary Care Provider [phone] Scott Hernandez MD Primary Care Provider [phone] Encounter Details Date Type Department Care Team (Latest Contact Info) Description 11/30/2016 Abstract [facility] Medical Group Social History Tobacco Use [...] on filedocumented in this encounter Care Teams Beverage Specialist Relationship Specialty Start Date End Date Scott Hernandez MD [address] [address] PCP - General 01/03/17 Scott Hernandez MD [address] [address] PCP - General 11/22/16 01/02/17 documented as of this encounter
--- OUTSIDE RECORDS SUMMARY | 2024-06-27 23:56 | XMS_ITS | Encounter Summary ---
Author Organization [facility] Address [address] [place] [address]. [place], [place] [address] [place] [address] Care Team Providers Care Mainspring Strip Inspector Name Role Phone Scott Hernandez MD Primary Care Provider [phone] Scott Hernandez MD Primary Care Provider [phone] Encounter Details Date Type Department Care Team (Latest Contact Info) Description 11/24/2016 Abstract [facility] [...] on filedocumented in this encounter Care Teams Mainspring Strip Inspector Relationship Specialty Start Date End Date Scott Hernandez MD [address] [address] PCP - General 01/03/17 Scott Hernandez MD [address] [address] PCP - General 11/22/16 01/02/17 documented as of this encounter
--- OUTSIDE RECORDS SUMMARY | 2024-06-27 23:56 | XMS_ITS | Encounter Summary ---
Author Organization [facility] Address [address] [place] [address]. [place] [address] [place] [address] Care Team Providers Care Internet Marketing Assistant Name Role Phone Scott Hernandez MD Primary Care Provider [phone] Scott Hernandez MD Primary Care Provider [phone] Scott Hernandez MD Primary Care Provider [phone] Encounter Details Date Type Department Care Team (Latest Contact Info) Description 01/02/2016 Abstract [facility] Medical Group Social History [...] on filedocumented in this encounter Care Teams Internet Marketing Assistant Relationship Specialty Start Date End Date Scott Hernandez MD [address] [place] [address] PCP - General 01/03/17 Scott Hernandez MD [address] [address] PCP - General 11/22/16 01/02/17 Scott Hernandez MD [address] [address] PCP - General 11/21/16 11/21/16 documented as of this encounter
--- OUTSIDE RECORDS SUMMARY | 2024-06-27 23:56 | XMS_ITS | Encounter Summary ---
Author Organization [facility] Address [address] [place] [address]. [place] [address] [place] [address] Care Team Providers Care Academic Coach Name Role Phone Scott Hernandez MD Primary Care Provider [phone] Scott Hernandez MD Primary Care Provider [phone] Scott Hernandez MD Primary Care Provider [phone] Encounter Details Date Type Department Care Team (Latest Contact Info) Description 09/13/2012 Abstract [facility] Medical Group Social History Tobacco Use [...] on filedocumented in this encounter Care Teams Academic Coach Relationship Specialty Start Date End Date Scott Hernandez MD [address] [place] [address] PCP - General 01/03/17 Scott Hernandez MD [address] [address] PCP - General 11/22/16 01/02/17 Scott Hernandez MD [address] [address] PCP - General 11/21/16 11/21/16 documented as of this encounter
--- OUTSIDE RECORDS SUMMARY | 2024-06-27 23:56 | XMS_ITS | Encounter Summary ---
Author Organization [facility] Address [address] [place] [address]. [place] [address] [place] [address] Care Team Providers Care Automotive Parts Specialist Name Role Phone Scott Hernandez MD Primary Care Provider [phone] Scott Hernandez MD Primary Care Provider [phone] Scott Hernandez MD Primary Care Provider [phone] Encounter Details Date Type Department Care Team (Late st Contact Info) Description 11/21/2016 Abstract [facility] Medical Group Multispecialty Care - [address], [address] [place] [address] Dustin Akins MD [address] [place] [address] [address] [place] [address] Social History Tobacco Use Types Packs/Day Years Used Date Smoking Tobacco: Never Assessed Comments Unknown Sex and Gender Information Value Date Recorded Sex Assigned at Not on file Legal Sex Female 9:34 PM CDT Gender Identity Not on file Sexual Orientation Not on file documented as of this encounter Last Filed Vital Signs Vital Sign Reading Time Taken Comments Blood Pressure 123/78 11/21/2016 3:04 PM CDT Pulse 92 11/21/2016 3:04 PM CDT Temperature - - Respiratory Rate - - Oxygen Saturation - - Inhaled Oxygen Concentration - - Weight 71.7 kg (158 lb) 11/21/2016 3:04 PM CDT Height - - Body Mass Index - - documented in this encounter Progress Notes * Dustin Akins MD - 11/21/2016 1:30 PM CDT Assessment 1. Bronchiectasis (494.0) (J47.9) 2. COPD (chronic obstructive pulmonary disease) (496) (J44.9) 3. Chronic obstructive asthma (493.20) (J44.9,J45.909) 4. Former smoker (V15.82) (Z87.891) 5. BRUNO (obstructive sleep apnea) (327.23) (G47.33) 6. Obesity (278.00) (E66.9) 7. 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 On prednisone therapy (V58.65) (Z79.52) 9. Environmental and seasonal allergies (477.8) (J30.89) 1. Bronchiectasis -unknown etiology -consider related to underlying immunodeficiency, recurrent bronchitis 2. COPD, GOLD B -consider chronic obstructive asthma, chronic bronchitis 3. BRUNO -not currently on CPAP 4. Former smoker 5. Hx of aspergillus niger positive sputum 6. Hx of tobacco abuse 7. Obesity 8. On chronic prednisone therapy 9. Seasonal/Environmental allergies; Allergic rhinitis -on SCIT -did not respond to Xolair Plan Bronchiectasis 1. AFB ( Acid Fast ) Cult / Stain; Status:Hold For - Manual Activation; Requested for:21Nov2016; Perform:[facility]; Due:21Dec2016;Ordered; For:Bronchiectasis; Ordered By:Dustin Akins; Source: : sputum 2. Other Fungal Culture; Status:Hold For - Manual Activation; Requested for:21Nov2016; Per[facility]; Due:21Dec2016;Ordered; For:Bronchiectasis; Ordered By:Dustin Akins; Source: : sputum Chronic obstructive asthma 3. Ipratropium-Albuterol 0.5-2.5 (3) MG/3ML Inhalation Solution; USE 1 UNIT DOSE IN NEBULIZER EVERY 4 HOURS NEEDED Rx By: Dustin Akins; Dispense: 30 Days ; #:1 ML; Refill: 6; For: Chronic obstructive asthma; LINDSAY = N; Sent To: [facility] # [id number] 4. Nebulizer Device; USE DIRECTED Rx By: Dustin Akins; Dispense: 0 Days ; #:1 Device; Refill: 0; For: Chronic obstructive asthma;LINDSAY = N; Sent To: [facility] # [id number] 5. Schedule 6 minute O2 Walk Outpatient Follow-up Status: Hold For - Scheduling Requested for: [id number] Ordered; For: Chronic obstructive asthma; Ordered By: Dustin Akins Performed: Due: 05Dec2016 6. Schedule PFT Outpatient Follow-up Status: Hold For - Scheduling Requested for: [id number] Ordered; For: Chronic obstructive asthma; Ordered By: Dustin Akins Performed: Due: 05Dec2016 Productive cough 7. Albuterol Sulfate (2.5 MG/3ML) 0.083% Inhalation Nebulization Solution; I x in office Rx By: Dustin Akins; Dispense: 0 Days ; #:2.5 ML; Refill: 0; For: Productive cough; LINDSAY = N; Record; Msg to Pharmacy: Tx given in office; Last Updated By: Jessica Hernandez; 11/21/2016 4:26:20 PM 8. Respiratory Culture / Stain; Status:Hold For - Manual Activation; Requested for:21Nov2016; Perform:[facility]; Due:21Dec2016; Last Updated By:Destini Nunes; 11/21/2016 3:11:14 PM;Ordered; For:Productive cough; Ordered By:Dustin Akins; Source: : Sputum Obtain OSH records; PSG Angel Madera Haacke 1. Albuterol hfa rescue i-ii puffs q4 prn sob/wheezing 2. Symbicort 160/4.5 ii puffs bid 3. Spiriva 18mcg daily 4. Singulair 10mg daily 5. Roflumilast 500mcg daily 6. Continue to follow with cotton picker -continue scit; considering IVIG per report -possible respiratory issues stem from underlying immunodeficiency 7. Sputum Respiratory culture/stain, AFB/Fungal smear/culture 8. VEST 9. PFT 10. 6MWT 11. Duoneb q4 prn sob/wheezing 12. Discussed CPAP; plan to start pending review of prior exam; may need repeat PSG 13. Encouraged continued smoking cessation 14. Encouraged healthy weight loss via diet/exercise 15. Prednisone per others 16. A1AT 17. Discussed potential need for HP treatment, Bronchoscopy, other Chief Complaint Pt here to establish care. Sees Dr. Huang and has seen Dr. Herrera in the past. Complains of a chronic cough that is sometimes productive. Meds include Symbicort, Ventolin, Nebulizer and Prednisone. Smoked 2 ppd for 20 years. Had sleep study in the past, no CPAP. History of Present Illness 71-year-old obese white female former smoker with past medical history of BRUNO, asthma/COPD, recurrent sinusitis/bronchitis, bronchiectasis, seasonal allergies, and GERD presents for establishment of care. Initially referred for bronchiectasis. notes baseline dyspnea on exertion after ambulating 30 yards or up one flight of stairs, takes 5 minutes of rest regain her breath. Notes a chronic cough that began circa 2014; notes cough. Has daily, intermittently productive of white to green sputum, [employer]. Notes coughing up hard chunks of sputum. Notes frequent, wheezing, especially, when dyspneic. notes occasional pleuritic chest discomfort related to cough. Denies palpitations, fever, chills, night sweats, hemoptysis. Notes extensive allergies, followed with cotton picker, on SCIT Notes diagnosis of BRUNO circa 2014; did not her CPAP. Former smoker; quit ; approximate 40 pack year history. Denies alcohol/illicits. 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 Denies exposure to TB, asbestos, mold, [...] noted on 11/11/2015 CT no longer visualized Review of Systems See HPI for pertinent positives. Constitutional: as noted in HPI. Head and Face: negative. Eyes: negative. ENT: as noted in HPI. Cardiovascular: as noted in HPI and chest pain. Respiratory: as noted in HPI, shortness of breath, cough and wheezing. Gastrointestinal: negative. Genitourinary: negative. Musculoskeletal: negative. Psychiatric: negative. Hematologic and Lymphatic: negative. Neurological Negative. Endocrine Negative. Active Problems 1. Productive cough (786.2) (R05) Past Medical History [...] Former smoker (V15.82) (Z87.891) Current Meds 1. ALPRAZolam 0.5 MG Oral Tablet; Therapy: (Recorded:21Nov2016) to Recorded 2. Atorvastatin Calcium 10 MG Oral Tablet; Therapy: (Recorded:21Nov2016) to Recorded 3. Daliresp 500 MCG Oral Tablet; Therapy: (Recorded:21Nov2016) to Recorded 4. Fluticasone Propionate 50 MCG/ACT Nasal Suspension; Therapy: (Recorded:21Nov2016) to Recorded 5. Multivitamins CAPS; Therapy: (Recorded:21Nov2016) to Recorded 6. Probiotic CAPS; Therapy: (Recorded:21Nov2016) to Recorded 7. Symbicort 160-4.5 MCG/ACT Inhalation Aerosol; Therapy: (Recorded:[id number]) to Recorded 8. Vitamin C TABS; Therapy: (Recorded:[id number]) to Recorded 9. Vitamin D3 1000 UNIT Oral Capsule; Therapy: (Recorded:[id number]) to Recorded Allergies 1. No Known Drug Allergies Recorded By: Jessica Hernandez; 11/21/2016 3:16:19 PM 2. Animal dander - Cats Recorded By: Jessica Hernandez; 11/21/2016 3:16:19 PM 3. Animal dander - Dogs Recorded By: Jessica Hernandez; 11/21/2016 3:16:19 PM 4. Dust Recorded By: Jessica Hernandez; 11/21/2016 3:16:19 PM Vitals Recorded: 21Nov2016 03:04PM Heart Rate 92 Systolic 123 Diastolic 78 O2 Saturation 96 Weight 158 lb Physical Exam General: obese wf, sitting [...] Electronically signed by : Dustin Akins M.D.; Nov 21 2016 8:56PM CRANBERRY FARM SUPERVISOR (Author) documented in this encounter Plan of Treatment Not on file documented as of this encounter Procedures Procedure Name Priority Date/Time Associated Diagnosis Comments CULTURE, TB/AFB W/ STAIN Routine 11/22/2016 11:28 AM CDT CULTURE, FUNGUS Routine 11/22/2016 11:28 AM CDT CULTURE RESPIRATORY W/ GRAM STAIN Routine 11/21/2016 9:20 AM CDT documented in this encounter Results * CULTURE, TB/AFB W/ STAIN (11/22/2016 11:28 AM CDT) SPECIMEN SOURCE SPUTUM [facility] TO EPIC CONVERSION RESULT: REPORT Acid Fast Culture, Progressive Acid Fast Culture SOURCE : SPUTUM Result/Comment: No acid-fast bacilli isolated at 8 weeks. ? Mycobacterial identification was not indicated Test Performed by [facility], [address] [place] [address] Jayjay Kunz M.D., Ph.D., Director of Laboratories , CLIA [id number] CORRECTED ON 01/20 AT 0811: PREVIOUSLY REPORTED REPORT [facility] TO EPIC CONVERSION ACID FAST SMEAR RESULT REPORT Acid Fast Bacilli Stain SOURCE : SPUTUM Result/Comment: No acid-fast bacilli seen. The smear result should be used as an adjunct in evaluating a patient's tuberculosis status, and cultural examination is highly recommended for laboratory diagnosis. Test Performed by [email or web address], [address] [place] [address] Jayjay Kunz M.D., Ph.D., Director of Laboratories , CLIA [id number] [facility] TO EPIC CONVERSION 11/22/2016 11:2 8 AM CDT 11/22/2016 11:28 AM CDT Narrative [facility] TO EPIC CONVERSION - 01/20/2017 8:11 AM CDT Result Communication: No patient communication needed at this time Dustin Akins MD MICROBIOLOGY - GENERAL [place]UNO [place] Final Result [facility] TO EPIC CONVERSION * CULTURE, FUNGUS (11/22/2016 11:28 AM CDT) CULTURE RESULT SPECIMEN DESCRIPTION ? - SPUTUM SPECIAL REQUESTS ? - NO SPECIAL REQUEST STAIN ?- NO YEAST OR FUNGAL ELEMENTS SEEN CULTURE ?- SPARSE GROWTH OF TOM DUBLINIENSIS SUSCEPTIBILTY NOT ROUTINELY PERFORMED. CULTURE ?- ??SAVING ISOLATE FOR 5 DAYS. CONTACT MICROBIOLOGY DEPARTMENT IF FURTHER WORKUP IS CULTURE ?- ??INDICATED. REPORT STATUS ?- FINAL 12/26/2016 [facility] TO EPIC CONVERSION 11/22/2016 11:2 8 AM CDT 11/22/2016 11:28 AM CDT Narrative [facility] TO EPIC CONVERSION - 12/26/2016 1:52 PM CDT Result Communication: No patient communication needed at this time us Dustin Akins MD MICROBIOLOGY - GENERAL [facility] Final Result Performing Organization Address [facility] de Phone Number [facility] TO EPIC CONVERSION * CULTURE RESPIRATORY W/ GRAM STAIN (11/21/2016 9:20 AM CDT) CULTURE RESULT SPECIMEN DESCRIPTION ? - SPUTUM SPECIAL REQUESTS ? - NO SPECIAL REQUEST GRAM SMEAR ? - FEW WHITE BLOOD CELLS SEEN GRAM SMEAR ? - FEW EPITHELIAL CELLS SEEN GRAM SMEAR ? - FEW MIXED BACTERIAL VILMA CULTURE ?- HEAVY GROWTH OF NORMAL VILMA PRESENT REPORT STATUS ?- FINAL 11/24/2016 [facility] TO EPIC CONVERSION 11/21/2016 9:20 AM CDT 11/21/2016 9:20 AM CDT Narrative [facility] TO EPIC CONVERSION - 11/24/2016 10:04 AM CDT Result Communication: No patient communication needed at this time us Dustin Akins MD MICROBIOLOGY - GENERAL [place] Final Result Performing Organization Address [facility] de Phone Number [facility] TO EPIC CONVERSION documented in this encounter Visit Diagnoses Not on filedocumented in this encounter Care Teams Automotive Parts Specialist Relationship Specialty Start Date End Date Scott Hernandez MD [address] [address] PCP - General 01/03/17 Scott Hernandez MD [address] [address] PCP - General 11/22/16 01/02/17 Scott Hernandez [place] [address] [address] PCP - General 11/21/16 11/21/16 documented as of this encounter
--- OUTSIDE RECORDS SUMMARY | 2024-06-27 23:56 | XMS_ITS | Encounter Summary ---
Author Organization [facility] Address [address] [place] [address]. [place] [address] [place] [address] Care Team Providers Care Wheel Assembler Name Role Phone Scott Hernandez MD Primary Care Provider [phone] Scott Hernandez MD Primary Care Provider [phone] Scott Hernandez MD Primary Care Provider [phone] Encounter Details Date Type Department Care Team (Latest Contact Info) Description 09/10/2012 Abstract [facility] Medical Group Social History Tobacco Use Types [...] on filedocumented in this encounter Care Teams Wheel Assembler Relationship Specialty Start Date End Date Scott Hernandez MD [address] [place] [address] PCP - General 01/03/17 Scott Hernandez MD [address] [place] [address] PCP - General 11/22/16 01/02/17 Scott Hernandez MD [address] [address] [place] [address] PCP - General 11/21/16 11/21/16 documented as of this encounter
--- OUTSIDE RECORDS SUMMARY | 2024-06-27 23:56 | XMS_ITS | Encounter Summary ---
Author Organization [facility] Address [address] [place] [address]. [place] [address] [place] [address] Care Team Providers Care Light Rail Train Operator Name Role Phone Scott Hernandez MD Primary Care Provider [phone] Encounter Details Date Type Department Care Team (Late st Contact Info) Description 01/03/2017 Abstract [facility] Medical Group Multispecialty Care - [address] [place] [address] Dustin Akins MD [address] [place] [address] [address] [place] [address] Social History Tobacco Use Types Packs/Day Years Used Date Smoking Tobacco: Never Assessed Comments Unknown Sex and Gender Information Value Date Recorded Sex Assigned at Not on file Legal Sex Female 9:34 PM CDT Gender Identity Not on file Sexual Orientation Not on file documented as of this encounter Last Filed Vital Signs Vital Sign Reading Time Taken Comments Blood Pressure 124/72 01/03/2017 9:24 AM CDT Pulse 96 01/03/2017 9:24 AM CDT Temperature - - Respiratory Rate - - Oxygen Saturation - - Inhaled Oxygen Concentration - - Weight 71.7 kg (158 lb) 01/03/2017 9:24 AM CDT Height - - Body Mass Index - - documented in this encounter Progress Notes * Dustin Akins MD - 01/03/2017 9:15 AM CDT Assessment 1. Bronchiectasis (494.0) (J47.9) 2. Chronic obstructive asthma (493.20) (J44.9) 3. BRUNO (obstructive sleep apnea) (327.23) (G47.33) 4. Obesity (278.00) (E66.9) 5. Environmental and seasonal allergies (477.8) (J30.89) 6. Productive cough (786.2) (R05) 7. Former smoker (V15.82) (Z87.891) 1. Bronchiectasis -unknown etiology -consider related to underlying immunodeficiency, recurrent bronchitis 2. COPD, GOLD B by history -consider chronic obstructive asthma, chronic bronchitis 3. BRUNO -not currently on CPAP 4. Former smoker 5. 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 Hx of chronic prednisone therapy 7. Obesity 8. Seasonal/Environmental allergies; Allergic rhinitis -on SCIT -did not respond to Xolair Plan Obtain OSH records; PSG Angel Madera Haacke 1. Albuterol hfa rescue i-ii puffs q4 prn sob/wheezing 2. Symbicort 160/4.5 ii puffs bid 3. Spiriva 18mcg daily 4. Singulair 10mg daily 5. Roflumilast 500mcg daily 6. Continue to follow with molder machine -continue scit; considering IVIG per report -possible respiratory issues stem from underlying immunodeficiency 7. Quantiferon gold -consider 3x weekly azithromycin 8. Flutter -poor candidate for VEST given osteoporosis, hx of L1 fx 9. PFT 12/2017 10. 6MWT 12/2017 11. Duoneb q4 prn sob/wheezing 12. Discussed CPAP; plan to start pending review of prior exam; may need repeat PSG 13. Encouraged continued smoking cessation 14. Encouraged healthy weight loss via diet/exercise 15. Discussed potential need for HP treatment, Bronchoscopy, other Chief Complaint Pt here for follow up for Asthma, Bronchiectasis. History of Present Illness 71-year-old obese white female former smoker with past medical history of BRUNO, asthma/COPD, recurrent sinusitis/bronchitis, bronchiectasis, seasonal allergies, and GERD presents for follow-up. Initially referred for bronchiectasis. Since last visit had reported flare of bronchiectasis while on vacation in [place]; noted humidity, pooltreatment chemicals as potential exacerbating factors. notes baseline dyspnea on exertion after ambulating [...] sweats, hemoptysis. Notes extensive allergies, followed with molder machine, on SCIT Notes diagnosis of BRUNO circa 2014; did not wear CPAP. Former smoker; quit ; approximate 40 pack year history. Denies alcohol/illicits. 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 Denies exposure to TB, asbestos, mold, birds. [...] 427 meters without desat <88% per report Review of Systems See HPI for pertinent [...] Nebulization Solution; I x in office; Therapy: [id number] to (Last Rx:21Nov2016) Ordered 2. ALPRAZolam 0.5 [...] Oral Tablet; Therapy: (Recorded:21Nov2016) to Recorded 9. Esomeprazole Magnesium 40 MG Oral Capsule Delayed Release; Therapy: 11Aug2016 to Recorded 10. Fluticasone Propionate 50 MCG/ACT Nasal Suspension; Therapy: (Recorded:21Nov2016) to Recorded 11. Gabapentin 300 MG Oral Capsule; Therapy: 05Oct2016 to Recorded 12. Ipratropium-Albuterol 0.5-2.5 (3) MG/3ML Inhalation Solution; USE 1 UNIT DOSE IN NEBULIZER EVERY 4 HOURS NEEDED; Therapy: 21Nov2016 to (Evaluate:80Oyx6777) Requested for: 21Nov2016; Last Rx:21Nov2016 Ordered 13. [...] Oral Tablet; Therapy: 19Jul2016 to Recorded 19. Symbicort 160-4.5 MCG/ACT Inhalation Aerosol; INHALE 2 PUFFS TWICE DAILY. RINSE MOUTH AFTER USE Requested for: 01Dec2016; Last Rx:[id number] Ordered 20. Ventolin HFA 108 (90 Base) MCG/ACT Inhalation Aerosol Solution; Therapy: 08Aug2016 to Recorded 21. Vitamin C TABS; Therapy: (Recorded:21Nov2016) to Recorded 22. Vitamin D3 1000 UNIT Oral Capsule; Therapy: (Recorded:21Nov2016) to Recorded Allergies 1. No Known Drug Allergies 2. Animal dander - Cats 3. Animal dander - Dogs 4. Dust Vitals Recorded: 03Jan2017 09:24AM Heart Rate 96 Systolic 124 Diastolic 72 O2 Saturation 96 Weight 158 lb Physical [...] Electronically signed by : Dustin Akins M.D.; Jan 03 2017 12:25PM LEGAL CLERK (Author) documented in this encounter Plan of Treatment Not on file documented as of this encounter Procedures Procedure Name Priority Date/Time Associated Diagnosis Comments TBGOLD-TUBERCULOSIS TST CELL MEDIATED IMMUNITY Routine 01/03/2017 9:43 AM CDT documented in this encounter Results * TBGOLD-TUBERCULOSIS TST CELL MEDIATED IMMUNITY (01/03/2017 9:43 AM CDT) TB QUANTIFERON NEGATIVE Reference range: Negative Negative test result. M. tuberculosis complex infection unlikely. [facility] TO EPIC CONVERSION NIL (TB) 0.07 [facility] T O EPIC CONVERSION Comment:Result Comment: Unit : IU/mL MITOGEN NIL >10.00 Unit: IU/mL [facility] TO EPIC CONVERSION TB ANTIGEN - NIL VALUE 0.00 [facility] TO EPIC CONVERSION Comment: Result Comment: Unit: IU/mL The Nil tube value is used to determine if the patient has a preexisting immune response which could cause a false-positive reading on the test. In order for a test to be valid, the Nil tube must have a value of <=8.0 IU/mL. The Mitogen control tube is used to assure the patient has a healthy immune status and also serves as a control for correct blood handling and incubation. It is used to detect false-negative readings. The mitogen tube must have a gamma interferon value >= 0.5 IU/mL higher than the value of the Nil tube. The TB Antigen tube is coated with the M tuberculosis specific antigens. For a test to be considered positive the TB antigen tube value minus the Nil tube value must be >=0.35 IU/mL. Data on the performance of the test in children younger than 5 years of age are limited, and the CDC advises that caution is warranted when using the assay in children aged <5 years (MMWR 2010; 59 (RR-05):1-25). For additional information, please refer to: http://education.[employer]/faq/QFT (This link is being provided for informational/ educational purposes only). Test Performed by [facility], [facility], [address] [place] [address] Jayjay Kunz M.D., Ph.D., Director of Laboratories , [place] [id number] 01/03/2017 9:43 AM CDT 01/03/2017 9:43 AM CDT Narrative [facility] TO EPIC CONVERSION - 01/05/2017 11:57 PM CDT Result Communication: No patient communication needed at this time us Dustin Akins MD LABORATORY Final Resul t [facility] TO EPIC CONVERSION documented in this encounter Visit Diagnoses Not on filedocumented in this encounter Care Teams Light Rail Train Operator Relationship Specialty Start Date End Date Scott Hernandez MD [address] [place], [place] [id number] PCP - General 01/03/17 documented as of this encounter
--- OUTSIDE RECORDS SUMMARY | 2024-06-27 23:56 | XMS_ITS | Encounter Summary ---
Author Organization [facility] Address [address] [place] [address]. [place] [address] [place] [address] Care Team Providers Care Loop Cutter Name Role Phone Scott Hernandez MD Primary Care Provider [phone] Scott Hernandez MD Primary Care Provider [phone] Scott Hernandez MD Primary Care Provider [phone] Encounter Details Date Type Department Care Team (Latest Contact Info) Description 11/16/2016 Abstract [facility] Medical Group Social History Tobacco Use [...] on filedocumented in this encounter Care Teams Loop Cutter Relationship Specialty Start Date End Date Scott Hernandez MD [address] [place] [address] PCP - General 01/03/17 Scott Hernandez MD [address] [address] PCP - General 11/22/16 01/02/17 Scott Hernandez MD [address] [address] [place] [address] PCP - General 11/21/16 11/21/16 documented as of this encounter
--- OUTSIDE RECORDS SUMMARY | 2024-06-27 23:56 | XMS_ITS | Encounter Summary ---
Author Organization [facility] Address [address] [place] [address]. [place] [address] [place] [address] Care Team Providers Care Stock Tracer Name Role Phone Scott Hernandez MD Primary Care Provider [phone] Scott Hernandez MD Primary Care Provider [phone] Scott Hernandez MD Primary Care Provider [phone] Encounter Details Date Type Department Care Team (Latest Contact Info) Description 11/18/2016 Abstract [facility] Medical Group Social History Tobacco Use [...] on filedocumented in this encounter Care Teams Stock Tracer Relationship Specialty Start Date End Date Scott Hernandez MD [address] [place] [address] PCP - General 01/03/17 Scott Hernandez MD [address] [address] PCP - General 11/22/16 01/02/17 Scott Hernandez MD [address] [address] PCP - General 11/21/16 11/21/16 documented as of this encounter
--- OUTSIDE RECORDS SUMMARY | 2024-06-27 23:56 | XMS_ITS | Encounter Summary ---
Author Organization [facility] Address [address] [place] [address]. [place] [address] [place] [address] Care Team Providers Care Candy Maker Helper Name Role Phone Scott Hernandez MD Primary Care Provider [phone] Scott Hernandez MD Primary Care Provider [phone] Scott Hernandez MD Primary Care Provider [phone] Encounter Details Date Type Department Care Team (Latest Contact Info) Description 11/07/2016 Abstract [facility] Social History Tobacco Use [...] on filedocumented in this encounter Care Teams Candy Maker Helper Relationship Specialty Start Date End Date Scott Hernandez MD [address] [place] [address] PCP - General 01/03/17 Scott Hernandez MD [address] [address] PCP - General 11/22/16 01/02/17 Scott Hernandez MD [address] [address] PCP - General 11/21/16 11/21/16 documented as of this encounter
--- OUTSIDE RECORDS SUMMARY | 2024-06-27 23:56 | XMS_ITS | Encounter Summary ---
Author Organization [facility] Address [address] [place] [address]. [place], [place] [address] [place] [address] Care Team Providers Care Irrigator Overhead Name Role Phone Scott Hernandez MD Primary Care Provider [phone] Encounter Details Date Type Department Care Team (Latest Contact Info) Description 01/30/2017 Abstract [facility] Social History Tobacco Use [...] on filedocumented in this encounter Care Teams Irrigator Overhead Relationship Specialty Start Date End Date Scott Hernandez MD [address] [address] PCP - General 01/03/17 documented as of this encounter
--- OUTSIDE RECORDS SUMMARY | 2024-06-27 23:56 | XMS_ITS | Encounter Summary ---
Author Organization [facility] Address [address] [place] [address]. [place] [address] [place] [address] Care Team Providers Care Changer Fixer Name Role Phone Scott Hernandez MD Primary Care Provider [phone] Scott Hernandez MD Primary Care Provider [phone] Scott Hernandez MD Primary Care Provider [phone] Encounter Details Date Type Department Care Team (Latest Contact Info) Description 11/03/2016 Abstract [facility] Social History Tobacco Use [...] on filedocumented in this encounter Care Teams Changer Fixer Relationship Specialty Start Date End Date Scott Hernandez MD [address] [place] [address] PCP - General 01/03/17 Scott Hernandez MD [address] [address] PCP - General 11/22/16 01/02/17 Scott Hernandez MD [address] [address] [address] PCP - General 11/21/16 11/21/16 documented as of this encounter
--- OUTSIDE RECORDS SUMMARY | 2024-06-27 23:56 | XMS_ITS | Encounter Summary ---
Author Organization [facility] Address [address] [place] [address]. [place] [address] [place] [address] Care Team Providers Care Mixer Wet Pour Name Role Phone Scott Hernandez MD Primary Care Provider Scott Hernandez MD Primary Care Provider [phone] Scott Hernandez MD Primary Care Provider [phone] Encounter Details Date Type Department Care Team (Latest Contact Info) Description 03/21/2014 Abstract [facility] Medical [facility] [...] on filedocumented in this encounter Care Teams Mixer Wet Pour Relationship Specialty Start Date End Date Scott Hernandez MD [address] [place] [address] PCP - General 01/03/17 Scott Hernandez MD [address] [address] PCP - General 11/22/16 01/02/17 Scott Hernandez MD [address] [address] [address] PCP - General 11/21/16 11/21/16 documented as of this encounter
--- OUTSIDE RECORDS SUMMARY | 2024-06-27 23:56 | XMS_ITS | Encounter Summary ---
Author Organization [facility] Address [address] [place] [address]. [place] [address] [place] [address] Care Team Providers Care Electrical Assembly Technician Name Role Phone Scott Hernandez MD Primary Care Provider [phone] Scott Hernandez MD Primary Care Provider [phone] Scott Hernandez MD Primary Care Provider [phone] Encounter Details Date Type Department Care Team (Late st Contact Info) Description 05/21/2015 Abstract [facility] [address] [place] [address] Jayjay Ruano MD [address] [place] [address] Social History Tobacco Use Types Packs/Day Years Used Date Smoking Tobacco: Never Assessed AUDIT-C Answer Date Recorded Frequency of Alcohol [...] as of this encounter Visit Diagnoses Diagnosis Other diseases of vocal cords documented in this encounter Care Teams Electrical Assembly Technician Relationship Specialty Start Date End Date Scott Hernandez MD [address] [place] [address] PCP - General 01/03/17 Scott Hernandez MD [address] [place] [address] PCP - General 11/22/16 01/02/17 Scott Hernandez MD [address] [place] [place] [address] PCP - General 11/21/16 11/21/16 documented as of this encounter
--- OUTSIDE RECORDS SUMMARY | 2024-06-27 23:56 | XMS_ITS | Encounter Summary ---
Author Organization [facility] Address [address] [place] [address]. [place] [address] [place] [address] Care Team Providers Care Family Resource Management Specialist Name Role Phone Scott Hernandez MD Primary Care Provider [phone] Encounter Details Date Type Department Care Team (Late st Contact Info) Description 01/03/2017 Abstract [facility] [place] [address] Dustin Akins MD [address] [address] Social History Tobacco Use Types Packs/Day Years [...] (01/03/2017 9:43 AM CDT) TB QUANTIFERON NEGATIVE Negative 01/05/2017 11:57 PM CDT Novadiol CLARE LOPEZ Comment: Negative test result. M. tuberculosis complex infection unlikely. NIL (TB) 0.07 IU/mL 01/05/2017 11:57 PM CDT UserEvents NAE VICTORRAQUEL JESSICA MITOGEN NIL >10.00 IU/mL 01/05/2017 11:57 PM CDT [facility] DIAGNOSTICS KAYLEIGHRAQUEL CARDOSOAmber TB ANTIGEN - NIL VALUE 0.00 IU/mL 01/05/2017 11:57 PM CDT Novadiol KAYLEIGHRAQUEL JESSICA Comment: The Nil tube value is used to [...] (RR-05):1-25). For additional information, please refer to: http://education.Umeng.ZenHub/faq/QFT (This link is being provided for informational/ educational purposes only). Test Performed by Ted Henson, [employer] Freeman [place], [address] [place] [address] Jayjay Kunz M.D., Ph.D., Director of Laboratories , [place] [id number] MISCELLANEOUS SAMPLES / Unknown 01/03/2017 9:43 AM CDT 01/03/2017 7:15 PM CDT us Generic Conversion [facility] Final R esult Novadiol [facility] [address] [place] [address], [place] [phone] documented in this encounter Visit Diagnoses Diagnosis Bronchiectasis without complication ([facility]/H[facility]/HCC) Bronchiectasis without acute exacerbation documented in this encounter Care Teams Family Resource Management Specialist Relationship Specialty Start Date End Date Scott Hernandez MD [address] [place], [place] [id number] PCP - General 01/03/17 documented as of this encounter
--- OUTSIDE RECORDS SUMMARY | 2024-06-28 00:06 | XMS_ITS | Clinical Summary ---
Author Organization [facility] Address [address], [facility] [address] [place] [address] Phone Care Team Providers Care Java Groovy Developer Name Role Phone Scott Hernandez MD Primary Care Provider [phone] Allergies No known active allergies Medications DEXILANT 30 MG CAPSULE DELAYED RELEASE 0 7 Active predniSONE (DELTASONE) 10 MG Tablet TK 3 TS PO QD 0 7 Active EPINEPHrine (EPIPEN) 0.3 MG/0.3ML Solution Auto-injector 0.3 mg by Intramuscular route once as needed. Active fluticasone (FLONASE) 50 MCG/ACT Suspension 1-2 Sprays by Nasal route daily. Use in each nostril as directed. Active albuterol (PROVENTIL, VENTOLIN) (2.5 MG/3ML) 0.083% Nebulizer Soln 2.5 mg by Nebulization route every 6 hours as needed for Wheezing. Active cetirizine (ZYRTEC) 10 MG Tablet Take 10 mg by mouth daily. Active roflumilast (DALIRESP) 500 MCG Tablet Take 500 mcg by mouth daily. Active Azelastine HCl (ASTEPRO) 0.15 % Solution 2 Puffs by Nasal route every 12 hours. Active budesonide-for moterol fumarate (SYMBICORT) 160-4.5 MCG/ACT Aerosol take 2 Puffs by inhalation 2 times daily. Active ALPRAZolam (XANAX) 0.5 MG Tablet Take 0.5 mg by mouth 3 times daily as needed. Active Milnacipran HCl (SAVELLA) 50 MG Tablet Take 1 Tab by mouth 2 times daily. Active ipratropium-al buterol (DUONEB) 0.5-2.5 (3) MG/3ML Solution 3 mL by Nebulization route 4 times daily. Active atorvastatin (LIPITOR) 40 MG Tablet Take 40 mg by mouth daily. Active celecoxib (CELEBREX) 200 MG Capsule Take 200 mg by mouth 2 times daily. Active Ascorbic Acid (VITAMIN C) 1000 MG Tablet Take 1 Tab by mouth daily. Active montelukast (SINGULAIR) 10 MG Tablet Take 10 mg by mouth every evening. Active Cholecalcifero l (VITAMIN D3) 5000 units Capsule Take 1 Cap by mouth every 30 days. Active Multiple Vitamins-Annealing Torch Operator als (MULTIVITAMIN PO) Take by mouth. Activ e albuterol (VENTOLIN HFA) 108 (90 Base) MCG/ACT Aerosol Solution take 2 Puffs by inhalation every 4 hours as needed for Wheezing. Active cloNIDine (CATAPRES) 0.1 MG Tablet Take 0.1 mg by mouth 2 times daily. Active Amlodipine-Olm esartan (CLAIRE) 10-40 MG Tablet Take 1 Tab by mouth daily. Active tiotropium (SPIRIVA HANDIHALER) 18 MCG Capsule take 1 Puff by inhalation daily. Active Family History Medical History Relation Name Comments Breast Cancer Other 1 Lung Cancer Other 2 Relation Name Status Comments Other 1 Other 2 Social History Tobacco Use Types Packs/Day Years Used Date Smoking Tobacco: Every Day Cigarettes 2 25 Smokeless Tobacco: Never Alcohol Use Standard Drinks/Week Comments Yes 0 (1 standard drink = 0.6 oz pur e alcohol) Social Comments Unknown Sex and Gender Information Value Date Recorded Sex Assigned at Not on file Legal Sex Female 8:40 PM CDT Gender Identity Not on file Sexual Orientation Not on file Plan of Treatment Health Maintenance Due Date Last Done Comments DEXA Bone Density 1945 Hepatitis C Virus (HCV) Screening 1945 TdaP Immunization 1945 Zoster Immunization (1 of 2) 1997 Pneumococcal Immunization (6 5+ years) (1 of 1 - PCV) 2012 SARS-COV-2 Immunization ( - 2022-24 season) 2023 Influenza Immunization (Seas on Ended) 2024 Hepatitis B Immunization Aged Out No longer eligible based on patient's age to complete this topic Meningococcal Immunization (ACWY) Aged Out No longer eligible based on patient's age to complete this topic Rotavirus Immunization Aged Out No lo nger eligible based on patient's age to complete this topic Insurance MEDICARE Care Teams Java Groovy Developer Relationship Specialty Start Date End Date Scott Hernandez MD [address] [place] [address] PCP - General Family Medicine 02/15/17
--- OUTSIDE RECORDS SUMMARY | 2024-06-28 00:08 | XMS_ITS | Encounter Summary ---
Author Organization [facility] Address [address] [place] [address] Care Team Providers Care Integrated Logistics Support Manager Name Role Phone Eda Aleman MD Primary Care Provider [phone] Reason for Referral * Outpatient Services (Routine) - Closed Specialty Diagnoses / Procedures Referred By Wendy pfeiffer Referred To Contact Diagnoses Diffuse cystic mastopathy Procedures MAMMO DIGITAL SCREEN Martina Carter MD [address] [place] [place] [address] Referral ID Status Reason Start Date Expiration Date Visits Re quested Visits Authorized [id number] Closed 11/11/2009 05/10/2010 1 1 Reason for Visit * Reason Comments Breast Exam, Routine, No Symptoms Encounter Details Date Type Department Care Team (Late st Contact Info) Description 11/10/2009 11:30 AM CDT Office Visit [facility] [place] [facility] [address] [facility] [address] [place] [address] Martina Gates MD [address] [place] [address] [address] Diffuse Cystic Mastopathy (Primary Dx) Social History Tobacco Use Types Packs/Day Years Used Date Smoking Tobacco: Never Alcohol Use Standard Drinks/Week Comments Yes 0 (1 standard drink = 0.6 oz pur e alcohol) Sex and Gender Information Value Date Recorded Sex Assigned at Not on file Gender Identity Not on file Sexual Orientation Not on file documented as of this encounter Last Filed Vital Signs Vital Sign Reading Time Taken Comments Blood Pressure 120/70 11/10/2009 12:27 PM CDT Pulse - - Temperature - - Respiratory Rate - - Oxygen Saturation - - Inhaled Oxygen Concentration - - Weight 69.9 kg (154 lb) 11/10/2009 12:27 PM CDT Height 154.9 cm (5' 1 ) 11/10/2009 12:27 PM CDT Body Mass Index 29.1 11/10/2009 12:27 PM CDT documented in this encounter Progress Notes * Martina Gates MD - 11/10/2009 1:01 PM CDT PATIENT: Nolvia Coffey : 1945 DATE: 11/10/2009 Nolvia Coffey is a 64 y.o. female. she comes in for annual breast check. she has no new healthissues or breast complaints. She had a benign left breast biopsy in 2005 that showed fat necrosis. She has a history of breast reduction by Dr Jaime Lu. Two maternal aunts had breast cancer between ages 50 and 60 and a maternal cousin also had breast cancer. BP 120/70 Ht 5' 1 (1.549 m) Wt 154 lb (69.854 kg) Well-developed, well-nourished, pleasant woman. Neck - no thyromegaly no cervical adenopathy SCF- no adenopathy Chest - clear to auscultation Cardiovascular - regular rate and rhythm Axilla -no adenopathy Breasts - normal in appearance, no masses, skin changes or nipple discharge Abdomen - liver and spleen not palpably enlarged Extremities - Good range of motion of shoulders, no lymphedema present IMAGING: Mammogram:November 10, 2009. At [facility]. No mammographic evidence of malignancy IMPRESSION: Normal clinical exam and imaging. PLAN: I will see her back next year at mammogram time. Martina Gates MD. FACS. Cc: .ref documented in this encounter Plan of Treatment Not on file documented as of this encounter Results * MAMMO DIGITAL SCREEN BILAT (11/10/2009) Anatomical Region Laterality Modality Breast Bilateral Other Martina Gates MD MAMMO ORDERABLES documented in this encounter Visit Diagnoses Diagnosis Diffuse cystic mastopathy- Primary documented in this encounter Care Teams Integrated Logistics Support Manager Relationship Specialty Start Date End Date dEa Aleman MD Formerly named [facility] [place] [address] PCP - General 11/04/08 documented as of this encounter
--- OUTSIDE RECORDS SUMMARY | 2024-06-28 00:08 | XMS_ITS | Clinical Summary ---
Author Organization [facility] Address [address] [place] [address] Phone Care Team Providers Care Event Sales Representative Name Role Phone Eda Aleman MD Primary Care Provider [phone] Allergies Active Allergy Reactions Criticality Noted Date Comments Codeine Nausea and Vomiting Low 11/06/2009 Medications Medication Sig Dispensed Refills Start Date End Date Status AMLODIPINE BES/OLMESARTAN MED (CLAIRE ORAL) Take by mouth. Active MILNACIPRAN HCL (SAVELLA ORAL) Take by mouth. Active CELECOXIB (CELEBREX ORAL) Take by mouth. Active CITALOPRAM HYDROBROMIDE (CELEXA ORAL) Take by mouth. Active ATORVASTATIN CALCIUM (LIPITOR ORAL) Take by mouth. Active CLONIDINE HCL (CLONIDINE ORAL)Indications:Diffuse cystic mastopathy Take by mouth. Act sherif TIOTROPIUM BROMIDE (SPIRIVA WITH HANDIHALER INHALATION)Indications:D iffuse cystic mastopathy Take by inhalation. Active FLUTICASONE/SALMETEROL (ADVAIR HFA INHALATION)Indications:D iffuse cystic mastopathy Take by inhalation. Active Active Problems Problem Noted Date Diagnosed Date 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 Asthma HTN (hypertension) Fibromyalgia Family History Medical History Relation Name Comments Breast Cancer Maternal Aunt approx 58 Breast Cancer Maternal Grandmother Lung Cancer Maternal Grandmother Heart Disease Mother Breast Cancer Other PGM Cancer Paternal Grandmother metasta tic Relation Name Status Comments Maternal Aunt Maternal Grandmother Mother Other PGM Paternal Grandmother Social History Tobacco Use Types [...] Sign Reading Time Taken Comments Blood Pressure 129/82 03/06/2012 3:36 PM CDT Pulse 83 03/06/2012 3:36 PM CDT Temperature - - Respiratory Rate - - Oxygen Saturation - - Inhaled Oxygen Concentration - - Weight 69.9 kg (154 lb) 11/10/2009 12:27 PM CDT Height 154.9 cm (5' 1 ) 03/06/2012 3:36 PM CDT Body Mass Index 29.1 11/10/2009 12:27 PM CDT Plan of Treatment Health Maintenance Due Date Last Done Comments PNEUMOCOCCAL VACCINE 65+ YEARS (1 of 2 - PCV) 06/28/19 53 DTAP/TDAP/TD VACCINES (1 - Tdap) 1966 ZOSTER VACCINE (1 of 2) 1997 OSTEOPOROSIS SCREENING 2012 RSV VACCINE (60+ or ) (1 - 1-dose 75+ series) 2022 INFLUENZA VACCINE (#1) 2024 Care Teams Event Sales Representative Relationship Specialty Start Date End Date Eda Aleman MD [address] [place] [address] PCP - General 11/04/08
--- OUTSIDE RECORDS SUMMARY | 2024-06-28 00:08 | XMS_ITS | Encounter Summary ---
Author Organization [facility] Address [address] [place] [address] Care Team Providers Care Coroner Technician Name Role Phone Eda Aleman MD Primary Care Provider Reason for Referral * Outpatient Services (Routine) - Closed Specialty Diagnoses / Procedures Referred By Wendy pfeiffer Referred To Contact Diagnoses Diffuse cystic mastopathy Procedures MAMMO DIGITAL ROSALIAG Martina Carter MD [address] [facility] [place] [address] Referral ID Status Reason Start Date Expiration Date Visits Re quested Visits Authorized [id number] Closed 02/20/2012 02/19/2013 1 1 Reason for Visit * Outpatient Services (Routine) - Closed Specialty Diagnoses / Procedures Referred By Wendy pfeiffer Referred To Contact Diagnoses Diffuse cystic mastopathy Procedures MAMMO DIGITAL Martina Perez MD [address] [facility] [place] [address] Referral ID Status Reason Start Date Expiration Date Visits Re quested Visits Authorized [id number] Closed 02/20/2012 02/19/2013 1 1 Encounter Details Date Type Department Care Team (Latest Contact Info) Description 03/06/2012 2:22 PM CDT - 03/06/2012 11:59 PM CDT Hospital Encounter [facility] [place] [address] [place] [address] Martina Gates MD [address] [place] [address] Discharge Disposition: Home or Self Care Social History Tobacco Use Types Packs/Day Years Used Date Smoking Tobacco: Never Alcohol Use Standard Drinks/Week Comments Yes 0 (1 standard drink = 0.6 oz pur e alcohol) Sex and Gender Information Value Date Recorded Sex Assigned at Not on file Gender Identity Not on file Sexual Orientation Not on file documented as of this encounter Medications at Time of Discharge Medication Sig Dispensed Refills Start Date End Date CLONIDINE HCL (CLONIDINE ORAL)Indications:Diffuse cystic mastopathy Take by mouth. TIOTROPIUM BROMIDE (SPIRIVA WITH HANDIHALER INHALATION)Indications:Diffu se cystic mastopathy Take by inhalation. FLUTICASONE/SALMETEROL (ADVAIR HFA INHALATION)Indications:Diffu se cystic mastopathy Take by inhalation. AMLODIPINE BES/OLMESARTAN MED (CLAIRE ORAL) Take by mouth. MILNACIPRAN HCL (SAVELLA ORAL) Take by mouth. CELECOXIB (CELEBREX ORAL) Take by mouth. CITALOPRAM HYDROBROMIDE (CELEXA ORAL) Take by mouth. ATORVASTATIN CALCIUM (LIPITOR ORAL) Take by mouth. documented as of this encounter Miscellaneous Notes * Assessment & Plan Note - Stl Scanning, [facility] - 03/13/2012 2:40 PM CDT documented in this encounter Plan of Treatment Not on file documented as of this encounter Procedures Procedure Name Priority Date/Time Associated Diagnosis Comments MAMMO DIAGNOSTIC BILATERAL W OR WO CAD Routine 03/06/2012 2:43 PM CDT Diffuse cystic mastopathy documented in this encounter Results * MAMMO DIGITAL DIAG BILAT (03/06/2012 2:43 PM CDT) Anatomical Region Laterality Modality Breast Bilateral Mammography 03/06/2012 2:41 PM CDT Impressions 03/07/2012 8:56 AM CDT IMPRESSION: No radiographic evidence of malignancy. Routine yearly followup mammography is recommended. BI-RADS category 1 negative. Narrative 03/07/2012 8:56 AM CDT BILATERAL DIGITAL DIAGNOSTIC MAMMOGRAMS WITH COMPUTER-ASSISTED DIAGNOSIS 03/06/12 Clinical history: Screening and family history of breast carcinoma. The patient is status post bilateral breast reduction. Craniocaudal, mediolateral oblique, mediolateral, and exaggerated craniocaudal views of the breasts were obtained bilaterally. The breast parenchymal pattern demonstrates scattered fibroglandular densities. No suspicious dominant mass lesions, clustered microcalcifications, or architectural distortion is seen. CAD was utilized. Procedure Note Bree Miller MD - 03/07/2012 BILATERAL DIGITAL DIAGNOSTIC MAMMOGRAMS WITH COMPUTER-ASSISTED DIAGNOSIS 03/06/12 Clinical history: Screening and family history of breast carcinoma. The patient is status post bilateral breast reduction. Craniocaudal, mediolateral oblique, mediolateral, and exaggerated craniocaudal views of the breasts were obtained bilaterally. The breast parenchymal pattern demonstrates scattered fibroglandular densities. No suspicious dominant mass lesions, clustered microcalcifications, or architectural distortion is seen. CAD was utilized. IMPRESSION IMPRESSION: No radiographic evidence of malignancy. Routine yearly followup mammography is recommended. BI-RADS category 1 negative. Martina Gates MD MAMMO ORDERABLES documented in this encounter Visit Diagnoses Diagnosis Diffuse cystic mastopathy documented in this encounter Care Teams Coroner Technician Relationship Specialty Start Date End Date Eda Aleman MD [facility] [place] [address] PCP - General 11/04/08 documented as of this encounter
--- OUTSIDE RECORDS SUMMARY | 2024-06-28 00:08 | XMS_ITS | Encounter Summary ---
Author Organization [facility] Address [address] [place] [address] Care Team Providers Care Dairy Technologist Name Role Phone Eda Aleman MD Primary Care Provider [phone] Reason for Visit * Reason Comments Breast Exam, Routine, No Symptoms annual ck Encounter Details Date Type Department Care Team (Late st Contact Info) Description 03/06/2012 3:30 PM CDT Office Visit [facility] Cancer & Breast Inst Surg Onc [facility] [address] [place] [address] Martina Gates MD [address] [place] [address] Diffuse cystic mastopathy (Primary Dx) Social History Tobacco Use Types [...] - Inhaled Oxygen Concentration - - Weight - - Height 154.9 cm (5' 1 ) 03/06/2012 3:36 PM CDT Body Mass Index - - documented in this encounter Progress Notes * Martina Gates MD - 03/06/2012 3:40 PM CDT PATIENT: Nolvia Coffey : 1945 DATE: 03/06/2012 Nolvia Coffey is a 66 y.o. female. She comes in for annual breast check. She has no new healthissues or breast complaints. She had a benign left breast biopsy in 2005 that showed fat necrosis. She has a history of breast reduction by Dr Jaime Lu. Two maternal aunts had breast cancer between ages 50 and 60 and a maternal cousin also had breast cancer. BP 129/82 Pulse 83 Ht 5' 1 (1.549 m) Well-developed, well-nourished, pleasant woman. Neck - no [...] lymphedema present IMAGING: Mammogram:November 10, 2009. At [facility]. No mammographic evidence of malignancy Mammogram: 03/06/2012 at [facility]; nem IMPRESSION: Normal clinical exam and imaging. PLAN: I will see her back next year at mammogram time. Martina Gates MD. FACS. cc: No referring provider defined for this encounter. documented in this encounter Plan of Treatment Not on file documented as of this encounter Visit Diagnoses Diagnosis Diffuse cystic mastopathy- Primary documented in this encounter Care Teams Dairy Technologist Relationship Specialty Start Date End Date Eda Aleman MD [address] [place] [address] PCP - General 11/04/08 documented as of this encounter
--- OUTSIDE RECORDS SUMMARY | 2024-06-28 00:08 | XMS_ITS | Encounter Summary ---
Author Organization [facility] Address [address] [place] [address] Care Team Providers Care Seismograph Computer Name Role Phone Eda Aleman MD Primary Care Provider [phone] Reason for Referral * Outpatient Services (Routine) - Closed Specialty Diagnoses / Procedures Referred By Wendy pfeiffer Referred To Contact Diagnoses Diffuse cystic mastopathy Procedures MAMMO DIGITAL DIAG BILAT Martina Gates MD [address] [place] [address] Referral ID Status Reason Start Date Expiration Date Visits Re quested Visits Authorized [id number] Closed 02/20/2012 02/19/2013 1 1 Encounter Details Date Type Department Care Team (Late st Contact Info) Description 02/20/2012 Orders Only [facility] BREAST SURGERY - [place] [facility] [address] [place] [address] Martina Gates MD [address] [place] [address] Diffuse cystic mastopathy (Primary Dx) Social [...] of this encounter Results * MAMMO DIGITAL DIAG [...] Visit Diagnoses Diagnosis Diffuse cystic mastopathy- Primary Diffuse cystic mastopathy documented in this encounter Care Teams Seismograph Computer Relationship Specialty Start Date End Date Eda Aleman MD [address] [place] [address] PCP - General 11/04/08 documented as of this encounter
--- OUTSIDE RECORDS SUMMARY | 2024-06-28 00:08 | XMS_ITS | Encounter Summary ---
Author Organization [facility] Address [address] [place] [address] Care Team Providers Care Division Chief Name Role Phone Eda Aleman MD Primary Care Provider [phone] Encounter Details Date Type Department Care Team (Late st Contact Info) Description 11/06/2009 Abstract [facility] BREAST SURGERY - [place] [facility] [address] [place] [address] Martina Gates MD [address] [place] [address] Social History Tobacco Use Types Packs/Day Years [...] on filedocumented in this encounter Care Teams Division Chief Relationship Specialty Start Date End Date Eda Aleman MD [address] [place] [address] PCP - General 11/04/08 documented as of this encounter
--- OUTSIDE RECORDS SUMMARY | 2024-06-28 00:08 | XMS_ITS | Encounter Summary ---
Author Organization [facility] Address [address] [place] [address] Care Team Providers Care Local City Driver Name Role Phone Eda Aleman MD Primary Care Provider [phone] Encounter Details Date Type Department Care Team (Latest Contact Info) Description 11/17/2000 Outpatient Historical [facility]NON-PATIENT Sai Maki MD [address] [place] [address] Benign neoplasm of skin of other and unspecified parts of face (Primary Dx) Social History Tobacco Use Types Packs/Day Years Used Date Smoking Tobacco: Never Assessed Sex and Gender Information Value Date Recorded Sex Assigned at Not on file Gender Identity Not on file Sexual Orientation Not on file documented as of this encounter Plan of Treatment Not on file documented as of this encounter Visit Diagnoses Diagnosis Benign neoplasm of skin of other and unspecified parts of face- Primary documented in this encounter Care Teams Local City Driver Relationship Specialty Start Date End Date Eda Aleman MD [address] [place] [address] PCP - General 11/04/08 documented as of this encounter
--- OUTSIDE RECORDS SUMMARY | 2024-06-28 00:08 | XMS_ITS | Encounter Summary ---
Author Organization [facility] Address [address] [place] [address] Care Team Providers Care Brazer Resistance Name Role Phone Eda Aleman MD Primary Care Provider [phone] Encounter Details Date Type Department Care Team (Late st Contact Info) Description 11/16/2009 Orders Only [facility] BREAST SURGERY - [place] [facility] [address] [facility] [address] [place] [address] Martina Gates MD [address] [address] Diffuse Cystic Mastopathy Social History Tobacco Use Types Packs/Day Years [...] Name Priority Date/Time Associated Diagnosis Comments MAMMO SCREEN BILAT W OR WO CAD Routine 11/10/2009 Diffuse Cystic Mastopathy documented in this encounter Results * MAMMO DIGITAL SCREEN BILAT (11/10/2009) Anatomical Region Laterality Modality Breast Bilateral Other Martina Gates MD MAMMO ORDERABLES documented in this encounter Visit Diagnoses Diagnosis Diffuse cystic mastopathy documented in this encounter Care Teams Brazer Resistance Relationship Specialty Start Date End Date Eda Aleman MD [address] [place] [address] PCP - General 4/28/09 documented as of this encounter
--- OUTSIDE RECORDS SUMMARY | 2024-06-28 00:08 | XMS_ITS | Encounter Summary ---
Author Organization [facility] Address [address] [place] [address] Care Team Providers Care Sheet Metal Lay Out Worker Name Role Phone Eda Aleman MD Primary Care Provider [phone] Encounter Details Date Type Department Care Team (Late st Contact Info) Description 05/05/2014 Orders Only [facility] BREAST SURGERY - [place] [facility] [address] [place] [address] Provider, Abstract NO ADDRESS ON FILE Social History Tobacco Use Types Packs/Day Years [...] SCREEN BILAT W OR WO CAD Routine 11/04/2008 PATHOLOGY REPORT Routine 08/18/2005 PATHOLOGY REPORT Routine 07/28/2004 documented in this encounter Results * MAMMO DIGITAL SCREEN BILAT (11/04/2008) Anatomical Region Laterality Modality Breast Bilateral Other Abstract Provider MAMMO ORDERABLES * PATHOLOGY REPORT (08/18/2005) Abstract Provider PATHOLOGY/CYTOLOGY O RDERABLES Performing Organization Address [facility]/ZIP Co de Phone Number [facility] * PATHOLOGY REPORT (07/28/2004) Abstract Provider PATHOLOGY/CYTOLOGY O RDERABLES Performing Organization Address [facility]/ZIP Co de Phone Number [facility] documented in this encounter Visit Diagnoses Not on filedocumented in this encounter Care Teams Sheet Metal Lay Out Worker Relationship Specialty Start Date End Date Eda Aleman MD [address] [place] [address] PCP - General 11/04/08 documented as of this encounter
--- OUTSIDE RECORDS SUMMARY | 2024-06-28 00:46 | XMS_ITS | Encounter Summary ---
Author Organization [facility] Address [address] [place] [address]. [place] [address] [place] [address] Care Team Providers Care Avaya Engineer Name Role Phone Scott Hernandez MD Primary Care Provider [phone] Encounter Details Date Type Department Care Team [...] Total Score: 2 06/15/20 21 10:10 AM ORACLE FUSION CONSULTANT documented as of this encounter Care Teams Avaya Engineer Relationship Specialty Start Date End Date Scott Hernandez MD [address] [place] [address] PCP - General 01/03/17 documented as of this encounter
--- OUTSIDE RECORDS SUMMARY | 2024-06-28 00:46 | XMS_ITS | Encounter Summary ---
Author Organization [facility] Address [address] [place] [address]. [place] [address] [place] [address] Care Team Providers Care Sheet Metal Duct Installer Apprentice Name Role Phone Scott Hernandez MD Primary Care Provider [phone] Reason for Visit * Reason Onset Date Comments Medication Request 03/03/2023 Encounter Details Date Type Department Care Team (Late st Contact Info) Description 03/03/2023 Telephone [facility] Pulmonology Specialty [facility] - [address] [address] Dustin Akins MD [address] [place] [address] Medication Request Social History Tobacco Use [...] Total Score: 2 06/15/20 21 10:10 AM RELAY MOTORMAN documented as of this encounter Care Teams Sheet Metal Duct Installer Apprentice Relationship Specialty Start Date End Date Scott Hernandez MD [address] [address] PCP - General 01/03/17 documented as of this encounter
--- OUTSIDE RECORDS SUMMARY | 2024-06-28 00:46 | XMS_ITS | Encounter Summary ---
Author Organization [facility] Address [address] [place] [address]. [place] [address] [place] [address] Care Team Providers Care Machine Shorthand Teacher Name Role Phone Scott Hernandez MD Primary Care Provider [phone] Reason for Visit * Reason Onset Date Comments Follow Up Call 12/28/2022 Encounter Details Date Type Department Care Team (Late st Contact Info) Description 12/28/2022 Telephone [facility] Pulmonology Specialty Clinic - [address] [address] Dustin Akins MD [address] [place] [address] Follow Up Call Social History Tobacco [...] but they leave 07-04 to go to [place] for the winter She said they can't [...] Total Score: 2 06/15/20 21 10:10 AM CASING SPLITTER documented as of this encounter Care Teams Machine Shorthand Teacher Relationship Specialty Start Date End Date Scott Hernandez MD [address] [address] PCP - General 01/03/17 documented as of this encounter
--- OUTSIDE RECORDS SUMMARY | 2024-06-28 00:46 | XMS_ITS | Encounter Summary ---
Author Organization [facility] Address [address] [place] [address]. [place] [address] [place] [address] Care Team Providers Care Contracting Officer Name Role Phone Scott Hernandez MD Primary Care Provider [phone] Encounter Details Date Type Department Care Team [...] Total Score: 2 06/15/20 21 10:10 AM BIOFUELS TECHNOLOGY MANAGER documented as of this encounter Care Teams Contracting Officer Relationship Specialty Start Date End Date Scott Hernandez MD [address] [place] [address] PCP - General 01/03/17 documented as of this encounter
--- OUTSIDE RECORDS SUMMARY | 2024-06-28 00:46 | XMS_ITS | Encounter Summary ---
Author Organization [facility] Address [address] [place] [address]. [place] [address] [place] [address] Care Team Providers Care Investment Trader Name Role Phone Scott Hernandez MD Primary Care Provider [phone] Encounter Details Date Type Department Care Team [...] Score: 2 06/15/20 21 10:10 AM SUPERVISOR BACKFILLING documented as of this encounter Care Teams Investment Trader Relationship Specialty Start Date End Date Scott Hernandez MD [address] [place] [address] PCP - General 01/03/17 documented as of this encounter
--- OUTSIDE RECORDS SUMMARY | 2024-06-28 00:46 | XMS_ITS | Encounter Summary ---
Author Organization [facility] Address [address] [place] [address]. [place] [address] [place] [address] Care Team Providers Care Command Center Officer Name Role Phone Scott Hernandez MD Primary Care Provider [phone] Reason for Visit * Reason Comments Procedure (SCAN) Encounter Details Date Type Department Care Team ([facility] Contact Info) Description 05/30/2023 Scan HEALTH INFO [...] Total Score: 2 06/15/20 21 10:10 AM FITNESS COACH documented as of this encounter Care Teams Command Center Officer Relationship Specialty Start Date End Date Scott Hernandez MD [address] [place] [address] PCP - General 01/03/17 documented as of this encounter
--- OUTSIDE RECORDS SUMMARY | 2024-06-28 00:46 | XMS_ITS | Encounter Summary ---
Author Organization [facility] Address [address] [place] [address]. [place] [address] [place] [address] Care Team Providers Care Material Planning Analyst Name Role Phone Scott Hernandez MD Primary Care Provider [phone] Reason for Visit * Reason Comments Sleep Study (SCAN) Encounter Details Date Type Department Care Team ([facility] Contact Info) Description 12/31/2023 Scan HEALTH [...] Total Score: 2 06/15/20 21 10:10 AM CONCESSION SUPERVISOR documented as of this encounter Care Teams Material Planning Analyst Relationship Specialty Start Date End Date Scott Hernandez MD [address] [place], [place] [id number] PCP - General 01/03/17 documented as of this encounter
--- OUTSIDE RECORDS SUMMARY | 2024-06-28 00:46 | XMS_ITS | Encounter Summary ---
Author Organization [facility] Address [address] [place] [address]. [place] [address] [place] [address] Care Team Providers Care Instructional Media Services Technician Name Role Phone Scott Hernandez MD Primary Care Provider [phone] Encounter Details Date Type Department Care Team [...] documented as of this encounter Care Teams Instructional Media Services Technician Relationship Specialty Start Date End Date Scott Hernandez MD [address] [address] PCP - General 01/03/17 documented as of this encounter
--- OUTSIDE RECORDS SUMMARY | 2024-06-28 00:46 | XMS_ITS | Encounter Summary ---
Author Organization [facility] Address [address] [place] [address]. [place] [address] [place] [address] Care Team Providers Care Dice Spotter Name Role Phone Scott Hernandez MD Primary Care Provider [phone] Reason for Visit * Reason Comments Follow Up * Consultation/Treatment (Routine) - Authorized Specialty Diagnoses / Procedures Referred By Wendy pfeiffer Referred To Contact PULMONARY DISEASE / SLEEP & RESPIRATORY CARE Diagnoses Follow-up exam Procedures FOLLOW UP Dustin Akins MD [address] [place] [address] [address] [place] [address] Phone: tel: fax: Dustin Akins MD [address] [place] [address] [address] [place] [address] Phone: tel: fax: Referral ID Status Reason Start Date Expiration Date V isits Requested Visits Authorized [id number] Authorized 06/29/2023 06/29/2024 99 99 Encounter Details Date Type Department Care Team (Late st Contact Info) Description 01/02/2024 9:40 AM CDT Office Visit [facility] Group Multispecialty Care - [address] [place] [address] Dustin Akins MD [address] [address] Follow Up Social History Tobacco Use Types [...] documented in this encounter Progress Notes * Dsutin Akins MD - 01/02/2024 9:40 AM CDT [facility] PULMONARY MEDICINE History Chief Complaint [...] on 3x weekly azithromycin 06/03/2019: [place]; noted possible VCD on 05/25; suspected AEBronchiectasis; given LQ and prednisone 06/11/2019: [facility]; continued symptoms; flu swab negative; CTA without acute finding, no PE 07/12/2019: [place]; [place]; doing well; taking meds, using flutter; planned [...] no exacerbations; needing refills; had been in [place] (near [facility]) over winter/spring At prior baseline 2018: [...] sweats, hemoptysis. Notes extensive allergies, followed with direct support staff member, on SCIT Notes diagnosis of BRUNO; elected not to wear CPAP in past. Former smoker; quit ; approximate 40 pack year history. Denies alcohol/illicits. 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 Denies exposure to TB, asbestos, mold, birds. 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 Continue to follow with direct support staff member -continue IVIG --to call and discuss any [...] encounter Visit Diagnoses Diagnosis Bronchiectasis without complication ([facility])- Primary Bronchiectasis without acute exacerbation Chronic obstructive pulmonary disease, unspecified COPD type ([facility]) CVID (common variable immunodeficiency) ([facility]) Common variable immunodeficiency Cigarette nicotine dependence in remission Tobacco use disorder BRUNO (obstructive sleep apnea) Obstructive sleep apnea (adult) (pediatric) Allergic rhinitis, unspecified seasonality, unspecified trigger documented in this encounter Additional Health Concerns Assessment Noted Time PHQ-9 Depression Total Score: 2 06/15/20 21 10:10 AM RECOVERY UNIT OPERATOR documented as of this encounter Care Teams Dice Spotter Relationship Specialty Start Date End Date Scott Hernandez MD [address] [place] [address] PCP - General 01/03/17 documented as of this encounter
--- OUTSIDE RECORDS SUMMARY | 2024-06-28 00:46 | XMS_ITS | Encounter Summary ---
Author Organization [facility] Address [address] [place] [address]. [place] [address] [place] [address] Care Team Providers Care Certified Public Accountant Name Role Phone Scott Hernandez MD Primary Care Provider [phone] Encounter Details Date Type Department Care Team [...] Total Score: 2 06/15/20 21 10:10 AM TABLEAU DEVELOPER documented as of this encounter Care Teams Certified Public Accountant Relationship Specialty Start Date End Date Scott Hernandez MD [address] [place] [address] PCP - General 01/03/17 documented as of this encounter
--- OUTSIDE RECORDS SUMMARY | 2024-06-28 00:46 | XMS_ITS | Encounter Summary ---
Author Organization [facility] Address [address] [place] [address]. [place] [address] [place] [address] Care Team Providers Care Shoe Stainer Name Role Phone Scott Hernandez MD Primary Care Provider [phone] Encounter Details Date Type Department Care Team (Latest Contact Info) Description 01/02/2024 Travel Social History Tobacco Use Types Packs/Day Years Used Date Smoking Tobacco: Former Cigarettes 2 04 09 159 1987 Smokeless Tobacco: Never Alcohol Use Standard [...] Total Score: 2 06/15/20 21 10:10 AM ACDS BLOCK 1 OPERATOR documented as of this encounter Care Teams Shoe Stainer Relationship Specialty Start Date End Date Scott Hernandez MD [address] [place], [place] [id number] PCP - General 01/03/17 documented as of this encounter
--- OUTSIDE RECORDS SUMMARY | 2024-06-28 00:46 | XMS_ITS | Encounter Summary ---
Author Organization [facility] Address [address] [place] [address]. [place] [address] [place] [address] Care Team Providers Care Washer Assembler Name Role Phone Scott Hernandez MD Primary Care Provider [phone] Reason for Visit * Reason Comments Sleep Study (SCAN) Encounter Details Date Type Department Care Team ([facility] Contact Info) Description 01/01/2023 Scan HEALTH INFO [...] Total Score: 2 06/15/20 21 10:10 AM ROUTE CONTRACTOR documented as of this encounter Care Teams Washer Assembler Relationship Specialty Start Date End Date Scott Hernandez MD [address] [place], [place] [id number] PCP - General 01/03/17 documented as of this encounter
--- OUTSIDE RECORDS SUMMARY | 2024-06-28 00:46 | XMS_ITS | Encounter Summary ---
Author Organization [facility] Address [address] [place] [address]. [place] [address] [place] [address] Care Team Providers Care Oleo Hasher And Renderer Name Role Phone Scott Hernandez MD Primary Care Provider [phone] Encounter Details Date Type Department Care Team (Late st Contact Info) Description 07/07/2022 3:41 PM RELOCATION COORDINATOR - 07/07/2022 11:59 PM [facility] Hospital Encounter [facility] [place], [place] [id number] Juanita Lux MD 3rd [facility] [address] [place] [id number] Discharge Disposition: Home or Self Care (Routine [...] Coronavirus/COVID-19? No / Unsure 07/07/2022 3:39 PM RELOCATION COORDINATOR documented as of this encounter Medications at Time of Discharge ALBUTEROL (2.5 MG/3ML) 0.083% nebulizer solutionIndicatio ns:Chronic obstructive pulmonary disease, unspecified COPD type ([facility]HS/[facility]) USE 1 VIAL IN NEBULIZER EVERY 6 [...] :Chronic obstructive pulmonary disease, unspecified COPD type ([facility]) Take 1 tablet (500 mg total) by mouth 3 (three) times a week. 36 tablet 3 01/31/2022 celecoxib 200 MG capsule 09/06/2016 cetirizine 10 MG tablet Take 1 tablet (10 mg total) by mouth. citalopram 20 MG tablet 10/05/2016 cloNIDine 0.1 MG tablet 07/12/2016 CPAP MACHINEIndication s:BRUNO (obstructive sleep apnea) AutoCPAP [id number] For use when sleeping Lifetime use 1 [...] DME SUPPLYIndications :Productive cough,CVID (common variable immunodeficiency) ([facility]),Bronchie ctasis without complication ([facility]) Take 1 Device by nebulization every 4 (four) hours as needed. 1 Device 11/12/2018 PERFOROMIST 20 MCG/2ML nebulizer solutionIndicatio ns:Chronic obstructive pulmonary disease, unspecified COPD type ([facility]) USE 1 VIAL IN NEBULIZER TWICE DAILY - (Morning And Evening) 2 mL 11 06/01/2022 vitamin D3, cholecalciferol, 5000 UNITS capsule YUPELRI 175 MCG/3ML SolutionIndicatio ns:Chronic obstructive pulmonary disease, unspecified COPD type ([facility]) USE 1 VIAL IN NEBULIZER DAILY 90 mL 11 09/20/2021 BUDESONIDE 0.5 MG/2ML nebulizer solutionIndicatio ns:Chronic obstructive pulmonary disease, unspecified COPD type ([facility]) USE 1 VIAL IN NEBULIZER EVERY MORNING. (RINSE MOUTH AFTER USE) 960 mL 11 09/20/2021 4 doxycycline monohydrate 100 MG capsuleIndication s:Bronchiectasis without complication ([facility]) Take 1 capsule (100 mg total) by mouth 2 (two) times daily for 7 days. 14 capsule 07/07/2022 3 fluticasone propionate 50 MCG/ACT nasal spray TK 2 SPRAYS IN EACH NOSTRIL QD 06/27/2019 4 ipratropium 0.06 % nasal spray U 2 SPRAYS UP TO TID INTRANASALLY FOR 13 DAYS 0 01/11/2019 4 predniSONE (DELTASONE) 20 MG tabletIndications :Bronchiectasis without complication ([facility]) Take 2 tablets (40 mg total) by mouth daily for 5 days. 10 tablet 07/07/2022 3 documented as of this encounter Plan of Treatment Not on file documented as of this encounter Procedures Procedure Name Priority Date/Time Associated Diagnosis Comments XR CHEST PA+LAT Routine 07/07/2022 3:49 PM RELOCATION COORDINATOR Bronchiectasis without complication ([facility]) documented in this encounter Results * XR CHEST PA+LAT (07/07/2022 3:49 PM RELOCATION COORDINATOR) Anatomical Region Laterality Modality Chest Radiographic Tanesha ging 07/07/2022 5:56 PM RELOCATION COORDINATOR Impressions 07/07/2022 5:57 PM RELOCATION COORDINATOR =====IMPRESSION:===== Mild thickening of the bronchi. No focal consolidation or significant congestion. Ordered By: JUANITA LUX Interpreted By: Emile Ramirez MD, 07/07/2022 5:56 PM Narrative 07/07/2022 5:57 PM RELOCATION COORDINATOR Examination: Chest x-ray 2 view Exam date/time: [...] encounter Visit Diagnoses Diagnosis Bronchiectasis without complication ([facility]) Bronchiectasis without acute exacerbation documented in this encounter Additional Health Concerns Assessment Noted Time PHQ-9 Depression Total Score: 2 06/15/20 21 10:10 AM RELOCATION COORDINATOR documented as of this encounter Care Teams Oleo Hasher And Renderer Relationship Specialty Start Date End Date Scott Hernandez MD [address] [address] PCP - General 01/03/17 documented as of this encounter
--- OUTSIDE RECORDS SUMMARY | 2024-06-28 00:46 | XMS_ITS | Encounter Summary ---
Author Organization [facility] Address [address] [place] [address]. [place] [address] [place] [address] Care Team Providers Care Resource Management Planner Name Role Phone Scott Hernandez MD Primary Care Provider [phone] Reason for Visit * Reason Onset Date Comments Orders 01/03/2023 Encounter Details Date Type Department Care Team (Late st Contact Info) Description 01/03/2023 Telephone [facility] Medical Group Multispecialty Care - [facility] [address] [facility] [place] [id number] Dustin Akins MD 3rd [facility] [address] [place] [address] Orders Social History Tobacco Use Types Packs/Day [...] Total Score: 2 06/15/20 21 10:10 AM TIERCE FILLER documented as of this encounter Care Teams Resource Management Planner Relationship Specialty Start Date End Date Scott Hernandez MD [address] [address] PCP - General 01/03/17 documented as of this encounter
--- OUTSIDE RECORDS SUMMARY | 2024-06-28 00:46 | XMS_ITS | Encounter Summary ---
Author Organization [facility] Address [address] [place] [address]. [place] [address] [place] [address] Care Team Providers Care Salt Cutter Name Role Phone Scott Hernandez MD Primary Care Provider [phone] Encounter Details Date Type Department Care Team (Latest Contact Info) Description 07/07/2022 Travel Social History Tobacco Use Types Packs/Day Years Used Date Smoking Tobacco: Former Cigarettes 2 04 09 448 1987 Smokeless Tobacco: Never Alcohol Use Standard [...] Coronavirus/COVID-19? No / Unsure 07/07/2022 3:39 PM GLYCERIN OPERATOR documented as of this encounter Plan of Treatment Not on file documented as of this encounter Visit Diagnoses Not on filedocumented in this encounter Additional Health Concerns Assessment Noted Time PHQ-9 Depression Total Score: 2 12/07/20 21 10:10 AM GLYCERIN OPERATOR documented as of this encounter Care Teams Salt Cutter Relationship Specialty Start Date End Date Scott Hernandez MD [address] [address] PCP - General 01/03/17 documented as of this encounter
--- OUTSIDE RECORDS SUMMARY | 2024-06-28 00:46 | XMS_ITS | Encounter Summary ---
Author Organization [facility] Address [address] [place] [address]. [place] [address] [place] [address] Care Team Providers Care Special Ed Assistant Name Role Phone Scott Hernandez MD Primary Care Provider [phone] Encounter Details Date Type Department Care Team [...] Total Score: 2 06/15/20 21 10:10 AM LOCATION WORKER documented as of this encounter Care Teams Special Ed Assistant Relationship Specialty Start Date End Date Scott Hernandez MD [address] [address] PCP - General 01/03/17 documented as of this encounter
--- OUTSIDE RECORDS SUMMARY | 2024-06-28 00:46 | XMS_ITS | Encounter Summary ---
Author Organization [facility] Address [address] [place] [address]. [place] [address] [place] [address] Care Team Providers Care Plant Culture Manager Name Role Phone Scott Hernandez MD Primary Care Provider [phone] Reason for Visit * Reason Onset Date Comments Medication 01/12/2023 Encounter Details Date Type Department Care Team (Late st Contact Info) Description 01/12/2023 Telephone [facility] - [address] [address] Dustin Akins MD [address] [place] [address] Medication Social History Tobacco Use Types [...] by Dr. Akins pls call and discuss [phone]. documented in this encounter Plan of Treatment Not on file documented as of this encounter Visit Diagnoses Diagnosis CVID (common variable immunodeficiency) ([facility]/H[facility])- Primary Common variable immunodeficiency documented in this encounter Additional Health Concerns Assessment Noted Time PHQ-9 Depression Total Score: 2 06/15/20 21 10:10 AM MEDICAL REVIEWER documented as of this encounter Care Teams Plant Culture Manager Relationship Specialty Start Date End Date Scott Hernandez MD [address] [place] [address] PCP - General 01/03/17 documented as of this encounter
--- OUTSIDE RECORDS SUMMARY | 2024-06-28 00:46 | XMS_ITS | Encounter Summary ---
Author Organization [facility] Address [address] [place] [address]. [place] [address] [place] [address] Care Team Providers Care Senior Application Security Consultant Name Role Phone Scott Hernandez MD Primary Care Provider [phone] Encounter Details Date Type Department Care Team (Latest Contact Info) Description 01/03/2023 Travel Social History Tobacco Use Types Packs/Day Years Used Date Smoking Tobacco: Former Cigarettes 2 04 09 201 1987 Smokeless Tobacco: Never Alcohol Use Standard [...] Total Score: 2 06/15/20 21 10:10 AM LAPEL PADDER documented as of this encounter Care Teams Senior Application Security Consultant Relationship Specialty Start Date End Date Scott Hernandez MD [address] [place], [place] [id number] PCP - General 01/03/17 documented as of this encounter
--- OUTSIDE RECORDS SUMMARY | 2024-06-28 00:46 | XMS_ITS | Encounter Summary ---
Author Organization [facility] Address [address] [place] [address]. [place], [place] [address] [place] [address] Care Team Providers Care Glost Tile Sorter Name Role Phone Scott Hernandez MD Primary Care Provider [phone] Encounter Details Date Type Department Care Team (Late st Contact Info) Description 01/04/2023 MyChart Message Enc [facility] Medical Group - [facility] [address] [place], [place] [id number] PagerDutytignall, [facility] Provider Air Quality Message Social [...] Total Score: 2 06/15/20 21 10:10 AM SALES OPERATIONS documented as of this encounter Care Teams Glost Tile Sorter Relationship Specialty Start Date End Date Scott Hernandez MD [address] [place] [address] PCP - General 01/03/17 documented as of this encounter
--- OUTSIDE RECORDS SUMMARY | 2024-06-28 00:46 | XMS_ITS | Encounter Summary ---
Author Organization [facility] Address [address] [place] [address]. [place] [address] [place] [address] Care Team Providers Care Director Critical Care Name Role Phone Scott Hernandez MD Primary Care Provider [phone] Encounter Details Date Type Department Care Team [...] Total Score: 2 06/15/20 21 10:10 AM TAX MANAGER documented as of this encounter Care Teams Director Critical Care Relationship Specialty Start Date End Date Sctot Hernandez MD [address] [address] PCP - General 01/03/17 documented as of this encounter
--- OUTSIDE RECORDS SUMMARY | 2024-06-28 00:46 | XMS_ITS | Encounter Summary ---
Author Organization [facility] Address [address] [place] [address]. [place] [address] [place] [address] Care Team Providers Care Car Stereo Installer Name Role Phone Soctt Hernandez MD Primary Care Provider [phone] Encounter Details Date Type Department Care Team [...] Total Score: 2 06/15/20 21 10:10 AM DENTISTRY PROFESSOR documented as of this encounter Care Teams Car Stereo Installer Relationship Specialty Start Date End Date Scott Hernandez MD [address] [address] PCP - General 01/03/17 documented as of this encounter
--- OUTSIDE RECORDS SUMMARY | 2024-06-28 00:46 | XMS_ITS | Encounter Summary ---
Author Organization [facility] Address [address] [place] [address]. [place] [address] [place] [address] Care Team Providers Care Health Care Aide Name Role Phone Scott Hernandez MD Primary Care Provider [phone] Encounter Details Date Type Department Care Team [...] Total Score: 2 06/15/20 21 10:10 AM SHIP MATE documented as of this encounter Care Teams Health Care Aide Relationship Specialty Start Date End Date Scott Hernandez MD [address] [address] PCP - General 01/03/17 documented as of this encounter
--- OUTSIDE RECORDS SUMMARY | 2024-06-28 00:46 | XMS_ITS | Encounter Summary ---
Author Organization [facility] Address [address] [place] [address]. [place] [address] [place] [address] Care Team Providers Care Automotive Tire Worker Name Role Phone Scott Hernandez MD Primary Care Provider Reason for Visit * Reason Onset Date Comments Question 07/07/2022 Encounter Details Date Type Department Care Team (Late st Contact Info) Description 07/07/2022 Telephone [facility] Medical [facility] Pulmonology Specialty Clinic - [address] [address] Dustin Lux MD [address] [place] [address] Question Social History Tobacco Use Types [...] Coronavirus/COVID-19? No / Unsure 07/07/2022 3:39 PM ENGINEER CHIEF documented as of this encounter Progress Notes * Jose Benito MA - 07/08/2022 11:07 AM CST Pt informed and voiced understanding NEER CHIEF * Ludivina Last MA - 07/08/2022 10:35 AM CST advise NEER CHIEF * Gilbert Babcock MD - 07/08/2022 10:14 AM CST Her chest x-ray does not show any pneumonia. She should take the doxycyline and Prednisone as prescribed. Gilbert Babcock MD NEER CHIEF * Jose Benito MA - 07/07/2022 2:50 PM CSTAddended by: JOSE BENITO on: 07/07/2022 02:50 PM Modules accepted: Orders NEER CHIEF * Jose Benito MA - 07/07/2022 2:49 PM CST Pt informed - scripts sent NEER CHIEF * Ludivina Last MA - 07/07/2022 2:46 PM CST advise NEER CHIEF * Gilbert Babcock MD - 07/07/2022 1:57 PM CST Please see if she can come in and get a chest x-ray. Send a prescription for prednisone 40 mg dailyfor 5 days and Doxycycline 100 mg BID for 7 days. She should pause the Azithromycin while on the doxycycline and restart it once finished with doxycycline. Gilbert Babcock MD NEER CHIEF * Jose Benito MA - 07/07/2022 1:16 PM CST Please advise cough with yellow sputum production x 5 days increased wheezing and SOB sinus congestion, headache and increased wheezing also negative flu and covid testing please advise ( pt has taken her azithromycin for las NEER CHIEF * Jose Benito MA - 07/07/2022 12:10 PM CST Printed for provider NEER CHIEF * Kartik Govea - 07/07/2022 9:18 AM CST Pt called today, really sick, coughing up yellow sputum, wheezing, coughing for five days now, she did the drive up Covid test, negative she's been taking antibiotics through PCP nothing is working pls call and discuss [phone]. NEER CHIEF documented in this encounter Plan of Treatment Not on file documented as of this encounter Results * XR CHEST PA+LAT (07/07/2022 3:49 PM ENGINEER CHIEF) Anatomical Region Laterality Modality Chest Radiographic Tanesha ging 07/07/2022 5:56 PM ENGINEER CHIEF Impressions 07/07/2022 5:57 PM ENGINEER CHIEF =====IMPRESSION:===== Mild thickening of the bronchi. No focal consolidation or significant congestion. Ordered By: DUSTIN LUX Interpreted By: Emile Ramirez MD, 07/07/2022 5:56 PM Narrative 07/07/2022 5:57 PM ENGINEER CHIEF Examination: Chest x-ray 2 view Exam date/time: [...] Bronchiectasis without acute exacerbation Bronchiectasis without complication ([facility]) Bronchiectasis without acute exacerbation documented in this encounter Additional Health Concerns Assessment Noted Time PHQ-9 Depression Total Score: 2 12/07/20 21 10:10 AM ENGINEER CHIEF documented as of this encounter Care Teams Automotive Tire Worker Relationship Specialty Start Date End Date Scott Hernandez MD [address] [place] [address] PCP - General 01/03/17 documented as of this encounter
--- OUTSIDE RECORDS SUMMARY | 2024-06-28 00:46 | XMS_ITS | Encounter Summary ---
Author Organization [facility] Address [address] [place] [address]. [place] [address] [place] [address] Care Team Providers Care Teacher Of Family And Consumer Science Name Role Phone Scott Hernandez MD Primary Care Provider [phone] Encounter Details Date Type Department Care Team [...] Total Score: 2 06/15/20 21 10:10 AM SHIPPING PROCESSOR documented as of this encounter Care Teams Teacher Of Family And Consumer Science Relationship Specialty Start Date End Date Scott Hernandez MD [address] [address] PCP - General 01/03/17 documented as of this encounter
--- OUTSIDE RECORDS SUMMARY | 2024-06-28 00:46 | XMS_ITS | Encounter Summary ---
Author Organization [facility] Address [address] [place] [address]. [place] [address] [place] [address] Care Team Providers Care Wire Winder Name Role Phone Scott Hernandez MD Primary Care Provider [phone] Reason for Visit * Reason Comments Follow Up Last seen 01/31/22 * Consultation/Treatment (Routine) - Closed Specialty Diagnoses / Procedures Referred By Contact Referred To Contact PULMONARY DISEASE / SLEEP & RESPIRATORY CARE Diagnoses FOLLOW UP Scott Hernandez MD [address] [address] Phone: tel: fax: Dustin Akins MD [address] [place] [address] [address] [place] [address] Phone: tel: fax: Referral ID Status Reason Start Date Expiration Date Visits Re quested Visits Authorized [id number] Closed 01/31/2022 03/03/2023 100 100 Encounter Details Date Type Department Care Team (Late st Contact Info) Description 01/03/2023 10:00 AM CDT Office Visit [facility] Medical Group Multispecialty Care - [address] [place] [address] Dustin Akins MD [address] [place] [address] [address] [place] [address] Follow Up (Last seen 01/31/22 ) Social [...] Akins MD - 01/03/2023 10:00 AM CDT [facility] PULMONARY MEDICINE History Chief Complaint Patient [...] on 3x weekly azithromycin 06/03/2019: OV, LM FIRE ENGINEER; noted possible VCD on 05/25; suspected AEBronchiectasis; given LQ and prednisone 06/11/2019: [facility]; continued symptoms; flu swab negative; CTA without acute finding, no PE 07/12/2019: OV; LM FIRE ENGINEER; doing well; taking meds, using flutter; planned travel to [place] thru 11/2019. 06/18/2020: Tested + for covid; [...] sweats, hemoptysis. Notes extensive allergies, followed with music pastor, on SCIT Notes diagnosis of BRUNO; elected not to wear CPAP in past. Former smoker; quit ; approximate 40 pack year history. Denies alcohol/illicits. 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 Denies exposure to TB, asbestos, mold, [...] 0.1 MG tablet ??? CPAP MACHINE AutoCPAP [id number] For use when sleeping Lifetime use 1 [...] azithromycin qMWF 6. Continue to follow with music pastor -continue IVIG --to call and discuss any [...] rtc in 6 months [facility]kins MD[facility] documented in this encounter Plan of Treatment Not on file documented as of this encounter Visit Diagnoses Diagnosis Bronchiectasis without complication ([facility])- Primary Bronchiectasis without acute exacerbation Chronic obstructive pulmonary disease, unspecified COPD type ([facility]) Cigarette nicotine dependence in remission Tobacco use disorder CVID (common variable immunodeficiency) ([facility]) Common variable immunodeficiency BRUNO (obstructive sleep apnea) Obstructive sleep apnea (adult) (pediatric) documented in this encounter Additional Health Concerns Assessment Noted Time PHQ-9 Depression Total Score: 2 06/15/20 21 10:10 AM GLASS PULVERIZER EQUIPMENT OPERATOR documented as of this encounter Care Teams Wire Winder Relationship Specialty Start Date End Date Scott Hernandez MD [address] [address] PCP - General 01/03/17 documented as of this encounter
--- OUTSIDE RECORDS SUMMARY | 2024-06-28 00:46 | XMS_ITS | Clinical Summary ---
Author Organization [facility] Address [address] [place] [address]. [place] [address] [place] [address] Care Team Providers Care Fitter Hand Name Role Phone Scott Hernandez MD Primary Care Provider [phone] Allergies Active Allergy Reactions Criticality Noted Date [...] SUPPLYIndication s:Productive cough,CVID (common variable immunodeficiency ) ([facility]),Bronchi ectasis without complication ([facility]) Take 1 Device by nebulization every 4 (four) hours as needed. 1 Device 9 Active CPAP MACHINEIndicatio ns:BRUNO (obstructive sleep apnea) AutoCPAP [id number] For use when sleeping Lifetime use 1 Device 9 Active ALBUTEROL (2.5 MG/3ML) 0.083% nebulizer solutionIndicati ons:Chronic obstructive pulmonary disease, unspecified COPD type ([facility]) USE 1 VIAL IN NEBULIZER EVERY 6 HOURS - as needed for rescue( max 30 doses per month) 360 mL 11 1 Active DALIRESP 500 MCG Tab Take by mouth daily. 1 Active YUPELRI 175 MCG/3ML SolutionIndicati ons:Chronic obstructive pulmonary disease, unspecified COPD type ([facility]) USE 1 VIAL IN NEBULIZER DAILY 90 mL 11 2 Active azithromycin (ZITHROMAX) 500 mg tabletIndication s:Chronic obstructive pulmonary disease, unspecified COPD type ([facility]) Take 1 tablet (500 mg total) by mouth 3 (three) times a week. 36 tablet 3 2 Active PERFOROMIST 20 MCG/2ML nebulizer solutionIndicati ons:Chronic obstructive pulmonary disease, unspecified COPD type ([facility]) USE 1 VIAL IN NEBULIZER [...] mg tabletIndication s:CVID (common variable immunodeficiency ) ([facility]) Take 1 tablet (500 mg total) by mouth 3 (three) times a week. Pt to take one every Monday,. And mon tablet 3 4 Active budesonide (PULMICORT) 0.5 MG/2ML nebulizer solutionIndicati ons:Chronic obstructive pulmonary disease, unspecified COPD type ([facility]) USE 1 VIAL IN NEBULIZER TWICE DAILY - - Rinse Mouth After Use 960 mL 4 Active Active Problems Problem Noted Date Diagnosed Date Cigarette nicotine dependence in remission 07/12 Allergic rhinitis, unspecifi ed seasonality, unspecified trigger 02/19/2019 Fibromyalgia 02/18/2019 CVID (common variable immunodeficiency) ([facility]) 02/08/2017 Bronchiectasis ([facility]) 11/21/2016 Chronic obstructive asthma ([facility]) COPD (chronic obstructive pu lmonary disease) ([facility]) 11/21/2016 Environmental and seasonal allergies 11/21/2016 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
--- OUTSIDE RECORDS SUMMARY | 2024-06-28 00:47 | XMS_ITS | Encounter Summary ---
Author Organization [facility] Address [address] [place] [address]. [place] [address] [place] [address] Care Team Providers Care Rougher Machine Operator Name Role Phone Scott Hernandez MD Primary Care Provider [phone] Reason for Visit * Reason Onset Date Comments Medication 01/13/2020 Encounter Details Date Type Department Care Team (Late st Contact Info) Description 01/13/2020 Telephone [facility] Medical [facility] Pulmonology Specialty Clinic - [address] [address] Dustin Akins MD [address] [place] [address] Medication Social History Tobacco Use Types [...] on filedocumented in this encounter Care Teams Rougher Machine Operator Relationship Specialty Start Date End Date Scott Hernandez MD [address] [place] [address] PCP - General 01/03/17 documented as of this encounter
--- OUTSIDE RECORDS SUMMARY | 2024-06-28 00:47 | XMS_ITS | Encounter Summary ---
Author Organization [facility] Address [address] [place] [address]. [place] [address] [place] [address] Care Team Providers Care Telemedicine Physician Name Role Phone Scott Hernandez MD Primary Care Provider [phone] Reason for Visit * Reason Onset Date Comments Orders 01/31/2022 Encounter Details Date Type Department Care Team (Late st Contact Info) Description 01/31/2022 Telephone [facility] Medical Group Multispecialty Care - [facility] [address] [facility] [place] [phone] Dustin Akins MD [address] [place], [place] [address] [place] [address] Orders Social History Tobacco Use Types Packs/Day [...] - 01/31/2022 2:31 PM CDT Eda @ [facility] Informed will have Beck reach out to pt * Jose Ardon MA - 01/31/2022 11:37 AM CDT Continue to follow with manager division -continue IVIG --to call and discuss any pump issues with infusion provider ([facility] Call dr parr manager division documented in this encounter Plan of Treatment Not on file documented as of this encounter Visit Diagnoses Not on filedocumented in this encounter Additional Health Concerns Assessment Noted Time PHQ-9 Depression Total Score: 2 06/15/20 21 10:10 AM LABOR RELATIONS SUPERVISOR documented as of this encounter Care Teams Telemedicine Physician Relationship Specialty Start Date End Date Scott Hernandez MD [address] [place] [address] PCP - General 01/03/17 documented as of this encounter
--- OUTSIDE RECORDS SUMMARY | 2024-06-28 00:47 | XMS_ITS | Encounter Summary ---
Author Organization [facility] Address [address] [place] [address]. [place] [address] [place] [address] Care Team Providers Care Retail Merchandising Specialist Name Role Phone Scott Hernandez MD Primary Care Provider [phone] Reason for Visit * Reason Onset Date Comments COVID-19 03/01/2022 Encounter Details Date Type Department Care Team (Late st Contact Info) Description 03/01/2022 Telephone [facility] Medical Group Multispecialty Care - [facility] [address] [facility] [place] [phone] Dustin Akins MD [address] [place], [place] [phone] COVID-19 Social History Tobacco Use Types Packs/Day [...] Chronic obstructive pulmonary disease, unspecified COPD type ([facility])- Primary documented in this encounter Additional Health Concerns Infection Onset Date Last Indicated Resolved Time COVID-19 Confirmed 02/28/2022 02/28/2022 2 12:33 AM CDT Assessment Noted Time PHQ-9 Depression Total Score: 2 06/15/20 21 10:10 AM CASING INSPECTOR documented as of this encounter Care Teams Retail Merchandising Specialist Relationship Specialty Start Date End Date Scott Hernandez MD [address] [place], [place] [id number] PCP - General 01/03/17 documented as of this encounter
--- OUTSIDE RECORDS SUMMARY | 2024-06-28 00:47 | XMS_ITS | Encounter Summary ---
Author Organization [facility] Address [address] [place] [address]. [place] [address] [place] [address] Care Team Providers Care Software Deployment Engineer Name Role Phone Scott Hernandez MD Primary Care Provider [phone] Reason for Visit * Reason Comments Obstructive Sleep Apnea provider plus Encounter Details Date Type Department Care Team (Late st Contact Info) Description 06/15/2021 10:00 AM MECHANICAL PENCILS ASSEMBLER Office Visit [facility] Medical Group Multispecialty Care - [facility] [address] [facility] [place] [phone] Dustin Akins MD [address] [facility] [address] [place] [address] Obstructive Sleep Apnea (provider plus ) Social [...] COVID-19? No / Unsure 06/15/2021 9:36 AM MECHANICAL PENCILS ASSEMBLER documented as of this encounter Last Filed Vital Signs Vital Sign Reading Time Taken Comments Blood Pressure 132/70 06/15/2021 9:46 AM MECHANICAL PENCILS ASSEMBLER Pulse 72 06/15/2021 9:46 AM MECHANICAL PENCILS ASSEMBLER Temperature 36.7 ??C (98.1 ??F) 06/15/2021 9:46 AM CS T Respiratory Rate 18 06/15/2021 9:46 AM MECHANICAL PENCILS ASSEMBLER Oxygen Saturation 97% 06/15/2021 9:46 AM MECHANICAL PENCILS ASSEMBLER ra Inhaled Oxygen Concentration - - Weight 73.9 kg (163 lb) 06/15/2021 9:46 AM MECHANICAL PENCILS ASSEMBLER Height 152.4 cm (5') 06/15/2021 9:46 AM MECHANICAL PENCILS ASSEMBLER Body Mass Index 31.83 06/15/2021 9:46 AM MECHANICAL PENCILS ASSEMBLER documented in this encounter Progress Notes * Dustin Akins MD - 06/15/2021 10:00 AM CST [facility] PULMONARY MEDICINE History Chief Complaint Patient [...] on 3x weekly azithromycin 06/03/2019: OV, LM MARKETING COMMUNICATIONS ASSISTANT; noted possible VCD on 05/25; suspected AEBronchiectasis; given LQ and prednisone 06/11/2019: [facility]; continued symptoms; flu swab negative; CTA without acute finding, no PE 07/12/2019: OV; LM MARKETING COMMUNICATIONS ASSISTANT; doing well; taking meds, using flutter; planned travel to [place] thru 11/2019. 06/18/2020: Tested + for covid; [...] sweats, hemoptysis. Notes extensive allergies, followed with newsperson, on SCIT Notes diagnosis of BRUNO; elected not to wear CPAP in past. Former smoker; quit 1980s; approximate 40 pack year history. Denies alcohol/illicits. 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 Denies exposure to TB, asbestos, mold, birds. [...] 0.1 MG tablet ??? CPAP MACHINE AutoCPAP [id number] For use when sleeping Lifetime use 1 [...] azithromycin qMWF 6. Continue to follow with newsperson -continue IVIG 7. PFT/6MWT 2021 8. Flutter [...] rtc in 6 months Dustin Akins MD, [facility] ANICAL PENCILS ASSEMBLER documented in this encounter Plan of Treatment Not on file documented as of this encounter Visit Diagnoses Diagnosis Chronic obstructive pulmonary disease, unspecified COPD type ([facility])- Primary Cigarette nicotine dependence in remission Tobacco use disorder Bronchiectasis without complication ([facility]) Bronchiectasis without acute exacerbation BRUNO (obstructive sleep apnea) Obstructive sleep apnea (adult) (pediatric) CVID (common variable immunodeficiency) ([facility]) Common variable immunodeficiency documented in this encounter Additional Health Concerns Assessment Noted Time PHQ-9 Depression Total Score: 2 06/15/20 21 10:10 AM MECHANICAL PENCILS ASSEMBLER documented as of this encounter Care Teams Software Deployment Engineer Relationship Specialty Start Date End Date Scott Hernandez MD [address] [address] PCP - General 01/03/17 documented as of this encounter
--- OUTSIDE RECORDS SUMMARY | 2024-06-28 00:47 | XMS_ITS | Encounter Summary ---
Author Organization [facility] Address [address] [place] [address]. [place] [address] [place] [address] Care Team Providers Care Marketing Systems Analyst Name Role Phone Scott Hernandez MD Primary Care Provider [phone] Reason for Visit * Reason Onset Date Comments Follow Up Call 06/14/2022 Encounter Details Date Type Department Care Team (Late st Contact Info) Description 06/14/2022 Telephone [facility] Medical Group Multispecialty Care - [facility] [address] [facility] [place] [address] Dustin Akins MD [address] [facility] [address] [place], [place] [address] Follow Up Call Social History Tobacco Use [...] MA - 06/14/2022 2:39 PM CST Scheduled S INSTALLER TECHNICIAN * Jose Ardon MA - 06/14/2022 10:17 AM CST Per BR review of vcert paperwork Needs non emergent follow up to discuss repeat testing S INSTALLER TECHNICIAN documented in this encounter Plan of Treatment Not on file documented as of this encounter Visit Diagnoses Not on filedocumented in this encounter Additional Health Concerns Assessment Noted Time PHQ-9 Depression Total Score: 2 06/15/20 21 10:10 AM GLASS INSTALLER TECHNICIAN documented as of this encounter Care Teams Marketing Systems Analyst Relationship Specialty Start Date End Date Scott Hernandez MD [address] [place] [address] PCP - General 01/03/17 documented as of this encounter
--- OUTSIDE RECORDS SUMMARY | 2024-06-28 00:47 | XMS_ITS | Encounter Summary ---
Author Organization [facility] Address [address] [place] [address]. [place] [address] [place] [address] Care Team Providers Care Mailing Machine Assistant Name Role Phone Scott Hernandez MD Primary Care Provider [phone] Encounter Details Date Type Department Care Team (Latest Contact Info) Description 07/16/2020 Travel Social History Tobacco Use Types Packs/Day Years Used Date Smoking Tobacco: Former Cigarettes 2 04 09 628 1987 Smokeless Tobacco: Never Alcohol Use Standard [...] COVID-19? No / Unsure 07/16/2020 12:49 PM TREATING AND PUMPING SUPERVISOR documented as of this encounter Plan of Treatment Not on file documented as of this encounter Visit Diagnoses Not on filedocumented in this encounter Care Teams Mailing Machine Assistant Relationship Specialty Start Date End Date Scott Hernandez MD [address] [address] PCP - General 01/03/17 documented as of this encounter
--- OUTSIDE RECORDS SUMMARY | 2024-06-28 00:47 | XMS_ITS | Encounter Summary ---
Author Organization [facility] Address [address] [place] [address]. [place] [address] [place] [address] Care Team Providers Care Party Plan Sales Unit Advisor Name Role Phone Scott Hernandez MD Primary Care Provider [phone] Reason for Visit * Reason Onset Date Comments Breathing Problem 05/27/2019 [place] like her throat was closing up and thought she was going to pass away Encounter Details Date Type Department Care Team (Late st Contact Info) Description 05/27/2019 Telephone [facility] Medical Group Pulmonology Specialty Clinic - [place] [address] [place] [address] Dustin Akins MD [address] [place] [address] Breathing Problem ([place] like her throat was closing up and [...] for today at 1120 per María Bautista. CTIVE AUTOMOBILE SECTION * Jessica Deluna - 06/03/2019 7:57 AM CST Went to her PCP and got prednisone and antibiotics. Then went to her shaker out the next day and they thought she had vocal cord dysfunction. She is still having wheezing, coughing, fever 99.6, feels miserable. She states something is just not right with her and with thanksgiving coming up she is asking if she could see María or doctor today or tomorrow, please call pt. CTIVE AUTOMOBILE SECTION * Jose Ardon MA - 05/27/2019 11:19 [...] to nearest ER - pt voiced understanding CTIVE AUTOMOBILE SECTION * Sonam Burnett - 05/27/2019 9:12 AM [...] a call back as soon as possible. CTIVE AUTOMOBILE SECTION documented in this encounter Plan of Treatment Not on file documented as of this encounter Visit Diagnoses Not on filedocumented in this encounter Care Teams Party Plan Sales Unit Advisor Relationship Specialty Start Date End Date Scott Hernandez MD [address] [place] [address] PCP - General 01/03/17 documented as of this encounter
--- OUTSIDE RECORDS SUMMARY | 2024-06-28 00:47 | XMS_ITS | Encounter Summary ---
Author Organization [facility] Address [address] [place] [address]. [place] [address] [place] [address] Care Team Providers Care Line Maintainer Section Name Role Phone Scott Hernandez MD Primary Care Provider [phone] Reason for Visit * Reason Onset Date Comments Medication 06/15/2021 Encounter Details Date Type Department Care Team (Late st Contact Info) Description 06/15/2021 Telephone [facility] Medical Group Pulmonology Specialty Clinic - [address] [address] Dustin Akins MD [address] [place] [address] Medication Social History Tobacco Use Types [...] COVID-19? No / Unsure 06/15/2021 9:36 AM LEGAL SUMMER INTERN documented as of this encounter Progress Notes * Jose Benito MA - 06/22/2021 2:19 PM CSTAddended by: JOSE BENITO on: 06/22/2021 02:19 PM Modules accepted: Orders L SUMMER INTERN * Jose Benito MA - 06/21/2021 2:18 PM CST Per EVI ward'd breztri but possible cost necessitates trelegy - please call and ask Ok to fill trelegy if preferred L SUMMER INTERN * Jose Benito MA - 06/18/2021 8:32 AM CST Awaiting provider review L SUMMER INTERN * Jose Benito MA - 06/17/2021 10:59 AM CST Awaiting provider review L SUMMER INTERN * Jose Benito MA - 06/15/2021 2:28 PM CST Printed for provider L SUMMER INTERN * Norma Weiss - 06/15/2021 2:23 PM CST Nolvia called today saying she needs Trilogy and her Azithromycin called in [facility] in [place]. Please call when completed. L SUMMER INTERN documented in this encounter Plan of Treatment Not on file documented as of this encounter Visit Diagnoses Diagnosis Chronic obstructive pulmonary disease, unspecified COPD type ([facility])- Primary documented in this encounter Additional Health Concerns Assessment Noted Time PHQ-9 Depression Total Score: 2 06/15/20 21 10:10 AM LEGAL SUMMER INTERN documented as of this encounter Care Teams Line Maintainer Section Relationship Specialty Start Date End Date Scott Hernandez MD [address] [place] [address] PCP - General 01/03/17 documented as of this encounter
--- OUTSIDE RECORDS SUMMARY | 2024-06-28 00:47 | XMS_ITS | Encounter Summary ---
Author Organization [facility] Address [address] [place] [address]. [place] [address] [place] [address] Care Team Providers Care Chemist Organic Name Role Phone Scott Hernandez MD Primary Care Provider [phone] Encounter Details Date Type Department Care Team (Latest Contact Info) Description 06/30/2021 Scan HEALTH INFO [facility] Scanned, Documents Social History Tobacco Use Types Packs/Day Years Used Date Smoking Tobacco: Former Cigarettes 2 10 [id number] Smokeless Tobacco: Never Alcohol Use Standard Drinks/Week [...] COVID-19? No / Unsure 06/15/2021 9:36 AM REGISTERED NURSES documented as of this encounter Plan of Treatment Not on file documented as of this encounter Visit Diagnoses Not on filedocumented in this encounter Additional Health Concerns Assessment Noted Time PHQ-9 Depression Total Score: 2 06/15/20 21 10:10 AM REGISTERED NURSES documented as of this encounter Care Teams Chemist Organic Relationship Specialty Start Date End Date Scott Hernandez MD [address] [place] [address] PCP - General 01/03/17 documented as of this encounter
--- OUTSIDE RECORDS SUMMARY | 2024-06-28 00:47 | XMS_ITS | Encounter Summary ---
Author Organization [facility] Address [address] [place] [address]. [place] [address] [place] [address] Care Team Providers Care Oracle Erp Architect Name Role Phone Scott Hernandez MD Primary Care Provider [phone] Reason for Visit * Reason Comments Procedure (SCAN) Encounter Details Date Type Department Care Team ([facility] Contact Info) Description 02/23/2022 Scan HEALTH INFO [...] Total Score: 2 06/15/20 21 10:10 AM LABEL DRIER documented as of this encounter Care Teams Oracle Erp Architect Relationship Specialty Start Date End Date Scott Heranndez MD [address] [place], [place] [id number] PCP - General 01/03/17 documented as of this encounter
--- OUTSIDE RECORDS SUMMARY | 2024-06-28 00:47 | XMS_ITS | Encounter Summary ---
Author Organization [facility] Address [address] [place] [address]. [place] [address] [place] [address] Care Team Providers Care Activities Aide Name Role Phone Scott Hernandez MD Primary Care Provider [phone] Reason for Visit * Reason Comments Obstructive Sleep Apnea provider plus * Consultation/Treatment (Routine) - Closed Specialty Diagnoses / Procedures Referred By Wendy t Referred To Contact PULMONARY DISEASE / SLEEP & RESPIRATORY CARE Diagnoses f/up in november Procedures FOLLOW UP Dustin Akins MD [address] [place] [address] [address] [place] [address] Phone: tel: fax: Dustin Akins MD [address] [place] [address] [address] [place] [address] Phone: tel: fax: Referral ID Status Reason Start Date Expiration Date Visits Re quested Visits Authorized [id number] Closed 11/12/2018 11/13/2019 100 100 Encounter Details Date Type Department Care Team (Late st Contact Info) Description 05/24/2019 9:00 AM STICK WELDER Office Visit [facility] Medical Group Multispecialty Care - [address] [place] [address] Dustin Akins MD [address] [address] Obstructive Sleep Apnea (provider plus ) Social [...] Comments Blood Pressure 127/79 05/24/2019 8:59 AM STICK WELDER Pulse 72 05/24/2019 8:59 AM STICK WELDER Temperature 36.5 ??C (97.7 ??F) 05/24/2019 8:59 AM CS T Respiratory Rate 16 05/24/2019 8:59 AM STICK WELDER Oxygen Saturation 93% 05/24/2019 8:59 AM STICK WELDER ra Inhaled Oxygen Concentration - - Weight 72.6 kg (160 lb) 05/24/2019 8:59 AM STICK WELDER Height - - Body Mass Index 30.23 11/12/2018 9:55 AM CDT documented in this encounter Progress Notes * Dustin Akins MD - 05/24/2019 9:00 AM CST [facility] PULMONARY MEDICINE History Chief Complaint [...] sweats, hemoptysis. Notes extensive allergies, followed with cmm inspector, on SCIT Notes diagnosis of BRUNO; elected not to wear CPAP in past. Former smoker; quit ; approximate 40 pack year history. Denies alcohol/illicits. 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 Denies exposure to TB, asbestos, mold, birds. [...] 0.1 MG tablet ??? CPAP MACHINE AutoCPAP [id number] For use when sleeping Lifetime use 1 [...] 500mcg daily 6. Continue to follow with cmm inspector -continue IVIG 7. Start 3x weekly azithromycin [...] rtc in 4 months Dustin Akins MD, [facility] documented in this encounter Plan of Treatment Not on file documented as of this encounter Visit Diagnoses Diagnosis Bronchiectasis without complication ([facility])- Primary Bronchiectasis without acute exacerbation Chronic obstructive pulmonary disease, unspecified COPD type ([facility]) BRUNO (obstructive sleep apnea) Obstructive sleep apnea (adult) (pediatric) Chronic fatigue syndrome Chronic obstructive asthma ([facility]) Chronic obstructive asthma, unspecified Snoring Other dyspnea and respiratory abnormality Class 1 obesity without serious comorbidity with body mass index (BMI) of 30.0 to 30.9 in adult, unspecified obesity type On prednisone therapy Environmental and seasonal allergies documented in this encounter Care Teams Activities Aide Relationship Specialty Start Date End Date Scott Hernandez MD [address] [address] PCP - General 01/03/17 documented as of this encounter
--- OUTSIDE RECORDS SUMMARY | 2024-06-28 00:47 | XMS_ITS | Encounter Summary ---
Author Organization [facility] Address [address] [place] [address]. [place] [address] [place] [address] Care Team Providers Care Title I Director Name Role Phone Scott Hernandez MD Primary Care Provider [phone] Encounter Details Date Type Department Care Team (Latest Contact Info) Description 06/15/2021 Travel Social History Tobacco Use Types Packs/Day Years Used Date Smoking Tobacco: Former Cigarettes 2 04 09 538 1987 Smokeless Tobacco: Never Alcohol Use Standard [...] COVID-19? No / Unsure 06/15/2021 9:36 AM PROFESSOR OF OCEANOGRAPHY documented as of this encounter Plan of Treatment Not on file documented as of this encounter Visit Diagnoses Not on filedocumented in this encounter Additional Health Concerns Assessment Noted Time PHQ-9 Depression Total Score: 2 06/15/20 21 10:10 AM PROFESSOR OF OCEANOGRAPHY documented as of this encounter Care Teams Title I Director Relationship Specialty Start Date End Date Scott Hernandez MD [address] [place] [address] PCP - General 01/03/17 documented as of this encounter
--- OUTSIDE RECORDS SUMMARY | 2024-06-28 00:47 | XMS_ITS | Encounter Summary ---
Author Organization [facility] Address [address] [place] [address]. [place] [address] [place] [address] Care Team Providers Care Culinary Arts Teacher Name Role Phone Scott Hernandez MD Primary Care Provider Reason for Visit * Reason Onset Date Comments Follow Up Call 03/23/2022 Encounter Details Date Type Department Care Team (Late st Contact Info) Description 03/23/2022 Telephone [facility] Medical Group Pulmonology Specialty Clinic - [address] [address] Dustin Akins MD [address] [place] [address] Follow Up Call Social History Tobacco [...] - 03/23/2022 10:32 AM CDT Cha from [facility] called to speak with John Paul regarding the Pt. Please give Cha a call back to discuss [phone] documented in this encounter Plan of Treatment Not on file documented as of this encounter Visit Diagnoses Not on filedocumented in this encounter Additional Health Concerns Infection Onset Date Last Indicated Resolved Time COVID-19 Confirmed 02/28/2022 02/28/2022 12:33 AM CDT Assessment Noted Time PHQ-9 Depression Total Score: 2 06/15/20 21 10:10 AM TELEVISION REPAIR TEACHER documented as of this encounter Care Teams Culinary Arts Teacher Relationship Specialty Start Date End Date Scott Hernandez MD [address] [place] [address] PCP - General 01/03/17 documented as of this encounter
--- OUTSIDE RECORDS SUMMARY | 2024-06-28 00:47 | XMS_ITS | Encounter Summary ---
Author Organization [facility] Address [address] [place] [address]. [place], [place] [address] [place] [address] Care Team Providers Care Technical Report Writer Name Role Phone Scott Hernandez MD Primary Care Provider [phone] Encounter Details Date Type Department Care Team [...] on filedocumented in this encounter Care Teams Technical Report Writer Relationship Specialty Start Date End Date Scott Hernandez MD [address] [facility] [address] PCP - General 01/03/17 documented as of this encounter
--- OUTSIDE RECORDS SUMMARY | 2024-06-28 00:47 | XMS_ITS | Encounter Summary ---
Author Organization [facility] Address [address] [place] [address]. [place] [address] [place] [address] Care Team Providers Care Clinical Editor Name Role Phone Scott Hernandez MD Primary Care Provider [phone] Encounter Details Date Type Department Care Team [...] Total Score: 2 06/15/20 21 10:10 AM DESIGN SPECIALIST documented as of this encounter Care Teams Clinical Editor Relationship Specialty Start Date End Date Scott Hernandez MD [address] [place] [address] PCP - General 01/03/17 documented as of this encounter
--- OUTSIDE RECORDS SUMMARY | 2024-06-28 00:47 | XMS_ITS | Encounter Summary ---
Author Organization [facility] Address [address] [place] [address]. [place] [address] [place] [address] Care Team Providers Care Cloud Infrastructure Architect Name Role Phone Scott Hernandez MD Primary Care Provider [phone] Encounter Details Date Type Department Care Team [...] 06/15/20 21 10:10 AM PRINTED CIRCUIT BOARD DRAFTER documented as of this encounter Care Teams Cloud Infrastructure Architect Relationship Specialty Start Date End Date Scott Hernandez MD [address] [place] [address] PCP - General 01/03/17 documented as of this encounter
--- OUTSIDE RECORDS SUMMARY | 2024-06-28 00:47 | XMS_ITS | Encounter Summary ---
Author Organization [facility] Address [address] [place] [address]. [place] [address] [place] [address] Care Team Providers Care Crinkling Machine Operator Name Role Phone Scott Hernandez MD Primary Care Provider [phone] Reason for Visit * Reason Comments Follow Up cpap compliance * Consultation/Treatment (Routine) - Closed Specialty Diagnoses / Procedures Referred By Contact Referred To Contact NURSE PRACTITIONER / SLEEP & RESPIRATORY CARE Diagnoses face to face for oxygen - ok per LM Procedures FOLLOW UP Scott Hernandez MD [address] [address] Phone: tel: fax: María Bautista, PNEUMATIC SYSTEMS OPERATOR Referral ID Status Reason Start Date Expiration Date Visits Re quested Visits Authorized [id number] Closed 02/19/2019 02/20/2020 100 100 Encounter Details Date Type Department Care Team (Latest Contact Info) Description 07/12/2019 10:00 AM LYE PEEL OPERATOR Office Visit [facility] Medical Group Multispecialty Care - [address] [place] [address] María Bautista, PNEUMATIC SYSTEMS OPERATOR Follow Up (cpap compliance ) Social History [...] Comments Blood Pressure 122/82 07/12/2019 9:57 AM LYE PEEL OPERATOR Pulse 94 07/12/2019 9:57 AM LYE PEEL OPERATOR Temperature 36.8 ??C (98.3 ??F) 07/12/2019 9:57 AM CS T Respiratory Rate 16 07/12/2019 9:57 AM LYE PEEL OPERATOR Oxygen Saturation 99% 07/12/2019 9:57 AM LYE PEEL OPERATOR RA Inhaled Oxygen Concentration - - Weight 73.4 kg (161 lb 14.4 oz) 07/12/2019 9:57 AM LYE PEEL OPERATOR Height - - Body Mass Index 30.59 11/12/2018 9:55 AM CDT documented in this encounter Progress Notes * María Bautista, BEVERLY - 07/12/2019 10:00 AM CST [facility] PULMONARY MEDICINE History Chief Complaint Patient presents with ??? Follow Up cpap compliance 74-year-old obese white female former smoker with past medical history of CVID, BRUNO, asthma/COPD, recurrent sinusitis/bronchitis, bronchiectasis, seasonal allergies, and GERD presents for follow-up. Initially referred for bronchiectasis. Previously followed with warehouse clerk Dr. Huang; now follows with allergy providers [...] medications, flutter device, CPAP. To travel to [place] soon for an extended vacation, returning 11/08/2019. [...] sweats, hemoptysis. Notes extensive allergies, followed with material handling equipment stevedore, on SCIT Notes diagnosis of BRUNO; elected not to wear CPAP in past, currently compliant. Former smoker; quit 1980s; approximate 40 pack year history. Denies alcohol/illicits. 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 Denies exposure to TB, asbestos, mold, birds. [...] hours 50 minutes; AHI 1.9 on AutoCPAP [id number]; median pressure 8.8cmH2O, max pressure 13.8cmH2O. Past [...] 0.1 MG tablet ??? CPAP MACHINE AutoCPAP [id number] For use when sleeping Lifetime use 1 [...] Vocal cord dysfunction, suspected -reportedly diagnosed at [facility] several years ago, unclear if diagnosis [...] L1 fx 9. Continue to follow with material handling equipment stevedore -continue IVIG 10. CPAP qhs and prn naps -continues to need, use, and benefit from CPAP 11. Encouraged continued smoking cessation 12. Encouraged healthy weight loss via diet/exercise 13. Respiratory culture, AFB smear/culture with any exacerbation 14. Continue VCD exercises at home and with SOLAR PHOTOVOLTAIC INSTALLER 15. Ipratropium nasal spray BID Return to clinic to see Dr. Akins in November 2019 after returning from extended [place] vacation. ALCIRA Judge PEEL OPERATOR PEEL OPERATOR documented in this encounter Plan of Treatment Not on file documented as of this encounter Visit Diagnoses Diagnosis Chronic obstructive pulmonary disease, unspecified COPD type ([facility])- Primary Bronchiectasis without complication ([facility]) Bronchiectasis without acute exacerbation Environmental and seasonal allergies CVID (common variable immunodeficiency) ([facility]) Common variable immunodeficiency BRUNO on CPAP Obstructive sleep apnea (adult) (pediatric) Cigarette nicotine dependence in remission Tobacco use disorder documented in this encounter Care Teams Crinkling Machine Operator Relationship Specialty Start Date End Date Scott Hernandez MD [address] [address] PCP - General 01/03/17 documented as of this encounter
--- OUTSIDE RECORDS SUMMARY | 2024-06-28 00:47 | XMS_ITS | Encounter Summary ---
Author Organization [facility] Address [address] [place] [address]. [place] [address] [place] [address] Care Team Providers Care Director Of Online Merchandising Name Role Phone Scott Hernandez MD Primary Care Provider [phone] Reason for Visit * Reason Onset Date Comments Refill Request 11/17/2021 Encounter Details Date Type Department Care Team (Late st Contact Info) Description 11/17/2021 Telephone [facility] Medical Group Pulmonology Specialty Clinic - [address] [address] Dustin Akins MD [address] [place] [address] Refill Request Social History Tobacco Use [...] needs a refill of Azithromycin sent to [facility] in [place]. Pt would like 36 tablets for this prescription. Please give Pt a call back once prescription is sent [phone] documented in this encounter Plan of Treatment Not on file documented as of this encounter Visit Diagnoses Diagnosis Bronchiectasis without complication ([facility])- Primary Bronchiectasis without acute exacerbation documented in this encounter Additional Health Concerns Assessment Noted Time PHQ-9 Depression Total Score: 2 06/15/20 21 10:10 AM CHIEF MEDICAL TECHNOLOGIST documented as of this encounter Care Teams Director Of Online Merchandising Relationship Specialty Start Date End Date Scott Hernandez MD [address] [address] PCP - General 01/03/17 documented as of this encounter
--- OUTSIDE RECORDS SUMMARY | 2024-06-28 00:47 | XMS_ITS | Encounter Summary ---
Author Organization [facility] Address [address] [place] [address]. [place] [address] [place] [address] Care Team Providers Care Shoe Stamper Name Role Phone Scott Hernandez MD Primary Care Provider [phone] Encounter Details Date Type Department Care Team (Latest Contact Info) Description 06/12/2021 Travel Social History Tobacco Use Types Packs/Day Years Used Date Smoking Tobacco: Former Cigarettes 2 04 09 386 1987 Smokeless Tobacco: Never Alcohol Use Standard [...] COVID-19? No / Unsure 06/12/2021 2:52 PM PREPARER SAMPLES AND REPAIRS documented as of this encounter Plan of Treatment Not on file documented as of this encounter Visit Diagnoses Not on filedocumented in this encounter Care Teams Shoe Stamper Relationship Specialty Start Date End Date Scott Hernandez MD [address] [place] [address] PCP - General 01/03/17 documented as of this encounter
--- OUTSIDE RECORDS SUMMARY | 2024-06-28 00:47 | XMS_ITS | Encounter Summary ---
Author Organization [facility] Address [address] [place] [address]. [place] [address] [place] [address] Care Team Providers Care Nephrology Social Worker Name Role Phone Scott Hernandez MD Primary Care Provider [phone] Encounter Details Date Type Department Care Team [...] Total Score: 2 06/15/20 21 10:10 AM CASE PACKER documented as of this encounter Care Teams Nephrology Social Worker Relationship Specialty Start Date End Date Scott Hernandez MD [address] [place] [address] PCP - General 01/03/17 documented as of this encounter
--- OUTSIDE RECORDS SUMMARY | 2024-06-28 00:47 | XMS_ITS | Encounter Summary ---
Author Organization [facility] Address [address] [place] [address]. [place], [place] [address] [place] [address] Care Team Providers Care Cell Cleaner Name Role Phone Scott Hernandez MD Primary Care Provider [phone] Encounter Details Date Type Department Care Team [...] on filedocumented in this encounter Care Teams Cell Cleaner Relationship Specialty Start Date End Date Scott Hernandez MD [address] [place] [address] PCP - General 01/03/17 documented as of this encounter
--- OUTSIDE RECORDS SUMMARY | 2024-06-28 00:47 | XMS_ITS | Encounter Summary ---
Author Organization [facility] Address [address] [place] [address]. [place], [place] [address] [place] [address] Care Team Providers Care Wood Tank Erector Name Role Phone Scott Hernandez MD Primary Care Provider [phone] Encounter Details Date Type Department Care Team [...] on filedocumented in this encounter Care Teams Wood Tank Erector Relationship Specialty Start Date End Date Scott Hernandez MD [address] [place] [address] PCP - General 01/03/17 documented as of this encounter
--- OUTSIDE RECORDS SUMMARY | 2024-06-28 00:47 | XMS_ITS | Encounter Summary ---
Author Organization [facility] Address [address] [place] [address]. [place] [address] [place] [address] Care Team Providers Care Head Insulation Board Saw Operator Name Role Phone Scott Hernandez MD Primary Care Provider [phone] Reason for Visit * Reason Comments Follow Up Last seen 06/2021 * Consultation/Treatment (Routine) - Closed Specialty Diagnoses / Procedures Referred By Contact Referred To Contact PULMONARY DISEASE / SLEEP & RESPIRATORY CARE Diagnoses FOLLOW UP Scott Hernandez MD [address] [place] [address] Phone: tel: fax: Dustin Akins MD [address] [place] [address] [address] [place] [address] Phone: tel: fax: Referral ID Status Reason Start Date Expiration Date Visits Re quested Visits Authorized [id number] Closed 01/31/2022 03/03/2023 100 100 Encounter Details Date Type Department Care Team (Late st Contact Info) Description 01/31/2022 10:20 AM CDT Office Visit [facility] Medical Group Multispecialty Care - [address] [place] [address] Dustin Akins MD [address] [place] [address] [address] [place] [address] Follow Up (Last seen 06/2021) Social History [...] Akins MD - 01/31/2022 10:20 AM CDT [facility] PULMONARY MEDICINE History Chief Complaint Patient presents [...] on 3x weekly azithromycin 06/03/2019: OV, LM BI SPECIALIST; noted possible VCD on 05/25; suspected AEBronchiectasis; given LQ and prednisone 06/11/2019: [facility]; continued symptoms; flu swab negative; CTA without acute finding, no PE 07/12/2019: OV; LM BI SPECIALIST; doing well; taking meds, using flutter; planned travel to [place] thru 11/2019. 06/18/2020: Tested + for covid; [...] sweats, hemoptysis. Notes extensive allergies, followed with video systems engineer, on SCIT Notes diagnosis of BRUNO; elected not to wear CPAP in past. Former smoker; quit 1980s; approximate 40 pack year history. Denies alcohol/illicits. 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 Denies exposure to TB, asbestos, mold, birds. [...] 0.1 MG tablet ??? CPAP MACHINE AutoCPAP [id number] For use when sleeping Lifetime use 1 [...] azithromycin qMWF 6. Continue to follow with video systems engineer -continue IVIG --to call and discuss any [...] rtc in 4-6 months [facility]kins MD, [facility] documented in this encounter Plan of Treatment Not on file documented as of this encounter Visit Diagnoses Diagnosis Bronchiectasis without complication ([facility])- Primary Bronchiectasis without acute exacerbation Chronic obstructive pulmonary disease, unspecified COPD type ([facility]) Cigarette nicotine dependence in remission Tobacco use disorder CVID (common variable immunodeficiency) ([facility]) Common variable immunodeficiency documented in this encounter Additional Health Concerns Assessment Noted Time PHQ-9 Depression Total Score: 2 06/15/20 21 10:10 AM HYDRAULIC PLUMBER HELPER documented as of this encounter Care Teams Head Insulation Board Saw Operator Relationship Specialty Start Date End Date Scott Hernandez MD [address] [place] [address] PCP - General 01/03/17 documented as of this encounter
--- OUTSIDE RECORDS SUMMARY | 2024-06-28 00:47 | XMS_ITS | Encounter Summary ---
Author Organization [facility] Address [address] [place] [address]. [place], [place] [address] [place] [address] Care Team Providers Care Welt Sole Layer Name Role Phone Scott Hernandez MD Primary Care Provider [phone] Encounter Details Date Type Department Care Team [...] on filedocumented in this encounter Care Teams Welt Sole Layer Relationship Specialty Start Date End Date Scott Hernandez MD [address] [facility] [place] [address] PCP - General 01/03/17 documented as of this encounter
--- OUTSIDE RECORDS SUMMARY | 2024-06-28 00:47 | XMS_ITS | Encounter Summary ---
Author Organization [facility] Address [address] [place] [address]. [place] [address] [place] [address] Care Team Providers Care Taper Machine Name Role Phone Scott Hernandez MD Primary Care Provider [phone] Encounter Details Date Type Department Care Team [...] on filedocumented in this encounter Care Teams Taper Machine Relationship Specialty Start Date End Date Scott Hernandez MD [address] [place] [address] PCP - General 01/03/17 documented as of this encounter
--- OUTSIDE RECORDS SUMMARY | 2024-06-28 00:47 | XMS_ITS | Encounter Summary ---
Author Organization [facility] Address [address] [place] [address]. [place] [address] [place] [address] Care Team Providers Care Soils Engineer Name Role Phone cSott Hernandez MD Primary Care Provider [phone] Encounter Details Date Type Department Care Team (Late st Contact Info) Description 02/28/2022 9:00 AM T - 02/28/2022 11:59 PM [facility] [place], [place] [id number] Dustin Akins MD 3rd [facility] [address] [place] [id number] Discharge Disposition: Home or Self Care (Routine [...] ns:Chronic obstructive pulmonary disease, unspecified COPD type ([facility]) USE 1 VIAL IN NEBULIZER EVERY 6 [...] :Chronic obstructive pulmonary disease, unspecified COPD type ([facility]) Take 1 tablet (500 mg total) by mouth 3 (three) times a week. 36 tablet 3 01/31/2022 celecoxib 200 MG capsule 09/06/2016 cetirizine 10 MG tablet Take 1 tablet (10 mg total) by mouth. citalopram 20 MG tablet 10/05/2016 cloNIDine 0.1 MG tablet 07/12/2016 CPAP MACHINEIndication s:BRUNO (obstructive sleep apnea) AutoCPAP [id number] For use when sleeping Lifetime use 1 [...] DME SUPPLYIndications :Productive cough,CVID (common variable immunodeficiency) ([facility]),Bronchie ctasis without complication ([facility]) Take 1 Device by nebulization every 4 (four) hours as needed. 1 Device 11/12/2018 vitamin D3, cholecalciferol, 5000 UNITS capsule YUPELRI 175 MCG/3ML SolutionIndicatio ns:Chronic obstructive pulmonary disease, unspecified COPD type ([facility]) USE 1 VIAL IN NEBULIZER DAILY 90 mL 11 09/20/2021 BUDESONIDE 0.5 MG/2ML nebulizer solutionIndicatio ns:Chronic obstructive pulmonary disease, unspecified COPD type ([facility]) USE 1 VIAL IN NEBULIZER EVERY MORNING. (RINSE MOUTH AFTER USE) 960 mL 11 09/20/2021 4 fluticasone propionate 50 MCG/ACT nasal spray TK 2 SPRAYS IN EACH NOSTRIL QD 06/27/2019 4 ipratropium 0.06 % nasal spray U 2 SPRAYS UP TO TID INTRANASALLY FOR 13 DAYS 0 01/11/2019 4 PERFOROMIST 20 MCG/2ML nebulizer solutionIndicatio ns:Chronic obstructive pulmonary disease, unspecified COPD type ([facility]) USE 1 VIAL IN NEBULIZER TWICE DAILY [...] SPEC DESCRIPTION NASAL 02/29/20 11:00 AM CDT [facility] CORONAVIRUS SARS COV 2 PCR (RESP) POSITIVE(A A) NEGATIVE 02/28/2022 9:49 PM CDT [facility] Comment: THE SARS-CoV-2 TEST HAS BEEN AUTHORIZED BY THE FDA UNDER AN EUA FOR USE BY AUTHORIZED LABORATORIES. PERFORMED BY NUCLEIC ACID AMPLIFICATION PCR FIRST TEST UNKNOWN 02/28/2022 11:00 AM CDT [facility] EMPLOYED IN HEALTHCARE UNKNOWN 02/28/2022 11:00 AM CDT [facility] SYMPTOMATIC DEFINED BY CDC UNKNOWN 02/28/2022 11:00 AM CDT [facility] DATE OF SYMPTOM ONSET UNKNOWN 02/28/2022 11:00 AM CDT [facility] HOSPITALIZATION STATUS UNKNOWN 02/28/2022 11:00 AM CDT [facility] PATIENT IN ICU UNKNOWN 02/28/2022 11:00 AM CDT [facility] RESIDENT OF [facility] UNKNOWN 02/28/2022 11:00 AM CDT [facility] UNKNOWN 02/28/2022 11:00 AM CDT [facility] 02/28/2022 9:00 AM CDT Dustin Akins MD MICROBIOLOGY - GENERAL [place] Final Result [facility] [address] [place] [address], [place] [phone] [facility] [address] [place] [address], [place] [phone] documented in this encounter Visit Diagnoses Diagnosis Pre-op testing Preoperative examination, unspecified documented in this encounter Additional Health Concerns Infection Onset Date Last Indicated Resolved Time COVID-19 Rule Out 02/28/2022 02/28/2022 02/28/2022 9:49 PM CDT COVID-19 Confirmed 02/28/2022 02/28/2022 12:33 AM CDT Assessment Noted Time PHQ-9 Depression Total Score: 2 06/15/20 21 10:10 AM FARM EQUIPMENT ASSEMBLER documented as of this encounter Care Teams Soils Engineer Relationship Specialty Start Date End Date Scott Hernandez MD [address] [address] PCP - General 01/03/17 documented as of this encounter
--- OUTSIDE RECORDS SUMMARY | 2024-06-28 00:47 | XMS_ITS | Encounter Summary ---
Author Organization [facility] Address [address] [place] [address]. [place] [address] [place] [address] Care Team Providers Care Floor Winder Name Role Phone Scott Hernandez MD Primary Care Provider [phone] Encounter Details Date Type Department Care Team (Latest Contact Info) Description 01/31/2022 Travel Social History Tobacco Use Types Packs/Day Years Used Date Smoking Tobacco: Former Cigarettes 2 10 714 1987 Smokeless Tobacco: Never Alcohol Use Standard [...] Total Score: 2 06/15/20 21 10:10 AM FORMULATION CHEMIST documented as of this encounter Care Teams Floor Winder Relationship Specialty Start Date End Date Scott Hernandez MD [address] [place], [place] [id number] PCP - General 01/03/17 documented as of this encounter
--- OUTSIDE RECORDS SUMMARY | 2024-06-28 00:47 | XMS_ITS | Encounter Summary ---
Author Organization [facility] Address [address] [place] [address]. [place] [address] [place] [address] Care Team Providers Care Imager Name Role Phone Scott Hernandez MD Primary Care Provider [phone] Reason for Visit * Reason Onset Date Comments Medication 09/20/2021 Encounter Details Date Type Department Care Team (Late st Contact Info) Description 09/20/2021 Telephone [facility] - [address] [address] Dustin Akins MD [address] [place] [address] Medication Social History Tobacco Use Types [...] AM CDT Pt called back Pharm is [phone] Also, she is asking about a refill on a nasal spray ipratropium she uses 1-2 times daily, she was getting that from an supervisor modern languages but she no longer goes there, asking if Dr Akins would refill thisfor her * Jessica Deluna - 09/20/2021 9:50 AM CDT Pt asking for a refill on her meds (Azithromycin) that she takes Mon. She is in [place] right now and was getting me the # for [facility] there and the phone was disconnected IF she calls back we can update the pharm number. Pt # [phone] documented in this encounter Plan of Treatment Not on file documented as of this encounter Visit Diagnoses Diagnosis Chronic obstructive pulmonary disease, unspecified COPD type ([facility])- Primary documented in this encounter Additional Health Concerns Assessment Noted Time PHQ-9 Depression Total Score: 2 06/15/20 21 10:10 AM SR. MERCHANDISE PLANNER documented as of this encounter Care Teams Imager Relationship Specialty Start Date End Date Scott Hernandez MD [address] [place], [place] [id number] PCP - General 01/03/17 documented as of this encounter
--- OUTSIDE RECORDS SUMMARY | 2024-06-28 00:47 | XMS_ITS | Encounter Summary ---
Author Organization [facility] Address [address] [place] [address]. [place] [address] [place] [address] Care Team Providers Care Rivet Hammer Machine Operator Name Role Phone Scott Hernandez MD Primary Care Provider [phone] Reason for Visit * Reason Comments Sleep Study (SCAN) Encounter Details Date Type Department Care Team ([facility] Contact Info) Description 01/29/2022 Scan HEALTH INFO [...] Total Score: 2 06/15/20 21 10:10 AM PROCESSING REP documented as of this encounter Care Teams Rivet Hammer Machine Operator Relationship Specialty Start Date End Date Scott Hernandez MD [address] [address] PCP - General 01/03/17 documented as of this encounter
--- OUTSIDE RECORDS SUMMARY | 2024-06-28 00:47 | XMS_ITS | Encounter Summary ---
Author Organization [facility] Address [address] [place] [address]. [place] [address] [place] [address] Care Team Providers Care Supervisor Gluing Name Role Phone Scott Hernandez MD Primary Care Provider [phone] Reason for Visit * Reason Comments Sleep Study (SCAN) Encounter Details Date Type Department Care Team ([facility] Contact Info) Description 06/14/2021 Scan HEALTH INFO [...] COVID-19? No / Unsure 06/15/2021 9:36 AM DIP GUIDER STOVES documented as of this encounter Plan of [...] on filedocumented in this encounter Care Teams Supervisor Gluing Relationship Specialty Start Date End Date Scott Hernandez MD [address] [place] [address] PCP - General 01/03/17 documented as of this encounter
--- OUTSIDE RECORDS SUMMARY | 2024-06-28 00:47 | XMS_ITS | Encounter Summary ---
Author Organization [facility] Address [address] [place] [address]. [place] [address] [place] [address] Care Team Providers Care Dry Cleaning Machine Operator Name Role Phone Scott Hernandez MD Primary Care Provider [phone] Encounter Details Date Type Department Care Team [...] Total Score: 2 06/15/20 21 10:10 AM HOSPICE MASSAGE THERAPIST documented as of this encounter Care Teams Dry Cleaning Machine Operator Relationship Specialty Start Date End Date Scott Hernadnez MD [address] [place] [address] PCP - General 01/03/17 documented as of this encounter
--- OUTSIDE RECORDS SUMMARY | 2024-06-28 00:47 | XMS_ITS | Encounter Summary ---
Author Organization [facility] Address [address] [place] [address]. [place], [place] [address] [place] [address] Care Team Providers Care Director Diabetes Name Role Phone Scott Hernandez MD Primary Care Provider [phone] Encounter Details Date Type Department Care Team [...] filedocumented in this encounter Care Teams Director Diabetes Relationship Specialty Start Date End Date Scott Hernandez MD [address] [facility] [place] [address] PCP - General 01/03/17 documented as of this encounter
--- OUTSIDE RECORDS SUMMARY | 2024-06-28 00:47 | XMS_ITS | Encounter Summary ---
Author Organization [facility] Address [address] [place] [address]. [place] [address] [place] [address] Care Team Providers Care Anesthesiology Tech Name Role Phone Scott Hernandez MD Primary Care Provider [phone] Encounter Details Date Type Department Care Team (Latest Contact Info) Description 03/23/2022 Scan HEALTH INFO [facility] Scanned, Documents Social History Tobacco Use Types Packs/Day Years Used Date Smoking Tobacco: Former Cigarettes 2 10 [address] Smokeless Tobacco: Never Alcohol Use Standard Drinks/Week [...] Total Score: 2 06/15/20 21 10:10 AM TRANSPORT OPERATIONS INSPECTOR documented as of this encounter Care Teams Anesthesiology Tech Relationship Specialty Start Date End Date Scott Hernandez MD [address] [place] [address] PCP - General 01/03/17 documented as of this encounter
--- OUTSIDE RECORDS SUMMARY | 2024-06-28 00:47 | XMS_ITS | Encounter Summary ---
Author Organization [facility] Address [address] [place] [address]. [place] [address] [place] [address] Care Team Providers Care Director Of Strategic Partnerships Name Role Phone Scott Hernandez MD Primary Care Provider [phone] Reason for Visit * Reason Comments Sleep Study (SCAN) Encounter Details Date Type Department Care Team ([facility] Contact Info) Description 05/22/2019 Scan HEALTH INFO [...] in this encounter Care Teams Director Of Strategic Partnerships Relationship Specialty Start Date End Date Scott Hernandez MD [address] [place] [place] [address] PCP - General 01/03/17 documented as of this encounter
--- OUTSIDE RECORDS SUMMARY | 2024-06-28 00:47 | XMS_ITS | Encounter Summary ---
Author Organization [facility] Address [address] [place] [address]. [place] [address] [place] [address] Care Team Providers Care It Operations Specialist Name Role Phone Scott Hernandez MD Primary Care Provider [phone] Reason for Visit * Reason Comments Obstructive Sleep Apnea cpap use Encounter Details Date Type Department Care Team (Late st Contact Info) Description 07/16/2020 1:20 PM TECHNICAL ENGINEER Office Visit [facility] Multispecialty [facility] - [facility] [address] [facility] [place] [id number] Dustin Akins MD 3rd [facility] [address] [place] [address] Obstructive Sleep Apnea (cpap use ) Social [...] COVID-19? No / Unsure 07/16/2020 12:49 PM TECHNICAL ENGINEER documented as of this encounter Last Filed Vital Signs Vital Sign Reading Time Taken Comments Blood Pressure 135/74 07/16/2020 1:26 PM TECHNICAL ENGINEER Pulse 86 07/16/2020 1:26 PM TECHNICAL ENGINEER Temperature 36.2 ??C (97.2 ??F) 07/16/2020 1:26 PM CS T Respiratory Rate 18 07/16/2020 1:26 PM TECHNICAL ENGINEER Oxygen Saturation 98% 07/16/2020 1:26 PM TECHNICAL ENGINEER ra Inhaled Oxygen Concentration - - Weight 65.3 kg (144 lb) 07/16/2020 1:26 PM TECHNICAL ENGINEER Height 152.4 cm (5') 07/16/2020 1:26 PM TECHNICAL ENGINEER Body Mass Index 28.12 07/16/2020 1:26 PM TECHNICAL ENGINEER documented in this encounter Progress Notes * Dustin Akins MD - 07/16/2020 1:20 PM CST [facility] PULMONARY MEDICINE History Chief Complaint Patient [...] on 3x weekly azithromycin 06/03/2019: OV, LM COMMERCIAL SUBCONTRACTOR; noted possible VCD on 05/25; suspected AEBronchiectasis; given LQ and prednisone 06/11/2019: [facility]; continued symptoms; flu swab negative; CTA without acute finding, no PE 07/12/2019: OV; LM COMMERCIAL SUBCONTRACTOR; doing well; taking meds, using flutter; planned travel to [place] thru 11/2019. 06/18/2020: Tested + for covid; [...] sweats, hemoptysis. Notes extensive allergies, followed with booking manager, on SCIT Notes diagnosis of BRUNO; elected not to wear CPAP in past. Former smoker; quit ; approximate 40 pack year history. Denies alcohol/illicits. 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 Denies exposure to TB, asbestos, mold, birds. [...] 0.1 MG tablet ??? CPAP MACHINE AutoCPAP [id number] For use when sleeping Lifetime use 1 [...] 500mcg daily 6. Continue to follow with booking manager -continue IVIG 7. 3x weekly azithromycin qMWF [...] reviewingand communicating test results. Dustin Akins MD, [facility] NICAL ENGINEER documented in this encounter Plan of Treatment Not on file documented as of this encounter Visit Diagnoses Diagnosis Cigarette nicotine dependence in remission- Primary Tobacco use disorder Chronic obstructive pulmonary disease, unspecified COPD type ([facility]) Bronchiectasis without complication ([facility]) Bronchiectasis without acute exacerbation Chronic obstructive asthma ([facility]) Chronic obstructive asthma, unspecified BRUNO (obstructive sleep apnea) Obstructive sleep apnea (adult) (pediatric) CVID (common variable immunodeficiency) ([facility]) Common variable immunodeficiency documented in this encounter Care Teams It Operations Specialist Relationship Specialty Start Date End Date Scott Hernandez MD [address] [place] [address] PCP - General 01/03/17 documented as of this encounter
--- OUTSIDE RECORDS SUMMARY | 2024-06-28 00:47 | XMS_ITS | Encounter Summary ---
Author Organization [facility] Address [address] [place] [address]. [place] [address] [place] [address] Care Team Providers Care Security Test Engineer Name Role Phone Ghazal Hernandez MD Primary Care Provider [phone] Reason for Referral * Imaging (Emergency) - Closed Specialty Diagnoses / Procedures Referred By Wendy pfeiffer Referred To Contact RADIOLOGY Procedures CTA CHEST Phil Monge MD Phone: tel: fax: Referral ID Status Reason Start Date Expiration Date Visits Re quested Visits Authorized [id number] Closed 06/11/2019 07/12/2020 1 1 NESS PERFORMANCE ADVISOR Reason for Visit * Reason Comments Breathing Problem Encounter Details Date Type Department Care Team (Late st Contact Info) Description 06/11/2019 5:46 PM BUSINESS PERFORMANCE ADVISOR - 06/11/2019 10:12 PM BUSINESS PERFORMANCE ADVISOR Emergency [facility] Emergency Room [address] [place], [place] [id number] Phil Monge MD [address] [place] [address] Breathing Problem Discharge Disposition: Home or [...] Comments Blood Pressure 152/91 06/11/2019 9:31 PM BUSINESS PERFORMANCE ADVISOR Simultaneous filing. User may not have seen previous data. Pulse 91 06/11/2019 9:31 PM BUSINESS PERFORMANCE ADVISOR Temperature 36.5 ??C (97.7 ??F) 06/11/2019 9 :31 PM BUSINESS PERFORMANCE ADVISOR Respiratory Rate 18 06/11/2019 9:31 PM BUSINESS PERFORMANCE ADVISOR Oxygen Saturation 97% 06/11/2019 9:3 1 PM BUSINESS PERFORMANCE ADVISOR Simultaneous filing. User may not have seen previous data. Inhaled Oxygen Concentration - - Weight 70.3 kg (155 lb) 06/11/2019 5:34 PM BUSINESS PERFORMANCE ADVISOR Height - - Body Mass Index 29.29 11/12/2018 9:55 AM CDT documented in this encounter Discharge Instructions * Discharge Instructions* Phil Monge MD - 06/11/2019 9:34 PM BUSINESS PERFORMANCE ADVISOR Rest. Drink plenty of fluids. Follow up with your PCP. Our practice is committed to providing you the very best in healthcare. We want to hear from you! Please fill out the survey you get from us. Your feedback is anonymous & helps us improve the patient experience for you and others in the community we serve. NESS PERFORMANCE ADVISOR * Attachments The following attachments cannot be sent through Care Everywhere. * Viral Upper Respiratory Infection Discharge Instructions, Adult (Nigerien) documented in this encounter Medications at Time [...] CPAP MACHINEIndication s:BRUNO (obstructive sleep apnea) AutoCPAP [id number] For use when sleeping Lifetime use 1 [...] DME SUPPLYIndications :Productive cough,CVID (common variable immunodeficiency) ([facility] HHS/HCC),Bronchie ctasis without complication ([facility] HHS/HCC) Take 1 Device by nebulization every 4 (four) hours as needed. 1 Device 11/12/2018 vitamin D3, cholecalciferol, 5000 UNITS capsule albuterol (2.5 MG/3ML) 0.083% nebulizer solutionIndicatio ns:Chronic obstructive pulmonary disease, unspecified COPD type ([facility] HHS/HCC) Take 3 mLs (2.5 mg total) by nebulization every 6 (six) hours as needed for Wheezing. 360 mL 7 05/13/2019 0 azithromycin 500 MG tabletIndications :Bronchiectasis without complication ([facility] HHS/HCC),Chronic obstructive pulmonary disease, unspecified COPD type ([facility] HHS/HCC) Take 1 tablet (500 mg total) by mouth 3 (three) times a week for 30 doses. Every Monday, Monday, and Monday 30 tablet 1 05/24/2019 0 budesonide-formot gilmar (SYMBICORT) 160-4.5 MCG/ACT inhalerIndication s:Chronic obstructive pulmonary disease, unspecified COPD type ([facility]/HCC) Inhale 2 puffs into the lungs [...] date: Expected time: Means of arrival: Comments: NESS PERFORMANCE ADVISOR * Phil Monge MD - 06/11/2019 7:42 PM CST [place], [place] EMERGENCY DEPARTMENT ENCOUNTER Chief Complaint Chief Complaint Patient presents with ??? Breathing Problem History of Present Illness Provider at Bedside Date/Time Event User Comments 06/11/19 3146 Provider at Bedside Assessing Patient [place]OMACKGARY History provided by: Patient and spouse curatorial specialist used: Gracie Nolvia Graham is a 73-year-old [...] tablet 07/12/16 Doc Abstract CPAP MACHINE AutoCPAP [id number] For use when sleeping Lifetime use 02/19/19 [...] 06/11/19 [address] [facility] Test Date: 2019-06-11 Pat Name: NOLVIA GRAHAM Department: Room: INMO Gender: Female Skidder: : 1945 Requested By: GARY WOMACK Order Number: [id number] Reading MD: Thomas Marks Measurements Intervals [place] Rate: 94 P: 37 MO: 152 QRS: -77 QRSD: 87 T: 58 QT: 363 QTc: 454 Interpretive Statements SINUS RHYTHM LEFT ANTERIOR FASCICULAR BLOCK POSSIBLE ANTERIOR MYOCARDIAL INFARCTION, PROBABLY OLD No previous ECG available for comparison No ischemic changes Ning Lemus NP CRITICAL ALERT ISSUED ON 06-11-2019 18:36:50 NESS PERFORMANCE ADVISOR Interpreted by Sinus rhythm, rate of 94bpm. [...] STUDIES CTA CHEST Final Result by User, [id number] (06/11 2107) EXAMINATION: CTA CHEST WITH CONTRAST [...] XR CHEST PA+LAT Final Result by User, [email or web address] (06/11 142) Exam: Chest x-ray No comparison INDICATION: Shortness [...] when available. Repeat vital signs reviewed. PCP: HGAZAL HERNANDEZ MD Progress notes: Medications sodium chloride 0.9% bolus infusion SOLN 1,000 mL (0 mLs Intravenous Infusion Stop Time 06/11/192200) iopamidol (ISOVUE-370) 76 % injection 80 mL (80 mLs Intravenous Given 06/11/192054) Clinical Impression Cough (Primary) Discharge Medication List as of 06/11/2019 10:09 PM Disposition: Discharge Follow-Up: Ghazal Hernandez MD [address] [place] [address] Schedule an appointment as soon as possible for a visit in 2 days As needed IGilbert, acting as a scribe, am personally taking down the notes in the presence of Phil Monge MD. Take no action on this note until reviewed and authenticated by the physician. Phil Monge MD 06/11/19 1440 NESS PERFORMANCE ADVISOR * Gary Womack PA-C - 06/11/2019 6:01 PM CST [place], [place] EMERGENCY DEPARTMENT ENCOUNTER Medical Screening Examination [...] Phil Monge MD at 06/12/2019 10:19 PM BUSINESS PERFORMANCE ADVISOR NESS PERFORMANCE ADVISOR NESS PERFORMANCE ADVISOR * Meaghan Owens RN - 06/11/2019 5:34 PM CST Sob and cough x 2-3 weeks. reports May 29 started on steroid and abx. Finished medication as directed. Reports tested for flu and neg. States still with symptoms. Reports more sob with exertion. NESS PERFORMANCE ADVISOR documented in this encounter Plan of Treatment Not on file documented as of this encounter Procedures Procedure Name Priority Date/Time Associated Diagnosis Comments CTA CHEST STAT 06/11/2019 8:54 PM BUSINESS PERFORMANCE ADVISOR LACTIC ACID TIMED 06/11/2019 8:05 PM BUSINESS PERFORMANCE ADVISOR CULTURE, BACTERIA, BLOOD STAT 06/11/2019 8:05 PM BUSINESS PERFORMANCE ADVISOR CULTURE, BACTERIA, BLOOD STAT 06/11/2019 8:05 PM BUSINESS PERFORMANCE ADVISOR ECG 12-LEAD Routine 06/11/2019 6:31 PM BUSINESS PERFORMANCE ADVISOR XR CHEST PA+LAT STAT 06/11/2019 6:29 PM BUSINESS PERFORMANCE ADVISOR BNP STAT 06/11/2019 6:08 PM BUSINESS PERFORMANCE ADVISOR PARTIAL THROMBOPLASTIN TIME,PTT STAT 06/11/2019 6:08 PM BUSINESS PERFORMANCE ADVISOR PROTHROMBIN TIME, VENOUS STAT 06/11/2019 6:08 PM BUSINESS PERFORMANCE ADVISOR COMPREHENSIVE METABOLIC PANEL STAT 06/11/2019 6:08 PM BUSINESS PERFORMANCE ADVISOR CBC W/DIFF AUTOMATED STAT 06/11/2019 6:08 PM BUSINESS PERFORMANCE ADVISOR TROPONIN, QUANT STAT 06/11/2019 6:08 PM BUSINESS PERFORMANCE ADVISOR documented in this encounter Results * CTA CHEST (06/11/2019 8:54 PM BUSINESS PERFORMANCE ADVISOR) Anatomical Region Laterality Modality Chest Computed Tomogra phy 06/11/2019 9:02 PM BUSINESS PERFORMANCE ADVISOR Impressions 06/11/2019 9:06 PM BUSINESS PERFORMANCE ADVISOR IMPRESSION: 1. No evidence of pulmonary thromboembolism. [...] 06/11/2019 9:02 PM Narrative 06/11/2019 9:06 PM BUSINESS PERFORMANCE ADVISOR EXAMINATION: CTA CHEST WITH CONTRAST (PE PROTOCOL) [...] LACTIC ACID - SINGLE (06/11/2019 8:05 PM BUSINESS PERFORMANCE ADVISOR) LACTIC ACID VENOUS 0.7 0.4 - 2.0 MMOL/L 06/11/2019 8:52 PM BUSINESS PERFORMANCE ADVISOR [facility] 06/11/2019 8:05 PM BUSINESS PERFORMANCE ADVISOR us Phil Monge MD LABORATORY Final Resul t Performing Organization Address [facility]/ZIP Co de Phone Number [facility] [address] [place] [address], [place] [phone] * CULTURE, BACTERIA, BLOOD (06/11/2019 8:05 PM BUSINESS PERFORMANCE ADVISOR) SPEC DESCRIPTION BLOOD 06/11/2019 7:36 PM BUSINESS PERFORMANCE ADVISOR [facility] SPECIAL REQUESTS NO SPECIAL REQUEST 06/11/2019 7:36 PM BUSINESS PERFORMANCE ADVISOR [facility] CULTURE RESULT NO GROWTH 5 DAYS 06/16/2019 10:35 AM BUSINESS PERFORMANCE ADVISOR [facility] BLOOD SPECIMEN OBTAINED FOR BLOOD CULTURE / Unknown 06/11/2019 8:05 PM BUSINESS PERFORMANCE ADVISOR 06/11/2019 8:14 PM BUSINESS PERFORMANCE ADVISOR us Phil Monge MD MICROBIOLOGY - [facility] Final Result [facility] [address] [place] [address], [place] [phone] * CULTURE, BACTERIA, BLOOD (06/11/2019 8:05 PM BUSINESS PERFORMANCE ADVISOR) SPEC DESCRIPTION BLOOD 06/11/2019 7:36 PM BUSINESS PERFORMANCE ADVISOR [facility] SPECIAL REQUESTS NO SPECIAL REQUEST 06/11/2019 7:36 PM BUSINESS PERFORMANCE ADVISOR [facility] CULTURE RESULT NO GROWTH 5 DAYS 06/16/2019 10:35 AM BUSINESS PERFORMANCE ADVISOR [facility] BLOOD SPECIMEN OBTAINED FOR BLOOD CULTURE / Unknown 06/11/2019 8:05 PM BUSINESS PERFORMANCE ADVISOR 06/11/2019 8:14 PM BUSINESS PERFORMANCE ADVISOR Phil Monge MD MICROBIOLOGY - [facility] [place] Final Result [facility] [address] [place] [address], * ECG 12 lead (06/11/2019 6:31 PM BUSINESS PERFORMANCE ADVISOR) 06/11/2019 6:31 PM BUSINESS PERFORMANCE ADVISOR Narrative [facility] ([facility] - 06/11/2019 6:44 PM BUSINESS PERFORMANCE ADVISOR ?[employer] [facility] ? [address] [facility] [place] ? Test Date: ?2019-06-11 Pat Name: ? NOLVIA GRAHAM ? Department: ? Room: ? INPR Gender: ? Female ? Skidder: ?? ah : ?1945 ? Requested By: GARY WOMACK Order Number: [id number] ? Reading MD: ?? Thomas Mraks ? Measurements Intervals ?[place] ? Rate: ? 94 ? P: ?37 MO: ? 152 ?QRS: ?-77 QRSD: ? 87 ? T: ?58 QT: ? 363 ? QTc: ?454 ? Interpretive Statements SINUS RHYTHM LEFT ANTERIOR FASCICULAR BLOCK POSSIBLE ANTERIOR MYOCARDIAL INFARCTION, PROBABLY OLD No previous ECG available for comparison No ischemic changes Ning Lemus NP CRITICAL ALERT ISSUED ON 06-11-2019 18:36:50 NESS PERFORMANCE ADVISOR Procedure Note Thomas Marks MD - 06/11/2019 [facility] [address] Test Date: 2019-06-11 Pat Name: NOLVIA GRAHAM Department: Room: INMO Gender: Female Skidder: : 1945 Requested By: GARY WOMACK Order Number: [id number] Reading MD: Thomas Marks Measurements Intervals [place] Rate: 94 P: 37 MO: 152 QRS: -77 QRSD: 87 T: 58 QT: 363 QTc: 454 Interpretive Statements SINUS RHYTHM LEFT ANTERIOR FASCICULAR BLOCK POSSIBLE ANTERIOR MYOCARDIAL INFARCTION, PROBABLY OLD No previous ECG available for comparison No ischemic changes Ning Lemus NP CRITICAL ALERT ISSUED ON 06-11-2019 18:36:50 NESS PERFORMANCE ADVISOR us Gary Womack PA-C ECG ORDERABLES Final Resul t [facility] ([facility] * XR CHEST PA+LAT (06/11/2019 6:29 PM BUSINESS PERFORMANCE ADVISOR) Anatomical Region Laterality Modality Chest Radiographic Tanesha ging 06/11/2019 6:32 PM BUSINESS PERFORMANCE ADVISOR Impressions 06/11/2019 6:35 PM BUSINESS PERFORMANCE ADVISOR IMPRESSION: 1. ??No acute chest findings. 2. ??Age indeterminant lumbar compression fracture. Interpreted By: Fabian Larose MD, 06/11/2019 6:32 PM Narrative 06/11/2019 6:35 PM BUSINESS PERFORMANCE ADVISOR Exam: Chest x-ray No comparison INDICATION: Shortness [...] Resul t * BNP (06/11/2019 6:08 PM BUSINESS PERFORMANCE ADVISOR) B TYPE NATRIURETIC PEPTIDE 10 <100 PG/ML 06/11/2019 6:59 PM BUSINESS PERFORMANCE ADVISOR [facility] 06/11/2019 6:08 PM BUSINESS PERFORMANCE ADVISOR Gary Womack PA-C LABORATORY Final Resul t Performing Organization Address [facility]/ZIP Co de Phone Number [facility] [address] [place] [address], [place] [phone] * TROPONIN, QUANT (06/11/2019 6:08 PM BUSINESS PERFORMANCE ADVISOR) TROPONIN I <0.015 <0.045 ng/mL. 06/11/2019 6:53 PM BUSINESS PERFORMANCE ADVISOR [facility] Comment: HIGH DOSES OF BIOTIN MAY INTERFERE WITH THIS TEST RESULT. CORRELATION TO CLINICAL HISTORY AND PRESENTATION RECOMMENDED. 06/11/2019 6:08 PM BUSINESS PERFORMANCE ADVISOR Gary Womack PA-C LABORATORY Final Resul t Performing Organization Address City/[facility]/ZIP Co de Phone Number [facility] [address] [place] [address], [place] [phone] * (ABNORMAL) COMPREHENSIVE METABOLIC PANEL (06/11/2019 6:08 PM BUSINESS PERFORMANCE ADVISOR) [facility] Signature GLUCOSE 113(H) 70 - 99 MG/DL 06/11/2019 6:53 PM [facility] BUN 6(L) 7 - 18 MG/DL 06/11/2019 6:53 PM [facility] CREATININE S/P/B 0.77 0.55 - 1.02 MG/DL 06/11/2019 6:53 PM [facility] SODIUM S/P/B 139 136 - 145 MMOL/L 06/11/2019 6:53 PM [facility] POTASSIUM S/P/B 3.3(L) 3.5 - 5.1 MMOL/L 06/11/2019 6:53 PM [facility] CHLORIDE S/P/B 106 100 - 108 MMOL/L 06/11/2019 6:53 PM [facility] CO2 26.9 21 - 32 MMOL/L 06/11/2019 6:53 PM [facility] CALCIUM S/P/B 9.3 8.5 - 10.1 MG/DL 06/11/2019 6:53 PM [facility] BILIRUBIN TOTAL S/P/B 0.5 0.2 - 1.2 MG/DL 06/11/2019 6:53 PM [facility] TOTAL PROTEIN S/P/B 7.4 6.4 - 8.2 G/DL 06/11/2019 6:53 PM [facility] ALBUMIN S/P/B 3.9 3.4 - 5.0 G/DL 06/11/2019 6:53 PM [facility] AST 22 15 - 37 U/L 06/11/2019 6:53 PM [facility] ALT 35 14 - 55 U/L 06/11/2019 6:53 PM [facility] ALKALINE PHOSPHATASE S/P/B 96 50 - 136 U/L 06/11/2019 6:53 PM [facility] ANION GAP 6.1 5 - 15 MMOL/L 06/11/2019 6:53 PM [facility] BUN CREATININE RATIO 7.8 6 - 26 06/11/2019 6:53 PM [facility] A/G RATIO 1.1 1.0 - 2.0 RATIO 06/11/2019 6:53 PM [facility] EGFR NON-AFR. AMER. 78(L) >90 ML/MIN/1.7 3 M2 06/11/2019 6:53 PM [facility] EGFR AFR. AMER. >90 >90 ML/MIN/1.7 3 M2 06/11/2019 6:53 PM [facility] Comment: NOTE: eGFR is not calculated for patients <18 years of age. This is an estimated GFR (CKD EPI) and should not be used for calculating drug doses. 06/11/2019 6:08 PM BUSINESS PERFORMANCE ADVISOR us Gary Womack PA-C LABORATORY Final Resul t [facility] [address] [place] [address], [place] [phone] * PARTIAL THROMBOPLASTIN TIME,PTT (06/11/2019 6:08 PM BUSINESS PERFORMANCE ADVISOR) PTT 36.0 25.5 - 37.6 SEC 06/11/2019 6:53 PM [facility] 06/11/2019 6:08 PM BUSINESS PERFORMANCE ADVISOR us Gary Womack PA-C LABORATORY Final Resul t [facility] [address] [place] [address], [place] [phone] * PROTIME/INR, VENOUS (06/11/2019 6:08 PM BUSINESS PERFORMANCE ADVISOR) PROTIME 11.2 9.6 - 12.2 SEC 06/11/2019 6:53 PM BUSINESS PERFORMANCE ADVISOR [facility] INR 1.0 06/11/2019 6:53 PM BUSINESS PERFORMANCE ADVISOR [facility] Comment: Recommended INR Therapeutic Goals: ??2.0-3.0 Routine Therapy ??2.5-3.5 Mechanical Prosthetic Valves (High Risk) ??3.0-4.0 Acute [place] (to prevent Systemic Embolism) The INR is used only for patients on stable oral anticoagulant therapy. It makes no significant contribution to the diagnosis or treatment of patients whose Protime is prolonged for other reasons. 06/11/2019 6:08 PM BUSINESS PERFORMANCE ADVISOR Gary Womack PA-C LABORATORY Final Resul t [facility] [address] [place] [address], [place] [phone] * (ABNORMAL) CBC W/DIFF AUTOMATED (06/11/2019 6:08 PM BUSINESS PERFORMANCE ADVISOR) WBC 12.5(H) 4.5 - 11.0 x10'3/uL 06/11/2019 6:27 PM BUSINESS PERFORMANCE ADVISOR [facility] RBC 5.16 4.20 - 5.40 x10'6/uL 06/11/2019 6:27 PM BUSINESS PERFORMANCE ADVISOR [facility] HGB 13.7 12.0 - 16.0 G/DL 06/11/2019 6:27 PM BUSINESS PERFORMANCE ADVISOR [facility] HCT 42.8 38.0 - 48.0 % 06/11/2019 6:27 PM [facility] MCV 82.9 81.0 - 99.0 FL 06/11/2019 6:27 PM [facility] MCH 26.6(L) 27.0 - 31.0 PG 06/11/2019 6:27 PM [facility] MCHC 32.0 32.0 - 36.0 G/DL 06/11/2019 6:27 PM [facility] RDW 14.3 11.5 - 14.5 % 06/11/2019 6:27 PM [facility] PLT 400 130 - 400 x10'3/uL 06/11/2019 6:27 PM [facility] MPV 10.3 9.3 - 12.2 FL 06/11/2019 6:27 PM [facility] DIFFERENTIAL TYPE AUTOMATED DIFFERENTIAL 06/11/2019 6:27 PM [facility] NEUTROPHILS % 67.1 % 06/11/2019 6:27 PM [facility] LYMPHOCYTES % 20.3 % 06/11/2019 6:27 PM [facility] MONOCYTES % 5.9 % 06/11/2019 6:27 PM [facility] EOSINOPHILS 4.9 % 06/11/2019 6:27 PM [facility] BASOPHILS 0.6 % 06/11/2019 6:27 PM [facility] IMMATURE GRANS % 1.2 % 06/11/20 19 6:27 PM [facility] ABS. NEUTROPHILS TOTAL 8.36(H) 1.80 - 7.70 x10'3/uL 06/11/2019 6:27 PM [facility] ABS. LYMPHOCYTES 2.53 1.00 - 4.80 x10'3/uL 06/11/2019 6:27 PM BUSINESS PERFORMANCE ADVISOR [facility] ABS. MONOCYTES 0.74 0.24 - 0.86 x10'3/uL 06/11/2019 6:27 PM BUSINESS PERFORMANCE ADVISOR [facility] ABS. EOSINOPHILS 0.61(H) 0.04 - 0.36 x10'3/uL 06/11/2019 6:27 PM BUSINESS PERFORMANCE ADVISOR [facility] ABS. BASOPHILS 0.08 0.01 - 0.08 x10'3/uL 06/11/2019 6:27 PM BUSINESS PERFORMANCE ADVISOR [facility] ABS. IMMATURE GRANULOCYTES 0.15 0.00 - 0.49 x10'3/uL 06/11/2019 6:27 PM BUSINESS PERFORMANCE ADVISOR [facility] 06/11/2019 6:08 PM BUSINESS PERFORMANCE ADVISOR Gary Womack PA-C LABORATORY Final Resul t [facility] [address] [place] [address], [place] [phone] documented in this encounter Visit Diagnoses Diagnosis [...] Mon06/11/19 at 2054 Given 06/11/2019 8:55 PM BUSINESS PERFORMANCE ADVISOR 80 mLs Ri ght Arm sodium chloride 0.9% bolus infusion SOLN 1,000 mL 1,000 mL, Intravenous, Administer over 15 Minutes, Once, 1 dose, On Mon06/11/19 at 1945 New Bag 06/11/2019 8:15 PM BUSINESS PERFORMANCE ADVISOR 1,000 mLs documented in this encounter Active and Recently Administered Medications Times are shown in BUSINESS PERFORMANCE ADVISOR. Scheduled Medication Order 06/09/2019 06/10/2019 06/11/2019 sodium [...] RTR) documented in this encounter Care Teams Security Test Engineer Relationship Specialty Start Date End Date Ghazal Hernandez MD [address] [address] PCP - General 01/03/17 documented as of this encounter
--- OUTSIDE RECORDS SUMMARY | 2024-06-28 00:47 | XMS_ITS | Encounter Summary ---
Author Organization [facility] Address [address] [place] [address]. [place] [address] [place] [address] Care Team Providers Care Branch Services Manager Name Role Phone Scott Hernandez MD Primary Care Provider [phone] Encounter Details Date Type Department Care Team (Late st Contact Info) Description 01/27/[address] [facility] [facility] [address] [place] [address] Shira Christianson, CORN CUTTER OPERATOR Social History Tobacco Use Types Packs/Day Years [...] Total Score: 2 06/15/20 21 10:10 AM AGRICULTURAL PURCHASING AGENT documented as of this encounter Care Teams Branch Services Manager Relationship Specialty Start Date End Date Scott Hernandez MD [address] [place], [place] [id number] PCP - General 01/03/17 documented as of this encounter
--- OUTSIDE RECORDS SUMMARY | 2024-06-28 00:47 | XMS_ITS | Encounter Summary ---
Author Organization [facility] Address [address] [place] [address]. [place], [place] [id number] [place] [address] Care Team Providers Care Boiler Reliner Name Role Phone Scott Hernandez MD Primary Care Provider [phone] Encounter Details Date Type Department Care Team [...] on filedocumented in this encounter Care Teams Boiler Reliner Relationship Specialty Start Date End Date Scott Hernandez MD [address] [place] [address] PCP - General 01/03/17 documented as of this encounter
--- OUTSIDE RECORDS SUMMARY | 2024-06-28 00:47 | XMS_ITS | Encounter Summary ---
Author Organization [facility] Address [address] [place] [address]. [place] [address] [place] [address] Care Team Providers Care Prison Warden Name Role Phone Scott Hernandez MD Primary Care Provider [phone] Reason for Visit * Reason Comments Follow Up f/u from being sick * Consultation/Treatment (Routine) - Closed Specialty Diagnoses / Procedures Referred By Contact Referred To Contact NURSE PRACTITIONER / SLEEP & RESPIRATORY CARE Diagnoses face to face for oxygen - ok per LM Procedures FOLLOW UP Scott Hernandez MD [address] [address] Phone: tel: fax: María Bautista, SUPPORT CLERK Referral ID Status Reason Start Date Expiration Date Visits Re quested Visits Authorized [id number] Closed 02/19/2019 02/20/2020 100 100 Encounter Details Date Type Department Care Team (Latest Contact Info) Description 06/03/2019 11:20 AM ACCOUNTING RECRUITER Office Visit [facility] Medical Group Multispecialty Care - [facility] [address] [facility], [address] [place] [address] María Bautista, SUPPORT CLERK Follow Up (f/u from being sick ) [...] Comments Blood Pressure 122/82 06/03/2019 11:24 AM ACCOUNTING RECRUITER Pulse 82 06/03/2019 11:24 AM ACCOUNTING RECRUITER Temperature 36.4 ??C (97.5 ??F) 06/03/2019 11:[address] Respiratory Rate 18 06/03/2019 11:24 AM ACCOUNTING RECRUITER Oxygen Saturation 96% 06/03/2019 11:24 AM ACCOUNTING RECRUITER RA Inhaled Oxygen Concentration - - Weight 70.9 kg (156 lb 6.4 oz) 06/03/2019 11:24 AM ACCOUNTING RECRUITER Height - - Body Mass Index 29.55 11/12/2018 9:55 AM CDT documented in this encounter Progress Notes * María Bautista, SUPPORT CLERK - 06/03/2019 11:20 AM CST [facility] PULMONARY MEDICINE History Chief Complaint Patient presents with ??? Follow Up f/u from being sick 73-year-old obese white female former smoker with past medical history of CVID, BRUNO, asthma/COPD, recurrent sinusitis/bronchitis, bronchiectasis, seasonal allergies, and GERD presents for follow-up. Initially referred for bronchiectasis. Previously followed with safety relief valve technician Dr. Huang; now follows with allergy providers [...] sweats, hemoptysis. Notes extensive allergies, followed with tow motor mechanic, on SCIT Notes diagnosis of BRUNO; elected not to wear CPAP in past, currently wearing. Former smoker; quit 1980s; approximate 40 pack year history. Denies alcohol/illicits. 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 Denies exposure to TB, asbestos, mold, [...] 0.1 MG tablet ??? CPAP MACHINE AutoCPAP [id number] For use when sleeping Lifetime use 1 [...] Vocal cord dysfunction, suspected -reportedly diagnosed at [facility] several years ago -unclear if diagnosis came [...] 500mcg daily 6. Continue to follow with tow motor mechanic -continue IVIG 7. Continue 3x weekly azithromycin [...] 2019 prior to leaving for [place] vacation. LACIRA Judge UNTING RECRUITER documented in this encounter Plan of Treatment Not on file documented as of this encounter Visit Diagnoses Diagnosis Bronchiectasis with acute exacerbation ([facility])- Primary Bronchiectasis with acute exacerbation Chronic obstructive pulmonary disease, unspecified COPD type ([facility]) BRUNO (obstructive sleep apnea) Obstructive sleep apnea (adult) (pediatric) CVID (common variable immunodeficiency) ([facility]) Common variable immunodeficiency Allergic rhinitis, unspecified seasonality, unspecified trigger Environmental and seasonal allergies documented in this encounter Care Teams Prison Warden Relationship Specialty Start Date End Date Scott Hernandez MD [address] [place] [address] PCP - General 01/03/17 documented as of this encounter
--- OUTSIDE RECORDS SUMMARY | 2024-06-28 00:47 | XMS_ITS | Encounter Summary ---
Author Organization [facility] Address [address] [place] [address]. [place] [address] [place] [address] Care Team Providers Care Spray Gunner Name Role Phone Scott Hernandez MD Primary Care Provider Encounter Details Date Type Department Care Team (Latest Contact Info) Description 02/16/2022 Scan HEALTH INFO SRVCS Scanned, Documents Social History Tobacco Use Types Packs/Day Years Used Date Smoking Tobacco: Former Cigarettes 2 10 218 1987 Smokeless Tobacco: Never Alcohol Use Standard [...] Total Score: 2 12/07/20 21 10:10 AM DOUGHNUT ICER MACHINE documented as of this encounter Care Teams Spray Gunner Relationship Specialty Start Date End Date Scott Hernandez MD [address] [place] [address] PCP - General 01/03/17 documented as of this encounter
--- OUTSIDE RECORDS SUMMARY | 2024-06-28 00:47 | XMS_ITS | Encounter Summary ---
Author Organization [facility] Address [address] [place] [address]. [place] [address] [place] [address] Care Team Providers Care Body Corporate Manager Name Role Phone Scott Hernandez MD Primary Care Provider [phone] Reason for Visit * Reason Onset Date Comments COVID-19 06/22/2020 Encounter Details Date Type Department Care Team (Late st Contact Info) Description 06/22/2020 Telephone [facility] Medical Group Pulmonology Specialty Clinic - [address] [address] Dustin Akins MD [address] [place] [address] COVID-19 Social History Tobacco Use Types [...] - otherwise unfortunately no medication for covid ER SUPERVISOR * Jessica Deluna - 06/22/2020 11:51 AM CST Pt dx with COVID, pt has started coughing a lot more than usually this past weekend. Her PCP is going to set her up to be tested. She is asking if she needs to do anything, is taking her meds as usual. ER SUPERVISOR documented in this encounter Plan of Treatment Not on file documented as of this encounter Visit Diagnoses Not on filedocumented in this encounter Care Teams Body Corporate Manager Relationship Specialty Start Date End Date Scott Hernandez MD [address] [address] PCP - General 01/03/17 documented as of this encounter
--- OUTSIDE RECORDS SUMMARY | 2024-06-28 00:47 | XMS_ITS | Encounter Summary ---
Author Organization [facility] Address [address] [place] [address]. [place] [address] [place] [address] Care Team Providers Care Machine Room Engineer Name Role Phone Scott Hernandez MD Primary Care Provider [phone] Encounter Details Date Type Department Care Team [...] Total Score: 2 06/15/20 21 10:10 AM LUNCH COUNTER MANAGER documented as of this encounter Care Teams Machine Room Engineer Relationship Specialty Start Date End Date Scott Hernandez MD [address] [address] PCP - General 01/03/17 documented as of this encounter
--- OUTSIDE RECORDS SUMMARY | 2024-06-28 00:47 | XMS_ITS | Encounter Summary ---
Author Organization [facility] Address [address] [place] [address]. [place] [address] [place] [address] Care Team Providers Care Bulk Fluids Handler Name Role Phone Scott Hernandez MD Primary Care Provider [phone] Encounter Details Date Type Department Care Team (Late st Contact Info) Description 06/03/2019 Orders Only [facility] Medical Group Multispecialty Care - [facility] [address] [facility], [address] [place] [address] Katia Bond, CHIEF NUCLEAR MEDICINE TECHNOLOGIST Social History Tobacco Use Types Packs/Day Years [...] on filedocumented in this encounter Care Teams Bulk Fluids Handler Relationship Specialty Start Date End Date Scott Hernandez MD [address] [address] PCP - General 01/03/17 documented as of this encounter
--- OUTSIDE RECORDS SUMMARY | 2024-06-28 00:47 | XMS_ITS | Encounter Summary ---
Author Organization [facility] Address [address] [place] [address]. [place] [address] [place] [address] Care Team Providers Care Medicare Biller Name Role Phone Scott Hernandez MD Primary Care Provider [phone] Reason for Visit * Reason Comments Sleep Study (SCAN) Encounter Details Date Type Department Care Team ([facility] Contact Info) Description 07/15/2020 Scan HEALTH INFO [...] COVID-19? No / Unsure 07/16/2020 12:49 PM VEGETABLE COOK documented as of this encounter Plan of [...] on filedocumented in this encounter Care Teams Medicare Biller Relationship Specialty Start Date End Date Scott Hernandez MD [address] [place], [place] [id number] PCP - General 01/03/17 documented as of this encounter
--- OUTSIDE RECORDS SUMMARY | 2024-06-28 00:47 | XMS_ITS | Encounter Summary ---
Author Organization [facility] Address [address] [place] [address]. [place] [address] [place] [address] Care Team Providers Care Hooker On Name Role Phone Scott Hernandez MD Primary Care Provider [phone] Encounter Details Date Type Department Care Team [...] on filedocumented in this encounter Care Teams Hooker On Relationship Specialty Start Date End Date Scott Hernandez MD [address] [place] [address] PCP - General 01/03/17 documented as of this encounter
--- OUTSIDE RECORDS SUMMARY | 2024-06-28 00:47 | XMS_ITS | Encounter Summary ---
Author Organization [facility] Address [address] [place] [address]. [place] [address] [place] [address] Care Team Providers Care Biomedical Scientist Name Role Phone Scott Hernandez MD Primary Care Provider [phone] Reason for Visit * Reason Onset Date Comments Follow Up Call 11/26/2019 Encounter Details Date Type Department Care Team (Late st Contact Info) Description 11/26/2019 Telephone [facility] Medical Group Pul[facility]ology Specialty Clinic [address] [address] Dustin Akins MD [address] [place] [address] Follow Up Call Social History Tobacco [...] Patient understood. Scripts and information sent to [facility] * Willy Bond CRT - 11/27/2019 2:22 PM CDTAddended by: WILLY BOND on: 11/27/2019 02:22 PM Modules accepted: Orders * Willy Bond CRT - 11/27/2019 10:15 AM CDT Called Maria Del Rosario from [facility] and I mentioned that Dr. Akins stated that we can change her to the nebulizer treatments instead of the inhalers. Maria Del Rosario mentioned that she will call and let the patient know about the changes. Mentioned to maria del rosario that I still have not received the order for this. Maria Del Rosario stated that she faxed it to [phone] and then [phone] and she got confirmations that it went through. Maria Del Rosario statedthat she will hand deliver it to us and leave it at the front with the PSRs. Mentioned that she will need to wear a mask and also get her temperature taken at the front door before she is able to come up. * Willy Bond CRT - 11/27/2019 8:[address] Akins: - okay to change - patient needs to know that compliance is stoll * Willy Bond CRT - 11/26/2019 3:13 PM CDT Task printed and placed in Dr. Akins folder to review * Willy Bond CRT - 11/26/2019 3:05 PM CDT Maria Del Rosario from [facility] stated that the patient is struggling with [...] 12:57 PM CDT Maria Del Rosario from [facility] returned call. Please call back. * Willy Bond CRT - 11/26/2019 12:40 PM CDT Called Maria Del Rosario from [facility] and [facility] stating that we have not received the order yet on this patient.Mentioned that she can refax it to [phone]. * María Bartlett - 11/26/2019 10:29 AM CDT Maria Del Rosario, from [facility] , is faxing over an order. She would like for someone to call her so she can explain the reason for this request. Please return her call. documented in this encounter Plan of Treatment Not on file documented as of this encounter Visit Diagnoses Diagnosis Chronic obstructive pulmonary disease, unspecified COPD type (CMS/HCC [facility]) documented in this encounter Care Teams Biomedical Scientist Relationship Specialty Start Date End Date Scott Hernandez MD [address] [place] [address] PCP - General 01/03/17 documented as of this encounter
--- OUTSIDE RECORDS SUMMARY | 2024-06-28 00:47 | XMS_ITS | Encounter Summary ---
Author Organization [facility] Address [address] [place] [address]. [place] [address] [place] [address] Care Team Providers Care Net Software Engineer Name Role Phone Scott Hernandez MD Primary Care Provider [phone] Reason for Visit * Reason Onset Date Comments Information 06/11/2019 Encounter Details Date Type Department Care Team (Late st Contact Info) Description 06/11/2019 Telephone [facility] Medical Group Multispecialty Care - [facility] [address] [facility], [address] [place] [address] Uche Bautista, SKIN LIFTER BACON Information Social History Tobacco Use Types Packs/Day [...] the phone with Mrs. Coffey. ALCIRA Judge MBLER CHASSIS * Uche Bautista APRN - 06/11/2019 3:15 PM CSTAddended by: UCHE BAUTISTA on: 06/11/2019 03:15 PM Modules accepted: Orders MBLER CHASSIS * Uche Bautista APRN - 06/11/2019 3:02 PM CST Patient with cough, increased shortness of breath, extreme fatigue, weakness, lightheadedness, tremors, low grade fever, chills. Had near-syncope at [facility]. Completed Levaquin, Prednisone priorto office visit with [...] Low threshold for ER visit ALCIRA Judge MBLER CHASSIS * Katia Bond CRT - 06/11/2019 2:21 PM CST Routed to Uche Bautista APRN to review and advise. MBLER CHASSIS * Manasa Dempsey - 06/11/2019 2:03 PM [...] she was about to pass out at [facility]. Doing anything wears her out and she has to sleep after it. Please call her back today is possible to let her know what Uche would like to do next from here. MBLER CHASSIS documented in this encounter Plan of Treatment Not on file documented as of this encounter Results * INFLUENZA A & B (06/11/2019 3:51 PM ASSEMBLER CHASSIS) SPECIMEN TYPE NASOPHARYNGEAL SWAB 06/11/2019 4:06 PM ASSEMBLER CHASSIS [facility] INFLUENZA A NEGATIVE NEGATIVE 06/11/2019 4:29 PM ASSEMBLER CHASSIS [facility] INFLUENZA B NEGATIVE NEGATIVE 06/11/2019 4:29 PM ASSEMBLER CHASSIS [facility] Comment: Interpretation: Negative for Influenza [...] NASOPHARYNGEAL SWAB / Unknown 06/11/2019 3:51 PM ASSEMBLER CHASSIS us Uche Bautista SKIN LIFTER BACON MICROBIOLOGY - GENERAL ORD ERABLES Final Result [facility] [address] [place] [address], [place] [phone] documented in this encounter Visit Diagnoses Diagnosis Cough- Primary Shortness of breath Fever and chills Fever, unspecified documented in this encounter Care Teams Net Software Engineer Relationship Specialty Start Date End Date Scott Hernandez MD [address] [place], [place] [address] PCP - General 01/03/17 documented as of this encounter
--- OUTSIDE RECORDS SUMMARY | 2024-06-28 00:47 | XMS_ITS | Encounter Summary ---
Author Organization [facility] Address [address] [place] [address]. [place], [place] [address] [place] [address] Care Team Providers Care Counter Help Name Role Phone Scott Hernandez MD Primary Care Provider [phone] Encounter Details Date Type Department Care Team [...] on filedocumented in this encounter Care Teams Counter Help Relationship Specialty Start Date End Date Scott Hernandez MD [address] [facility] [place] [address] PCP - General 01/03/17 documented as of this encounter
--- OUTSIDE RECORDS SUMMARY | 2024-06-28 00:47 | XMS_ITS | Encounter Summary ---
Author Organization [facility] Address [address] [place] [address]. [place] [address] [place] [address] Care Team Providers Care Maintenance Of Way Superintendent Name Role Phone Scott Hernandez MD Primary Care Provider [phone] Reason for Visit * Reason Onset Date Comments Fax 01/19/2022 Encounter Details Date Type Department Care Team (Late st Contact Info) Description 01/19/2022 Telephone [facility] Medical Group Pulmonology Specialty Clinic - [address] [address] Dustin Akins MD [address] [place] [address] Fax Social History Tobacco Use Types [...] Total Score: 2 06/15/20 21 10:10 AM INTERNAL AUDIT CONSULTANT documented as of this encounter Care Teams Maintenance Of Way Superintendent Relationship Specialty Start Date End Date Scott Hernandez MD [address] [place] [address] PCP - General 01/03/17 documented as of this encounter
--- OUTSIDE RECORDS SUMMARY | 2024-06-28 00:47 | XMS_ITS | Encounter Summary ---
Author Organization [facility] Address [address] [place] [address]. [place] [address] [place] [address] Care Team Providers Care Rd Mechanical Engineer Name Role Phone Scott Hernandez MD Primary Care Provider [phone] Encounter Details Date Type Department Care Team (Latest Contact Info) Description 06/11/2019 3:40 PM WINDOW CLERK - 06/11/2019 5:45 PM [facility] Hospital Encounter [facility] [address] María Bautista, INCOME TAX ADMINISTRATOR Discharge Disposition: Home or Self Care (Routine [...] CPAP MACHINEIndication s:BRUNO (obstructive sleep apnea) AutoCPAP [id number] For use when sleeping Lifetime use 1 [...] variable immunodeficiency) ([facility]),Bronchie ctasis without complication ([facility]) Take 1 Device by nebulization every 4 (four) hours as needed. 1 Device 11/12/2018 vitamin D3, cholecalciferol, 5000 UNITS capsule albuterol (2.5 MG/3ML) 0.083% nebulizer solutionIndicatio ns:Chronic obstructive pulmonary disease, unspecified COPD type ([facility] H[facility]/HCC) Take 3 mLs (2.5 mg total) by nebulization every 6 (six) hours as needed for Wheezing. 360 mL 7 05/13/2019 0 azithromycin 500 MG tabletIndications :Bronchiectasis without complication ([facility]/HCC),Chronic obstructive pulmonary disease, unspecified COPD type ([facility]HS/HCC) Take 1 tablet (500 mg total) by mouth 3 (three) times a week for 30 doses. Every Monday, Monday, and Monday 30 tablet 1 05/24/2019 0 budesonide-formot gilmar (SYMBICORT) 160-4.5 MCG/ACT inhalerIndication s:Chronic obstructive pulmonary disease, unspecified COPD type ([facility]) Inhale 2 puffs into the [...] A & B Today 06/11/2019 3:51 PM WINDOW CLERK Cough Shortness of breath Fever and chills documented in this encounter Results * INFLUENZA A & B (06/11/2019 3:51 PM WINDOW CLERK) SPECIMEN TYPE NASOPHARYNGEAL SWAB 06/11/2019 4:06 PM WINDOW CLERK [facility] INFLUENZA A NEGATIVE NEGATIVE 06/11/2019 4:29 PM WINDOW CLERK [facility] INFLUENZA B NEGATIVE NEGATIVE 06/11/2019 4:29 PM [facility] Comment: Interpretation: Negative for [...] NASOPHARYNGEAL SWAB / Unknown 06/11/2019 3:51 PM WINDOW CLERK us María Bautista INCOME TAX ADMINISTRATOR MICROBIOLOGY - GENERAL ORD ERABLES Final Result [facility] [address] [place] [address], documented in this encounter Visit Diagnoses Diagnosis Cough Shortness of breath Fever and chills Fever, unspecified documented in this encounter Care Teams Rd Mechanical Engineer Relationship Specialty Start Date End Date Scott Hernandez MD [address] [place], [place] [address] PCP - General 01/03/17 documented as of this encounter
--- OUTSIDE RECORDS SUMMARY | 2024-06-28 00:48 | XMS_ITS | Encounter Summary ---
Author Organization [facility] Address [address] [place] [address]. [place] [address] [place] [address] Care Team Providers Care Ring Sorter Name Role Phone Scott Hernandez MD Primary Care Provider [phone] Reason for Visit * Reason Onset Date Comments Medication Request 05/08/2019 Encounter Details Date Type Department Care Team (Late st Contact Info) Description 05/08/2019 Telephone [facility] Medical Group Multispecialty Care - [facility] [address] [facility], [address] [place] [address] María Bautista, INSULATION BOARD HEAD SAW OPERATOR Medication Request Social History Tobacco Use Types [...] on filedocumented in this encounter Care Teams Ring Sorter Relationship Specialty Start Date End Date Scott Hernandez MD [address] [place] [address] PCP - General 01/03/17 documented as of this encounter
--- OUTSIDE RECORDS SUMMARY | 2024-06-28 00:48 | XMS_ITS | Encounter Summary ---
Author Organization [facility] Address [address] [place] [address]. [place], [place] [address] [place] [address] Care Team Providers Care Rolloff Truck Driver Name Role Phone Scott Hernandez MD Primary Care Provider [phone] Encounter Details Date Type Department Care Team [...] on filedocumented in this encounter Care Teams Rolloff Truck Driver Relationship Specialty Start Date End Date Scott Hernandez MD [address] [facility] [address] PCP - General 01/03/17 documented as of this encounter
--- OUTSIDE RECORDS SUMMARY | 2024-06-28 00:48 | XMS_ITS | Encounter Summary ---
Author Organization [facility] Address [address] [place] [address]. [place] [address] [place] [address] Care Team Providers Care Knife Glazer Name Role Phone Scott Hernandez MD Primary Care Provider [phone] Scott Hernandez MD Primary Care Provider [phone] Scott Hernandez MD Primary Care Provider [phone] Encounter Details Date Type Department Care Team (Latest Contact Info) Description 11/18/2016 Abstract [facility] Medical Group Social History [...] on filedocumented in this encounter Care Teams Knife Glazer Relationship Specialty Start Date End Date Scott Hernandez MD [address] [place] [address] PCP - General 01/03/17 Scott Hernandez MD [address] [place] [address] PCP - General 11/22/16 01/02/17 Scott Hernandez MD [address] [address] PCP - General 11/21/16 11/21/16 documented as of this encounter
--- OUTSIDE RECORDS SUMMARY | 2024-06-28 00:48 | XMS_ITS | Encounter Summary ---
Author Organization [facility] Address [address] [place] [address]. [place] [address] [place] [address] Care Team Providers Care Skimmer Name Role Phone Scott Hernandez MD Primary Care Provider [phone] Reason for Visit * Reason Onset Date Comments Follow Up Call 11/22/2018 Encounter Details Date Type Department Care Team (Late st Contact Info) Description 11/22/2018 Telephone [facility] Pulmonology Specialty Clinic - [address] [address] Dustin Akins MD [address] [place] [address] Follow Up Call Social History Tobacco [...] on filedocumented in this encounter Care Teams Skimmer Relationship Specialty Start Date End Date Scott Hernandez MD [address] [address] PCP - General 01/03/17 documented as of this encounter
--- OUTSIDE RECORDS SUMMARY | 2024-06-28 00:48 | XMS_ITS | Encounter Summary ---
Author Organization [facility] Address [address] [place] [address]. [place] [address] [place] [address] Care Team Providers Care Pe Manager Name Role Phone Scott Hernandez MD Primary Care Provider [phone] Scott Hernandez MD Primary Care Provider [phone] Scott Hernandez MD Primary Care Provider [phone] Encounter Details Date Type Department Care Team (Latest Contact Info) Description 03/31/2016 Abstract [facility] Medical Group Social History Tobacco [...] on filedocumented in this encounter Care Teams Pe Manager Relationship Specialty Start Date End Date Scott Hernanedz MD [address] [place] [place] [address] PCP - General 01/03/17 Scott Hernandze MD [address] [address] PCP - General 11/22/16 01/02/17 Scott Hernandez MD [address] [address] PCP - General 11/21/16 11/21/16 documented as of this encounter
--- OUTSIDE RECORDS SUMMARY | 2024-06-28 00:48 | XMS_ITS | Encounter Summary ---
Author Organization [facility] Address [address] [place] [address]. [place] [address] [place] [address] Care Team Providers Care Radiology Tech Name Role Phone Scott Hernandez MD Primary Care Provider [phone] Encounter Details Date Type Department Care Team (Late st Contact Info) Description 05/16/2017 Abstract [facility] Medical Group Multispecialty Care - [address] [place] [address] Dustin Akins MD [address] [place] [address] [address] [place] [address] Social History Tobacco Use Types Packs/Day Years [...] pulmonary disease); LINDSAY = N; Sent To: [facility] Chronic obstructive asthma 2. Ipratropium-Albuterol 0.5-2.5 (3) MG/3ML Inhalation Solution; USE 1 UNIT DOSE IN NEBULIZER EVERY 4 HOURS NEEDED Rx By: Dustin Akins; Dispense: 0 Days ; #:1 X 60 x 3 ML Plas Cont; Refill: 6; For: Chronic obstructive asthma; LINDSAY = N; Sent To: [facility] # [id number] COPD (chronic obstructive pulmonary disease) 3. From [...] 500mcg daily 6. Continue to follow with property claims adjuster -continue scit; IVIG 7. Discusse potential addition [...] prednisone; [facility] [place] 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 Notes extensive allergies, followed with property claims adjuster, on SCIT Notes diagnosis of BRUNO; elected not to wear CPAP in past. Former smoker; quit ; approximate 40 pack year history. Denies alcohol/illicits. 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 Denies exposure to TB, asbestos, mold, [...] EVERY 4 HOURS NEEDED; Therapy: 21Nov2016 to (Evaluate:[id number]) Requested for: 21Nov2016; Last Rx:21Nov2016 Ordered 13. [...] Dustin Akins M.D.; May 16 2017 11:27AM POLLS OR SURVEYS INTERVIEWER (Author) documented in this encounter Plan of Treatment Not on file documented as of this encounter Visit Diagnoses Not on filedocumented in this encounter Care Teams Radiology Tech Relationship Specialty Start Date End Date Scott Hernandez MD [address] [place] [address] PCP - General 01/03/17 documented as of this encounter
--- OUTSIDE RECORDS SUMMARY | 2024-06-28 00:48 | XMS_ITS | Encounter Summary ---
Author Organization [facility] Address [address] [place] [address]. [place] [address] [place] [address] Care Team Providers Care Household Appliances Service Technician Name Role Phone Scott Hernandez MD Primary Care Provider [phone] Scott Hernandez MD Primary Care Provider [phone] Scott Hernandez MD Primary Care Provider [phone] Encounter Details Date Type Department Care Team (Latest Contact Info) Description 07/19/2012 Abstract [facility] Medical Group Social History Tobacco [...] on filedocumented in this encounter Care Teams Household Appliances Service Technician Relationship Specialty Start Date End Date Scott Hernandez MD [address] [place] [address] PCP - General 01/03/17 Scott Hernandez MD [address] [address] PCP - General 11/22/16 01/02/17 Scott Hernandez MD [address] [address] PCP - General 11/21/16 11/21/16 documented as of this encounter
--- OUTSIDE RECORDS SUMMARY | 2024-06-28 00:48 | XMS_ITS | Encounter Summary ---
Author Organization [facility] Address [address] [place] [address]. [place], [place] [address] [place] [address] Care Team Providers Care Glue Machine Operator Name Role Phone Scott Hernandez MD Primary Care Provider [phone] Encounter Details Date Type Department Care Team [...] on filedocumented in this encounter Care Teams Glue Machine Operator Relationship Specialty Start Date End Date Scott Hernandez MD [address] [facility] [address] PCP - General 01/03/17 documented as of this encounter
--- OUTSIDE RECORDS SUMMARY | 2024-06-28 00:48 | XMS_ITS | Encounter Summary ---
Author Organization [facility] Address [address] [place] [address]. [place] [address] [place] [address] Care Team Providers Care Obstetric Assistant Name Role Phone Scott Hernandez MD Primary Care Provider [phone] Scott Hernandez MD Primary Care Provider [phone] Scott Hernandez MD Primary Care Provider [phone] Encounter Details Date Type Department Care Team (Latest Contact Info) Description 09/13/2012 Abstract [facility] Medical Group Social History [...] on filedocumented in this encounter Care Teams Obstetric Assistant Relationship Specialty Start Date End Date Scott Hernandez MD [address] [place] [address] PCP - General 01/03/17 Scott Hernandez MD [address] [address] PCP - General 11/22/16 01/02/17 Scott Hernandez MD [address] [address] PCP - General 11/21/16 11/21/16 documented as of this encounter
--- OUTSIDE RECORDS SUMMARY | 2024-06-28 00:48 | XMS_ITS | Encounter Summary ---
Author Organization [facility] Address [address] [place] [address]. [place] [address] [place] [address] Care Team Providers Care Surgical Services Coordinator Name Role Phone Scott Hernandez MD Primary Care Provider [phone] Scott Hernandez MD Primary Care Provider [phone] Scott Hernandez MD Primary Care Provider [phone] Encounter Details Date Type Department Care Team (Late st Contact Info) Description 05/21/[address] [facility] [address] [place] [address] Jayjay Ruano MD [address] [place] [address] Social History Tobacco Use Types Packs/Day [...] cords documented in this encounter Care Teams Surgical Services Coordinator Relationship Specialty Start Date End Date Scott Hernandez MD [address] [place] [address] PCP - General 01/03/17 Scott Hernandez MD [address] [place] [address] PCP - General 11/22/16 01/02/17 Scott Hernandez MD [address] [place] [facility] [place] [address] PCP - General 11/21/16 11/21/16 documented as of this encounter
--- OUTSIDE RECORDS SUMMARY | 2024-06-28 00:48 | XMS_ITS | Encounter Summary ---
Author Organization [facility] Address [address] [place] [address]. [place], [place] [address] [place] [address] Care Team Providers Care Glove Sewer Name Role Phone Scott Hernandez MD Primary Care Provider [phone] Encounter Details Date Type Department Care Team (Latest Contact Info) Description 01/04/2017 Abstract [facility] Medical Group Social History Tobacco Use [...] filedocumented in this encounter Care Teams Glove Sewer Relationship Specialty Start Date End Date Scott Hernandez MD [address] [address] PCP - General 01/03/17 documented as of this encounter
--- OUTSIDE RECORDS SUMMARY | 2024-06-28 00:48 | XMS_ITS | Encounter Summary ---
Author Organization [facility] Address [address] [place] [address]. [place], [place] [address] [place] [address] Care Team Providers Care Journeyman Pipe Welder Name Role Phone Scott eHrnandez MD Primary Care Provider [phone] Encounter Details Date Type Department Care Team (Latest Contact Info) Description 03/03/2017 Abstract [facility] Medical Group Social [...] on filedocumented in this encounter Care Teams Journeyman Pipe Welder Relationship Specialty Start Date End Date Scott Hernandez MD [address] [address] PCP - General 01/03/17 documented as of this encounter
--- OUTSIDE RECORDS SUMMARY | 2024-06-28 00:48 | XMS_ITS | Encounter Summary ---
Author Organization [facility] Address [address] [place] [address]. [place] [address] [place] [address] Care Team Providers Care Birth Certificate Clerk Name Role Phone Scott Hernandez MD Primary Care Provider [phone] Scott Hernandez MD Primary Care Provider [phone] Scott Hernandez MD Primary Care Provider [phone] Encounter Details Date Type Department Care Team (Latest Contact Info) Description 01/02/[address] [facility] Medical Group Social History Tobacco Use Types [...] on filedocumented in this encounter Care Teams Birth Certificate Clerk Relationship Specialty Start Date End Date Scott Hernandez MD [address] [place] [address] PCP - General 01/03/17 Scott Hernandez MD [address] [address] PCP - General 11/22/16 01/02/17 Scott Hernandez MD [address] [address] PCP - General 11/21/16 11/21/16 documented as of this encounter
--- OUTSIDE RECORDS SUMMARY | 2024-06-28 00:48 | XMS_ITS | Encounter Summary ---
Author Organization [facility] Address [address] [place] [address]. [place], [place] [address] [place] [address] Care Team Providers Care Dredge Boat Engineer Name Role Phone Scott Hernandez MD Primary Care Provider [phone] Encounter Details Date Type Department Care Team (Latest Contact Info) Description 02/03/[address] [facility] Medical Group [...] on filedocumented in this encounter Care Teams Dredge Boat Engineer Relationship Specialty Start Date End Date Scott Hernandez MD [address] [address] PCP - General 01/03/17 documented as of this encounter
--- OUTSIDE RECORDS SUMMARY | 2024-06-28 00:48 | XMS_ITS | Encounter Summary ---
Author Organization [facility] Address [address] [place] [address]. [place] [address] [place] [address] Care Team Providers Care Vice President Sales Name Role Phone Scott Hernandez MD Primary Care Provider [phone] Scott Hernandez MD Primary Care Provider [phone] Scott Hernandez MD Primary Care Provider [phone] Encounter Details Date Type Department Care Team (Latest Contact Info) Description 10/21/2013 Abstract [facility] Medical Group Social History Tobacco Use [...] on filedocumented in this encounter Care Teams Vice President Sales Relationship Specialty Start Date End Date Scott Hernandez MD [address] [place] [address] PCP - General 01/03/17 Scott Hernandez MD [address] [address] PCP - General 11/22/16 01/02/17 Scott Hernandez MD [address] [address] PCP - General 11/21/16 11/21/16 documented as of this encounter
--- OUTSIDE RECORDS SUMMARY | 2024-06-28 00:48 | XMS_ITS | Encounter Summary ---
Author Organization [facility] Address [address] [place] [address]. [place], [place] [address] [place] [address] Care Team Providers Care Wood Processing Worker Name Role Phone Scott Hernandez MD Primary Care Provider [phone] Scott Hernandez MD Primary Care Provider [phone] Encounter Details Date Type Department Care Team (Latest Contact Info) Description 11/28/2016 Abstract [facility] Medical Group Social History Tobacco [...] filedocumented in this encounter Care Teams Wood Processing Worker Relationship Specialty Start Date End Date Scott Hernandez MD [address] [address] PCP - General 01/03/17 Scott Hernandez MD [address] [address] PCP - General 11/22/16 01/02/17 documented as of this encounter
--- OUTSIDE RECORDS SUMMARY | 2024-06-28 00:48 | XMS_ITS | Encounter Summary ---
Author Organization [facility] Address [address] [place] [address]. [place] [address] [place] [address] Care Team Providers Care Engraver Optical Frames Name Role Phone Scott Hernandez MD Primary Care Provider [phone] Reason for Visit * Reason Comments COPD Encounter Details Date Type Department Care Team (Late st Contact Info) Description 06/12/2018 8:40 AM VENEER SLICING MACHINE OPERATOR Office Visit [facility] Medical Group Pulmonology Specialty Clinic [address] [address] Dustin Akins MD [address] [place] [id number] COPD Social History Tobacco Use Types Packs/Day [...] Comments Blood Pressure 144/71 06/12/2018 8:35 AM VENEER SLICING MACHINE OPERATOR Pulse 84 06/12/2018 8:35 AM VENEER SLICING MACHINE OPERATOR Temperature - - Respiratory Rate 18 06/12/2018 8:35 AM VENEER SLICING MACHINE OPERATOR Oxygen Saturation 94% 06/12/2018 8:35 AM VENEER SLICING MACHINE OPERATOR ra Inhaled Oxygen Concentration - - Weight 71.2 kg (157 lb) 06/12/2018 8:35 AM VENEER SLICING MACHINE OPERATOR Height - - Body Mass Index 30.66 05/16/2017 10:23 AM VENEER SLICING MACHINE OPERATOR documented in this encounter Progress Notes * Dustin Akins MD - 06/12/2018 8:40 AM CST [facility] PULMONARY MEDICINE History Chief Complaint Patient [...] sweats, hemoptysis. Notes extensive allergies, followed with personnel training officer, on SCIT Notes diagnosis of BRUNO; elected not to wear CPAP in past. Former smoker; quit 1980s; approximate 40 pack year history. Denies alcohol/illicits. 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 Denies exposure to TB, asbestos, mold, birds. [...] 500mcg daily 6. Continue to follow with personnel training officer -continue IVIG 7. Discussed potential addition of [...] Respiratory culture, AFB smear/culture [facility]kins MD[facility] SLICING MACHINE OPERATOR documented in this encounter Plan of Treatment Not on file documented as of this encounter Visit Diagnoses Diagnosis Bronchiectasis without complication ([facility] Primary Bronchiectasis without acute exacerbation Class 1 obesity without serious comorbidity with body mass index (BMI) of 33.0 to 33.9 in adult, unspecified obesity type Chronic obstructive pulmonary disease, unspecified COPD type ([facility]) BRUNO (obstructive sleep apnea) Obstructive sleep apnea (adult) (pediatric) Productive cough Cough CVID (common variable immunodeficiency) ([facility]) Common variable immunodeficiency On prednisone therapy documented in this encounter Care Teams Engraver Optical Frames Relationship Specialty Start Date End Date Scott Hernandez MD [address] [place] [id number] PCP - General 01/03/17 documented as of this encounter
--- OUTSIDE RECORDS SUMMARY | 2024-06-28 00:48 | XMS_ITS | Encounter Summary ---
Author Organization [facility] Address [address] [place] [address]. [place], [place] [address] [place] [address] Care Team Providers Care Electronic Prepress System Operator Name Role Phone Scott Hernandez MD Primary Care Provider [phone] Encounter Details Date Type Department Care Team [...] on filedocumented in this encounter Care Teams Electronic Prepress System Operator Relationship Specialty Start Date End Date Scott Hernandez MD [address] [facility] [place] [address] PCP - General 01/03/17 documented as of this encounter
--- OUTSIDE RECORDS SUMMARY | 2024-06-28 00:48 | XMS_ITS | Encounter Summary ---
Author Organization [facility] Address [address] [place] [address]. [place], [place] [address] [place] [address] Care Team Providers Care Bioprocess Engineer Name Role Phone Scott Hernandez MD Primary Care Provider Encounter Details Date Type Department Care Team (Latest Contact Info) Description 05/25/2017 Abstract [facility] Medical Group Social History Tobacco [...] on filedocumented in this encounter Care Teams Bioprocess Engineer Relationship Specialty Start Date End Date Scott Hernandez MD [address] [address] PCP - General 01/03/17 documented as of this encounter
--- OUTSIDE RECORDS SUMMARY | 2024-06-28 00:48 | XMS_ITS | Encounter Summary ---
Author Organization [facility] Address [address] [place] [address]. [address] Care Team Providers Care Soft Metals Engraver Hand Name Role Phone Scott Hernandez MD Primary Care Provider [phone] Scott Hernandez MD Primary Care Provider [phone] Scott Hernandez MD Primary Care Provider [phone] Encounter Details Date Type Department Care Team (Latest Contact Info) Description 10/20/2016 Abstract [facility] Medical Group Social History Tobacco [...] on filedocumented in this encounter Care Teams Soft Metals Engraver Hand Relationship Specialty Start Date End Date Scott Hernandez MD [address] [place] [address] PCP - General 01/03/17 Scott Hernandez MD [address] [address] PCP - General 11/22/16 01/02/17 Scott Hernandez MD [address] [address] PCP - General 11/21/16 11/21/16 documented as of this encounter
--- OUTSIDE RECORDS SUMMARY | 2024-06-28 00:48 | XMS_ITS | Encounter Summary ---
Author Organization [facility] Address [address] [place] [address]. [place] [address] [place] [address] Care Team Providers Care Fittings Tightener Name Role Phone Scott Hernandez MD Primary Care Provider Scott Hernandez MD Primary Care Provider [phone] Scott Hernandez MD Primary Care Provider [phone] Encounter Details Date Type Department Care Team (Latest Contact Info) Description 06/29/2015 Abstract [facility] Medical Group Social [...] on filedocumented in this encounter Care Teams Fittings Tightener Relationship Specialty Start Date End Date Scott Hernandez MD [address] [place] [address] PCP - General 01/03/17 Scott Hernandez MD [address] [address] PCP - General 11/22/16 01/02/17 Scott Hernandez MD [address] [address] PCP - General 11/21/16 11/21/16 documented as of this encounter
--- OUTSIDE RECORDS SUMMARY | 2024-06-28 00:48 | XMS_ITS | Encounter Summary ---
Author Organization [facility] Address [address] [place] [address]. [place] [address] [place] [address] Care Team Providers Care Tobacco Stemmer Name Role Phone Scott Hernandez MD Primary Care Provider [phone] Scott Hernandez MD Primary Care Provider [phone] Scott Hernandez MD Primary Care Provider [phone] Encounter Details Date Type Department Care Team (Latest Contact Info) Description 11/07/2016 Abstract [facility] Medical Group Social History [...] on filedocumented in this encounter Care Teams Tobacco Stemmer Relationship Specialty Start Date End Date Scott Hernandez MD [address] [place] [place] [address] PCP - General 01/03/17 Scott Hernandez MD [address] [address] PCP - General 11/22/16 01/02/17 Scott Hernandez MD [address] [address] PCP - General 11/21/16 11/21/16 documented as of this encounter
--- OUTSIDE RECORDS SUMMARY | 2024-06-28 00:48 | XMS_ITS | Encounter Summary ---
Author Organization [facility] Address [address] [place] [address]. [place], [place] [address] [place] [address] Care Team Providers Care Manager Of Learning Name Role Phone Scott Hernandez MD Primary Care Provider [phone] Reason for Visit * Reason Comments Letter (SCAN) Insurance Card Encounter Details Date Type Department Care Team ([facility] Contact Info) Description 06/14/2018 Scan HEALTH INFO [...] on filedocumented in this encounter Care Teams Manager Of Learning Relationship Specialty Start Date End Date Scott Hernandez MD [address] [facility] [place] [id number] PCP - General 01/03/17 documented as of this encounter
--- OUTSIDE RECORDS SUMMARY | 2024-06-28 00:48 | XMS_ITS | Encounter Summary ---
Author Organization [facility] Address [address] [place] [address]. [place] [address] [place] [address] Care Team Providers Care Laborer Pipeline Name Role Phone Scott Hernandez MD Primary Care Provider [phone] Reason for Referral * (Routine) - Closed Specialty Diagnoses / Procedures Referred By Contac t Referred To Contact Diagnoses COPD (chronic obstructive pulmonary disease) ([facility]) Procedures Home O2 eval Dustin Akins MD [address] [place] [address] Phone: tel: fax: Referral ID Status Reason Start Date Expiration Date Visits Re quested Visits Authorized [id number] Closed 02/18/2019 03/21/2020 1 1 * Imaging (Routine) - Closed Specialty Diagnoses / Procedures Referred By Contac t Referred To Contact Diagnoses Bronchiectasis without complication ([facility]) Procedures Complete PFT (pre/post [place], Lung Vol, Diff Capacity) (64071, 87046, 51145, 03800) Dustin Akins MD [address] [place] [address] [place] [address] Phone: tel: fax: [place] [address] Phone: tel: Referral ID Status Reason Start Date Expiration Date Visits Re quested Visits Authorized [id number] Closed 11/12/2018 12/13/2019 1 1 Reason for Visit * Imaging (Routine) - Closed Specialty Diagnoses / Procedures Referred By Contac t Referred To Contact Diagnoses Bronchiectasis without complication ([facility]) Procedures Complete PFT (pre/post [place], Lung Vol, Diff Capacity) (41659, 00424, 79346, 57133) Dustin Akins MD [address] [place] [address] Phone: tel: fax: [place] [address] Phone: tel: Referral ID Status Reason Start Date Expiration Date Visits Re quested Visits Authorized [id number] Closed 11/12/2018 12/13/2019 1 1 Encounter Details Date Type Department Care Team (Late st Contact Info) Description 02/18/2019 10:00 AM CDT - 02/18/2019 11:59 PM CDT Hospital Encounter [facility] [place] [address] Dustin Akins MD [address] [place] [address] Discharge Disposition: Home or Self Care (Routine [...] DME SUPPLYIndications :Productive cough,CVID (common variable immunodeficiency) ([facility]),Bronchie ctasis without complication ([facility]) Take 1 Device by nebulization every 4 (four) hours as needed. 1 Device 11/12/2018 vitamin D3, cholecalciferol, 5000 UNITS capsule albuterol (2.5 MG/3ML) 0.083% nebulizer solution 11/21/2016 9 albuterol (2.5 MG/3ML) 0.083% nebulizer solutionIndicatio ns:Productive cough,CVID (common variable immunodeficiency) ([facility]) Take 3 mLs (2.5 mg total) [...] s:Chronic obstructive pulmonary disease, unspecified COPD type ([facility]) Inhale 2 puffs into the lungs [...] habitus. 4. Unadjusted DLCO within normal limits. #[id number] /NTS documented in this encounter Plan of Treatment Not on file documented as of this encounter Procedures Procedure Name Priority Date/Time Associated Diagnosis Comments HOME O2 EVAL Routine 02/18/2019 10:19 AM CDT COPD (chronic obstructive pulmonary disease) ([facility]) PULMONARY FUNCTION TEST Routine 02/18/2019 10:18 AM CDT Bronchiectasis without complication ([facility]) documented in this encounter Visit Diagnoses Diagnosis COPD (chronic obstructive pulmonary disease) ([facility])- Primary Chronic airway obstruction, not elsewhere classified Bronchiectasis without complication ([facility]) Bronchiectasis without acute exacerbation documented in this encounter Administered Medications Inactive Administered Medications - up to 3 most recent administrations Medication Order MAR Action Action Date Dose Rate Site albuterol sulfate HFA 108 (90 Base) MCG/ACT inhaler 2 puff 2 puff, Inhalation, Once, 1 dose, On 02/18/19 at 1045 Given 02/18/2019 10:38 AM CDT 2 puffs documented in this encounter Care Teams Laborer Pipeline Relationship Specialty Start Date End Date Scott Hernandez MD [address] [place] [address] PCP - General 01/03/17 documented as of this encounter
--- OUTSIDE RECORDS SUMMARY | 2024-06-28 00:48 | XMS_ITS | Encounter Summary ---
Author Organization [facility] Address [address] [place] [address]. [place], [place] [address] [place] [address] Care Team Providers Care Building Coordinator Name Role Phone Scott Hernandez MD Primary Care Provider [phone] Encounter Details Date Type Department Care Team (Latest Contact Info) Description 01/26/2017 Abstract [facility] Social History Tobacco Use [...] on filedocumented in this encounter Care Teams Building Coordinator Relationship Specialty Start Date End Date Scott Hernandez MD [address] [address] PCP - General 01/03/17 documented as of this encounter
--- OUTSIDE RECORDS SUMMARY | 2024-06-28 00:48 | XMS_ITS | Encounter Summary ---
Author Organization [facility] Address [address] [place] [address]. [place] [address] [place] [address] Care Team Providers Care Clean Up Supervisor Name Role Phone Scott Hernandez MD Primary Care Provider [phone] Scott Hernandez MD Primary Care Provider [phone] Scott Hernandez MD Primary Care Provider [phone] Encounter Details Date Type Department Care Team (Latest Contact Info) Description 06/14/2016 Abstract [facility] Medical Group Social [...] on filedocumented in this encounter Care Teams Clean Up Supervisor Relationship Specialty Start Date End Date Soctt Hernandez MD [address] [place] [address] PCP - General 01/03/17 Scott Hernandez MD [address] [address] PCP - General 11/22/16 01/02/17 Scott Hernandez MD [address] [address] PCP - General 11/21/16 11/21/16 documented as of this encounter
--- OUTSIDE RECORDS SUMMARY | 2024-06-28 00:48 | XMS_ITS | Encounter Summary ---
Author Organization [facility] Address [address] [place] [address]. [place] [address] [place] [address] Care Team Providers Care Conference Manager Name Role Phone Scott Hernandez MD Primary Care Provider [phone] Scott Hernandez MD Primary Care Provider [phone] Scott Hernandez MD Primary Care Provider [phone] Encounter Details Date Type Department Care Team (Latest Contact Info) Description 11/16/2016 Abstract [facility] Medical Group Social History [...] on filedocumented in this encounter Care Teams Conference Manager Relationship Specialty Start Date End Date Scott Hernandez MD [address] [place] [address] PCP - General 01/03/17 Scott Hernandez MD [address] [address] PCP - General 11/22/16 01/02/17 Scott Hernandez MD [address] [address] PCP - General 11/21/16 11/21/16 documented as of this encounter
--- OUTSIDE RECORDS SUMMARY | 2024-06-28 00:48 | XMS_ITS | Encounter Summary ---
Author Organization [facility] Address [address] [place] [address]. [place] [address] [place] [address] Care Team Providers Care Clearing Hand Name Role Phone Scott Hernandez MD Primary Care Provider [phone] Scott Hernandez MD Primary Care Provider [phone] Encounter Details Date Type Department Care Team (Late st Contact Info) Description 11/22/2016 Abstract [facility] [place] [address] Dustin Akins MD [facility] [address] [place] [id number] Social History Tobacco Use Types Packs/Day Years [...] SPEC DESCRIPTION SPUTUM 11/22/2016 8:[address] [facility] SPECIAL REQUESTS NO SPECIAL REQUEST 11/22/2016 8:[address] [facility] GRAM STAIN RESULT FEW WHITE BLOOD CELLS SEEN 11/23/2016 2:[address] [facility] GRAM STAIN RESULT FEW EPITHELIAL CELLS SEEN 11/23/2016 2:[address] [facility] GRAM STAIN RESULT MODERATE GRAM POSITIVE COCCI 11/23/2016 2:[address] [facility] GRAM STAIN RESULT FEW GRAM POSITIVE RODS 11/23/2016 2:[address] [facility] CULTURE RESULT LIGHT GROWTH OF NORMAL VILMA PRESENT 11/24/2016 11:[address] [facility] SPUTUM SPECIMEN / Unknown 11/22/2016 11:28 AM CDT 11/22/2016 8:34 PM CDT us Generic Conversion Md [facility] - GENERAL ORDERABLES Final Result Performing Organization Address City/State/[facility] Co de Phone Number [facility] [address] [place], [place] [address], * CULTURE, FUNGUS W/ STAIN (11/22/2016 11:28 AM CDT) SPEC DESCRIPTION SPUTUM 11/22/2016 8:[address] [facility] SPECIAL REQUESTS NO SPECIAL REQUEST 11/22/2016 8:[address] [facility] STAIN RESULT: NO YEAST OR FUNGAL ELEMENTS SEEN 11/23/2016 2:[address] [facility] CULTURE RESULT SPARSE GROWTH OF TOM DUBLINIENSIS SUSCEPTIBILTY NOT ROUTINELY PERFORMED. SAVING ISOLATE FOR 5 DAYS. CONTACT MICROBIOLOGY DEPARTMENT IF FURTHER WORKUP IS INDICATED. 11/29/2016 1:[address] [facility] SPUTUM SPECIMEN / Unknown 11/22/2016 11:28 AM CDT 11/22/2016 8:33 PM CDT us Generic Conversion Md [facility] - GENERAL ORDERABLES Final Result [facility] [address] [place] [address], * CULTURE TB/AFB OTHER (11/22/2016 11:28 AM CDT) SPECIMEN SOURCE SPUTUM 7 8:[address] [facility] RESULT: REPORT 01/20/2017 8:11 AM CDT [facility] AIDEE GUERRA Comment: Acid Fast Culture, Progressive Acid Fast Culture SOURCE : SPUTUM Result/Comment: No acid-fast bacilli isolated at 8 weeks. ? Mycobacterial identification was not indicated Test Performed by [facility], [id number] [place], [place] Jayjay Kunz M.D., Ph.D., Director of Laboratories , CLIA [id number] SPECIMEN SOURCE SPUTUM 7 8:[address] [facility] RESULT: REPORT 11/24/2016 7:27 PM CDT [facility] AIDEE GUERRA Comment: Acid Fast Bacilli Stain SOURCE : SPUTUM Result/Comment: No acid-fast bacilli seen. The smear result should be used as an adjunct in evaluating a patient's tuberculosis status, and cultural examination is highly recommended for laboratory diagnosis. Test Performed by [facility] [employer], [id number] [place], [place] Jayjay Kunz M.D., Ph.D., Director of Laboratories , [facility] [id number] 11/22/2016 11:2 8 AM CDT 11/22/2016 8:33 PM CDT Comment:Miscellaneous sample s~sputum specimen us Generic Conversion Md [facility] - GENERAL ORDERABLES Final Result Performing Organization Address [facility]/State/ZIP Co de Phone Number [facility] [address] [place], [place] , [place] [phone] [facility] [address] [place] [address], [place] [phone] documented in this encounter Visit Diagnoses Diagnosis Bronchiectasis without complication ([facility]) Bronchiectasis without acute exacerbation documented in this encounter Care Teams Clearing Hand Relationship Specialty Start Date End Date Scott Hernandez MD [address] [address] PCP - General 01/03/17 Scott [place] [address] [address] PCP - General 11/22/16 01/02/17 documented as of this encounter
--- OUTSIDE RECORDS SUMMARY | 2024-06-28 00:48 | XMS_ITS | Encounter Summary ---
Author Organization [facility] Address [address] [place] [address]. [place] [address] [place] [address] Care Team Providers Care Slicing Machine Feeder Name Role Phone Scott Hernandez MD Primary Care Provider [phone] Scott Hernandez MD Primary Care Provider [phone] Scott Hernandez MD Primary Care Provider [phone] Encounter Details Date Type Department Care Team (Latest Contact Info) Description 07/16/2012 Abstract [facility] Medical Group Social [...] on filedocumented in this encounter Care Teams Slicing Machine Feeder Relationship Specialty Start Date End Date Scott Hernandez MD [address] [place] [address] PCP - General 01/03/17 Scott Hernandez MD [address] [address] PCP - General 11/22/16 01/02/17 Scott Hernandez MD [address] [address] PCP - General 11/21/16 11/21/16 documented as of this encounter
--- OUTSIDE RECORDS SUMMARY | 2024-06-28 00:48 | XMS_ITS | Encounter Summary ---
Author Organization [facility] Address [address] [place] [address]. [place], [place] [address] [place] [address] Care Team Providers Care Dietary Aide Cook Name Role Phone Scott Hernandez MD Primary Care Provider [phone] Encounter Details Date Type Department Care Team (Latest Contact Info) Description 02/09/2018 Abstract [facility] Medical Group Social History Tobacco [...] on filedocumented in this encounter Care Teams Dietary Aide Cook Relationship Specialty Start Date End Date Scott Hernandez MD [address] [address] PCP - General 01/03/17 documented as of this encounter
--- OUTSIDE RECORDS SUMMARY | 2024-06-28 00:48 | XMS_ITS | Encounter Summary ---
Author Organization [facility] Address [address] [place] [address]. [place], [place] [address] [place] [address] Care Team Providers Care Chinese Medicine Practitioner Name Role Phone Scott Hernandez MD Primary Care Provider [phone] Encounter Details Date Type Department Care Team (Latest Contact Info) Description 02/15/2017 Abstract [facility] Medical Group Social History Tobacco Use [...] on filedocumented in this encounter Care Teams Chinese Medicine Practitioner Relationship Specialty Start Date End Date Scott Hernandez MD [address] [address] PCP - General 01/03/17 documented as of this encounter
--- OUTSIDE RECORDS SUMMARY | 2024-06-28 00:48 | XMS_ITS | Encounter Summary ---
Author Organization [facility] Address [address] [place] [address]. [place] [address] [place] [address] Care Team Providers Care Roll Forming Machine Set Up Mechanic Name Role Phone Scott Hernandez MD Primary Care Provider [phone] Reason for Visit * Reason Onset Date Comments Medication Request 07/04/2018 Encounter Details Date Type Department Care Team (Late st Contact Info) Description 07/04/2018 Telephone [facility] Medical [facility] Pulmonology Specialty Clinic - [address] [address] Dustin Akins MD [address] [place] [address] Medication Request Social History Tobacco Use [...] Called patient and explained, patient voiced understanding. IRER FINISHED METAL * Nicol Ralph - 07/04/2018 10:32 AM CST Patient is having a hard time breathing she has a bad cough and was wondering if we could prescribea steroid to help it clear up she is leaving for [place] She has been using nebulizer 4 times a day They are driving Leaving today for [place] IRER FINISHED METAL documented in this encounter Plan of Treatment Not on file documented as of this encounter Visit Diagnoses Diagnosis Productive cough- Primary Cough documented in this encounter Care Teams Roll Forming Machine Set Up Mechanic Relationship Specialty Start Date End Date Scott Hernandez MD [address] [place] [address] PCP - General 01/03/17 documented as of this encounter
--- OUTSIDE RECORDS SUMMARY | 2024-06-28 00:48 | XMS_ITS | Encounter Summary ---
Author Organization [facility] Address [address] [place] [address]. [place] [address] [place] [address] Care Team Providers Care Claim Specialist Name Role Phone Scott Hernandez MD Primary Care Provider [phone] Scott Hernandez MD Primary Care Provider [phone] Scott Hernandez MD Primary Care Provider [phone] Encounter Details Date Type Department Care Team (Latest Contact Info) Description 09/10/2012 Abstract [facility] Medical Group Social History Tobacco [...] on filedocumented in this encounter Care Teams Claim Specialist Relationship Specialty Start Date End Date Scott Hernandez MD [address] [place] [address] PCP - General 01/03/17 Scott Hernandez MD [address] [address] PCP - General 11/22/16 01/02/17 Scott Hernandez MD [address] [address] PCP - General 11/21/16 11/21/16 documented as of this encounter
--- OUTSIDE RECORDS SUMMARY | 2024-06-28 00:48 | XMS_ITS | Encounter Summary ---
Author Organization [facility] Address [address] [place] [address]. [place] [address] [place] [address] Care Team Providers Care Search Lead Name Role Phone Scott Hernandez MD Primary Care Provider [phone] Scott Hernandez MD Primary Care Provider [phone] Scott Hernandez MD Primary Care Provider [phone] Encounter Details Date Type Department Care Team (Latest Contact Info) Description 03/16/2016 Abstract [facility] Medical Group Social History Tobacco [...] on filedocumented in this encounter Care Teams Search Lead Relationship Specialty Start Date End Date Scott Hernandez MD [address] [place] [address] PCP - General 01/03/17 Scott Hernandez MD [address] [address] PCP - General 11/22/16 01/02/17 Scott Hernandez MD [address] [address] PCP - General 11/21/16 11/21/16 documented as of this encounter
--- OUTSIDE RECORDS SUMMARY | 2024-06-28 00:48 | XMS_ITS | Encounter Summary ---
Author Organization [facility] Address [address] [place] [address]. [place] [address] [place] [address] Care Team Providers Care Satellite Instruction Facilitator Name Role Phone Scott Hernandez MD Primary Care Provider [phone] Encounter Details Date Type Department Care Team (Late st Contact Info) Description 01/03/[address] [facility] [place] [address] Dustin Akins MD [address] [address] Social History Tobacco Use Types Packs/Day Years [...] QUANTIFERON NEGATIVE Negative 01/05/2017 11:57 PM CDT [facility] CLARE LOPEZ Comment: Negative test result. M. tuberculosis complex infection unlikely. NIL (TB) 0.07 IU/mL 01/05/2017 11:57 PM CDT [facility] NAE VICTORRAQUEL JESSICA MITOGEN NIL >10.00 IU/mL 01/05/2017 11:57 PM CDT [facility] KAYLEIGHRAQUEL CARDOSOAmber TB ANTIGEN - NIL VALUE 0.00 IU/mL 01/05/2017 11:57 PM CDT [facility] KAYLEIGHRAQUEL JESSICA Comment: The Nil tube value [...] (RR-05):1-25). For additional information, please refer to: http://education.[employer]Premise/faq/QFT (This link is being provided for informational/ educational purposes only). Test Performed by Ted Henson, [facility] [place], [address] [place] [address] Jayjay Kunz M.D., Ph.D., Director of Laboratories , [place] [id number] MISCELLANEOUS SAMPLES / Unknown 01/03/2017 9:43 AM CDT 01/03/2017 7:15 PM CDT us Generic Conversion Md [facility] Final R esult [facility] [address] [place] [address], [place] [phone] documented in this encounter Visit Diagnoses Diagnosis Bronchiectasis without complication ([facility]) Bronchiectasis without acute exacerbation documented in this encounter Care Teams Satellite Instruction Facilitator Relationship Specialty Start Date End Date Scott Hernandez MD [address] [place], [place] [address] PCP - General 01/03/17 documented as of this encounter
--- OUTSIDE RECORDS SUMMARY | 2024-06-28 00:48 | XMS_ITS | Encounter Summary ---
Author Organization [facility] Address [address] [place] [address]. [place] [address] [place] [address] Care Team Providers Care Telegraphic Typewriter Mechanic Name Role Phone Scott Hernandez MD Primary Care Provider [phone] Reason for Visit * Reason Comments Shortness Of Breath Cough Productive at times * Consultation/Treatment (Routine) - Closed Specialty Diagnoses / Procedures Referred By Contact Referred To Contact NURSE PRACTITIONER / SLEEP & RESPIRATORY CARE Diagnoses face to face for oxygen - ok per LM Procedures FOLLOW UP Scott Hernandez MD [address] [place] [address] Phone: tel: fax: María Bautista APRN Referral ID Status Reason Start Date Expiration Date Visits Re quested Visits Authorized [id number] Closed 02/19/2019 02/20/2020 100 100 Encounter Details Date Type Department Care Team (Latest Contact Info) Description 02/19/2019 10:40 AM CDT Office Visit [facility] Medical Group Multispecialty Care - [facility] [address] [facility] [address] [place] [address] María Bautista APRN Shortness Of [...] Bautista, BEVERLY - 02/19/2019 10:40 AM CDT [facility] PULMONARY MEDICINE History Chief Complaint Patient presents with ??? Shortness Of Breath ??? Cough Productive at times Nolvia oCffey is a 73-year-old female with a past [...] finger pulse oximeter. Patient has gel nail mauritian and reported cold hands during the test. [...] 5 days. Sputum cultures not obtained, patient [facility] did not have the lab ordersfor sputum [...] sweats, hemoptysis. Notes extensive allergies, followed with women's studies lecturer, on SCIT Notes diagnosis of BRUNO; elected [...] pack year history. Denies alcohol/illicits. 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 Denies exposure to TB, asbestos, mold, birds. [...] on weekly dosing -Continue to follow with fire prevention captain 5. Seasonal/environmental allergies, allergic rhinitis -On SCIT -Did not respond to Xolair in the past -Continue Flonase -Continue ipratropium nasal spray twice daily, encouraged twice daily dosing -Singulair 10 mg nightly -Zyrtec daily -Continue to follow with women's studies lecturer 6. Former smoker -Encouraged continued cessation 7. History of Aspergillus niger positive sputum 8. Obesity Return to clinic to see Dr. Akins or ALCIRA Judge in 2 months for CPAP follow-up. ALCIRA Judge documented in this encounter Plan of Treatment Scheduled Orders Name Type Priority Associated Diagnoses Orde r Schedule PULMONARY STRESS TESTING Procedures Routine Bronchiectasis without complication ([facility]) Chronic obstructive asthma Ordered: 02/19/2019 documented as of this encounter Visit Diagnoses Diagnosis Bronchiectasis without complication ([facility])- Primary Bronchiectasis without acute exacerbation BRUNO (obstructive sleep apnea) Obstructive sleep apnea (adult) (pediatric) Chronic obstructive asthma ([facility]) Chronic obstructive asthma, unspecified CVID (common variable immunodeficiency) ([facility]) Common variable immunodeficiency Environmental and seasonal allergies Allergic rhinitis, unspecified seasonality, unspecified trigger documented in this encounter Care Teams Telegraphic Typewriter Mechanic Relationship Specialty Start Date End Date Scott Hernandez MD [address] [address] PCP - General 01/03/17 documented as of this encounter
--- OUTSIDE RECORDS SUMMARY | 2024-06-28 00:48 | XMS_ITS | Encounter Summary ---
Author Organization [facility] Address [address] [place] [address]. [place] [address] [place] [address] Care Team Providers Care Chisel Mortiser Operator Name Role Phone Scott Hernandez MD Primary Care Provider [phone] Encounter Details Date Type Department Care Team (Late st Contact Info) Description 01/03/2017 Abstract [facility] Medical Group Multispecialty Care - [address] [place] [address] Dustin Akins MD [address] [place] [address] [address] [place] [address] Social History Tobacco Use Types Packs/Day Years [...] 500mcg daily 6. Continue to follow with field artillery basic -continue scit; considering IVIG per report -possible [...] flare of bronchiectasis while on vacation in [place]; noted humidity, pooltreatment chemicals as potential exacerbating [...] sweats, hemoptysis. Notes extensive allergies, followed with field artillery basic, on SCIT Notes diagnosis of BRUNO circa 2014; did not wear CPAP. Former smoker; quit ; approximate 40 pack year history. Denies alcohol/illicits. 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 Denies exposure to TB, asbestos, mold, [...] Nebulization Solution; I x in office; Therapy: [id number] to (Last Rx:21Nov2016) Ordered 2. ALPRAZolam 0.5 [...] EVERY 4 HOURS NEEDED; Therapy: 21Nov2016 to (Evaluate:[id number]) Requested for: 21Nov2016; Last Rx:21Nov2016 Ordered 13. [...] MOUTH AFTER USE Requested for: 01Dec2016; Last Rx:[id number] Ordered 20. Ventolin HFA 108 (90 Base) [...] Dustin Akins M.D.; Jan 03 2017 12:25PM INTELLIGENCE SUPPORT OFFICER (Author) documented in this encounter Plan of [...] (RR-05):1-25). For additional information, please refer to: http://education.Shareable Social/faq/QFT (This link is being provided for informational/ educational purposes only). Test Performed by [employer], [facility], [address] [place] [address] Jayjay Kunz M.D., Ph.D., Director of Laboratories , [place] [id number] 01/03/2017 9:43 AM CDT 01/03/2017 9:43 AM CDT Narrative [facility] TO EPIC CONVERSION - 01/05/2017 11:57 PM CDT Result Communication: No patient communication needed at this time us Dustin Akins MD LABORATORY Final Resul t [facility] TO EPIC CONVERSION documented in this encounter Visit Diagnoses Not on filedocumented in this encounter Care Teams Chisel Mortiser Operator Relationship Specialty Start Date End Date Scott Hernandez MD [address] [place], [place] [address] PCP - General 01/03/17 documented as of this encounter
--- OUTSIDE RECORDS SUMMARY | 2024-06-28 00:48 | XMS_ITS | Encounter Summary ---
Author Organization [facility] Address [address] [place] [address]. [place] [address] [place] [address] Care Team Providers Care Legal Editor Name Role Phone Scott Hernandez MD Primary Care Provider [phone] Encounter Details Date Type Department Care Team (Late st Contact Info) Description 06/12/2018 Orders Only [facility] Medical [facility] Pulmonology Specialty Clinic - [address] [address] [place]ba [place], LEGAL STENOGRAPHER Social History Tobacco Use Types Packs/Day Years [...] on filedocumented in this encounter Care Teams Legal Editor Relationship Specialty Start Date End Date Scott Hernandez MD [address] [place] [address] PCP - General 01/03/17 documented as of this encounter
--- OUTSIDE RECORDS SUMMARY | 2024-06-28 00:48 | XMS_ITS | Encounter Summary ---
Author Organization [facility] Address [address] [place] [address]. [place] [address] [place] [address] Care Team Providers Care Java Scala Developer Name Role Phone Scott Hernandez MD Primary Care Provider [phone] Scott Hernandez MD Primary Care Provider [phone] Scott Hernandez MD Primary Care Provider [phone] Encounter Details Date Type Department Care Team (Latest Contact Info) Description 11/03/2016 Abstract [facility] Medical Group Social History Tobacco [...] on filedocumented in this encounter Care Teams Java Scala Developer Relationship Specialty Start Date End Date Scott Hernandez MD [address] [place] [address] PCP - General 01/03/17 Scott Hernandez MD [address] [address] PCP - General 11/22/16 01/02/17 Scott Hernandez MD [address] [address] PCP - General 11/21/16 11/21/16 documented as of this encounter
--- OUTSIDE RECORDS SUMMARY | 2024-06-28 00:48 | XMS_ITS | Encounter Summary ---
Author Organization [facility] Address [address] [place] [address]. [place] [address] [place] [address] Care Team Providers Care Drill Press Operator Numerical Control Name Role Phone Scott Hernandez MD Primary Care Provider [phone] Reason for Visit * Reason Onset Date Comments Medication Problem 05/09/2019 Encounter Details Date Type Department Care Team (Late st Contact Info) Description 05/09/2019 Telephone [facility] Medical Group Multispecialty Care - [facility] [address] [facility], [address] [place] [address] María Bautista, PMO MANAGER Medication Problem Social History Tobacco Use Types [...] this encounter Progress Notes * Katia Bond, SLACK LINE YARDER - 05/09/2019 3:08 PM CDT Called patient and informed her that I got the medication code approved for her and that I talked to Jameson from her pharmacy about this. Patient voiced understanding. * Katia Bond CRT - 05/09/2019 2:55 PM CDT [facility] J47.9 [facility]. Jameson [...] said we need to call lg in [place] and ask to speak to Jameson about [...] encounter Visit Diagnoses Diagnosis Bronchiectasis without complication ([facility])- Primary Bronchiectasis without acute exacerbation Chronic obstructive asthma ([facility]) Chronic obstructive asthma, unspecified Chronic obstructive pulmonary disease, unspecified COPD type ([facility]) documented in this encounter Care Teams Drill Press Operator Numerical Control Relationship Specialty Start Date End Date Scott Hernandez MD [address] [address] PCP - General 01/03/17 documented as of this encounter
--- OUTSIDE RECORDS SUMMARY | 2024-06-28 00:48 | XMS_ITS | Encounter Summary ---
Author Organization [facility] Address [address] [place] [address]. [place] [address] [place] [address] Care Team Providers Care Quality Intern Name Role Phone Scott Hernandez MD Primary Care Provider Reason for Visit * Reason Onset Date Comments Cough 11/22/2018 Encounter Details Date Type Department Care Team (Late st Contact Info) Description 11/22/2018 Telephone [facility] Medical Group Pulmonology Specialty Clinic - [address] [address] Dustin Akins MD [address] [place] [address] Cough Social History Tobacco Use Types [...] informed patient we would send testing to [facility] * Sae Donovan CRT - 11/22/2018 12:55 PM CDT Per BR; if patient feels it needs treated with ABX: -Needs sputum culture -Respiratory gram stain -AFB smear and culture x3 (3 wrapper sheeter specimens or consecutive days upon awakening, no [...] Cough documented in this encounter Care Teams Quality Intern Relationship Specialty Start Date End Date Scott Hernandez MD [address] [place] [address] PCP - General 01/03/17 documented as of this encounter
--- OUTSIDE RECORDS SUMMARY | 2024-06-28 00:48 | XMS_ITS | Encounter Summary ---
Author Organization [facility] Address [address] [place] [address]. [place], [place] [address] [place] [address] Care Team Providers Care Starbucks Barista Name Role Phone Scott Hernandez MD Primary Care Provider [phone] Encounter Details Date Type Department Care Team (Latest Contact Info) Description 05/18/2017 Abstract [facility] Medical Group Social History [...] on filedocumented in this encounter Care Teams Starbucks Barista Relationship Specialty Start Date End Date Scott Hernandez MD [address] [address] PCP - General 01/03/17 documented as of this encounter
--- OUTSIDE RECORDS SUMMARY | 2024-06-28 00:48 | XMS_ITS | Encounter Summary ---
Author Organization [facility] Address [address] [place] [address]. [place], [place] [address] [place] [address] Care Team Providers Care Assistant Technician Name Role Phone Scott Hernandez MD Primary Care Provider [phone] Encounter Details Date Type Department Care Team (Latest Contact Info) Description 07/31/[address] [facility] Medical Group Social History Tobacco Use [...] on filedocumented in this encounter Care Teams Assistant Technician Relationship Specialty Start Date End Date Scott Hernandez MD [address] [address] PCP - General 01/03/17 documented as of this encounter
--- OUTSIDE RECORDS SUMMARY | 2024-06-28 00:48 | XMS_ITS | Encounter Summary ---
Author Organization [facility] Address [address] [place] [address]. [place] [address] [place] [address] Care Team Providers Care Art History Instructor Name Role Phone Scott Hernandez MD Primary Care Provider [phone] Scott Hernandez MD Primary Care Provider [phone] Scott Hernandez MD Primary Care Provider [phone] Encounter Details Date Type Department Care Team (Late st Contact Info) Description 11/21/2016 Abstract [facility] [address] Dustin Akins MD [address] [id number] Social History Tobacco Use Types Packs/Day Years [...] SPEC DESCRIPTION SPUTUM 11/21/2016 8:33 PM CDT [facility] SPECIAL REQUESTS NO SPECIAL REQUEST 11/21/2016 8:33 PM CDT [facility] GRAM STAIN RESULT FEW WHITE BLOOD CELLS SEEN 11/22/2016 2:18 PM CDT [facility] GRAM STAIN RESULT FEW EPITHELIAL CELLS SEEN 11/22/2016 2:18 PM CDT [facility] GRAM STAIN RESULT FEW MIXED BACTERIAL VILMA 11/22/2016 2:18 PM CDT [facility] CULTURE RESULT HEAVY GROWTH OF NORMAL VILMA PRESENT 11/24/2016 10:04 AM CDT [facility] SPUTUM SPECIMEN / Unknown 11/21/2016 9:20 AM CDT 11/21/2016 8:44 PM CDT us Generic Conversion Md [facility] - GENERAL ORDERABLES Final Result [facility] [address] [place] [address], documented in this encounter Visit Diagnoses Diagnosis Cough documented in this encounter Care Teams Art History Instructor Relationship Specialty Start Date End Date Scott Hernandez MD [address] [place] [address] PCP - General 01/03/17 Scott Hernandez MD [address] [place] [address] PCP - General 11/22/16 01/02/17 Scott Hernandez MD [address] [address] PCP - General 11/21/16 11/21/16 documented as of this encounter
--- OUTSIDE RECORDS SUMMARY | 2024-06-28 00:48 | XMS_ITS | Encounter Summary ---
Author Organization [facility] Address [address] [place] [address]. [place] [address] [place] [address] Care Team Providers Care Sprinkler Fitter Name Role Phone Scott Hernandez MD Primary Care Provider [phone] Scott Hernandez MD Primary Care Provider [phone] Scott Hernandez MD Primary Care Provider [phone] Encounter Details Date Type Department Care Team (Late st Contact Info) Description 11/21/2016 Abstract [facility] Medical Group Multispecialty Care - [address], [address] [place] [address] Dustin Akins MD [address] [place] [address] [address] [place] [address] Social History Tobacco Use Types Packs/Day Years [...] Status:Hold For - Manual Activation; Requested for:21Nov2016; Perform:[facility]; Due:21Dec2016;Ordered; For:Bronchiectasis; Ordered By:Dustin Akins; Source: : sputum 2. Other Fungal Culture; Status:Hold For - Manual Activation; Requested for:21Nov2016; Perform:[facility]; Due:21Dec2016;Ordered; For:Bronchiectasis; Ordered By:Dustin Akins; Source: : sputum Chronic obstructive asthma 3. Ipratropium-Albuterol 0.5-2.5 (3) MG/3ML Inhalation Solution; USE 1 UNIT DOSE IN NEBULIZER EVERY 4 HOURS NEEDED Rx By: Dustin Akins; Dispense: 30 Days ; #:1 ML; Refill: 6; For: Chronic obstructive asthma; LINDSAY = N; Sent To: [facility] # [id number] 4. Nebulizer Device; USE DIRECTED Rx By: Dustin Akins; Dispense: 0 Days ; #:1 Device; Refill: 0; For: Chronic obstructive asthma;LINDSAY = N; Sent To: [facility] # [id number] 5. Schedule 6 minute O2 Walk Outpatient Follow-up Status: Hold For - Scheduling Requested for: [id number] Ordered; For: Chronic obstructive asthma; Ordered By: Dustin Akins Performed: Due: 05Dec2016 6. Schedule PFT Outpatient Follow-up Status: Hold For - Scheduling Requested for: [id number] Ordered; For: Chronic obstructive asthma; Ordered By: [...] - Manual Activation; Requested for:21Nov2016; Perform:[facility]; Due:21Dec2016; Last Updated By:Destini Nunes; 11/21/2016 3:11:14 PM;Ordered; For:Productive cough; Ordered By:Dustin Akins; Source: : Sputum Obtain OSH records; [facility] Angel Madera Haacke 1. Albuterol hfa rescue i-ii puffs q4 prn sob/wheezing 2. Symbicort 160/4.5 ii puffs bid 3. Spiriva 18mcg daily 4. Singulair 10mg daily 5. Roflumilast 500mcg daily 6. Continue to follow with tennis court attendant -continue scit; considering IVIG per report -possible [...] sweats, hemoptysis. Notes extensive allergies, followed with tennis court attendant, on SCIT Notes diagnosis of BRUNO circa 2014; did not her CPAP. Former smoker; quit ; approximate 40 pack year history. Denies alcohol/illicits. 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 Denies exposure to TB, asbestos, [...] 7. Symbicort 160-4.5 MCG/ACT Inhalation Aerosol; Therapy: (Recorded:[id number]) to Recorded 8. Vitamin C TABS; Therapy: (Recorded:[id number]) to Recorded 9. Vitamin D3 1000 UNIT Oral Capsule; Therapy: (Recorded:[id number]) to Recorded Allergies 1. No Known Drug [...] Dustin Akins M.D.; Nov 21 2016 8:56PM DIFFUSER OPERATOR (Author) documented in this encounter Plan of [...] identification was not indicated Test Performed by [facility], [address] [place] [address] Jayjay Kunz M.D., Ph.D., Director of Laboratories , CLIA [id number] CORRECTED ON 01/20 AT 0811: PREVIOUSLY REPORTED REPORT [facility] TO EPIC CONVERSION ACID FAST SMEAR RESULT REPORT Acid Fast Bacilli Stain SOURCE : SPUTUM Result/Comment: No acid-fast bacilli seen. The smear result should be used as an adjunct in evaluating a patient's tuberculosis status, and cultural examination is highly recommended for laboratory diagnosis. Test Performed by [facility], [address] [place] [address] Jayjay Kunz M.D., Ph.D., Director of Laboratories , CLIA [id number] [facility] TO EPIC CONVERSION 11/22/2016 11:2 8 [...] us Dustin Akins MD MICROBIOLOGY - [facility]AL [place] Final Result Performing Organization Address [facility] de Phone Number [facility] TO EPIC CONVERSION [...] NUNO R[place] Final Result Performing Organization Address [facility] de Phone Number [facility] TO EPIC CONVERSION documented in this encounter Visit Diagnoses Not on filedocumented in this encounter Care Teams Sprinkler Fitter Relationship Specialty Start Date End Date Scott Hernandez MD [address] [address] PCP - General 01/03/17 Scott Hernandez MD [address] [address] PCP - General 11/22/16 01/02/17 Scott Hernandez [place] [address] [address] PCP - General 11/21/16 11/21/16 documented as of this encounter
--- OUTSIDE RECORDS SUMMARY | 2024-06-28 00:48 | XMS_ITS | Encounter Summary ---
Author Organization [facility] Address [address] [place] [address]. [place], [place] [address] [place] [address] Care Team Providers Care High School Band Teacher Name Role Phone Scott Hernandez MD Primary Care Provider [phone] Scott Hernandez MD Primary Care Provider [phone] Encounter Details Date Type Department Care Team (Latest Contact Info) Description 11/24/2016 Abstract [facility] Medical Group Social History Tobacco [...] on filedocumented in this encounter Care Teams High School Band Teacher Relationship Specialty Start Date End Date Scott Hernandez MD [address] [place] [address] PCP - General 01/03/17 Scott Hernandez MD [address] [place] [address] PCP - General 11/22/16 01/02/17 documented as of this encounter
--- OUTSIDE RECORDS SUMMARY | 2024-06-28 00:48 | XMS_ITS | Encounter Summary ---
Author Organization [facility] Address [address] [place] [address]. [place] [address] [place] [address] Care Team Providers Care Hematology Nurse Name Role Phone Scott Hernandez MD Primary Care Provider [phone] Scott Hernandez MD Primary Care Provider [phone] Scott Hernandez MD Primary Care Provider [phone] Encounter Details Date Type Department Care Team (Latest Contact Info) Description 03/21/2014 Abstract [facility] Medical Group Social History Tobacco Use Types [...] on filedocumented in this encounter Care Teams Hematology Nurse Relationship Specialty Start Date End Date Scott Hernandez MD [address] [place] [address] PCP - General 01/03/17 Scott Hernandez MD [address] [address] PCP - General 11/22/16 01/02/17 cSott Hernandez MD [address] [address] PCP - General 11/21/16 11/21/16 documented as of this encounter
--- OUTSIDE RECORDS SUMMARY | 2024-06-28 00:48 | XMS_ITS | Encounter Summary ---
Author Organization [facility] Address [address] [place] [address]. [place] [address] [place] [address] Care Team Providers Care Hollow Ware Maker Name Role Phone Scott Hernandez MD Primary Care Provider [phone] Scott Hernandez MD Primary Care Provider [phone] Scott Hernandez MD Primary Care Provider [phone] Encounter Details Date Type Department Care Team (Latest Contact Info) Description 11/14/2012 Abstract [facility] Medical Group Social History [...] on filedocumented in this encounter Care Teams Hollow Ware Maker Relationship Specialty Start Date End Date Scott Hernandez MD [address] [place] [address] PCP - General 01/03/17 Scott Hernandez MD [address] [address] PCP - General 11/22/16 01/02/17 Scott Hernandez MD [address] [address] PCP - General 11/21/16 11/21/16 documented as of this encounter
--- OUTSIDE RECORDS SUMMARY | 2024-06-28 00:48 | XMS_ITS | Encounter Summary ---
Author Organization [facility] Address [address] [place] [address]. [place], [place] [address] [place] [address] Care Team Providers Care Electrician Office Name Role Phone Scott Hernandez MD Primary Care Provider [phone] Encounter Details Date Type Department Care Team (Latest Contact Info) Description 02/10/2017 Abstract [facility] Medical Group Social [...] on filedocumented in this encounter Care Teams Electrician Office Relationship Specialty Start Date End Date Scott Hernandez MD [address] [place] [address] PCP - General 01/03/17 documented as of this encounter
--- OUTSIDE RECORDS SUMMARY | 2024-06-28 00:48 | XMS_ITS | Encounter Summary ---
Author Organization [facility] Address [address] [place] [address]. [place] [address] [place] [address] Care Team Providers Care Screen Printing Machine Operator Helper Name Role Phone Scott Hernandez MD Primary Care Provider [phone] Scott Hernandez MD Primary Care Provider [phone] Encounter Details Date Type Department Care Team (Latest Contact Info) Description 12/09/2016 Abstract [facility] Social History Tobacco Use Types [...] low grade fever, Dr. Husain sent in [facility]. Plan 1. LevoFLOXacin 750 MG Oral Tablet; TAKE 1 TABLET DAILY Rx By: Dustin Akins; Dispense: 7 Days ; #:7 Tablet; Refill: 0; For: Bronchiectasis; LINDSAY = N; Sent To: [facility] # [id number]; Last Updated By: Jessica Hernandez; 12/09/2016 2:14:25 PM 2. PredniSONE 20 MG Oral Tablet; TAKE 2 TABLETS DAILY Rx By: Dustin Akins; Dispense: 5 Days ; #:10 Tablet; Refill: 0; For: Bronchiectasis; LINDSAY = N; Sent To: [facility] # [id number]; Last Updated By: Jessica Hernandez; 12/09/2016 2:14:25 PM Signatures Electronically signed by : RT Sanya; Dec 09 2016 2:15PM MILLINERY DESIGNER (Author) documented in this encounter Plan of Treatment Not on file documented as of this encounter Visit Diagnoses Not on filedocumented in this encounter Care Teams Screen Printing Machine Operator Helper Relationship Specialty Start Date End Date Scott Hernandez MD [address] [address] PCP - General 01/03/17 Scott [place] [address] [address] PCP - General 11/22/16 01/02/17 documented as of this encounter
--- OUTSIDE RECORDS SUMMARY | 2024-06-28 00:48 | XMS_ITS | Encounter Summary ---
Author Organization [facility] Address [address] [place] [address]. [place] [address] [place] [address] Care Team Providers Care Visual Presentation Manager Name Role Phone Scott Hernandez MD Primary Care Provider [phone] Encounter Details Date Type Department Care Team (Late st Contact Info) Description 02/18/2019 Orders Only [facility] Medical Group Multispecialty Care - [facility] [address] [facility], [address] [place] [address] Katia Bond, BUSINESS CONSULT Social History Tobacco Use Types Packs/Day Years [...] on filedocumented in this encounter Care Teams Visual Presentation Manager Relationship Specialty Start Date End Date Scott Hernandez MD [address] [place] [address] PCP - General 01/03/17 documented as of this encounter
--- OUTSIDE RECORDS SUMMARY | 2024-06-28 00:48 | XMS_ITS | Encounter Summary ---
Author Organization [facility] Address [address] [place] [address]. [place] [address] [place] [address] Care Team Providers Care Gamma Operator Name Role Phone Scott Hernandez MD Primary Care Provider [phone] Encounter Details Date Type Department Care Team (Late st Contact Info) Description 02/08/2017 Abstract [facility] Medical Group Multispecialty Care - [address] [place] [address] Dustin Akins MD [address] [place] [address] [address] [place] [address] Social History Tobacco Use Types Packs/Day Years [...] For: Bronchiectasis; LINDSAY = N; Sent To: [facility] # [id number]; Msg to Pharmacy: for her to take with her on trip to [facility] end 02/2017 2. PredniSONE 20 MG Oral Tablet; TAKE 2 TABLETS DAILY FOR 7 DAYS, THEN 1 TABLET DAILY FOR 7 DAYS Rx By: Dustin Akins; Dispense: 0 Days ; #:21 Tablet; Refill: 0; For: Bronchiectasis; LINDSAY = N; Sent To: [facility] # [id number]; Msg to Pharmacy: for her to take with her on trip to [facility] end 02/2017 1. Albuterol hfa rescue i-ii puffs q4 prn sob/wheezing 2. Symbicort 160/4.5 ii puffs bid 3. Spiriva 18mcg daily 4. Singulair 10mg daily 5. Roflumilast 500mcg daily 6. Continue to follow with weed inspector -continue scit; plan to start IVIG 7. [...] for use on trip to [facility] in March if needed Chief Complaint Pt [...] sweats, hemoptysis. Notes extensive allergies, followed with weed inspector, on SCIT Notes diagnosis of BRUNO; elected not to wear CPAP in past. Former smoker; quit ; approximate 40 pack year history. Denies alcohol/illicits. 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 Denies exposure to TB, asbestos, mold, birds. [...] EVERY 4 HOURS NEEDED; Therapy: 21Nov2016 to (Evaluate:[id number]) Requested for: 21Nov2016; Last Rx:21Nov2016 Ordered 12. [...] Dustin Akins M.D.; Feb 08 2017 11:02AM MEDICAL LAB SPECIALIST (Author) documented in this encounter Plan of Treatment Not on file documented as of this encounter Visit Diagnoses Not on filedocumented in this encounter Care Teams Gamma Operator Relationship Specialty Start Date End Date Scott Hernandez MD [address] [place] [address] PCP - General 01/03/17 documented as of this encounter
--- OUTSIDE RECORDS SUMMARY | 2024-06-28 00:48 | XMS_ITS | Encounter Summary ---
Author Organization [facility] Address [address] [place] [address]. [place], [place] [address] [place] [address] Care Team Providers Care Battery Mechanic Name Role Phone Scott Hernandez MD Primary Care Provider [phone] Encounter Details Date Type Department Care Team (Latest Contact Info) Description 02/02/2018 Abstract [facility] Medical Group Social History Tobacco Use [...] on filedocumented in this encounter Care Teams Battery Mechanic Relationship Specialty Start Date End Date Scott Hernandez MD [address] [address] PCP - General 01/03/17 documented as of this encounter
--- OUTSIDE RECORDS SUMMARY | 2024-06-28 00:48 | XMS_ITS | Encounter Summary ---
Author Organization [facility] Address [address] [place] [address]. [place], [place] [address] [place] [address] Care Team Providers Care Nnp Name Role Phone Scott Hernandez MD Primary Care Provider [phone] Encounter Details Date Type Department Care Team (Latest Contact Info) Description 01/30/2017 Abstract [facility] Medical Group Social History [...] on filedocumented in this encounter Care Teams Nnp Relationship Specialty Start Date End Date Scott Hernandez MD [address] [address] PCP - General 01/03/17 documented as of this encounter
--- OUTSIDE RECORDS SUMMARY | 2024-06-28 00:48 | XMS_ITS | Encounter Summary ---
Author Organization [facility] Address [address] [place] [address]. [place] [address] [place] [address] Care Team Providers Care Cork Slabs Sawyer Name Role Phone Scott Hernandez MD Primary Care Provider [phone] Reason for Visit * Reason Onset Date Comments Information 02/19/2019 Orders 03/21/2019 Cpap mask Encounter Details Date Type Department Care Team (Late st Contact Info) Description 02/19/2019 Telephone [facility] Medical Group Multispecialty Care - [facility] [address] [facility], [address] [place] [address] María Bautista, TRAM OPERATOR Information; Orders (Cpap mask ) Social History [...] this encounter Progress Notes * Katia Bond, GROUP PROGRAM MANAGER - 03/21/2019 11:48 AM CDT Called patient and stated that her supplies and equipment came from [facility]. Gave her [facility] address as well. [address] [place] [address]. Patient voiced understanding. * Jessica Deluna - 03/21/2019 11:32 AM CDT Pt needs a different mask for her CPAP. She doesn't know where her CPAP came from [facility], it was not [facility] per pt. She is asking if we know where she should get the mask from? * Katia Bond CRT - 02/19/2019 2:46 PM CDT Called [facility] and talked to Karlee. Stated that the patient does not qualify for oxygen at this time due to 6MWT test done today 02/19/2019. Also, Karlee stated that she will give the information on the patient to Kecia Monteiro at [facility]. documented in this encounter Plan of Treatment Not on file documented as of this encounter Visit Diagnoses Not on filedocumented in this encounter Care Teams Cork Slabs Sawyer Relationship Specialty Start Date End Date Scott Hernandez MD [address] [place], [place] [id number] PCP - General 01/03/17 documented as of this encounter
--- OUTSIDE RECORDS SUMMARY | 2024-06-28 00:48 | XMS_ITS | Encounter Summary ---
Author Organization [facility] Address [address] [place] [address]. [place], [place] [address] [place] [address] Care Team Providers Care Medical Director Of Hospice Name Role Phone Scott Hernandez MD Primary Care Provider [phone] Encounter Details Date Type Department Care Team (Latest Contact Info) Description 05/15/2018 Scan [facility] Medical Group , Rhianna Lopez MD Social [...] on filedocumented in this encounter Care Teams Medical Director Of Hospice Relationship Specialty Start Date End Date Scott Hernandez MD [address] [place] [id number] PCP - General 01/03/17 documented as of this encounter
--- OUTSIDE RECORDS SUMMARY | 2024-06-28 00:48 | XMS_ITS | Encounter Summary ---
Author Organization [facility] Address [address] [place] [address]. [place] [address] [place] [address] Care Team Providers Care Environmental Health Nurse Name Role Phone Scott Hernandez MD Primary Care Provider [phone] Encounter Details Date Type Department Care Team (Late st Contact Info) Description 05/16/2017 Abstract [facility] Medical Group Pul[facility] [address] [address] Dustin Akins MD [address] [place] [address] Social History Tobacco Use Types Packs/Day [...] Comments Blood Pressure 158/92 05/16/2017 10:23 AM BACK PANEL PADDER Pulse 96 05/16/2017 10:23 AM BACK PANEL PADDER Temperature - - Respiratory Rate - - Oxygen Saturation - - Inhaled Oxygen Concentration - - Weight 73 kg (161 lb) 05/16/2017 10:23 AM BACK PANEL PADDER Height 152.4 cm (5') 05/16/2017 10:23 AM BACK PANEL PADDER Body Mass Index 31.44 05/16/2017 10:23 AM BACK PANEL PADDER documented in this encounter Plan of Treatment Not on file documented as of this encounter Visit Diagnoses Not on filedocumented in this encounter Care Teams Environmental Health Nurse Relationship Specialty Start Date End Date Scott Hernandez MD [address] [address] PCP - General 01/03/17 documented as of this encounter
--- OUTSIDE RECORDS SUMMARY | 2024-06-28 00:48 | XMS_ITS | Encounter Summary ---
Author Organization [facility] Address [address] [place] [address]. [place] [address] [place] [address] Care Team Providers Care Wire Roller Name Role Phone Scott Hernandez MD Primary Care Provider [phone] Reason for Referral * Imaging (Routine) - Closed Specialty Diagnoses / Procedures Referred By Contac t Referred To Contact Diagnoses Bronchiectasis without complication ([facility]) Procedures Complete PFT (pre/post Brando, Lung Vol, Diff Capacity) (47484, 94904, 71782, 76455) Dustin Akins MD [address] [place] [address] Phone: tel: fax: [place] [address] Phone: tel: Referral ID Status Reason Start Date Expiration Date Visits Re quested Visits Authorized [id number] Closed 11/12/2018 12/13/2019 1 1 Reason for Visit * Reason Comments Follow Up Bronchiectasis follo w up * Consultation/Treatment (Routine) - Closed Specialty Diagnoses / Procedures Referred By Contac t Referred To Contact PULMONARY DISEASE / SLEEP & RESPIRATORY CARE Diagnoses f/up in november Procedures FOLLOW UP Dustin Akins MD [address] [place] [address] [address] [place] [address] Phone: tel: fax: Dustin Akins MD [address] [place] [address] [address] [place] [address] Phone: tel: fax: Referral ID Status Reason Start Date Expiration Date Visits Re quested Visits Authorized [id number] Closed 11/12/2018 11/13/2019 100 100 Encounter Details Date Type Department Care Team (Late st Contact Info) Description 11/12/2018 10:00 AM CDT Office Visit [facility] Medical Group Multispecialty Care - [address], [address] [place] [address] Dustin Akins MD [address] [place] [address] Follow Up (Bronchiectasis follow up) Social History [...] Akins MD - 11/12/2018 10:00 AM CDT [facility] PULMONARY MEDICINE History Chief Complaint Patient [...] sweats, hemoptysis. Notes extensive allergies, followed with permaculture contractor, on SCIT Notes diagnosis of BRUNO; elected not to wear CPAP in past. Former smoker; quit ; approximate 40 pack year history. Denies alcohol/illicits. 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 Denies exposure to TB, asbestos, mold, [...] 500mcg daily 6. Continue to follow with permaculture contractor -continue IVIG 7. Previously discussed potential addition [...] encounter Visit Diagnoses Diagnosis Bronchiectasis without complication ([facility])- Primary Bronchiectasis without acute exacerbation BRUNO (obstructive sleep apnea) Obstructive sleep apnea (adult) (pediatric) Productive cough Cough CVID (common variable immunodeficiency) ([facility]) Common variable immunodeficiency Environmental and seasonal allergies documented in this encounter Care Teams Wire Roller Relationship Specialty Start Date End Date Scott Hernandez MD [address] [address] PCP - General 01/03/17 documented as of this encounter
--- OUTSIDE RECORDS SUMMARY | 2024-06-28 00:48 | XMS_ITS | Encounter Summary ---
Author Organization [facility] Address [address] [place] [address]. [place], [place] [address] [place] [address] Care Team Providers Care Rehabilitation Case Coordinator Name Role Phone Scott Hernandez MD Primary Care Provider [phone] Scott Hernandez MD Primary Care Provider [phone] Encounter Details Date Type Department Care Team (Latest Contact Info) Description 11/30/2016 Abstract [facility] Medical Group Social History Tobacco Use [...] on filedocumented in this encounter Care Teams Rehabilitation Case Coordinator Relationship Specialty Start Date End Date Scott Hernandez MD [address] [address] PCP - General 01/03/17 Scott Hernandez MD [address] [address] PCP - General 11/22/16 01/02/17 documented as of this encounter
--- OUTSIDE RECORDS SUMMARY | 2024-06-28 00:48 | XMS_ITS | Encounter Summary ---
Author Organization [facility] Address [address] [place] [address]. [place], [place] [address] [place] [address] Care Team Providers Care Wind Farm Operations Manager Name Role Phone Scott Hernandez MD Primary Care Provider [phone] Scott Hernandez MD Primary Care Provider [phone] Encounter Details Date Type Department Care Team (Latest Contact Info) Description 12/27/2016 Abstract [facility] Medical Group Social History [...] on filedocumented in this encounter Care Teams Wind Farm Operations Manager Relationship Specialty Start Date End Date Scott Hernandez MD [address] [place] [address] PCP - General 01/03/17 Scott Hernandez MD [address] [address] PCP - General 11/22/16 01/02/17 documented as of this encounter
--- OUTSIDE RECORDS SUMMARY | 2024-06-28 00:48 | XMS_ITS | Encounter Summary ---
Author Organization [facility] Address [address] [place] [address]. [place] [address] [place] [address] Care Team Providers Care Manager Investment Name Role Phone Scott Hernandez MD Primary Care Provider [phone] Reason for Visit * Reason Comments Letter [...] filedocumented in this encounter Care Teams Manager Investment Relationship Specialty Start Date End Date Scott Hernandez MD [address] [address] PCP - General 01/03/17 documented as of this encounter
--- OUTSIDE RECORDS SUMMARY | 2024-06-28 00:48 | XMS_ITS | Encounter Summary ---
Author Organization [facility] Address [address] [place] [address]. [place] [address] [place] [address] Care Team Providers Care Electronic Service Technician Name Role Phone Scott Hernandez MD Primary Care Provider [phone] Scott Hernandez MD Primary Care Provider [phone] Encounter Details Date Type Department Care Team (Latest Contact Info) Description 11/22/2016 Abstract [facility] Medical Group Dustin Akins MD [address] [place] [address] Social History Tobacco Use Types Packs/Day [...] us Dustin Akins MD MICROBIOLOGY - GENERAL PSYCHIATRIC Final Result Performing Organization Address City/State/[facility] Co de Phone Number [facility] TO EPIC CONVERSION documented in this encounter Visit Diagnoses Not on filedocumented in this encounter Care Teams Electronic Service Technician Relationship Specialty Start Date End Date Scott Hernandez MD [address] [address] PCP - General 01/03/17 Scott Hernandez MD [address] [address] PCP - General 11/22/16 01/02/17 documented as of this encounter
--- OUTSIDE RECORDS SUMMARY | 2024-06-28 00:56 | XMS_ITS | Encounter Summary ---
Author Organization [facility] Address [address] [place] [address] Care Team Providers Care Clinical Education Coordinator Name Role Phone Scott Hernandez MD Primary Care Provider [phone] Encounter Details Date Type Department Care Team (Late st Contact Info) Description 01/30/2018 Lab Requisition [facility] Care DermPath Lab [address] [facility] [place] [address] Scott Hernandez MD [address] [place] [address] Social History Tobacco Use Types [...] CDT) Case Report Dermatopathology Report ? Case: [id number] ? Authorizing Provider: ??Scott Hernandez MD ? Collected: ? 01/25/2018 12:00 AM ? Pathologist: ? Tana Epps MD ?Received: ?01/30/2018 12:12 PM ? Specimen: ?Skin, left upper arm ? 1:06 PM [facility] Final Diagnosis Specimen A. SKIN, left upper arm: BENIGN VERRUCOUS KERATOSIS, INFLAMED (L82.1) PRESENT AT MARGIN 1:06 PM [facility] Clinical History Changing lesion. Check margins. 1:06 PM [facility] Gross Description Specimen A: Received is one formalin filled container labeled with the patient's name and designated left upper arm. The specimen consists of a shave biopsy (2 pieces) measuring [id number], inked green, & [id number]. Jar 0. 1:06 PM [facility] Microscopic Description Specimen A. SKIN, left upper arm: Sections show hyperkeratosis, papillomatosis, hypergranulosis, and acanthosis. Inflammatory cells are present within the dermis. These histological findings can be seen in a verruca vulgaris or a seborrheic keratosis. This lesion is present at the margin of the specimen. 1:06 PM [facility] Disclaimer An external and internal positive and negative controls are appropriate for the histochemical, immunohistochemical and immunofluorescence stain(s) in this case (if any), except where stated explicitly. The performance characteristics of the stain(s) cited in this report were developed and its performance characteristic determined by the Dermatopathology Laboratory at [facility]. These tests need not be, and therefore are not, approved by the [place] Food and Drug Administration. The tests are used for clinical purposes. Billing Codes Specimen Charges Stain Charges 16352 1 07/25/201 8 1:06 PM CDT DERMATOPATHOLOGY LABORATORY Embedded Images 8 1:06 PM CDT DERMATOPATHOLOGY LABORATORY Pathology/Cytolog y TISSUE SPECIMEN FROM SKIN / Unknown 01/25/2018 01/30/2018 12:12 PM CDT Scott Hernandez MD LAB - PATHOLOGY/CYTO LOGY ORDERABLES DERMATOPATHOLOGY LABORATORY [facility] - Department of Dermatology [address] [place] [address], 5th Floor Lab [address] [phone] documented in this encounter Visit Diagnoses Not on filedocumented in this encounter Care Teams Clinical Education Coordinator Relationship Specialty Start Date End Date Scott Hernandez MD [address] [place] [address] PCP - General 01/30/18 documented as of this encounter
--- OUTSIDE RECORDS SUMMARY | 2024-06-28 00:56 | XMS_ITS | Encounter Summary ---
Author Organization [facility] Address [address] [place] [address] Care Team Providers Care Application Infrastructure Engineer Name Role Phone Eda Aleman MD Primary Care Provider [phone] Reason for Visit * Reason Comments Breast Exam, Routine, No Symptoms annual ck Encounter Details Date Type Department Care Team (Late st Contact Info) Description 03/06/2012 3:30 PM CDT Office Visit [facility] Cancer & Breast Inst Surg Onc [facility] [address] [place] [address] Martina Gates MD [address] [place] [address] Diffuse cystic mastopathy (Primary Dx) [...] lymphedema present IMAGING: Mammogram:November 10, 2009. At [facility]. No mammographic evidence of malignancy Mammogram: 03/06/2012 at [facility]; nem IMPRESSION: Normal clinical exam and imaging. PLAN: I will see her back next year at mammogram time. Martina Gates MD. FACS. cc: No referring provider defined for this encounter. documented in this encounter Plan of Treatment Not on file documented as of this encounter Visit Diagnoses Diagnosis Diffuse cystic mastopathy- Primary documented in this encounter Care Teams Application Infrastructure Engineer Relationship Specialty Start Date End Date Eda Aleman MD [address] [place] [address] PCP - General 11/04/08 documented as of this encounter
--- OUTSIDE RECORDS SUMMARY | 2024-06-28 00:56 | XMS_ITS | Encounter Summary ---
Author Organization [facility] Address [address] [place] [address] Care Team Providers Care Track Hoe Operator Name Role Phone Eda Aleman MD Primary Care Provider [phone] Encounter Details Date Type Department Care Team (Late st Contact Info) Description 11/16/2009 Orders Only [facility] BREAST SURGERY - [place] [facility] [address] [facility] [address] [place] [address] Martina Gates MD [address] [address] Diffuse Cystic Mastopathy Social History [...] mastopathy documented in this encounter Care Teams Track Hoe Operator Relationship Specialty Start Date End Date Eda Aleman MD [address] [place] [address] PCP - General 4/28/09 documented as of this encounter
--- OUTSIDE RECORDS SUMMARY | 2024-06-28 00:56 | XMS_ITS | Clinical Summary ---
Author Organization [facility] Address [address] [place] [address] Care Team Providers Care House Director Name Role Phone Scott Hernandez MD Primary Care Provider [phone] Source Comments [facility],non-owned Affiliates and Associated Physician Practices is amultiple site organization consisting of ambulatory clinics and hospital sitesin [place], [place], [place] and [place]. This disclosure is being madepursuant to the Care Everywhere program and may not contain all information available regarding this patient. Last updated 18.[facility] Social History Tobacco Use Types Packs/Day Years [...] age to complete this topic Care Teams House Director Relationship Specialty Start Date End Date Scott Hernandez MD [address] [place] [address] PCP - General 01/30/18
--- OUTSIDE RECORDS SUMMARY | 2024-06-28 00:56 | XMS_ITS | Encounter Summary ---
Author Organization [facility] Address [address] [place] [address] Care Team Providers Care Cigarette And Filter Chief Inspector Name Role Phone Eda Aleman MD Primary Care Provider [phone] Reason for Referral * Outpatient Services (Routine) - Closed Specialty Diagnoses / Procedures Referred By Wendy pfeiffer Referred To Contact Diagnoses Diffuse cystic mastopathy Procedures MAMMO DIGITAL DIAG BILAT Martina Gates MD [address] [place] [address] Referral ID Status Reason Start Date Expiration Date Visits Re quested Visits Authorized [id number] Closed 02/20/2012 02/19/2013 1 1 Encounter Details Date Type Department Care Team (Late st Contact Info) Description 02/20/2012 Orders Only [facility] BREAST SURGERY - [place] CLRKSN [address] [place] [address] Martina Gates MD [address] [facility] [place] [address] Diffuse cystic mastopathy (Primary Dx) Social [...] mastopathy documented in this encounter Care Teams Cigarette And Filter Chief Inspector Relationship Specialty Start Date End Date Eda Aleman MD [address] [place] [address] PCP - General 11/04/08 documented as of this encounter
--- OUTSIDE RECORDS SUMMARY | 2024-06-28 00:56 | XMS_ITS | Clinical Summary ---
Author Organization [facility] Address [address] [place] [address] Phone Care Team Providers Care Reconnaissance Man Name Role Phone Eda Aleman MD Primary Care Provider [phone] Allergies Active Allergy Reactions Criticality Noted Date [...] 2022 INFLUENZA VACCINE (#1) 2024 Care Teams Reconnaissance Man Relationship Specialty Start Date End Date Eda Aleman MD [address] [place] [address] PCP - General 11/04/08
--- OUTSIDE RECORDS SUMMARY | 2024-06-28 00:56 | XMS_ITS | Patient Health Summary ---
Author Organization [facility] Address [address] [place] [address] Care Team Providers Care Cage Cashier Name Role Phone Scott Hernandez MD Primary Care Provider [phone] Note from [facility],non-owned Affiliates and Associated Physician Practices is amultiple site organization consisting of ambulatory clinics and hospital sitesin [place], [place], [place] and [place]. This disclosure is being madepursuant to the Care Everywhere program and may not contain all information available regarding this patient. Last updated 18.[facility] Social History Tobacco Use Types Packs/Day Years Used Date Smoking Tobacco: Never Assessed Sex and Gender Information Value Date Recorded Sex Assigned at Not on file Gender Identity Not on file Sexual Orientation Not on file Procedures * DERMATOPATHOLOGY(Performed 01/25/2018) * GROSS + MICRO EXAM(Performed 08/01/2003) Results * DERMATOPATHOLOGY (01/25/2018 12:00 AM CDT) Case Report Dermatopathology Report ? Case: [id number] ? Authorizing Provider: ??Scott Hernandez MD ? Collected: ? 01/25/2018 12:00 AM ? Pathologist: ? Tana Epps MD ?Received: ?01/30/2018 12:12 PM ? Specimen: ?Skin, left upper arm ? 1:06 PM [facility] DERMATOPATHOLOGY LABORATORY Final Diagnosis Specimen A. SKIN, left upper arm: BENIGN VERRUCOUS KERATOSIS, INFLAMED (L82.1) PRESENT AT MARGIN 1:06 PM [facility]OR[facility] Clinical History Changing lesion. Check margins. 1:06 PM [facility] DERMATOPATH[facility]ORATORY Gross Description Specimen A: Received is one formalin filled container labeled with the patient's name and designated left upper arm. The specimen consists of a shave biopsy (2 pieces) measuring [id number], inked green, & [id number]. Jar 0. 1:06 PM [facility] DERMATOPATHOLOGY [facility]ORATORY Microscopic Description Specimen A. SKIN, left upper arm: Sections show hyperkeratosis, papillomatosis, hypergranulosis, and acanthosis. Inflammatory cells are present within the dermis. These histological findings can be seen in a verruca vulgaris or a seborrheic keratosis. This lesion is present at the margin of the specimen. 1:06 PM [facility] DERMATOPATHOLOGY [facility]ORATORY Disclaimer An external and internal positive and negative controls are appropriate for the histochemical, immunohistochemical and immunofluorescence stain(s) in this case (if any), except where stated explicitly. The performance characteristics of the stain(s) cited in this report were developed and its performance characteristic determined by the Dermatopathology Laboratory at [facility]. These tests need not be, and therefore are not, approved by the [place] Food and Drug Administration. The tests are used for clinical purposes. Billing Codes Specimen Charges Stain Charges 80483 1 1:06 PM T DERMATOPATHOLOGY LABORATORY Embedded Images 1:06 PM [facility] DERMATOPATH[facility]ORATORY Pathology/Cytolog y TISSUE SPECIMEN FROM SKIN / Unknown 01/25/2018 01/30/2018 12:12 PM CDT Scott Hernandez MD LAB - PATHOLOGY/CYTO LOGY ORDERABLES DERMATOPATHOLOGY LABORATORY [facility] - Department of Dermatology [address], [address]th [place] [address], [facility] [phone] * GROSS + MICRO EXAM (08/01/2003 12:05 PM SEAMLESS HOSIERY KNITTER) Result CASE NUMBER [id number] Comment: ORDERING [...] fibrous tissue. ??There are no discreet masses. Photo Checker sections are submitted in cassettes A1 - [...] fibrous tissue. ??There are no discreet masses. Photo Checker sections are submitted in cassettes B1 - [...] fibrocystic changes Dictated by ?Christal Cross M.D. Salary And Wage Administrator ? [employer] MOCTE[employer] Electronically Signed By ? CHRISTAL CROSS MISCELLANEOUS SAMPLES / Unknown 08/01/2003 12:05 PM SEAMLESS HOSIERY KNITTER 08/01/2003 12:12 PM SEAMLESS HOSIERY KNITTER Historical Provider LAB - PATHOLOGY/C YTOLOGY ORDERABLES Care Teams Cage Cashier Relationship Specialty Start Date End Date Scott Hernandez MD [address] [place] [address] PCP - General 01/30/18
--- OUTSIDE RECORDS SUMMARY | 2024-06-28 00:56 | XMS_ITS | Clinical Summary ---
Author Organization [facility] Address [address], [facility] [address] [place] [address] Phone Care Team Providers Care Window Shade Cloth Sewer Name Role Phone Scott Hernandez MD Primary Care Provider [phone] Allergies No known active allergies Medications DEXILANT [...] by mouth every 30 days. Active Multiple Vitamins-Bulk Fluids Handler als (MULTIVITAMIN PO) Take by mouth. Activ [...] complete this topic Insurance MEDICARE Care Teams Window Shade Cloth Sewer Relationship Specialty Start Date End Date Scott Hernandez MD [address] [address] PCP - General Family Medicine 02/15/17
--- OUTSIDE RECORDS SUMMARY | 2024-06-28 00:56 | XMS_ITS | Referral Summary ---
Author Organization [facility] [employer] Address [address] [place] [address] Care Team Providers Care Novelties Sales Representative Name Role Phone Scott Hernandez MD Primary Care Provider [phone] Source Comments [facility],non-owned Affiliates and Associated Physician Practices is amultiple site organization consisting of ambulatory clinics and hospital sitesin [place], [place], [place] and [place]. This disclosure is being madepursuant to the Care Everywhere program and may not contain all information available regarding this patient. Last updated 18.[facility] [employer] Social History Tobacco Use Types Packs/Day Years Used Date Smoking Tobacco: Never Assessed Sex and Gender Information Value Date Recorded Sex Assigned at Not on file Gender Identity Not on file Sexual Orientation Not on file Plan of Treatment Not on file Care Teams Novelties Sales Representative Relationship Specialty Start Date End Date Scott Hernandez MD [address] [place] [address] PCP - General 01/30/18
--- OUTSIDE RECORDS SUMMARY | 2024-06-28 00:56 | XMS_ITS | Encounter Summary ---
Author Organization [facility] Address [address] [place] [address] Care Team Providers Care Magnesium Mill Operator Name Role Phone Eda Aleman MD Primary Care Provider [phone] Encounter Details Date Type Department Care Team (Late st Contact Info) Description 05/05/2014 Orders Only [facility] BREAST SURGERY - [place] CLRKSN [address] [place] [address] Provider, Abstract NO ADDRESS ON [...] Provider PATHOLOGY/CYTOLOGY O RDERABLES Performing Organization Address [facility]/ZIP Co de Phone Number [facility] * PATHOLOGY REPORT (07/28/2004) Abstract Provider PATHOLOGY/CYTOLOGY O RDERABLES Performing Organization Address [facility]/ZIP Co de Phone Number [facility] documented in this encounter Visit Diagnoses Not on filedocumented in this encounter Care Teams Magnesium Mill Operator Relationship Specialty Start Date End Date Eda Aleman MD [address] [place] [address] PCP - General 11/04/08 documented as of this encounter
--- OUTSIDE RECORDS SUMMARY | 2024-06-28 00:56 | XMS_ITS | Encounter Summary ---
Author Organization [facility] Address [address] [place] [address] Care Team Providers Care Soda Flaker Name Role Phone Eda Aleman MD Primary Care Provider [phone] Reason for Referral * Outpatient Services (Routine) - Closed Specialty Diagnoses / Procedures Referred By Wendy pfeiffer Referred To Contact Diagnoses Diffuse cystic mastopathy Procedures MAMMO DIGITAL ROSALIAG Martina Carter MD [address] [facility] [place] [address] Referral ID Status Reason Start Date Expiration Date Visits Re quested Visits Authorized [id number] Closed 02/20/2012 02/19/2013 1 1 Reason for Visit * Outpatient Services (Routine) - Closed Specialty Diagnoses / Procedures Referred By Wendy pfeiffer Referred To Contact Diagnoses Diffuse cystic mastopathy Procedures MAMMO DIGITAL Martina Perez MD [address] [facility] [place] [address] Referral ID Status Reason Start Date Expiration Date Visits Re quested Visits Authorized [id number] Closed 02/20/2012 02/19/2013 1 1 Encounter Details Date Type Department Care Team (Latest Contact Info) Description 03/06/2012 2:22 PM CDT - 03/06/2012 11:59 PM CDT Hospital Encounter [facility] [place] [facility] [address] [place] [address] Martina Gates MD [address] [place] [address] Discharge Disposition: Home or Self Care Social [...] Assessment & Plan Note - Stl Scanning, [facility] - 03/13/2012 2:40 PM CDT documented in [...] mastopathy documented in this encounter Care Teams Soda Flaker Relationship Specialty Start Date End Date Eda Aleman MD [facility] [place] [address] PCP - General 11/04/08 documented as of this encounter
--- OUTSIDE RECORDS SUMMARY | 2024-06-28 00:56 | XMS_ITS | Encounter Summary ---
Author Organization [facility] Address [address] [place] [address] Care Team Providers Care Envelope Folding Machine Operator Name Role Phone Eda Aleman MD Primary Care Provider [phone] Reason for Referral * Outpatient Services (Routine) - Closed Specialty Diagnoses / Procedures Referred By Wendy pfeiffer Referred To Contact Diagnoses Diffuse cystic mastopathy Procedures MAMMO DIGITAL SCREEN Martina Carter MD [address] [place] [address] Referral ID Status Reason Start Date Expiration Date Visits Re quested Visits Authorized [id number] Closed 11/11/2009 05/10/2010 1 1 Reason for Visit * Reason Comments Breast Exam, Routine, No Symptoms Encounter Details Date Type Department Care Team (Late st Contact Info) Description 11/10/2009 11:30 AM CDT Office Visit [facility] BREAST SURGERY - [place] CLRKSN [address] [place] [address] Martina Gates MD [address] [address] Diffuse Cystic Mastopathy (Primary Dx) Social [...] lymphedema present IMAGING: Mammogram:November 10, 2009. At [facility]. No mammographic evidence of malignancy IMPRESSION: Normal [...] Primary documented in this encounter Care Teams Envelope Folding Machine Operator Relationship Specialty Start Date End Date Eda Aleman MD [facility] [place] [address] PCP - General 11/04/08 documented as of this encounter
--- OUTSIDE RECORDS SUMMARY | 2024-06-28 00:56 | XMS_ITS | Encounter Summary ---
Author Organization [facility] Address [address] [place] [address] Care Team Providers Care Restrooms Or Lounges Maid Name Role Phone Eda Aleman MD Primary Care Provider [phone] Encounter Details Date Type Department Care Team (Late st Contact Info) Description 11/06/2009 Abstract [facility] BREAST SURGERY - [place] CLRKSN [address] [place] [address] Martina Gates MD [address] [place] [address] Social History Tobacco Use Types [...] on filedocumented in this encounter Care Teams Restrooms Or Lounges Maid Relationship Specialty Start Date End Date Eda Aleman MD [address] [place] [address] PCP - General 11/04/08 documented as of this encounter
--- OUTSIDE RECORDS SUMMARY | 2024-06-28 00:56 | XMS_ITS | Encounter Summary ---
Author Organization [facility] Address [address] [place] [address] Care Team Providers Care Construction Foreman Name Role Phone Eda Aleman MD Primary Care Provider [phone] Encounter Details Date Type Department Care Team (Latest Contact Info) Description 11/17/2000 Outpatient Historical [facility],NON-PATIENT Sai Maki MD [address] [place] [address] Benign neoplasm of skin of other and [...] Primary documented in this encounter Care Teams Construction Foreman Relationship Specialty Start Date End Date Eda Aleman MD [address] [place] [address] PCP - General 11/04/08 documented as of this encounter
--- OUTSIDE RECORDS SUMMARY | 2024-06-28 00:56 | XMS_ITS | Encounter Summary ---
Author Organization [facility] Address [address] [place] [address] Care Team Providers Care Tool And Die Supervisor Name Role Phone Unavailable Primary Care Provider Unavailabl e Encounter Details Date Type Department Care Team (Late st Contact Info) Description 08/01/2003 Orders Only [facility] [address] [place] [address] ProviderBhargav MD Social History Tobacco Use Types [...] MICRO EXAM RUIZ 08/01/2003 12 :05 PM HOME INSPECTOR documented in this encounter Results * GROSS + MICRO EXAM (08/01/2003 12:05 PM HOME INSPECTOR) Result CASE NUMBER [id number] Comment: ORDERING [...] fibrous tissue. ??There are no discreet masses. Restaurant Managing Partner sections are submitted in cassettes A1 - [...] fibrous tissue. ??There are no discreet masses. Restaurant Managing Partner sections are submitted in cassettes B1 - [...] fibrocystic changes Dictated by ?Christal Cross M.D. Cartridge Assembling Machine Adjuster ? [employer] MOCTEZUMA Electronically Signed By ? CHRISTAL CROSS MISCELLANEOUS SAMPLES / Unknown 08/01/2003 12:05 PM HOME INSPECTOR 08/01/2003 12:12 PM HOME INSPECTOR Historical Provider LAB - PATHOLOGY/C YTOLOGY ORDERABLES documented in this encounter Visit Diagnoses Not on filedocumented in this encounter
== END 2024-06-23 13:08 | disposition home or self-care (01) ==
PROVIDERS: Emergency Provider Nurse Practitioner; PCP Family Medicine
DX: S93.402A Sprain of unspecified ligament of left ankle, initial encounter (principal); S96.912A Strain of unspecified muscle and tendon at ankle and foot level, left foot, initial encounter; X50.9XXA Other and unspecified overexertion or strenuous movements or postures, initial encounter; Z87.891 Personal history of nicotine dependence; F12.90 Cannabis use, unspecified, uncomplicated; M19.90 Unspecified osteoarthritis, unspecified site; M79.7 Fibromyalgia; M81.0 Age-related osteoporosis without current pathological fracture
CPT/HCPCS: 73610; 73630; 99213; G0463

== ENCOUNTER 2025-05-02 01:13 | Emergency (ER) | payer MEDICARE, OTHER, SELFPAY ==
--- NOTE | ~2025-05-02 | CT_ITS ---
EXAMINATION: CT abdomen pelvis w con DATE: 05/02/2025 03:58 INDICATION: Epigastric pain and nausea TECHNIQUE: Computed tomography (CT) of the abdomen and pelvis was performed with 100 mL Omnipaque-350 intravenous contrast. Automated exposure control and iterative reconstruction technique were employed. The dose-length product was 408.06 mGy-cm. COMPARISON: 02/07/2023 FINDINGS: Mild bronchiectatic changes at the bilateral lung bases. Heart size is normal. Atherosclerotic coronary artery calcification. No pericardial or pleural effusion. Focal hepatic steatosis at the ligamentum teres. Status post cholecystectomy. Spleen, pancreas and bilateral adrenal glands are normal. Subce ntimeter cyst at the lower pole of the right kidney. Interval increase in size of a previously 4 mm and nearly indiscernible enhancing lesion at the periphery of the lower pole of the right kidney now measuring 9 mm and appearing more exophytic consistent with renal cell carcinoma. Change of prior cryoablation at the upper pole of the left kidney. No abnormal bowel wall thickening or obstruction. The appendix is not visualized. No pericecal inflammatory change to suggest acute appendicitis. Decompressed bladder and bilateral adnexa are unremarkable. There are couple small enhancing uterine fibroids the larger measuring 1.3 cm. No free intraperitoneal gas or fluid. No pathologically enlarged abdominal or pelvic lymphadenopathy. Postoperative changes along the anterior abdominal including with underlying hernia mesh repair. Moderate to severe lower lumbar predominant spondylosis and chronic L1 compression fracture. IMPRESSION: 1. No acute intra-abdominal/pelvic process. 2. Enlarging 9 mm exophytic lesion at the lower pole of the right kidney consistent with renal cell carcinoma. Change of prior cryoablation at the upper pole the left kidney. Dr. Bajwa discussed these findings with Dr. Capone at 8:10 AM. 3. Fibroid uterus. Reviewed, dictated and finalized at location A. IMPRESSION: 1. No acute intra-abdominal/pelvic process. 2. Enlarging 9 mm exophytic lesion at the lower pole of the right kidney consis tent with renal cell carcinoma. Change of prior cryoablation at the upper pole the left kidney. Dr. Bajwa discussed these findings with Dr. Capone at 8:10 AM. 3. Fibroid uterus.
--- OUTSIDE RECORDS SUMMARY | 2025-05-02 01:15 | XMS_ITS | Encounter Summary ---
Author Organization [facility] Address [facility] [place] [address] Care Team Providers Care Company Driver Name Role Phone Scott Hernandez MD Primary Care Provider [phone] Encounter Details Date Type Department Care Team (Late Contact Info) Description 01/04/2023 MyChart Message Enc [facility] Medical [facility] [address] [place] [address] [employer], [facility] Provider Air Quality Message Social History [...] as of this encounter Plan of Treatment Upcoming Encounters Date Type Department Care Team (Late Contact Info) Description 11/13/2025 10:00 AM CDT Office Visit [facility] Multispecialty Care - [address], [address] [place] [address] Dustin Akins MD [address] [place] [address] documented as of this encounter Visit Diagnoses Not on filedocumented in this encounter Additional Health Concerns Assessment Noted Time PHQ-9 Depression Total Score: 2 06/15/20 21 10:10 AM POPULATION HEALTH COACH documented as of this encounter Care Teams Company Driver Relationship Specialty Start Date End Date Scott Hernandez MD [address] [address] PCP - General 01/03/17 documented as of this encounter
--- OUTSIDE RECORDS SUMMARY | 2025-05-02 01:15 | XMS_ITS | Encounter Summary ---
Author Organization [employer] [facility] Address [address] [place] [address] Care Team Providers Care Real Estate Job Titles Name Role Phone Eda Aleman MD Primary Care Provider [phone] Encounter Details Date Type Department Care Team (Latest Contact Info) Description 11/17/2000 Outpatient Historical [facility] LAB,NON-PATIENT Sai Maki MD [address] [place] [address] Benign neoplasm of skin of other and unspecified parts of face (Primary Dx) Social History Tobacco Use Types Packs/Day Years Used Date Smoking Tobacco: Never Assessed Comments Unknown Sex and Gender Information Value Date Recorded Sex Assigned at Not on file Legal Sex Female 4:55 AM FOOD BEVERAGE SUPERVISOR Gender Identity Not on file Sexual Orientation Not on file documented as of this encounter Plan of Treatment Not on file documented as of this encounter Visit Diagnoses Diagnosis Benign neoplasm of skin of other and unspecified parts of face- Primary documented in this encounter Care Teams Real Estate Job Titles Relationship Specialty Start Date End Date Eda Aleman MD [address] [place] [address] PCP - General 11/04/08 documented as of this encounter
--- OUTSIDE RECORDS SUMMARY | 2025-05-02 01:15 | XMS_ITS | Clinical Summary ---
Author Organization [facility] Address [address], [facility] [address] [place] [address] Phone Care Team Providers Care Sexer Name Role Phone Scott Hernandez MD Primary Care Provider [phone] Allergies No known active allergies Medications DEXILANT [...] by mouth every 30 days. Active Multiple Vitamins-Marquette als (MULTIVITAMIN PO) Take by mouth. Activ [...] Health Maintenance Due Date Last Done Comments Hepatitis C Virus (HCV) Screening 1945 TdaP Immunization 1945 Pneumococcal Immunization (5 0+ years) (1 of 1 - PCV) 1997 Zoster Immunization (1 of 2) 1997 Medicare Initial AWV [id number] 01/07/2011 Respiratory Syncytial Virus (RSV) Immunization (Adult) (1 - 1-dose 75+ series) 2022 Influenza Immunization (#1) 2025 SARS-COV-2 Immunization (1 - 2023-25 season) 2025 Hepatitis B Immunization Aged Out No longer eligible based on patient's age to complete this topic Human Papillomavirus (HPV) Immunization Aged Out No longer eligible b ased on patient's age to complete this topic Meningococcal Immunization (ACWY) Aged Out No longer eligible based on patient's age to complete this topic Rotavirus Immunization Aged Out No lo nger eligible based on patient's age to complete this topic Insurance MEDICARE Care Teams Sexer Relationship Specialty Start Date End Date Scott Hernandez MD [address] [place] [id number] PCP - General Family Medicine 02/15/17
--- OUTSIDE RECORDS SUMMARY | 2025-05-02 01:15 | XMS_ITS | Clinical Summary ---
Author Organization [facility] Address [address] [place] [id number] Care Team Providers Care Radiological Defense Officer Name Role Phone Scott Hernandez MD Primary Care Provider [phone] Allergies Active Allergy Reactions Criticality Noted Date Comments Codeine Nausea and Vomiting 11/06/2009 Dander Unknown 11/21/2016 Dust Mite Extract Unknown 11/21/2016 Medications ALPRAZolam 0.5 MG tablet Take 1 tablet [...] Solution every 7 days. 12 8 Active montelukast 10 MG tablet Take 1 tablet (10 mg total) by mouth nightly at bedtime. 7 Active cetirizine 10 MG tablet Take 1 tablet (10 mg total) by mouth. Active vitamin D3, cholecalciferol, 5000 UNITS capsule Active NEBULIZER DME SUPPLYIndication s:Productive cough,CVID (common variable immunodeficiency ) ([facility]),Bronchi ectasis without complication ([facility]) Take 1 Device by nebulization every 4 (four) hours as needed. 1 Device 9 Active CPAP MACHINEIndicatio ns:BRUNO (obstructive sleep apnea) AutoCPAP [id number] For use when sleeping Lifetime use 1 Device 9 Active ALBUTEROL (2.5 MG/3ML) 0.083% nebulizer solutionIndicati ons:Chronic obstructive pulmonary disease, unspecified COPD type ([facility]) USE 1 VIAL IN NEBULIZER EVERY 6 HOURS - as needed for rescue( max 30 doses per month) 360 mL 11 1 Active DALIRESP 500 MCG Tab Take by mouth daily. 1 Active ipratropium (ATROVENT) 0.06 % nasal sprayIndications :Allergic rhinitis, unspecified seasonality, unspecified trigger 2 sprays by Nasal route 2 (two) times a day. 15 mL 11 4 Active fluticasone propionate (FLONASE) 50 MCG/ACT nasal sprayIndications :Allergic rhinitis, unspecified seasonality, unspecified trigger 2 sprays by Each Nostril route daily. 16 g 11 4 Active azelastine (ASTELIN) 0.1 % nasal spray 2 sprays 2 (two) times daily. 5 Active azithromycin (ZITHROMAX) 500 mg tabletIndication s:Chronic obstructive pulmonary disease, unspecified COPD type ([facility]) Take 1 tablet (500 mg total) by mouth 3 (three) times a week. 36 tablet 3 5 Active formoterol (PERFOROMIST) 20 MCG/2ML nebulizer solutionIndicati ons:Chronic obstructive pulmonary disease, unspecified COPD type ([facility]) Take 2 mLs (20 mcg total) by nebulization 2 (two) times a day. 60 mL 11 5 Active budesonide (PULMICORT) 0.5 MG/2ML nebulizer solutionIndicati ons:Chronic obstructive pulmonary disease, unspecified COPD type ([facility]) Take 2 mLs (0.5 mg total) by nebulization 2 (two) times daily. 60 mL 11 5 Active Revefenacin (YUPELRI) 175 MCG/3ML SolutionIndicati ons:Chronic obstructive pulmonary disease, unspecified COPD type ([facility]) Take 1 vial by nebulization daily. 30 mL 11 5 Active azithromycin (ZITHROMAX) 500 mg tabletIndication s:CVID (common variable immunodeficiency ) ([facility]) TAKE 1 TABLET(500 MG) BY MOUTH 3 TIMES A WEEK ON MONDAY, MONDAY, AND MONDAY 36 tablet 3 5 Active Active Problems Problem Noted Date Diagnosed Date Cigarette nicotine dependence in remission 07/12 Allergic rhinitis, unspecifi ed seasonality, unspecified trigger 02/19/2019 Fibromyalgia 02/18/2019 CVID (common variable immunodeficiency) 02/09/20 17 Bronchiectasis 11/21/2016 Chronic obstructive asthma 11/21/2016 COPD (chronic obstructive pulmonary disease) Environmental and seasonal allergies 11/21/2016 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 Obesity 11/21/2016 On prednisone therapy 11/21/2016 [...] for preventive health examination 11/18/2016 03/20/2020 Immunizations Immunization Administration Dates Next Due Fluzone High Dose - >Age 65 (Prefilled Syringe) 04/09/2021 Influenza (Generic) 03/26/2020,,05/28/2018,2016,03/22/2016,05/20/2015 Family History Medical History Relation Comments Diabetes Brother Arthritis Father Diabetes Father Cancer Maternal Aunt Diabetes Maternal Grandmother Heart Mother Hypertension Mother Stroke Mother Cancer Paternal Grandmother Relation Status Comments Brother Father Maternal Aunt Alive Maternal Grandmother Alive Mother Paternal Grandmother Social History Tobacco Use Types Packs/Day Years Used Date Smoking Tobacco: Former Cigarettes 2 30 1 978 - 1988 Smokeless Tobacco: Never Tobacco Cessation:Counseling Given: Yes [...] Sign Reading Time Taken Comments Blood Pressure 152/79 12/04/2024 8:59 AM CDT Pulse 54 12/04/2024 8:59 AM CDT Temperature 36.8 C (98.2 F) 01/02/2024 9:38 AM CDT Respiratory Rate 16 12/04/2024 8:59 AM CDT Oxygen Saturation 99% 12/04/2024 8:59 AM CDT ra Inhaled Oxygen Concentration - - Weight 65.3 kg (144 lb) 12/04/2024 8:59 AM CDT Height 152.4 cm (5') 12/04/2024 8:59 AM CDT Body Mass Index 28.12 12/04/2024 8:59 AM CDT Plan of Treatment Upcoming Encounters Date Type Department Care Team (Late st Contact Info) Description 11/13/2025 10:00 AM CDT Office Visit [facility] - [facility] [address] [facility] [place] [id number] Dustin Akins MD [address] [facility] [address] [place] [address] Health Maintenance Due Date Last Done Comments COVID-19 Vaccine (#1) 1950 Hepatitis C 1965 DTaP, Tdap and Td Vaccines (1 - Tdap) 1966 Pneumococcal Vaccine: 50+ Years (1 of 2 - PCV) 1966 Zoster Vaccines (1 of 2) 1966 Annual Medicare Wellness Visit 2012 Dexa Scan (General) 2012 RSV Immunization or 60+ Years (1 - 1-dose 75+ series) 2022 PHQ-2 (Physician [place]) 07/10/2024 01/02/2024 Influenza Adult (#1) 2025 04/09/2021, 03/26/2020, 04/09/2019, Additional history exists Hepatitis A Vaccines Aged Out No long er eligible based on patient's age to complete this topic Meningococcal B Vaccine Aged Out No l onger eligible based on patient's age to complete this topic Meningococcal Vaccine Aged Out No hien amanda eligible based on patient's age to complete this topic RSV Immunizations Under 20 Months Aged Out No longer eligible based on patient's age to complete this topic Insurance MEDICARE [facility] Care Teams Radiological Defense Officer Relationship Specialty Start Date End Date Scott Hernandez MD [address] [address] PCP - General 01/03/17
[2025-05-02 01:23] VITALS: BP 124/54; PULSE 70; RESP 24; RESP 27; O2SAT 100
[2025-05-02 01:24] VITALS: BP 124/54; RESP 28
--- NOTE | 2025-05-02 01:24 | ECG_ITS ---
Test Date: 2025-05-02 01:31:21 Measurements Intervals [place] Rate: 50 P: 19 AL: 199 QRS: -22 QRSD: 96 T: 20 QT: 460 QTc: 422 Interpretive Statements SINUS BRADYCARDIA DELAYED PRECORDIAL R/S TRANSITION BORDERLINE ST-T WAVE ABNORMALITY- ANT/INF LEADS BASELINE ARTIFACT- III, V3, V6 BORDERLINE ECG No previous ECG available for comparison Electronically Signed On 05-02-2025 06:03:48 CDT by Faizan Riojas D.O.
[2025-05-02 01:30] VITALS: PULSE 55; RESP 13; O2SAT 97
[2025-05-02 01:31] VITALS: BP 116/58; PULSE 51; RESP 12; O2SAT 99
[2025-05-02 01:39] LABS: Hematocrit 38.1 % (37.0-47.0); Hemoglobin 12.5 g/dL (12.0-15.0); Immature Granulocyte Percent A 0.1 % (0-0.5); Lymphocytes Absolute Auto 2.13 K/mm3 (0.9-3.2); Mean Corpuscular HGB Conc 32.8 g/dl (32-36); Mean Corpuscular Hemoglobin 28.4 pg (26-34); Mean Corpuscular Volume 86.6 fl (80-100); Nucleated Red Blood Cells Absolute Auto 0.000 K/mm3 (0.0-0.012); Nucleated Red Blood Cells Perc 0.0 % (0.0-0.2); Platelet Count Result 322 k/mm3 (150-375); Red Blood Count 4.40 M/mm3 (4.2-5.4); White Blood Count 7.1 K/mm3 (4.5-10.0)
[2025-05-02 01:48] LABS: Alanine Aminotransferase 45 U/L (6-35); Albumin Level 4.6 g/dL (3.5-5.1); Alkaline Phosphatase 93 U/L (38-126); Anion Gap 8 mmol/L (4-12); Aspartate Amino Transferase 69 U/L (14-36); Bilirubin,Total 0.4 mg/dL (0.2-1.3); Blood Urea Nitrogen 15 mg/dL (7-17); Calcium 9.6 mg/dL (8.4-10.2); Carbon Dioxide 28 mmol/L (22-30); Chloride 101 mmol/L (98-107); Estimated CRCL calculation 46 ml/min; Estimated Glomerular Filt Rate > 60; Glucose 104 mg/dL (65-110); Lipase 71 U/L (23-300); Potassium 3.7 mmol/L (3.4-5.0); Sodium 137 mmol/L (137-145); Total Protein 7.6 g/dL (6.3-8.2)
[2025-05-02 02:14] LABS: Troponin I < 0.012 ng/mL (0.000-0.034)
--- NOTE | 2025-05-02 03:26 | ED.ABDPAIN ---
HPI - Abdominal Pain General Chief Complaint: Abdominal Pain Stated Complaint: epigastric pain Time Seen by Provider: 05/02/25 03:15 History of Present Illness HPI narrative: 79-year-old female with history of gastroesophageal reflux disease, COPD, hiatal hernia. Patient presents to the emergency department today with epigastric discomfort. States that woke her up from sleep and lasted about 30 minutes prior to significantly improving. States she felt some nausea and burping but did not vomit. Took 2 Gas-X tablets which seem to maye most of her symptoms. No chest discomfort or shortness of breath. States she has chronic back pain which is unchanged. No fever, chills, traumatic injuries. No loss of consciousness, diarrhea, dysuria, constipation. Was otherwise in her normal state of health. Thinks it could have been potentially indigestion related. History of cholecystectomy over 30 years ago. No recent abdominal surgeries otherwise. Related Data Home Medications ?Medication ?Instructions ?Recorded ?Confirmed ?Last Taken ?Type ipratropium bromide 42 mcg (0.06 1 spray intranasal DAILY 01/17/22 01/20/25 Unknown History %) nasal spray cetirizine 10 mg capsule (All Day 10 mg PO DAILY PRN allergies 05/27/22 01/20/25 Unknown History Allergy (cetirizine)) cholecalciferol (vitamin D3) 125 125 mcg PO DAILY 05/27/22 01/20/25 06/28/22 History mcg (5,000 unit) tablet epinephrine 0.3 mg/0.3 mL 0.3 mg IM ONCE 05/27/22 01/20/25 Unknown History injection, auto-injector Cbd/Thc 25 mg PO HS 06/20/22 01/20/25 Unknown History formoterol fumarate 20 mcg/2 mL 20 mcg inhalation ONCE 06/20/22 01/20/25 Unknown History solution for nebulization (Perforomist) immun glob G 10 See Rx Instructions .Route .COMPLEX 06/20/22 01/20/25 Unknown History gram/50mL(20%)-gly-IgA over 50 mcg/mL subcutaneous lata (Cuvitru) revefenacin 175 mcg/3 mL solution 175 mcg inhalation DAILY 06/20/22 01/20/25 Unknown History for nebulization (Yupelri) Allergies Allergy/AdvReac Type Severity Reaction Status Date / Time codeine AdvReac Intermediate Nausea Verified 01/20/25 09:38 Review of Systems Review of Systems: As reviewed above in [facility] Past Medical History Medical History Vitamin deficiency, unspecified Hyperlipidemia Hypertension Fibromyalgia Osteoarthritis Chest pain Nasal airway abnormality Mass of tongue Screening for thyroid disorder Surgical History Surgical History H/O colonoscopy Status post cryoablation Family History Family History Father Hypertension Family history of diabetes mellitus in first degree relative Mother Family history of coronary artery disease Heart disease Sibling Diabetes mellitus Other Cerebrovascular accident Family history of arthritis Family history of cardiovascular disease Family history of lung cancer Family history of pancreatic cancer Family history of primary malignant neoplasm of liver Social History Social History Years smoked: 15 Smoking status: Former smoker Tobacco type: cigarettes Second hand tobacco smoke exposure: Yes Alcohol intake: current Substance use: current Substance use type: marijuana Other substance usage details: CBD at night Do You Feel Safe in your Home?: Yes Lack of Transportation: No Lack of Food: Never True Current Housing: I Have Housing Concerned About Future Housing: No Difficulty Paying Gas/Electric Bills: No Difficulty Paying for Meds: No Currently Unemployed: No Education: High School Diploma/GED Difficulty w/ Childcare or Family Care: No Living arrangements: with family Occupation/Education: retired 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 Mucous membranes moist. NECK: Supple. CHEST: [Clear to auscultation. No respiratory distress.] HEART: [Regular rate and rhythm]. No murmur heard. [Normal peripheral pulses.] ABDOMEN: [Soft, nondistended], [nontender], [No rigidity or guarding] EXTREMITIES: Normal range of motion. [No edema.] SKIN: Warm, dry, no rash. NEURO: [No focal deficits]. Alert and oriented [x3.] PSYCH: [Normal mood and affect.] Course Vital Signs Vital signs: Vital Signs Pulse Rate 70 05/02/25 01:23 Respiratory Rate 24 H 05/02/25 01:23 Blood Pressure 124/54 L 05/02/25 01:23 Pulse Oximetry 100 05/02/25 01:23 Oxygen Delivery Room Air 05/02/25 01:23 Pulse Rate 55 L 05/02/25 05:13 Respiratory Rate 16 05/02/25 05:13 Blood Pressure 126/66 05/02/25 05:13 Pulse Oximetry 97 05/02/25 05:13 Oxygen Delivery Room Air 05/02/25 01:23 MDM - Abdominal Pain MDM Narrative Medical decision making narrative: 79-year-old female with history of gastroesophageal reflux disease, COPD, hiatal hernia. Patient presents to the emergency department today with epigastric discomfort. States that woke her up from sleep and lasted about 30 minutes prior to significantly improving. States she felt some nausea and burping but did not vomit. Took 2 Gas-X tablets which seem to maye most of her symptoms. No chest discomfort or shortness of breath. States she has chronic back pain which is unchanged. No fever, chills, traumatic injuries. No loss of consciousness, diarrhea, dysuria, constipation. Was otherwise in her normal state of health. Thinks it could have been potentially indigestion related. History of cholecystectomy over 30 years ago. No recent abdominal surgeries otherwise. Patient has a soft nontender and nondistended abdomen. Pointed towards her epigastrium and right upper quadrant where she was having pain that is now mostly improved. No tachycardia, hypoxia, blood pressure concerns. Strong symmetric pulses in clear breath sounds throughout. Suspect indigestion, GERD, hiatal hernia, no cholecystitis as she has no gallbladder but could be potential choledocholithiasis or other biliary pathology. Low suspicion kidney stone or vascular pathology or cardiac pathology. Given Pepcid and Zofran for further symptom control. Laboratory studies including cardiac workup underway. CT scan of the abdomen pelvis with IV contrast ordered. EKG nonischemic and at baseline. Troponin negative. Laboratory studies unremarkable aside from mildly elevated LFTs so far. Urinalysis unremarkable. CT scan shows suggestive gastroenteritis without any evidence of obstruction. No acute intra-abdominal pelvic findings otherwise. Patient re-evaluated and remains asymptomatic at this time feels much better. Will be discharged home with Pepcid and Bentyl as needed and given return precautions and follow-up instructions. Medical Records Attestation: I reviewed the patient's medical records. Lab Data Attestation: I reviewed the patient's lab results. 05/02/25 01:35 05/02/25 01:35 Labs: Lab Results 05/02/25 05/02/25 Range/Units 01:35 03:50 WBC 7.1 (4.5-10.0) K/mm3 RBC 4.40 (4.2-5.4) M/mm3 Hgb 12.5 (12.0-15.0) g/dL Hct 38.1 (37.0-47.0) % MCV 86.6 (80-100) fl MCH 28.4 (26-34) pg MCHC 32.8 (32-36) g/dl RDW 12.8 (11.5-14.5) % Plt Count 322 (150-375) k/mm3 MPV 10.6 H (7.4-10.4) fl Immature Gran % (Auto) 0.1 (0-0.5) % Neut % (Auto) 57.4 (45.5-73.1) % Lymph % (Auto) 30.2 (18.3-44.2) % Tama % (Auto) 7.9 (2.6-8.5) % Eos % (Auto) 3.7 (0-4.4) % Baso % (Auto) 0.7 (0.2-1.2) % Lymph # (Auto) 2.13 (0.9-3.2) K/mm3 Tama # (Auto) 0.6 (0.1-0.6) K/mm3 Eos # (Auto) 0.3 (0-0.3) K/mm3 Baso # (Auto) 0.1 (0.0-0.1) K/mm3 Abs Immat Gran (auto) 0.01 (0.00-0.031) K/mm3 Absolute Neuts (auto) 4.1 (1.3-6.7) K/mm3 Absolute Nucleated RBC 0.000 (0.0-0.012) K/mm3 Nucleated RBC % 0.0 (0.0-0.2) % Sodium 137 (137-145) mmol/L Potassium 3.7 (3.4-5.0) mmol/L Chloride 101 (98-107) mmol/L Carbon Dioxide 28 (22-30) mmol/L Anion Gap 8 (4-12) mmol/L BUN 15 (7-17) mg/dL Creatinine 0.75 (0.7-1.0) mg/dL Estim Creat Clear Calc 46 ml/min Estimated GFR > 60 (59 - ) Glucose 104 (65-110) mg/dL Calcium 9.6 (8.4-10.2) mg/dL Total Bilirubin 0.4 (0.2-1.3) mg/dL AST 69 H (14-36) U/L ALT 45 H (6-35) U/L Alkaline Phosphatase 93 (38-126) U/L Troponin I < 0.012 (0.000-0.034) ng/mL Total Protein 7.6 (6.3-8.2) g/dL Albumin 4.6 (3.5-5.1) g/dL Lipase 71 (23-300) U/L Urine Color Yellow (Yellow) Urine Appearance Clear (Clear) Urine pH 5.5 (5.0-9.0) Ur Specific Mullin 1.019 (1.001-1.035) Urine Protein Negative (Negative) mg/dL Urine Glucose (UA) Negative (Negative) mg/dL Urine Ketones Negative (Negative) mg/dL Ur Blood (Man) Negative (Negative) Urine Nitrate Negative (Negative) Urine Bilirubin Negative (Negative) Urine Urobilinogen 0.2 (<2.0) mg/dL Leukocyte Esterase Rfl Trace H (Negative) MENG/UL Urine RBC 0-2 (0-2) /hpf Urine WBC 0-5 (0-3) /hpf Ur Squamous Epith Cells None seen (Few) /hpf Urine Bacteria None seen /hpf Urine Casts 0-2 Imaging Data Attestation: I personally reviewed and interpreted this imaging study as follows: My impression: Gastroenteritis Discharge Plan Discharge Clinical Impression: Gastroenteritis Patient Disposition: Home Condition: Stable Instructions: Antibiotic Form, Gastroenteritis (DC) Additional Instructions: CT scan shows gastroenteritis but no obstruction or intra-abdominal process otherwise. This is likely viral in nature and will subside within several days but we will send you home with some symptom controlling medications in the meantime. Return with any worsening pain, inability to tolerate oral intake, dehydration or any other issues. Patient Language: Tanzanian Prescriptions: New famotidine [Pepcid] 20 mg tablet 20 mg PO BID Qty: 20 0RF dicyclomine 20 mg tablet 20 mg PO TID PRN (Reason: abdominal pain) Qty: 20 0RF ondansetron 4 mg tablet,disintegrating 4 mg PO Q8H PRN (Reason: nausea and vomiting) Qty: 10 0RF No Action ipratropium bromide 42 mcg (0.06 %) spray,non-aerosol 1 spray intranasal DAILY azelastine 137 mcg (0.1 %) spray,non-aerosol 137 mcg intranasal . q.h.s. Qty: 30 1RF Rx Instructions: administer into each nostril 1 or 2 sprays q.h.s. at bedtime All Day Allergy (cetirizine) 10 mg capsule 10 mg PO DAILY PRN (Reason: allergies) cholecalciferol (vitamin D3) 125 mcg (5,000 unit) tablet 125 mcg PO DAILY epinephrine 0.3 mg/0.3 mL auto-injector 0.3 mg IM ONCE Rx Instructions: as a single dose; may repeat once Xhance 93 mcg/actuation aerosol breath activated 1 spray intranasal Q12H Qty: 16 3RF Rx Instructions: into each nostril alprazolam 0.5 mg tablet 0.5 mg PO DAILY PRN (Reason: anxiety) Qty: 30 1RF Airsupra 90-80 mcg/actuation HFA aerosol inhaler 2 inh inhalation 6XD PRN (Reason: shortness of breath) Qty: 32.1 3RF formoterol fumarate [Perforomist] 20 mcg/2 mL Solution For Nebulization 20 mcg INHALATION ONCE Yupelri 175 mcg/3 mL Solution For Nebulization 175 mcg INHALATION DAILY Cuvitru 10 gram/50 mL (20 %) Solution See Rx Instructions .ROUTE .COMPLEX Rx Instructions: 50 mL subcutaneously Cbd/Thc 25 mg PO HS gabapentin 300 mg capsule See Rx Instructions .ROUTE .COMPLEX Qty: 270 1RF Dose Instruction: TAKE 1 CAPSULE BY MOUTH THREE TIMES DAILY Rx Instructions: TAKE 1 CAPSULE BY MOUTH THREE TIMES DAILY citalopram 20 mg tablet See Rx Instructions .ROUTE .COMPLEX Qty: 90 1RF Dose Instruction: TAKE 1 TABLET BY MOUTH EVERY DAY Rx Instructions: TAKE 1 TABLET BY MOUTH EVERY DAY clonidine HCl 0.1 mg tablet 0.1 mg PO DAILY Qty: 90 1RF albuterol sulfate [Ventolin HFA] 90 mcg/actuation HFA aerosol inhaler 2 inh INHALATION Q4H PRN (Reason: SOB) Qty: 8.5 0RF esomeprazole magnesium 40 mg capsule,delayed release(DR/EC) See Rx Instructions .ROUTE .COMPLEX Qty: 90 1RF Dose Instruction: TAKE ONE CAPSULE BY MOUTH DAILY Rx Instructions: TAKE ONE CAPSULE BY MOUTH DAILY montelukast 10 mg tablet See Rx Instructions .ROUTE .COMPLEX Qty: 90 0RF Dose Instruction: TAKE 1 TABLET BY MOUTH DAILY Rx Instructions: TAKE 1 TABLET BY MOUTH DAILY amlodipine 10 mg tablet See Rx Instructions .ROUTE .COMPLEX Qty: 90 0RF Dose Instruction: TAKE 1 TABLET BY MOUTH DAILY Rx Instructions: TAKE 1 TABLET BY MOUTH DAILY roflumilast 500 mcg tablet See Rx Instructions .ROUTE .COMPLEX Qty: 90 1RF Dose Instruction: TAKE 1 TABLET BY MOUTH DAILY Rx Instructions: TAKE 1 TABLET BY MOUTH DAILY tramadol 50 mg tablet 50 mg PO Q6H PRN (Reason: pain) Qty: 15 0RF atorvastatin 40 mg tablet See Rx Instructions .ROUTE .COMPLEX Qty: 90 1RF Dose Instruction: TAKE 1 TABLET(40 MG) BY MOUTH DAILY Rx Instructions: TAKE 1 TABLET(40 MG) BY MOUTH DAILY celecoxib 200 mg capsule See Rx Instructions .ROUTE .COMPLEX Qty: 180 1RF Dose Instruction: TAKE ONE CAPSULE BY MOUTH TWICE DAILY Rx Instructions: TAKE ONE CAPSULE BY MOUTH TWICE DAILY olmesartan 20 mg tablet 20 mg PO DAILY Qty: 90 0RF Follow-up/Referrals: Scott Hernandez MD [Primary Care Provider, Family Practice] Time of Disposition: 05:05
[2025-05-02] MEDS: FAMOTIDINE 20 MG/2 ML VIAL IV PUSH (03:30)
[2025-05-02] MEDS: ONDANSETRON INJ 4 MG/2 ML VIAL IV PUSH (03:30)
--- OUTSIDE RECORDS SUMMARY | 2025-05-02 03:44 | XMS_ITS | Encounter Summary ---
Author Organization [facility] Address [address] [place] [address] Care Team Providers Care Wallcovering Hanger Name Role Phone Eda Aleman MD Primary Care Provider [phone] Encounter Details Date Type Department Care Team (Latest Contact Info) Description 11/17/2000 Outpatient Historical [facility],NON-PATIENT Sai Maki MD [address] [place] [id number] Benign neoplasm of skin of other and unspecified parts of face (Primary Dx) Social History Tobacco Use Types Packs/Day Years Used Date Smoking Tobacco: Never Assessed Comments Unknown Sex and Gender Information Value Date Recorded Sex Assigned at Not on file 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
--- OUTSIDE RECORDS SUMMARY | 2025-05-02 03:44 | XMS_ITS | Clinical Summary ---
Author Organization [facility] Address [address] [address] [place] [address] Phone Care Team Providers Care Sister Superior Name Role Phone Scott Hernandez MD Primary Care Provider [phone] Allergies No known active allergies Medications DEXILANT [...] by mouth every 30 days. Active Multiple Vitamins-[place] als (MULTIVITAMIN PO) Take by mouth. Activ [...] complete this topic Insurance MEDICARE Care Teams Sister Superior Relationship Specialty Start Date End Date Scott Hernandez MD [address] [place] [id number] PCP - General Family Medicine 02/15/17
--- OUTSIDE RECORDS SUMMARY | 2025-05-02 03:44 | XMS_ITS | Encounter Summary ---
Author Organization [facility] Address [facility] [place] [address] Care Team Providers Care Java Grails Developer Name Role Phone Scott Hernandez MD Primary Care Provider [phone] Encounter Details Date Type Department Care Team (Late Contact Info) Description 01/04/2023 MyChart Message [facility] [address] [place] [address] [employer], [facility] Provider Air Quality Message Social History Tobacco [...] Description 11/13/2025 10:00 AM CDT Office Visit [facility] Mult[facility]pecialty Care - [address], [address] [place] [address] Dustin Akins MD [address] [place] [id number] documented as of this encounter Visit Diagnoses Not on filedocumented in this encounter Additional Health Concerns Assessment Noted Time PHQ-9 Depression Total Score: 2 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
--- OUTSIDE RECORDS SUMMARY | 2025-05-02 03:44 | XMS_ITS | Encounter Summary ---
Author Organization [facility] Address [address] [place] [address] Care Team Providers Care Sustainability Director Name Role Phone Scott Hernandez MD Primary Care Provider [phone] Encounter Details Date Type Department Care Team (Late st Contact Info) Description 01/30/2018 Lab Requisition 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 Gender Identity Not on file Sexual Orientation Not on file documented as of this encounter Plan of Treatment Not on file documented as of this encounter Procedures Procedure Name Priority Date/Time Associated Diagnosis Comments DERMATOPATHOLOGY Routine 01/25/2018 12:0 0 AM CDT documented in this encounter Results * DERMATOPATHOLOGY (01/25/2018 12:00 AM CDT) Case Report Dermatopathology Report Case: [id number] Authorizing Provider: Scott Hernandez MD Collected: 01/25/2018 12:00 AM Pathologist: Tana Epps MD Received: 01/30/2018 12:12 PM Specimen: Skin, left upper arm 8 1:06 PM CDT DERMATOPATHOLOGY LABORATORY Final Diagnosis Specimen A. SKIN, left upper arm: BENIGN VERRUCOUS KERATOSIS, INFLAMED (L82.1) PRESENT AT MARGIN 1:06 PM CDT DERMATOPATHOLOGY LABORATORY at 1306 CDT Clinical History Changing lesion. Check margins. 1:06 PM CDT DERMATOPATHOLOGY LABORATORY Gross Description Specimen A: Received is one formalin filled container labeled with the patient's name and designated left upper arm. The specimen consists of a shave biopsy (2 pieces) measuring [id number], inked green, & [id number]. Jar 0. 1:06 PM CDT DERMATOPATHOLOGY LABORATORY Microscopic Description Specimen A. SKIN, left upper arm: Sections show hyperkeratosis, papillomatosis, hypergranulosis, and acanthosis. Inflammatory cells are present within the dermis. These histological findings can be seen in a verruca vulgaris or a seborrheic keratosis. This lesion is present at the margin of the specimen. 1:06 PM CDT DERMATOPATHOLOGY LABORATORY Disclaimer An external and internal positive and negative controls are appropriate for the histochemical, immunohistochemical and immunofluorescence stain(s) in this case (if any), except where stated explicitly. The performance characteristics of the stain(s) cited in this report were developed and its performance characteristic determined by the Dermatopathology Laboratory at [facility]. These tests need not be, and therefore are not, approved by the [place] Food and Drug Administration. The tests are used for clinical purposes. Billing Codes Specimen Charges Stain Charges 53294 1 1:06 PM CDT DERMATOPATHOLOGY LABORATORY Embedded Images 1:06 PM CDT DERMATOPATHOLOGY LABORATORY Pathology/Cytolog y TISSUE SPECIMEN FROM SKIN / Unknown 01/25/2018 01/30/2018 12:12 PM CDT us Scott Jhonny Hernandez MD LAB - PATHOLOGY/CYTOLOGY [place] Final Result DERMATOPATHOLOGY LABORATORY [facility] - Department of Dermatology [address] [place] [address], [address] [place] [address], [facility] [phone] documented in this encounter Visit Diagnoses Not on filedocumented in this encounter Care Teams Sustainability Director Relationship Specialty Start Date End Date Scott Hernandez MD [address] [place] [address] PCP - General 01/30/18 documented as of this encounter
--- OUTSIDE RECORDS SUMMARY | 2025-05-02 03:44 | XMS_ITS | Clinical Summary ---
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 1 Device 9 Active CPAP MACHINEIndicatio ns:BRUNO (obstructive sleep apnea) AutoCPAP [id number] For use when sleeping Lifetime use 1 Device 9 Active ALBUTEROL (2.5 MG/3ML) 0.083% nebulizer solutionIndicati ons:Chronic obstructive pulmonary disease, unspecified COPD type ([facility]) USE 1 VIAL IN NEBULIZER EVERY [...] s:Chronic obstructive pulmonary disease, unspecified COPD type ([facility]) Take 1 tablet (500 mg total) by mouth 3 (three) times a week. 36 tablet 3 5 Active formoterol (PERFOROMIST) 20 MCG/2ML nebulizer solutionIndicati ons:Chronic obstructive pulmonary disease, unspecified COPD type ([facility]) Take 2 mLs (20 mcg total) by nebulization 2 (two) times a day. 60 mL 11 5 Active budesonide (PULMICORT) 0.5 MG/2ML nebulizer solutionIndicati ons:Chronic obstructive pulmonary disease, unspecified COPD type ([facility]) Take 2 mLs (0.5 mg total) by nebulization 2 (two) times daily. 60 mL 11 5 Active Revefenacin (YUPELRI) 175 MCG/3ML SolutionIndicati ons:Chronic obstructive pulmonary disease, unspecified COPD type ([facility]) Take 1 vial by nebulization daily. 30 mL 11 5 Active azithromycin (ZITHROMAX) 500 mg tabletIndication s:CVID (common variable immunodeficiency ) ([facility]) TAKE 1 TABLET(500 MG) BY MOUTH 3 [...] Description 11/13/2025 10:00 AM CDT Office Visit [facility] - [facility] [address] [place] [id number] Dustin Akins MD [address] [facility] [address] [place] [address] Health Maintenance Due Date Last Done Comments COVID-19 Vaccine (#1) 1950 Hepatitis C 1965 DTaP, Tdap and Td Vaccines (1 - Tdap) 1966 Pneumococcal Vaccine: 50+ Years (1 of 2 - PCV) 1966 Zoster Vaccines (1 of 2) 1966 Annual Medicare Wellness Visit 2012 Dexa Scan (General) 2012 RSV Immunization or 60+ Years (1 - 1-dose 75+ series) 2022 PHQ-2 (Physician [place]) 07/10/2024 01/02/2024 Influenza Adult (#1) 2025 04/09/2021, [...] age to complete this topic Insurance MEDICARE [facility] Care Teams Mold Yard Crane Operator Relationship Specialty Start Date End Date Scott Hernandez MD [address] [address] PCP - General 01/03/17
--- OUTSIDE RECORDS SUMMARY | 2025-05-02 03:44 | XMS_ITS | Clinical Summary ---
Author Organization [facility] Address [address] [place] [address] Care Team Providers Care Library Clerk Talking Books Name Role Phone Scott Hernandez MD Primary Care Provider [phone] Source Comments [facility],non-owned Affiliates and Associated Physician Practices is amultiple site organization consisting of ambulatory clinics and hospital sitesin [place], [place], [place] and [place]. This disclosure is being madepursuant to the Care Everywhere program and may not contain all information available regarding this patient. 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[employer] Gender Identity Not on file Sexual Orientation Not on file Plan of Treatment Health Maintenance Due Date Last Done Comments BONE DENSITY TESTING 1945 HEPATITIS C SCREENING 06/23/1965 DTAP/TDAP/TD VACCINES (1 - Tdap) 1966 PNEUMOCOCCAL VACCINE 50+ (1 of 1 - PCV) 1997 ZOSTER VACCINE (1 of 2) 1997 Respiratory Syncytial Virus (RSV) Vaccine Pt: or over 60 yrs (1 - 1-dose 75+ series) 2022 DEPRESSION SCREENING 07/10/2024 COVID-19 VACCINE ( - 2023-2 5 season) 2025 INFLUENZA VACCINE (#1) 2025 HEPATITIS B VACCINE Aged Out No longe r eligible based on patient's age to complete this topic HIB VACCINE Aged Out No longer eligi ble based on patient's age to complete this topic HPV VACCINE Aged Out No longer eligi ble based on patient's age to complete this topic MENINGOCOCCAL (Group B) VACC INE SHARED DECISION-MAKING Aged Out No longer eligibl e based on patient's age to complete this topic MENINGOCOCCAL GROUPS A/C/Y/W VACCINE Aged Out No longer eligible b ased on patient's age to complete this topic Insurance DR [facility] [address] [place] [phone] MEDICARE Care Teams Library Clerk Talking Books Relationship Specialty Start Date End Date Scott Hernandez MD [address] [place] [address] PCP - General 01/30/18
--- OUTSIDE RECORDS SUMMARY | 2025-05-02 03:44 | XMS_ITS | Clinical Summary ---
Author Organization [facility] Address [address] [place] [address] Phone Care Team Providers Care White Sourer Name Role Phone Eda Aleman MD Primary Care Provider [phone] Allergies Active Allergy Reactions Criticality Noted Date Comments Codeine Nausea and Vomiting Low 11/06/2009 Medications AMLODIPINE BES/OLMESARTAN MED (CLAIRE ORAL) Take by mouth. Active MILNACIPRAN HCL (SAVELLA ORAL) Take by mouth. Active CELECOXIB (CELEBREX ORAL) Take by mouth. Active CITALOPRAM HYDROBROMIDE (CELEXA ORAL) Take by mouth. Active ATORVASTATIN CALCIUM (LIPITOR ORAL) Take by mouth. Active CLONIDINE HCL (CLONIDINE ORAL)Indications:D iffuse cystic mastopathy Take by mouth. Active TIOTROPIUM BROMIDE (SPIRIVA WITH HANDIHALER INHALATION)Indicat ions:Diffuse cystic mastopathy Take by inhalatio n. Active FLUTICASONE/SALMET LEVON (ADVAIR HFA INHALATION)Indicat ions:Diffuse cystic mastopathy Take by inhalatio n. 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 Gender Identity Not on file Sexual Orientation Not on file Occupation Industry Job Start Date Job End Date Not on file Not on file Not on file Not on file Last Filed Vital Signs Vital Sign Reading Time Taken Comments Blood Pressure 129/82 03/06/2012 3:36 PM CDT Pulse 83 03/06/2012 3:36 PM CDT Temperature - - Respiratory Rate - - Oxygen Saturation - - Inhaled Oxygen Concentration - - Weight 69.9 kg (154 lb) 11/10/2009 12:27 PM CDT Height 154.9 cm (5' 1) 03/06/2012 3:36 PM CDT Body Mass Index 29.1 11/10/2009 12:27 PM CDT Plan of Treatment Health Maintenance Due Date Last Done Comments DTAP/TDAP/TD VACCINES (1 - Tdap) 1966 PNEUMOCOCCAL VACCINE 50+ YEARS (1 of 2 - PCV) 06/28/19 66 ZOSTER VACCINE (1 of 2) 1997 OSTEOPOROSIS SCREENING 2012 RSV VACCINE (60+ or ) (1 - 1-dose 75+ series) 2022 INFLUENZA VACCINE (#1) 2025 Insurance MEDICARE PART A AND B [employer]k [employer] ACCESS/TRUE Options Away PPO Care Teams White Sourer Relationship Specialty Start Date End Date Eda Aleman MD [address] [place] [address] PCP - General 11/04/08
[2025-05-02 04:02] LABS: Add Urine Microscopic? YES; Appearance Urine Clear (Clear); Glucose Urine UA Negative (Negative); Leukocyte Esterase Ur Trace LEU/UL (Negative); Nitrate Urine Negative (Negative); Non Pathogenic Casts 0-2; Specific Grav Ur 1.019 (1.001-1.035)
[2025-05-02 05:13] VITALS: BP 126/66; PULSE 55; RESP 16; O2SAT 97
== END 2025-05-02 05:15 | disposition home or self-care (01) ==
PROVIDERS: Emergency Provider Student in an Organized Health Care Education/Training Program; PCP Family Medicine
DX: K52.9 Noninfective gastroenteritis and colitis, unspecified (principal); I10 Essential (primary) hypertension; E78.5 Hyperlipidemia, unspecified; J44.9 Chronic obstructive pulmonary disease, unspecified; M79.7 Fibromyalgia; M19.90 Unspecified osteoarthritis, unspecified site; K21.9 Gastro-esophageal reflux disease without esophagitis; K44.9 Diaphragmatic hernia without obstruction or gangrene; Z87.891 Personal history of nicotine dependence; Z79.899 Other long term (current) drug therapy; R00.1 Bradycardia, unspecified; R94.31 Abnormal electrocardiogram [ECG] [EKG]
CPT/HCPCS: 36415; 74177; 80053; 81001; 83690; 84484; 85025; 93005; 96374; 96375; 99284; J2405; Q9967